=== PATIENT | female | born 1945 | race Caucasian/White ===

== ENCOUNTER → 2016-06-20 | Outpatient (CLI) | payer MEDICARE, BC ==
--- NOTE | 2016-06-20 16:05 | XR ---
Left wrist HISTORY: Pain 4 views of the left breast Exam correlated to prior exam second June 2016 left hand Bone mineralization is mildly reduced. Some joint space loss present at the carpometacarpal joint of the first digit. Possible geode formation within the scaphoid. Alignment is maintained. Lucency prese nt with overhanging edge at the level of the distal first metacarpal. Question erosion at the ulnar s tyloid. Joint space loss of the radiocarpal joint. IMPRESSION: Consider gout, osteoarthritis.
--- NOTE | 2016-06-20 16:18 | XR ---
Right hand HISTORY: Pain in left hand Correlation to left wrist same date 3 views of the left hand There is an overhanging edge, associated soft tissue swelling involving metacarpal. Bone mineralizati on appears decreased. Alignment is maintained. Some loss of joint space at the radiocarpal joint. Mansoor ency present at the ulnar styloid. There may be geode formation within the carpal bones. IMPRESSION: Consider gout, osteoarthritis.
== END | disposition home or self-care (01) ==
LOC: RADXRMAIN 15:22
PROVIDERS: ATTEND Family Medicine
DX: M79.642 Pain in left hand (principal)

== ENCOUNTER → 2018-04-07 | Outpatient (CLI) | payer MEDICARE, BC ==
--- NOTE | 2018-04-07 09:35 | US ---
EXAMINATION TYPE: US carotid duplex BILAT DATE OF EXAM: 04/07/2018 COMPARISON: NONE CLINICAL HISTORY: R42 dizziness/giddiness. x 10 days EXAM MEASUREMENTS: RIGHT: Peak Systolic Velocity (PSV) cm/sec ----- Right CCA: 111.9 ----- Right ICA: 139.2 ----- Right ECA: 172.0 ICA/CCA ratio: 1.2 RIGHT: End Diastole cm/sec ----- Right CCA: 21.0 ----- Right ICA: 22.9 ----- Right ECA: 0.0 LEFT: Peak Systolic Velocity (PSV) cm/sec ----- Left CCA: 87.6 ----- Left ICA: 308.4 ----- Left ECA: 112.5 ICA/CCA ratio: 3.5 LEFT: End Diastole cm/sec ----- Left CCA: 17.6 ----- Left ICA: 7.4 ----- Left ECA: 0.0 VERTEBRALS (direction of flow): Right Vertebral: Antegrade Left Vertebral: Antegrade Rhythm: Normal bilateral soft and calcified plaque. Increased flow velocities bilaterally. Left>Right. IMPRESSION: 1. Bilateral atherosclerotic plaque with findings suggestive of a 50-69% stenosis involving the proxi mal left ICA Criteria for Assigning % of Stenosis / Diameter reduction (Estimation based on the indirect measurements of the internal carotid artery velocities (ICA PSV). 1. Normal (no stenosis)=ICA PSV < 125 cm/s: ratio < 2.0: ICA EDV<40 cm/s. 2. Less than 50% stenosis=ICA PSV < 125 cm/s: ratio < 2.0: ICA EDV<40 cm/s. 3. 50 to 69% stenosis=ICA PSV of 125 to 230 cm/s: ration 2.0 ? 4.0: ICA EDV 40-100 cm/s. 4. Greater than 70% stenosis to near occlusion= ICA PSV > 230 cm/s: ratio > 4.0: ICA EDV > 100 cm/s. 5. Near occlusion= ICA PSV velocities may be low or undetectable: variable ratio and ICA EDV. 6. Total occlusion=unable to detect flow.
== END ==
LOC: RADUSMAIN 08:22
PROVIDERS: ATTEND Nurse Practitioner Family
DX: I65.23 Occlusion and stenosis of bilateral carotid arteries (principal); Z88.8 Allergy status to other drugs, medicaments and biological substances
CPT/HCPCS: 93880

== ENCOUNTER → 2018-11-20 | Outpatient (CLI) | payer MEDICARE, BC ==
[2018-11-20 12:15] LABS: African American GFR (CKD) >90 (>60 ml/min/1.73 sqM); Blood Urea Nitrogen 13 mg/dL (7-17)
--- NOTE | 2018-11-20 13:19 | CT ---
EXAMINATION TYPE: CT abdomen w con DATE OF EXAM: 11/20/2018 COMPARISON: HISTORY: LUQ pain x [address] DLP: 1180.7 mGycm Automated exposure control for dose reduction was used. TECHNIQUE: Helical acquisition of images was performed from the lung bases through the top of iliac crest to include entire abdomen. CONTRAST: Performed with Oral Contrast and with IV Contrast, patient injected with 100 mL of Isovue 300. FINDINGS: There are moderate coronary artery calcifications. LUNG BASES: No significant abnormality is appreciated. LIVER/GB: No significant abnormality is appreciated. PANCREAS: No significant abnormality is seen. SPLEEN: No significant abnormality is seen. ADRENALS: No significant abnormality is seen. KIDNEYS: No significant abnormality is seen. BOWEL: There is a duodenal diverticulum at the 3rd-4th portion of the duodenum.. LYMPH NODES: No significant abnormality is appreciated. OSSEOUS STRUCTURES: Degenerative disc changes are present within the visualized lumbar spine, there is a spinal curvature.. FREE AIR: No Free Air visible ASCITES: None visible. RETROPERITONEAL ADENOPATHY: No Retroperitoneal Adenopathy visible. OTHER: Dense atheromatous changes within the aorta. IMPRESSION: DUODENAL DIVERTICULUM. DEGENERATIVE DISC DISEASE AND SCOLIOSIS, FACET ARTHROPATHY. Coronary artery di laverne.
== END | disposition home or self-care (01) ==
LOC: RADCTMAIN 11:23
PROVIDERS: ATTEND Nurse Practitioner Women's Health
DX: K57.10 Diverticulosis of small intestine without perforation or abscess without bleeding (principal); Z88.8 Allergy status to other drugs, medicaments and biological substances
CPT/HCPCS: 82565; 84520; 74160; 36415; Q9967

== ENCOUNTER 2019-02-15 08:39 | Inpatient (IN) | payer MEDICARE, BC ==
[2019-02-15] MEDS ORDERED: IPRATROPIUM-ALBUTEROL 3 ML NEB INHALATION STA (09:13)
--- NOTE | 2019-02-15 09:29 | ED ---
General Adult HPI - General Chief complaint: Upper Respiratory Infection Stated complaint: NAVID, CONGESTION Time Seen by Provider: 02/15/19 08:45 Source: patient, RN notes reviewed, old records reviewed Mode of arrival: ambulatory Limitations: no limitations - History of Present Illness Initial comments: This is a 67-year-old male who presents emergency Department complaining of being short of breath for the last few days. Patient states she was started on amoxicillin by her primary medical care doctor but the difficulty breathing is gotten worse. Patient states she used to smoke some 30 years ago but does not smoke anymore. Patient denies a history of COPD. Patient states she had asthma as a child but hasn't had it since. Patient denies any history of congestive heart failure. Patient denies any chest pain or palpitations. Patient denies any fever chills. Patient states his been a nonproductive cough. Patient denies any swelling to the legs or calf tenderness. Patient denies any lightheadedness dizziness or near syncopal episode. Patient denies any abdominal pain patient denies any nausea vomiting. - Related Data Home Medications Medication Instructions Recorded Confirmed Amoxicillin 875 mg PO Q12HR 02/15/19 02/15/19 Gabapentin 600 mg PO BID 02/15/19 02/15/19 Ibuprofen [Advil] 400 mg PO Q8HR PRN 02/15/19 02/15/19 glipiZIDE [Glucotrol] 10 mg PO AC-BID 02/15/19 02/15/19 metFORMIN HCL [Glucophage] 500 mg PO TID 02/15/19 02/15/19 Allergies Allergy/AdvReac Type Severity Reaction Status Date / Time No Known Allergies Allergy Verified 02/15/19 09:13 Review of Systems ROS Statement: Those systems with pertinent positive or pertinent negative responses have been documented in the HPI. ROS Other: All systems not noted in ROS Statement are negative. Past Medical History Past Medical History: Diabetes Mellitus, Hypertension History of Any Multi-Drug Resistant Organisms: None Reported Past Surgical History: Breast Surgery Additional Past Surgical History / Comment(s): tumor removed, EGD Past Psychological History: No Psychological Hx Reported Smoking Status: Never smoker Past Alcohol Use History: None Reported Past Drug Use History: None Reported General Exam - General Exam Comments Initial Comments: GENERAL: Patient is well-developed and well-nourished. Patient is nontoxic and well- hydrated and is in mild distress. ENT: Neck is soft and supple. No significant lymphadenopathy is noted. Oropharynx is clear. Moist mucous membranes. Neck has full range of motion without elicit ing any pain. EYES: The sclera were anicteric and conjunctiva were pink and moist. Extraocular m ovements were intact and pupils were equal round and reactive to light. Eyelids were unremarkable. PULMONARY: Patient is crackles in the bases bilaterally CARDIOVASCULAR: There is a regular rate and rhythm without any murmurs gallops or rubs. ABDOMEN: Soft and nontender with normal bowel sounds. No palpable organomegaly was noted. There is no palpable pulsatile mass. SKIN: Skin is clear with no lesions or rashes and otherwise unremarkable. NEUROLOGIC: Patient is alert and oriented x3. Cranial nerves II through XII are grossly intact. Motor and sensory are also intact. Normal speech, volume and content. Symmetrical smile. MUSCULOSKELETAL: Normal extremities with adequate strength and full range of motion. LYMPHATICS: No significant lymphadenopathy is noted PSYCHIATRIC: Normal psychiatric evaluation. Limitations: no limitations Course Vital Signs 02/15/19 02/15/19 02/15/19 08:46 08:50 09:23 Temperature 97.5 F L Pulse Rate 105 H 100 Respiratory 18 20 Rate Blood Pressure 164/81 O2 Sat by Pulse 93 L Oximetry 02/15/19 02/15/19 09:35 11:44 Temperature 97.6 F Pulse Rate 104 H 98 Respiratory 20 Rate Blood Pressure 170/93 O2 Sat by Pulse 97 Oximetry Medical Decision Making - Medical Decision Making EKG shows normal sinus rhythm at 91 bpm FL interval is 156 dresses 90 QT interval 394 QTC is 484. Patient's EKG shows no ST segment elevation or depression or T wave abnormalities are noted Chest x-ray shows acute pulmonary edema Patient's troponin was also elevated so started the patient heparin. Give the patient Nitropaste and Lasix because of the congestive heart.. I spoke with Dr. Childress he agreed to admit the patient admitted the patient I consult cardiology continued Lasix Nitropaste and heparin on the floor. - Lab Data Result diagrams: 02/15/19 10:10 02/15/19 10:10 Lab Results 02/15/19 02/15/19 02/15/19 Range/Units 10:10 10:10 10:10 WBC 9.3 (3.8-10.6) k/uL RBC 4.08 (3.80-5.40) m/uL Hgb 11.7 (11.4-16.0) gm/dL Hct 36.2 (34.0-46.0) % MCV 88.7 (80.0-100.0) fL MCH 28.6 (25.0-35.0) pg MCHC 32.2 (31.0-37.0) g/dL RDW 15.4 (11.5-15.5) % Plt Count 419 (150-450) k/uL Neutrophils % 84 % Lymphocytes % 10 % Monocytes % 4 % Eosinophils % 1 % Basophils % 1 % Neutrophils # 7.8 H (1.3-7.7) k/uL Lymphocytes # 0.9 L (1.0-4.8) k/uL Monocytes # 0.3 (0-1.0) k/uL Eosinophils # 0.1 (0-0.7) k/uL Basophils # 0.1 (0-0.2) k/uL Hypochromasia Slight Poikilocytosis Slight PT (9.0-12.0) sec INR (<1.2) APTT (22.0-30.0) sec Sodium 139 (137-145) mmol/L Potassium 4.3 (3.5-5.1) mmol/L Chloride 99 (98-107) mmol/L Carbon Dioxide 28 (22-30) mmol/L Anion Gap 12 mmol/L BUN 11 (7-17) mg/dL Creatinine 0.43 L (0.52-1.04) mg/dL Est GFR (CKD-EPI)AfAm >90 (>60 ml/min/1.73 sqM) Est GFR (CKD-EPI)NonAf >90 (>60 ml/min/1.73 sqM) Glucose 437 H (74-99) mg/dL Calcium 9.4 (8.4-10.2) mg/dL Magnesium 1.7 (1.6-2.3) mg/dL Total Bilirubin 1.4 H (0.2-1.3) mg/dL AST 16 (14-36) U/L ALT 18 (9-52) U/L Alkaline Phosphatase 83 (38-126) U/L Troponin I (0.000-0.034) ng/mL NT-Pro-B Natriuret Pep 1500 pg/mL Total Protein 7.3 (6.3-8.2) g/dL Albumin 3.9 (3.5-5.0) g/dL 02/15/19 02/15/19 Range/Units 10:10 10:10 WBC (3.8-10.6) k/uL RBC (3.80-5.40) m/uL Hgb (11.4-16.0) gm/dL Hct (34.0-46.0) % MCV (80.0-100.0) fL MCH (25.0-35.0) pg MCHC (31.0-37.0) g/dL RDW (11.5-15.5) % Plt Count (150-450) k/uL Neutrophils % % Lymphocytes % % Monocytes % % Eosinophils % % Basophils % % Neutrophils # (1.3-7.7) k/uL Lymphocytes # (1.0-4.8) k/uL Monocytes # (0-1.0) k/uL Eosinophils # (0-0.7) k/uL Basophils # (0-0.2) k/uL Hypochromasia Poikilocytosis PT 10.6 (9.0-12.0) sec INR 1.0 (<1.2) APTT 22.5 (22.0-30.0) sec Sodium (137-145) mmol/L Potassium (3.5-5.1) mmol/L Chloride (98-107) mmol/L Carbon Dioxide (22-30) mmol/L Anion Gap mmol/L BUN (7-17) mg/dL Creatinine (0.52-1.04) mg/dL Est GFR (CKD-EPI)AfAm (>60 ml/min/1.73 sqM) Est GFR (CKD-EPI)NonAf (>60 ml/min/1.73 sqM) Glucose (74-99) mg/dL Calcium (8.4-10.2) mg/dL Magnesium (1.6-2.3) mg/dL Total Bilirubin (0.2-1.3) mg/dL AST (14-36) U/L ALT (9-52) U/L Alkaline Phosphatase (38-126) U/L Troponin I 0.131 H* (0.000-0.034) ng/mL NT-Pro-B Natriuret Pep pg/mL Total Protein (6.3-8.2) g/dL Albumin (3.5-5.0) g/dL Disposition Clinical Impression: Acute pulmonary edema Disposition: ADMITTED IP TO THIS HOSP Referrals: Wilfredo Boland MD [Primary Care Provider] - 1-2 days Time of Disposition: 11:56
--- NOTE | 2019-02-15 09:44 | XR ---
EXAMINATION TYPE: XR chest 2V DATE OF EXAM: 02/15/2019 COMPARISON: None HISTORY: Difficulty breathing, shortness of breath TECHNIQUE: Frontal and lateral views of the chest are obtained. FINDINGS: Interstitium is increased. The heart is enlarged. There is no pneumothorax. Blunting the c ostophrenic angles. Aorta is dense. Central vascularity is prominent, perihilar vascular indistinctne ss is noted. IMPRESSION: Correlate for congestive heart failure, possible small effusions
[2019-02-15 10:29] LABS: Basophils # (A) 0.1 k/uL (0-0.2); Basophils % (A) 1 %; Eosinophils # (A) 0.1 k/uL (0-0.7); Eosinophils % (A) 1 %; HCT 36.2 % (34.0-46.0); HGB 11.7 gm/dL (11.4-16.0); Hypochromasia Slight; Lymphocytes # (A) 0.9 k/uL (1.0-4.8); Lymphocytes % (A) 10 %; MCH 28.6 pg (25.0-35.0); MCHC 32.2 g/dL (31.0-37.0); MCV 88.7 fL (80.0-100.0); Mean Platelet Volume 5.9; Monocytes # (A) 0.3 k/uL (0-1.0); Monocytes % (A) 4 %; Neutrophils # (A) 7.8 k/uL (1.3-7.7); Neutrophils % (A) 84 %; Platelet Count 419 k/uL (150-450); Poikilocytosis Slight; RBC 4.08 m/uL (3.80-5.40); RDW 15.4 % (11.5-15.5); WBC 9.3 k/uL (3.8-10.6)
[2019-02-15 10:41] LABS: ALT 18 U/L (9-52); AST 16 U/L (14-36); African American GFR (CKD) >90 (>60 ml/min/1.73 sqM); Albumin 3.9 g/dL (3.5-5.0); Alkaline Phosphatase 83 U/L (38-126); Anion Gap 12 mmol/L; Blood Urea Nitrogen 11 mg/dL (7-17); Calcium 9.4 mg/dL (8.4-10.2); Carbon Dioxide 28 mmol/L (22-30); Chloride 99 mmol/L (98-107); Glucose 437 mg/dL (74-99); Magnesium 1.7 mg/dL (1.6-2.3); Non-African American GFR(CKD) >90 (>60 ml/min/1.73 sqM); Potassium 4.3 mmol/L (3.5-5.1); Sodium 139 mmol/L (137-145); Total Bilirubin 1.4 mg/dL (0.2-1.3); Total Protein 7.3 g/dL (6.3-8.2)
[2019-02-15 10:43] LABS: Partial Thromboplastin Time 22.5 sec (22.0-30.0); Prothrombin Time 10.6 sec (9.0-12.0)
[2019-02-15] MEDS ORDERED: HEPARIN SODIUM,PORCINE 5,000 UNIT/ML 1 ML VIAL IV ONE (11:47)
[2019-02-15] MEDS ORDERED: FUROSEMIDE 10 MG/ML 2 ML VIAL IV STA (11:57)
[2019-02-15] MEDS ORDERED: ASPIRIN 325 MG TAB PO STA (11:57)
[2019-02-15] MEDS ORDERED: NITROGLYCERIN OINT 1 INCH/GM PACKET TOPICAL STA (11:58)
[2019-02-15 12:38] LABS: Glucose,Whole Blood 362 mg/dL (75-99)
[2019-02-15] MEDS: INSULIN ASPART (NovoLOG) 100 UNIT/ML VIAL SQ SCH ×3 (12:40→20:45)
[2019-02-15] MEDS: HEPARIN SOD,PORK IN 0.45% NACL 25,000 UNIT in 0.45% NACL 1 250ML.BAG IV SCH (12:45)
[2019-02-15] MEDS ORDERED: IBUPROFEN 400 MG TAB PO PRN (15:42)
[2019-02-15] MEDS: glipiZIDE 10 MG TAB PO SCH (17:00)
[2019-02-15] MEDS: FUROSEMIDE 20 MG TAB PO SCH ×2 (17:00→22:43)
[2019-02-15] MEDS: NITROGLYCERIN OINT 1 INCH/GM PACKET TOPICAL SCH ×2 (17:04→20:45)
[2019-02-15 17:15] LABS: Glucose,Whole Blood 316 mg/dL (75-99)
[2019-02-15 20:25] LABS: Glucose,Whole Blood 224 mg/dL (75-99)
[2019-02-15] MEDS: GABAPENTIN 300 MG CAP PO SCH (20:45)
[2019-02-16 06:09] LABS: Glucose,Whole Blood 124 mg/dL (75-99)
[2019-02-16] MEDS: INSULIN ASPART (NovoLOG) 100 UNIT/ML VIAL SQ SCH ×4 (06:14→21:17)
[2019-02-16] MEDS: glipiZIDE 10 MG TAB PO SCH ×3 (06:18→17:51)
[2019-02-16] MEDS ORDERED: NITROGLYCERIN SL TABS 0.4 MG TAB SUBLINGUAL PRN (08:35)
[2019-02-16] MEDS ORDERED: ALPRAZolam 0.25 MG TAB PO PRN (08:35)
[2019-02-16] MEDS ORDERED: ASPIRIN 325 MG TAB PO STA (08:35)
[2019-02-16] MEDS ORDERED: ATORVASTATIN 80 MG TAB PO STA (08:35)
[2019-02-16] MEDS ORDERED: ALPRAZolam 0.5 MG TAB PO PRN (08:35)
[2019-02-16] MEDS ORDERED: SODIUM CHLORIDE 0.9% 1,000 ML in EMPTY BAG 1 BAG IV ONE (08:35)
[2019-02-16] MEDS: GABAPENTIN 300 MG CAP PO SCH ×2 (09:03→22:34)
[2019-02-16] MEDS: METOPROLOL SUCCINATE (ER) 25 MG TAB.ER.24H PO SCH (09:04)
[2019-02-16] MEDS: NITROGLYCERIN OINT 1 INCH/GM PACKET TOPICAL SCH ×4 (09:04→22:38)
--- NOTE | 2019-02-16 09:13 | CONS ---
CONSULTATION CHIEF COMPLAINT: Shortness of breath This is a 73-year-old lady with multiple coronary risk factors including hypertension, diabetes, strong family history of premature coronary artery disease, who presented to hospital complaining of shortness of breath. Her difficulty in breathing had been going on for the last one week. It initially started with cough and cold. Subsequently, she has had significant shortness of breath. It comes on with exertion and is relieved with rest. There is no history of leg edema, PND or orthopnea. She came to hospital with these symptoms and her troponin came back elevated. An EKG shows sinus rhythm with nonspecific ST-T wave changes. Given shortness of breath and elevated troponin, iron, and multiple coronary risk factors, I advised the patient to undergo cardiac catheterization to evaluate for coronary artery disease. She had been explained of risks, benefits and alternatives, understood and accepted. PAST MEDICAL HISTORY: Significant for hypertension, diabetes. MEDICATIONS: At home included Glucophage 500 t.i.d., amoxicillin, Glucotrol, Advil, and Neurontin. ALLERGIES: There are no known drug allergies. FAMILY HISTORY: Significant for premature coronary artery disease and there is also family history of diabetes. REVIEW OF SYSTEMS: HEENT: Unremarkable. CARDIAC: As described above. RESPIRATORY: As described above. GI: Negative. GENITOURINARY: Negative. ALLERGY/IMMUNOLOGIC: Negative. MUSCULOSKELETAL: Negative. ENDOCRINE: Negative. HEMATOLOGICAL: Negative. DERM: Negative. CONSTITUTIONAL: Negative. ONCOLOGICAL: Negative. Rest of the system review is not relevant. PHYSICAL EXAM: Patient is comfortable at rest. Vital signs are stable. There is no jugular venous distention. Carotid upstroke is normal. There is no bruit. Chest exam reveals good air entry bilaterally. There are no crackles or rhonchi. Heart exam reveals first and second heart sounds. No gallop. No murmur. No rub. Abdomen is soft, nontender. Exam of the extremities did not reveal any edema. Peripheral pulses are felt. LABS: Show potassium of 4.3, creatinine of 0.4, hemoglobin is 7.7, platelet count is 419. Troponin is 0.131. ASSESSMENT: 1. Shortness of breath secondary to acute non ST-segment elevation myocardial infarction. 2. Hypertension. 3. Diabetes. PLAN: I will perform cardiac catheterization on the patient and decide on further course of action. I will obtain a 2D echo to evaluate her LV function and wall motion. Will start the patient on a beta kan. Continue the aspirin. Check lipid profile and start her on statin. MMODL / IJN: [id number] /
[2019-02-16 09:41] LABS: Basophils % (A) 0 %; Eosinophils # (A) 0.3 k/uL (0-0.7); Eosinophils % (A) 3 %; HCT 34.7 % (34.0-46.0); Hypochromasia Moderate; Lymphocytes # (A) 1.6 k/uL (1.0-4.8); Lymphocytes % (A) 18 %; MCH 28.3 pg (25.0-35.0); MCHC 31.7 g/dL (31.0-37.0); MCV 89.1 fL (80.0-100.0); Mean Platelet Volume 5.9; Monocytes # (A) 0.4 k/uL (0-1.0); Monocytes % (A) 5 %; Neutrophils # (A) 6.3 k/uL (1.3-7.7); Neutrophils % (A) 72 %; Platelet Count 414 k/uL (150-450); Poikilocytosis Slight; RDW 15.5 % (11.5-15.5); WBC 8.7 k/uL (3.8-10.6)
[2019-02-16 09:57] LABS: African American GFR (CKD) >90 (>60 ml/min/1.73 sqM); Anion Gap 7 mmol/L; Blood Urea Nitrogen 14 mg/dL (7-17); Calcium 8.9 mg/dL (8.4-10.2); Carbon Dioxide 31 mmol/L (22-30); Chloride 103 mmol/L (98-107); Cholesterol 189 mg/dL (<200); Glucose 155 mg/dL (74-99); HDL Cholesterol 35 mg/dL (40-60); LDL Cholesterol,Calculated 133 mg/dL (0-99); Non-African American GFR(CKD) >90 (>60 ml/min/1.73 sqM); Potassium 4.1 mmol/L (3.5-5.1); Sodium 141 mmol/L (137-145); Triglycerides 107 mg/dL (<150)
[2019-02-16 11:07] VITALS: BMI 29.1
--- NOTE | 2019-02-16 11:36 | ECHOF ---
Referral Reason:nonstemi MEASUREMENTS -------- HEIGHT: 167.6 cm WEIGHT: 81.6 kg BP: 138/72 RVIDd: 1.9 cm (< 3.3) IVSd: 0.9 cm (0.6 - 1.1) LVIDd: 4.8 cm (3.9 - 5.3) LVPWd: 1.2 cm (0.6 - 1.1) IVSs: 1.3 cm LVIDs: 3.6 cm LVPWs: 1.3 cm Ao Diam: 2.5 cm (2.0 - 3.7) AV Cusp: 1.7 cm (1.5 - 2.6) LA Diam: 3.9 cm (2.7 - 3.8) MV EXCURSION: 13.536 mm (> 18.000) MV EF SLOPE: 78 mm/s (70 - 150) EPSS: 0.4 cm MV E Pavan: 1.27 m/s MV DecT: 169 ms MV A Pavan: 1.23 m/s MV E/A Ratio: 1.03 RAP: 5.00 mmHg RVSP: 8.33 mmHg FINDINGS -------- Sinus rhythm. This was a technically difficult study with suboptimal views. The left ventricular size is normal. Left ventricular wall thickness is normal. Overall left vent ricular systolic function is low-normal with, an EF between 50 - 55 %. The right ventricle is normal in size. The left atrial size is normal. The right atrial size is normal. Lumason used The aortic valve is trileaflet and appears structurally normal. The mitral valve is normal. The mitral valve leaflets are mildly thickened. Mild mitral regurgita tion is present. The tricuspid valve appears structurally normal. Trace tricuspid regurgitation present. Right kendal tricular systolic pressure is normal at < 35 mmHg. Pulmonic valve appears structurally normal. The aortic root size is normal. IVC Not well visulized. There is no pericardial effusion. CONCLUSIONS -------- 1. Sinus rhythm. 2. This was a technically difficult study with suboptimal views. 3. The left ventricular size is normal. 4. Left ventricular wall thickness is normal. 5. Overall left ventricular systolic function is low-normal with, an EF between 50 - 55 %. 6. The right ventricle is normal in size. 7. The left atrial size is normal. 8. The right atrial size is normal. 9. Lumason used 10. The aortic valve is trileaflet and appears structurally normal. 11. The mitral valve is normal. 12. The mitral valve leaflets are mildly thickened. 13. Mild mitral regurgitation is present. 14. The tricuspid valve appears structurally normal. 15. Trace tricuspid regurgitation present. 16. Right ventricular systolic pressure is normal at < 35 mmHg. 17. Pulmonic valve appears structurally normal. 18. The aortic root size is normal. 19. IVC Not well visulized. 20. There is no pericardial effusion. GEARCASE ASSEMBLER: Debbie Carver RDCS
[2019-02-16 11:46] LABS: Glucose,Whole Blood 157 mg/dL (75-99)
[2019-02-16] MEDS ORDERED: IV FLUID CONTINUATION 1,000 ML IV ONE (13:06)
[2019-02-16] MEDS ORDERED: MIDAZOLAM 2 MG/2 ML VIAL IV ONE (13:21)
[2019-02-16] MEDS ORDERED: LIDOCAINE 1% INJ 10MG/ML (20 ML MDV) SQ ONE (13:23)
[2019-02-16] MEDS ORDERED: fentaNYL (PF) 50 MCG/ML 2 ML AMP IV ONE (13:27)
[2019-02-16] MEDS ORDERED: IOPAMIDOL-370 125ML BTL INJ ONE (13:38)
[2019-02-16] MEDS ORDERED: RX INFO: IV CONTRAST WAS GIVEN 1 EACH MISC MISCELLANE PRN (13:55)
[2019-02-16 17:09] LABS: Glucose,Whole Blood 139 mg/dL (75-99)
[2019-02-16] MEDS: SODIUM CHLORIDE 0.9% 1,000 ML IV SCH (17:51)
[2019-02-16] MEDS: CLOPIDOGREL 75 MG TAB PO SCH (17:51)
[2019-02-16] MEDS: HEPARIN SOD,PORK IN 0.45% NACL 25,000 UNIT in 0.45% NACL 1 250ML.BAG IV SCH (19:05)
[2019-02-16] MEDS: FUROSEMIDE 20 MG TAB PO SCH (19:06)
--- NOTE | 2019-02-16 20:10 | CC ---
CARDIAC CATHETERIZATION REPORT INDICATION: Acute [id number]-tqeffhe-elevation IA. PROCEDURE NOTE: After obtaining informed consent, left heart catheterization and coronary angiogram were performed via the right femoral artery using standard Angel catheters. Patient tolerated the procedure well without any obvious immediate complications. A femoral angiogram was performed. Patient has extensive peripheral vascular disease and has a prior stent. She will have manual hemostasis. She received moderate conscious sedation. Total sedation time was 20 minutes. FINDINGS: HEMODYNAMICS: Left ventricular end-diastolic pressure is 18 to 20 mm. There is no significant gradient across the aortic valve. LEFT VENTRICULOGRAM: Left ventriculogram shows normal left ventricular size and systolic function with an ejection fraction of 55%. There is 2+ mitral regurgitation which seems to be catheter-induced. LEFT MAIN CORONARY ARTERY: Left main coronary artery appears calcified but is free of significant stenosis. It divides into left anterior descending coronary artery and circumflex coronary artery. LAD shows diffuse disease. Diagonal branch shows a 70% to 80% stenosis. Circumflex coronary artery also appears calcified and shows diffuse disease. OM branch shows a 95% stenosis. RIGHT CORONARY ARTERY: This is a large dominant vessel which shows extensive atherosclerotic plaque involving proximal mid and distal RCA, and in the distal part there is a focal 70% stenosis. CONCLUSIONS: Diffuse multivessel coronary artery disease with focal areas of stenosis involving distal right coronary artery, OM branch and the diagonal. PLAN: I will ask Dr. Garrick Bonilla, the on-call dat instructor, to evaluate the angiographic data and advise on angioplasty. MMODL / IJN: [id number] /
[2019-02-16 20:12] LABS: Glucose,Whole Blood 124 mg/dL (75-99)
[2019-02-16] MEDS: ATORVASTATIN 80 MG TAB PO SCH (22:34)
[2019-02-17] MEDS: SODIUM CHLORIDE 0.9% 1,000 ML IV SCH ×2 (05:38→18:30)
[2019-02-17 06:11] LABS: Glucose,Whole Blood 197 mg/dL (75-99)
[2019-02-17] MEDS: glipiZIDE 10 MG TAB PO SCH ×2 (06:18→17:55)
[2019-02-17] MEDS: INSULIN ASPART (NovoLOG) 100 UNIT/ML VIAL SQ SCH ×4 (06:19→20:57)
[2019-02-17 06:31] LABS: Basophils % (A) 1 %; Eosinophils # (A) 0.2 k/uL (0-0.7); Eosinophils % (A) 3 %; HCT 31.6 % (34.0-46.0); HGB 10.2 gm/dL (11.4-16.0); Hypochromasia Slight; Lymphocytes # (A) 1.2 k/uL (1.0-4.8); Lymphocytes % (A) 20 %; MCH 28.6 pg (25.0-35.0); MCHC 32.2 g/dL (31.0-37.0); MCV 88.9 fL (80.0-100.0); Mean Platelet Volume 6.6; Monocytes # (A) 0.4 k/uL (0-1.0); Monocytes % (A) 7 %; Neutrophils # (A) 4.2 k/uL (1.3-7.7); Neutrophils % (A) 68 %; Platelet Count 350 k/uL (150-450); Poikilocytosis Slight; RBC 3.56 m/uL (3.80-5.40); RDW 15.9 % (11.5-15.5); WBC 6.1 k/uL (3.8-10.6)
[2019-02-17 06:47] LABS: African American GFR (CKD) >90 (>60 ml/min/1.73 sqM); Anion Gap 7 mmol/L; Blood Urea Nitrogen 16 mg/dL (7-17); Calcium 8.7 mg/dL (8.4-10.2); Carbon Dioxide 28 mmol/L (22-30); Chloride 106 mmol/L (98-107); Glucose 188 mg/dL (74-99); Non-African American GFR(CKD) >90 (>60 ml/min/1.73 sqM); Potassium 3.7 mmol/L (3.5-5.1); Sodium 141 mmol/L (137-145)
[2019-02-17] MEDS: GABAPENTIN 300 MG CAP PO SCH ×2 (08:35→20:31)
[2019-02-17] MEDS: CLOPIDOGREL 75 MG TAB PO SCH (08:35)
[2019-02-17] MEDS: NITROGLYCERIN OINT 1 INCH/GM PACKET TOPICAL SCH ×4 (08:36→17:55)
[2019-02-17] MEDS: METOPROLOL SUCCINATE (ER) 25 MG TAB.ER.24H PO SCH (08:36)
[2019-02-17] MEDS ORDERED: FUROSEMIDE 10 MG/ML 4 ML VIAL IV STA (08:44)
[2019-02-17] MEDS ORDERED: IPRATROPIUM-ALBUTEROL 3 ML NEB INHALATION PRN (08:49)
--- NOTE | 2019-02-17 08:56 | P.HPIM ---
History of Present Illness H&P Date: 02/16/19 Chief Complaint: Dyspnea This is a 73-year-old female with history of diabetes mellitus, hypertension, family history of CAD, prior nicotine dependence, presented to the ER with significant difficulty breathing. Patient reports she had some congestion earlier in the week, attributed to sinusitis and by Friday developed worsening shortness of breath accompanied by productive cough, white sputum, worsened with exertion. Chest x-ray reported pulmonary edema/possible small effusions. Denies chest pain, palpitations. EKG reported sinus rhythm with nonspecific ST- T wave changes. Troponins 0.131, 0.205 with a troponin pending .BNP 1500. Triglycerides 107, cholesterol 189, LDL 133, HDL 35. Afebrile, normal WBC. Blood sugars elevated on admission at 224. Denies nausea vomiting or diarrhea. Denies abdominal pain. Heparin drip initiated along with Nitropaste and Lasix. Cardiology consulted. Review of Systems ROS Statement: Those systems with pertinent positive or pertinent negative responses have been documented in the HPI. ROS Other: All systems not noted in ROS Statement are negative. Past Medical History Past Medical History: Asthma, Diabetes Mellitus, Hypertension, Osteoarthritis (OA), Vascular Disorder Additional Past Medical History / Comment(s): Asthma years ago, NIDDM type II, neuropathy bilateral feet, pt states she has been having intermittent edema bilateral ankles and feet past 6 months, vertigo at times, arthritis bilateral hands, varicosity L leg, constipation. History of Any Multi-Drug Resistant Organisms: None Reported Past Surgical History: Breast Surgery Additional Past Surgical History / Comment(s): L breast biopsy x2 benign, EGD, colonoscopy. Past Anesthesia/Blood Transfusion Reactions: No Reported Reaction Smoking Status: Former smoker - Past Family History Father Family Medical History: Diabetes Mellitus, Myocardial Infarction (GA) Additional Family Medical History / Comment(s): Father was bipolar. He had his first GA at the age of 63 yrs and from his 2nd GA at the age of 66yrs. Mother Family Medical History: Diabetes Mellitus Additional Family Medical History / Comment(s): Mother was bipolar. She at the age of 81 yrs from MRSA infection. Medications and Allergies Home Medications Medication Instructions Recorded Confirmed Type Amoxicillin 875 mg PO Q12HR 02/15/19 02/15/19 History Gabapentin 600 mg PO BID 02/15/19 02/15/19 History Ibuprofen [Advil] 400 mg PO Q8HR PRN 02/15/19 02/15/19 History glipiZIDE [Glucotrol] 10 mg PO AC-BID 02/15/19 02/15/19 History metFORMIN HCL [Glucophage] 500 mg PO TID 02/15/19 02/15/19 History Allergies Allergy/AdvReac Type Severity Reaction Status Date / Time No Known Allergies Allergy Verified 02/15/19 09:13 Physical Exam Vitals: Vital Signs Temp Pulse Pulse Resp BP BP Pulse Ox 02/16/19 08:48 93 L 02/16/19 08:00 98.4 F 80 16 122/55 93 L 02/16/19 04:00 98 F 78 18 138/72 96 02/16/19 03:31 18 02/15/19 23:34 18 142/70 95 02/15/19 20:00 97.6 F 85 18 130/72 96 02/15/19 15:30 87 16 02/15/19 14:52 97.4 F L 87 16 139/74 92 L 02/15/19 14:50 98.1 F 80 18 140/86 98 Intake and Output 02/15/19 02/16/19 02/16/19 22:59 06:59 14:59 Intake Total 317.875 78.48 100 Balance 317.875 78.48 100 Intake: IV 100 Intake, IV Titration 77.875 78.48 Amount Heparin Sod,Pork in 0.45% 77.875 78.48 NaCl 25,000 unit In 0.45 % NaCl 1 250ml.bag @ 12 UNITS/KG/HR 9.634 mls/hr IV .Q24H [facility] Rx#: [id number] Oral 240 Other: # Voids 1 1 1 Weight 81.9 kg 81.9 kg PHYSICAL EXAM: VITAL SIGNS: As above GENERAL: Sitting up in bed, no acute distress HEENT: Conjunctivae normal. eyes normal. NECK: No JVD. No thyroid enlargement. No LNs CARDIOVASCULAR: S1, S2 regular.. No murmur, gallop or rub. RESPIRATION: Breath sounds diminished in the bases. No rhonchi or crackles. No expiratory wheezing ABDOMEN: Soft, nontender . No guarding. no masses palpable. No ascites, No hepatosplenomegaly.Bowel sounds heard. LEGS: No edema. no swelling PSYCHIATRY: Alert and oriented X3, mood and affect normal. NERVOUS SYSTEM: Cranial N 2-12 grossly normal. Moves all 4 limbs. Diffuse weakness No focal deficits. Strength and sensation grossly intact.. Skin: no lesions, no rash Lymphatic system. No LN neck axilla. Results CBC & Chem 7: 02/17/19 06:05 02/17/19 06:05 Labs: Abnormal Lab Results - Last 24 Hours (Table) 02/15/19 02/15/19 02/16/19 Range/Units 16:51 20:24 02:38 Hgb (11.4-16.0) gm/dL APTT 39.1 H (22.0-30.0) sec Carbon Dioxide (22-30) mmol/L Creatinine (0.52-1.04) mg/dL Glucose (74-99) mg/dL POC Glucose (mg/dL) 316 H 224 H (75-99) mg/dL Troponin I (0.000-0.034) ng/mL LDL Cholesterol, Calc (0-99) mg/dL HDL Cholesterol (40-60) mg/dL 02/16/19 02/16/19 02/16/19 Range/Units 06:08 09:04 09:04 Hgb (11.4-16.0) gm/dL APTT 38.8 H (22.0-30.0) sec Carbon Dioxide (22-30) mmol/L Creatinine (0.52-1.04) mg/dL Glucose (74-99) mg/dL POC Glucose (mg/dL) 124 H (75-99) mg/dL Troponin I 0.205 H* (0.000-0.034) ng/mL LDL Cholesterol, Calc (0-99) mg/dL HDL Cholesterol (40-60) mg/dL 02/16/19 02/16/19 02/16/19 Range/Units 09:04 09:04 11:45 Hgb 11.0 L (11.4-16.0) gm/dL APTT (22.0-30.0) sec Carbon Dioxide 31 H (22-30) mmol/L Creatinine 0.48 L (0.52-1.04) mg/dL Glucose 155 H (74-99) mg/dL POC Glucose (mg/dL) 157 H (75-99) mg/dL Troponin I (0.000-0.034) ng/mL LDL Cholesterol, Calc 133 H (0-99) mg/dL HDL Cholesterol 35 L (40-60) mg/dL Microbiology - Last 24 Hours (Table) 02/15/19 10:10 Blood Culture - Preliminary Blood No Growth after 24 hours Thrombosis Risk Factor Assmnt - Choose All That Apply Any of the Below Risk Factors Present?: Yes Each Factor Represents 1 point: Obesity (BMI >25), Swollen legs (current), Jimmie icose veins Other Risk Factors: Yes Each Risk Factor Represents 2 Points: Age 61-74 years Other congenital or acquired thrombophilia - If yes, enter type in comment: No Thrombosis Risk Factor Assessment Total Risk Factor Score: 5 Thrombosis Risk Factor Assessment Level: High Risk Assessment and Plan Assessment: -Shortness of breath with Acute pulmonary edema -Elevated troponins, nonspecific ST-T wave changes per EKG, possible acute non- STEMI -Diabetes mellitus -Hypertension -Chronic asthma -Osteoarthritis -Peripheral vascular disease -Vertigo -Former nicotine dependence Plan: Continue on current medication regime ,monitoring and symptomatic treatment. Maintained on acute coronary syndrome pathway/beta kan/aspirin/s tatin. Evaluated by cardiology, cardiac catheterization pending. Echo pending. Home meds have been reviewed and resumed accordingly. The impression and plan of care has been dictated as directed. : I performed a history and examination of this patient, discussed the same with the dictator. I agree with the dictator's note ,documented as a scribe. Any additional findings or plans will be noted.
[2019-02-17] MEDS ORDERED: FUROSEMIDE 20 MG TAB PO SCH (09:00)
--- NOTE | 2019-02-17 09:38 | XR ---
EXAMINATION TYPE: XR chest 1V portable DATE OF EXAM: 02/17/2019 COMPARISON: 02/15/2019 HISTORY: sob FINDINGS: There are bilateral pleural effusions with cardiomegaly and bibasilar infiltrate. There is a diffuse interstitial pattern. IMPRESSION: 1. Findings are most suggestive of CHF. Underlying chronic interstitial lung disease not excluded. In terstitial pneumonitis also in the differential diagnosis.
[2019-02-17] MEDS ORDERED: HEPARIN SODIUM,PORCINE 5,000 UNIT/ML 1 ML VIAL IV PRN (10:04)
[2019-02-17] MEDS ORDERED: RX INFO: IV CONTRAST WAS GIVEN 1 EACH MISC MISCELLANE PRN (10:04)
[2019-02-17] MEDS ORDERED: HEPARIN SODIUM,PORCINE 10,000 UNIT/ML 1 ML VIAL IV ONE (10:04)
[2019-02-17] MEDS ORDERED: HEPARIN SOD,PORK IN 0.45% NACL 25,000 UNIT in 0.45% NACL 1 250ML.BAG IV SCH (10:15)
[2019-02-17 10:52] LABS: Partial Thromboplastin Time 24.5 sec (22.0-30.0); Prothrombin Time 10.8 sec (9.0-12.0)
--- NOTE | 2019-02-17 11:09 | CT ---
CT CHEST FOR PULMONARY EMBOLISM. EXAMINATION TYPE: CT angio chest DATE OF EXAM: 02/17/2019 INDICATION: increased d-dimer post cardiac cath CT DLP: 473.5 mGycm, Automated exposure control for dose reduction was used. CONTRAST: Patient injected with 80 mL of Isovue 370. COMPARISON: None TECHNIQUE: CT of the chest is performed on a spiral scan at 2 mm thick sections. Study is performed with intravenous contrast timed for evaluation for pulmonary embolism. This will limit additional po rtions of the evaluation. 3-D MIP images reconstructed by the technologist are reviewed on the compu ter in the coronal and sagittal planes. FINDINGS: No persistent filling defects are evident to suggest an acute pulmonary embolism. No mediastinal or hilar adenopathy enlarged by CT criteria is evident. The ascending aorta diameter at the level of the main pulmonary artery is 2.8 cm. The main pulmonary artery diameter at the bifur cation is 2.6 cm. Small bilateral pleural effusions are present. Mild compressive atelectasis is likely adjacent. There is a 1.0 cm nodule in the posterior lateral left apex. There is a 0.8 cm area of pneumonitis al enedina the anterior right midlung periphery. Series 406 image 64. There is a 0.7 cm nodule within the pe riphery of the right middle lobe. Series 406 image 86. There is a large lung nodule with irregular margins measuring 3.5 x 2.7 cm in the posterior superior segment right lower lobe. Series 406 image 73. An additional area within the right mid lung measures 1.1 x 1.9 cm. Series 406 image 75. This area may have been within the field of view on 11/20/[address] abdomen and pelvis. Masses were not identified previously. Differential diagnosis should inc lude infectious etiologies such as pneumonia. There are scattered areas of pneumonitis within the periphery of the lungs. Limited CT section through the upper abdomen are unremarkable. Note is made of some mild reflux into the inferior vena cava. No additional right heart strain findings are evident. IMPRESSIONS: 1. No acute pulmonary embolism. 2. Pulmonary nodules right mid and lower lung field. Workup for neoplasm is recommended. This may be a recent development from November 2018 and other etiologies should be considered such as pneumonia. 3. There are additional smaller nodules and areas of pneumonitis within the bilateral lung raymundo dis cussed above.
--- NOTE | 2019-02-17 11:37 | P.PN ---
Subjective Progress Note Date: 02/17/19 This is a pleasant 73-year-old female with history of hypertension, diabetes, strong family history of premature coronary artery disease, presented to the hospital primarily with symptoms of progressively worsening shortness of breath. Her EKG on presentation here showed a normal sinus rhythm with nonspecific ST-T wave changes, she also was noted to have abnormality in troponin and for this reason patient was taken to the cardiac catheterization lab yesterday by Dr. Neil. Her cardiac catheterization revealed diffuse multivessel coronary artery disease with focal areas of stenosis involving the distal right coronary artery, OM branch and diagonal. The films were reviewed by Dr. Sue Bonilla and the recommendation was to continue current medical therapy. The patient was seen and examined this morning, she was quite short of breath, states that she started feeling short of breath through the night last night. Similar to how she felt on presentation here. Night having any chest disc omfort, no palpitations. Blood pressure 122/60 with a heart rate in the 70s, 90% on room air. White blood cell count 6.1, hemoglobin 10.2, platelet count 350. D-dimer was performed which came back at 1.5. Sodium 141, potassium 3.7, BUN 16, creatinine 0.4. BNP level 1300. Stat chest x-ray was ordered this morning which revealed congestive heart failure, underlying chronic interstitial lung disease not excluded. A CTA of the chest was also performed which did not reveal any acute pulmonary embolism. Pulmonary nodules in the right mid and lower lung field. Workup for neoplasm is recommended. This may be a recent development from November 2018. There are additional smaller nodules and areas of pneumonitis within the bilateral lung raymundo Objective - Vital Signs Vital signs: Vital Signs Temp 97.6 F 02/17/19 03:09 Pulse 80 02/17/19 03:09 Resp 18 02/17/19 03:11 BP 150/68 02/17/19 03:09 Pulse Ox 97 02/17/19 03:09 Intake & Output 02/16/19 02/17/19 02/17/19 18:59 06:59 18:59 Intake Total 100 250 Balance 100 250 Weight 81.9 kg 82.9 kg Intake: IV 100 Oral 250 Other: # Voids 0 1 - Exam PHYSICAL EXAMINATION: GENERAL: 73-year-old female, quite short of breath at the time of my examination HEENT: Head is atraumatic, normocephalic. Pupils equal, round. Sclera anicteric. Conjunctiva are clear. Mucous membranes of the mouth are moist. Neck is supple. There is elevated jugular venous pressure. No carotid bruit is heard. HEART EXAMINATION: Heart S1, S2 normal. No murmur or gallop heard. CHEST EXAMINATION: Lungs reveal rales to bilateral bases. ABDOMEN: Soft, nontender. Bowel sounds are heard. No organomegaly noted. EXTREMITIES: 2+ peripheral pulses with trace evidence of peripheral edema and no calf tenderness noted. Right groin is soft, no evidence of any hematoma. NEUROLOGIC patient is awake, alert and oriented 3 . . - Labs CBC & Chem 7: 02/17/19 06:05 02/17/19 06:05 Labs: Abnormal Lab Results - Last 24 Hours (Table) 02/16/19 02/16/19 02/16/19 Range/Units 11:45 15:01 16:49 RBC (3.80-5.40) m/uL Hgb (11.4-16.0) gm/dL Hct (34.0-46.0) % RDW (11.5-15.5) % D-Dimer (<0.60) mg/L FEU Creatinine (0.52-1.04) mg/dL Glucose (74-99) mg/dL POC Glucose (mg/dL) 157 H 139 H (75-99) mg/dL Troponin I 0.180 H* (0.000-0.034) ng/mL 02/16/19 02/17/19 02/17/19 Range/Units 20:11 06:05 06:05 RBC 3.56 L (3.80-5.40) m/uL Hgb 10.2 L (11.4-16.0) gm/dL Hct 31.6 L (34.0-46.0) % RDW 15.9 H (11.5-15.5) % D-Dimer (<0.60) mg/L FEU Creatinine 0.47 L (0.52-1.04) mg/dL Glucose 188 H (74-99) mg/dL POC Glucose (mg/dL) 124 H (75-99) mg/dL Troponin I (0.000-0.034) ng/mL 02/17/19 02/17/19 Range/Units 06:10 09:06 RBC (3.80-5.40) m/uL Hgb (11.4-16.0) gm/dL Hct (34.0-46.0) % RDW (11.5-15.5) % D-Dimer 1.58 H (<0.60) mg/L FEU Creatinine (0.52-1.04) mg/dL Glucose (74-99) mg/dL POC Glucose (mg/dL) 197 H (75-99) mg/dL Troponin I (0.000-0.034) ng/mL Microbiology - Last 24 Hours (Table) 02/15/19 10:10 Blood Culture - Preliminary Blood No Growth after 24 hours Assessment and Plan Plan: Assessment and plan #1 non-STEMI, status post cardiac catheterization which revealed multivessel coronary artery disease, medical therapy by #2 shortness of breath with evidence of congestive cardiac failure on chest x- ray. LV function was documented to be normal. CTA of the chest was also performed which did not reveal any pulmonary embolism, it did show pulmonary nodules which appear to be recent from prior studies performed in November. Workup for neoplasm is recommended #3 hypertension #4 diabetes #5 hyperlipidemia Plan Patient has been initiated on IV Lasix, we will also continue the Nitropaste. Observe for another 24 hours. DNP note has been reviewed, I agree with a documented findings and plan of care. Patient was seen and examined.
[2019-02-17 11:41] LABS: Glucose,Whole Blood 264 mg/dL (75-99)
--- NOTE | 2019-02-17 12:20 | CDI ---
Documentation Clarification Form Date: 02/17/2019 12:06:05 PM From: Lisset MancillaYANA grimaldo, CCDS Admit Date: 02/15/2019 11:58:00 AM Patient Name: Krissy Batres Visit Number: [id number] Discharge Date: ATTENTION: The Clinical Documentation Specialists (CDI) and [facility] Coding Staff appreciate your assistance in clarifying documentation. Please respond to the clarification below the line at the bottom and electronically sign. The CDI & [facility] Coding staff will review the response and follow-up if needed. Please note: Queries are made part of the Legal Health Record. If you have any questions, please contact the author of this message via ITS. Dr. Conner Neil: Per the 02/17 cardiology progress note: "Stat chest x-ray was ordered this morning which revealed congestive heart failure, underlying chronic interstitial lung disease not excluded." History/Risk Factors: Hypertension, DM II, Chronic asthma, Osteoarthritis, PVD, former smoker. Clinical Indicators: Presented with SOB, diagnosed acute pulmonary edema. Underwent a left heart catheterization with left ventriculogram: Diffuse multivessel coronary artery disease with focal areas of stenosis involving distal right coronary artery, OM branch and the diagonal. Left ventriculogram shows normal left ventricular size and systolic function with an ejection fraction of 55%. There is 2+ mitral regurgitation which seems to be catheter-induced. VS: T 97.5*, P 105^, R 18 - 20 (cough), BP 164/81^, PO 93 RA BNP: 1500 Echocardiogram Results: left ventricular systolic function is low normal w/EF 50-55%, Mild MR, Trace TR. CXR 02/15: correlate for congestive heart failure. CXR: 02/17: Findings are suggestive of CHF. Treatment: INH Albuterol, IV Lasix, po ASA, Nitropaste, IV Heparin drip, O2 2Lnc In your professional opinion, can you please clarify the acuity and type of CHF if known? Congestive Heart Failure ruled out Systolic Heart Failure: o Acute Diastolic Heart Failure: o Acute Systolic & Diastolic Heart Failure: o Acute Unable to Determine Other, please specify (Last Revision: July 2017) MTDD
--- NOTE | 2019-02-17 14:05 | P.PN ---
Subjective Progress Note Date: 02/17/19 This is a 73-year-old female with history of diabetes mellitus, hypertension, family history of CAD, prior nicotine dependence, presented to the ER with significant difficulty breathing. Patient reports she had some congestion earlier in the week, attributed to sinusitis and by Friday developed worsening shortness of breath accompanied by productive cough, white sputum, worsened with exertion. Chest x-ray reported pulmonary edema/possible small effusions. Denies chest pain, palpitations. EKG reported sinus rhythm with nonspecific ST- T wave changes. Troponins 0.131, 0.205 with a troponin pending .BNP 1500. Triglycerides 107, cholesterol 189, LDL 133, HDL 35. Afebrile, normal WBC. Blood sugars elevated on admission at 224. Denies nausea vomiting or diarrhea. Denies abdominal pain. Heparin drip initiated along with Nitropaste and Lasix. Cardiology consulted. 02/17/2019. Underwent cardiac cath yesterday, reporting diffuse multivessel CAD with focal areas of stenosis of distal RCA, OM and diagonal. Tolerated procedure well. Echo reporting EF 50-55%. Cardiology recommending medical management. Chest x-ray reporting possibly CHF with chronic underlying interstitial lung disease, possible interstitial pneumonitis. Scheduled Lasix IV push added to med regime.improving shortness of breath, maintaining O2 sats in the 90s on 2 L nasal cannula .CT negative for PE, reporting possibly recent development of pulmonary nodules of right posterior superior segment 3.5 x 2.7 cm and right middle lobe 1.1 x 1.9 cm , 1 cm nodule posterior lateral left apex, and scattered areas of pneumonitis within periphery of lungs as well as smaller nodules bilaterally, possibly neoplasm, possibly pneumonia, no mediastinal or hilar adenopathy. Mild compressive atelectasis . Objective - Vital Signs Vital signs: Vital Signs Temp 97.6 F 02/17/19 03:09 Pulse 82 02/17/19 12:01 Resp 18 02/17/19 03:11 BP 150/68 02/17/19 03:09 Pulse Ox 97 02/17/19 03:09 Intake & Output 02/16/19 02/17/19 02/17/19 18:59 06:59 18:59 Intake Total 100 250 Balance 100 250 Weight 81.9 kg 82.9 kg Intake: IV 100 Oral 250 Other: # Voids 0 1 1 - Exam VITAL SIGNS: As above GENERAL: Sitting up in bed, no acute distress HEENT: Conjunctivae normal. eyes normal. Oral mucosa moist NECK: No JVD. No thyroid enlargement. No LNs CARDIOVASCULAR: S1, S2 regular.. No murmur, gallop or rub. RESPIRATION: Breath sounds diminished in the bases. No rhonchi, fine bibasilar crackles. No expiratory wheezing ABDOMEN: Soft, nontender . No guarding. no masses palpable.Bowel sounds heard. LEGS: Trace edema. No clubbing, no cyanosis. PSYCHIATRY: Alert and oriented X3, mood and affect normal. NERVOUS SYSTEM: Cranial N 2-12 grossly normal. Moves all 4 limbs. No focal deficits. Strength and sensation grossly intact.. Skin: no lesions, no rash - Labs CBC & Chem 7: 02/17/19 06:05 02/17/19 06:05 Labs: Abnormal Lab Results - Last 24 Hours (Table) 02/16/19 02/16/19 02/16/19 Range/Units 15:01 16:49 20:11 RBC (3.80-5.40) m/uL Hgb (11.4-16.0) gm/dL Hct (34.0-46.0) % RDW (11.5-15.5) % D-Dimer (<0.60) mg/L FEU Creatinine (0.52-1.04) mg/dL Glucose (74-99) mg/dL POC Glucose (mg/dL) 139 H 124 H (75-99) mg/dL Troponin I 0.180 H* (0.000-0.034) ng/mL 02/17/19 02/17/19 02/17/19 Range/Units 06:05 06:05 06:10 RBC 3.56 L (3.80-5.40) m/uL Hgb 10.2 L (11.4-16.0) gm/dL Hct 31.6 L (34.0-46.0) % RDW 15.9 H (11.5-15.5) % D-Dimer (<0.60) mg/L FEU Creatinine 0.47 L (0.52-1.04) mg/dL Glucose 188 H (74-99) mg/dL POC Glucose (mg/dL) 197 H (75-99) mg/dL Troponin I (0.000-0.034) ng/mL 02/17/19 02/17/19 Range/Units 09:06 11:40 RBC (3.80-5.40) m/uL Hgb (11.4-16.0) gm/dL Hct (34.0-46.0) % RDW (11.5-15.5) % D-Dimer 1.58 H (<0.60) mg/L FEU Creatinine (0.52-1.04) mg/dL Glucose (74-99) mg/dL POC Glucose (mg/dL) 264 H (75-99) mg/dL Troponin I (0.000-0.034) ng/mL Microbiology - Last 24 Hours (Table) 02/15/19 10:10 Blood Culture - Preliminary Blood No Growth after 48 hours Assessment and Plan Assessment: -Shortness of breath with Acute diastolic CHF exacerbation, EF 50-55% -acute non-STEMI, status post cardiac catheterization reporting multivessel CAD, maximizing medical therapy as per cardiology. -Acute hypoxic respiratory failure and secondary to the above. CT reporting no PE, possible and recently developed pulmonary nodules, possible neoplasm, possible pneumonitis. -Diabetes mellitus -Hypertension -Chronic asthma -Osteoarthritis -Peripheral vascular disease -Vertigo -Former nicotine dependence Plan: Continue on current medication regime ,monitoring and symptomatic treatment. Pulmonary consulted regarding abnormal CTA. Maximizing medical therapy as per cardiology. Diuresing On Lasix IV push. An discharge planning in progress potentially for tomorrow pending cardiology clearance. The impression and plan of care has been dictated as directed. : I performed a history and examination of this patient, discussed the same with the dictator. I agree with the dictator's note ,documented as a scribe. Any additional findings or plans will be noted.
--- NOTE | 2019-02-17 14:24 | P.CNPUL ---
History of Present Illness Consult date: 02/17/19 Requesting physician: Gumaro Medina Jr Reason for consult: dyspnea, abnormal CXR/CT Chief complaint: Shortness of breath History of present illness: This is a 73-year-old white female patient with past medical history of diabetes mellitus type 2 with diabetic neuropathy, hypertension, family history of CAD, former smoker, quit smoking in 1998, prior to that smoked a pack a day for 30 years, questionable history of asthma, hypertension, osteoarthritis, prior history of left breast biopsy with benign results. Patient came into the emergency department on 02/07/2019 complaining of shortness of breath. Patient saw her primary care provider, and was prescribed antibiotics for possibility of bronchitis. Despite that her breathing continued to get worse and patient came into the ER for evaluation. She has been complaining of a nonproductive cough, she denied any swelling in her lower extremities, no fever or chills, no lightheadedness, dizziness, no syncopal episodes, no nausea or vomiting. Chest x-ray on admission showed increased interstitium, enlarged heart, blunting of the costophrenic angles, and prominent central vascularity, with findings consistent with congestive heart failure with small pleural effusions. EKG showed normal sinus rhythm with nonspecific ST changes, no acute ischemic changes. Labs without evidence of leukocytosis, hemoglobin is at 11.7, electrolytes were within normal limits, renal profile is unremarkable, blood sugars were significantly elevated on admission at 437. ProBNP was 1500, troponins were positive at 0.131, 0.205, and 0.180. Patient has been started on IV diuretics. She has been evaluated by cardiology, and yesterday she had a he art catheterization that showed diffuse multivessel coronary artery disease with focal areas of stenosis involving distal right coronary artery, OM branch and the diagonal branch. The recommendation from cardiology was to continue with current medical treatment. Patient still complains of shortness of breath, and apparently last night she was unable to lay down, and she had a severe respiratory distress. Follow-up chest x-ray this morning revealed bilateral pleural effusions and cardiomegaly and bibasilar infiltrates, diffuse interstitial pattern consistent with congestive heart failure or underlying chronic interstitial lung disease. D-dimer came back elevated at 1.58, and CTA chest showed no acute pulmonary embolism, but it did show 1.0 cm nodule in the posterior lateral left apex, there is a 0.8 cm area of pneumonitis along the anterior right midlung periphery, and a 0.7 cm nodule within the periphery of the right middle lobe. There was also large lung nodule with irregular margins measuring 3.5 cm x 2.5 cm in the posterior superior segment of the right lower lobe, and an additional area within the right mid lung measuring 1.1 cm x 1.9 cm. And there are scattered areas of pneumonitis within the periphery of the lungs. We're consulted in regards to abnormal findings with pulmonary nodules seen on the CTA chest Review of Systems All systems: negative Constitutional: Denies chills, Denies fever Eyes: denies blurred vision, denies pain Ears, nose, mouth and throat: Denies headache, Denies sore throat Cardiovascular: Reports orthopnea, Denies chest pain, Denies shortness of breath Respiratory: Reports dyspnea, Denies cough Gastrointestinal: Denies abdominal pain, Denies diarrhea, Denies nausea, Denies vomiting Genitourinary: Denies dysuria, Denies hematuria Musculoskeletal: Denies myalgias Integumentary: Denies pruritus, Denies rash Neurological: Denies numbness, Denies weakness Psychiatric: Denies anxiety, Denies depression Endocrine: Denies fatigue, Denies weight change Past Medical History Past Medical History: Asthma, Diabetes Mellitus, Hypertension, Osteoarthritis (OA), Vascular Disorder Additional Past Medical History / Comment(s): Asthma years ago, NIDDM type II, neuropathy bilateral feet, pt states she has been having intermittent edema bilateral ankles and feet past 6 months, vertigo at times, arthritis bilateral hands, varicosity L leg, constipation. History of Any Multi-Drug Resistant Organisms: None Reported Past Surgical History: Breast Surgery Additional Past Surgical History / Comment(s): L breast biopsy x2 benign, EGD, colonoscopy. Past Anesthesia/Blood Transfusion Reactions: No Reported Reaction Smoking Status: Former smoker - Past Family History Father Family Medical History: Diabetes Mellitus, Myocardial Infarction (NE) Additional Family Medical History / Comment(s): Father was bipolar. He had his first NE at the age of 63 yrs and from his 2nd NE at the age of 66yrs. Mother Family Medical History: Diabetes Mellitus Additional Family Medical History / Comment(s): Mother was bipolar. She at the age of 81 yrs from MRSA infection. Medications and Allergies Home Medications Medication Instructions Recorded Confirmed Type Amoxicillin 875 mg PO Q12HR 02/15/19 02/15/19 History Gabapentin 600 mg PO BID 02/15/19 02/15/19 History Ibuprofen [Advil] 400 mg PO Q8HR PRN 02/15/19 02/15/19 History glipiZIDE [Glucotrol] 10 mg PO AC-BID 02/15/19 02/15/19 History metFORMIN HCL [Glucophage] 500 mg PO TID 02/15/19 02/15/19 History Allergies Allergy/AdvReac Type Severity Reaction Status Date / Time No Known Allergies Allergy Verified 02/15/19 09:13 Physical Exam Vitals: Vital Signs Temp Pulse Pulse Resp BP Pulse Ox 02/17/19 12:01 82 02/17/19 11:48 80 02/17/19 03:11 18 02/17/19 03:09 97.6 F 80 18 150/68 97 02/16/19 23:08 78 18 123/57 90 L 02/16/19 20:00 97.5 F L 82 18 124/58 98 02/16/19 19:52 16 02/16/19 17:40 80 16 113/57 97 02/16/19 16:40 80 18 111/56 92 L 02/16/19 16:00 18 02/16/19 14:40 97.5 F L 78 18 137/60 93 L Intake and Output 02/16/19 02/17/19 02/17/19 22:59 06:59 14:59 Intake Total 250 Balance 250 Intake: Oral 250 Other: # Voids 1 1 1 Weight 82.9 kg GENERAL EXAM: Alert, pleasant, 73-year-old white female, on 2 L of oxygen with a pulse ox of 97%, comfortable in no apparent distress. HEAD: Normocephalic/atraumatic. EYES: Normal reaction of pupils, equal size. Conjunctiva pink, sclera white. NOSE: Clear with pink turbinates. THROAT: No erythema or exudates. NECK: No masses, no JVD, no thyroid enlargement, no adenopathy. CHEST: No chest wall deformity. Symmetrical expansion. LUNGS: Equal air entry with diffuse wheezes throughout, and crackles over anterior left upper chest CVS: Regular rate and rhythm, normal S1 and S2, no gallops, no murmurs, no rubs ABDOMEN: Soft, nontender. No hepatosplenomegaly, normal bowel sounds, no guarding or rigidity. EXTREMITIES: No clubbing, no edema, no cyanosis, 2+ pulses and upper and lower extremities. MUSCULOSKELETAL: Muscle strength and tone normal. SPINE: No scoliosis or deformity SKIN: No rashes CENTRAL NERVOUS SYSTEM: Alert and oriented -3. No focal deficits, tone is normal in all 4 extremities. PSYCHIATRIC: Alert and oriented -3. Appropriate affect. Intact judgment and insight. Results - Laboratory Findings CBC and BMP: 02/17/19 06:05 02/17/19 06:05 PT/INR, D-dimer PT 10.8 sec (9.0-12.0) 02/17/19 09:04 INR 1.0 (<1.2) 02/17/19 09:04 D-Dimer 1.58 mg/L FEU (<0.60) H 02/17/19 09:06 Abnormal lab findings: Abnormal Labs 02/15/19 02/15/19 02/15/19 10:10 10:10 10:10 RBC Hgb Hct RDW Neutrophils # 7.8 H Lymphocytes # 0.9 L APTT D-Dimer Carbon Dioxide Creatinine 0.43 L Glucose 437 H POC Glucose (mg/dL) Total Bilirubin 1.4 H Troponin I 0.131 H* LDL Cholesterol, Calc HDL Cholesterol 02/15/19 02/15/19 02/15/19 12:36 16:51 20:24 RBC Hgb Hct RDW Neutrophils # Lymphocytes # APTT D-Dimer Carbon Dioxide Creatinine Glucose POC Glucose (mg/dL) 362 H 316 H 224 H Total Bilirubin Troponin I LDL Cholesterol, Calc HDL Cholesterol 02/16/19 02/16/19 02/16/19 02:38 06:08 09:04 RBC Hgb Hct RDW Neutrophils # Lymphocytes # APTT 39.1 H 38.8 H D-Dimer Carbon Dioxide Creatinine Glucose POC Glucose (mg/dL) 124 H Total Bilirubin Troponin I LDL Cholesterol, Calc HDL Cholesterol 02/16/19 02/16/19 02/16/19 09:04 09:04 09:04 RBC Hgb 11.0 L Hct RDW Neutrophils # Lymphocytes # APTT D-Dimer Carbon Dioxide 31 H Creatinine 0.48 L Glucose 155 H POC Glucose (mg/dL) Total Bilirubin Troponin I 0.205 H* LDL Cholesterol, Calc 133 H HDL Cholesterol 35 L 1002/16/19 02/16/19 11:45 15:01 16:49 RBC Hgb Hct RDW Neutrophils # Lymphocytes # APTT D-Dimer Carbon Dioxide Creatinine Glucose POC Glucose (mg/dL) 157 H 139 H Total Bilirubin Troponin I 0.180 H* LDL Cholesterol, Calc HDL Cholesterol 02/16/19 02/17/19 02/17/19 20:11 06:05 06:05 RBC 3.56 L Hgb 10.2 L Hct 31.6 L RDW 15.9 H Neutrophils # Lymphocytes # APTT D-Dimer Carbon Dioxide Creatinine 0.47 L Glucose 188 H POC Glucose (mg/dL) 124 H Total Bilirubin Troponin I LDL Cholesterol, Calc HDL Cholesterol 02/17/19 02/17/19 02/17/19 06:10 09:06 11:40 RBC Hgb Hct RDW Neutrophils # Lymphocytes # APTT D-Dimer 1.58 H Carbon Dioxide Creatinine Glucose POC Glucose (mg/dL) 197 H 264 H Total Bilirubin Troponin I LDL Cholesterol, Calc HDL Cholesterol - Diagnostic Findings Chest x-ray: report reviewed, image reviewed CT scan - chest: report reviewed, image reviewed Assessment and Plan Plan: Assessment: #1. Irregular lung nodule measuring 3.5 x 2.7 cm in the posterior superior right lower lobe, and additional right midlung nodule measuring 1.1 cm x 1.9 cm, and additional smaller nodules and areas of pneumonitis, rule out malignancy, p atient will need outpatient PET scan or follow-up CT chest #2. Acute hypoxic respiratory failure related to acute exacerbation of congestive heart failure with diastolic dysfunction, and acute exacerbation of COPD #3. Elevated troponins, related to non-ST elevated myocardial infarction #4. Diffuse multivessel coronary artery disease, medical treatment was recommended #5. Elevated d-dimer CTA chest was negative for pulmonary embolism #6. Hypertension #7. Hyperlipidemia #8. Diabetes mellitus #9. Former smoker, carries [id number] smoking history, in remission since 1991 #10. Possible history of asthma, of undetermined type, will need outpatient PFT #11. Previous history of left breast biopsy with benign results Plan: Continue current medical treatment, continue with diuretics, will add some breathing treatments, vital signs are stable, patient is in no acute distress. She will need outpatient PET scan or follow-up CT chest with IV contrast for follow-up on pulmonary nodules seen on the CTA chest. She will also need outpatient PFT to evaluate her underlying pulmonary function. Will avoid the steroids, to avoid hypoglycemia, patient does have some scattered wheezing, could be related to COPD exacerbation or congestive heart failure. No acute distress. No hemoptysis, no recent weight loss. She will need an outpatient follow-up with Dr. Tellez in the office in one or 2 weeks I performed a history & physical examination of the patient and discussed their management with my nurse practitioner, Cristina Harley. I reviewed the nurse practitioner's note and agree with the documented findings and plan of care. Lung sounds are positive for diffuse wheezes throughout the lung raymundo. The findings and the impression was discussed with the patient. I attest to the documentation by the nurse practitioner. Time with Patient: Greater than 30
[2019-02-17 16:41] LABS: Glucose,Whole Blood 259 mg/dL (75-99)
[2019-02-17] MEDS: IPRATROPIUM-ALBUTEROL 3 ML NEB INHALATION SCH (20:23)
[2019-02-17] MEDS: ATORVASTATIN 80 MG TAB PO SCH (20:30)
[2019-02-17] MEDS: HEPARIN SODIUM,PORCINE 5,000 UNIT/ML 1 ML VIAL SQ SCH (20:31)
[2019-02-17 20:55] LABS: Glucose,Whole Blood 319 mg/dL (75-99)
[2019-02-17] MEDS: FUROSEMIDE 10 MG/ML 4 ML VIAL IV SCH (21:02)
[2019-02-18 05:57] LABS: Glucose,Whole Blood 213 mg/dL (75-99)
[2019-02-18] MEDS: INSULIN ASPART (NovoLOG) 100 UNIT/ML VIAL SQ SCH ×2 (06:36→12:48)
[2019-02-18] MEDS: glipiZIDE 10 MG TAB PO SCH (06:36)
[2019-02-18] MEDS: IPRATROPIUM-ALBUTEROL 3 ML NEB INHALATION SCH ×2 (07:51→12:54)
[2019-02-18 09:56] LABS: HGB 9.9 gm/dL (11.4-16.0); Hypochromasia Slight; MCH 28.9 pg (25.0-35.0); MCHC 32.9 g/dL (31.0-37.0); MCV 87.9 fL (80.0-100.0); Mean Platelet Volume 6.7; Platelet Count 323 k/uL (150-450); Poikilocytosis Slight; RBC 3.41 m/uL (3.80-5.40); RDW 15.9 % (11.5-15.5)
[2019-02-18 10:02] LABS: African American GFR (CKD) >90 (>60 ml/min/1.73 sqM); Anion Gap 8 mmol/L; Blood Urea Nitrogen 17 mg/dL (7-17); Calcium 8.8 mg/dL (8.4-10.2); Carbon Dioxide 32 mmol/L (22-30); Chloride 99 mmol/L (98-107); Glucose 250 mg/dL (74-99); Non-African American GFR(CKD) >90 (>60 ml/min/1.73 sqM); Potassium 3.1 mmol/L (3.5-5.1); Sodium 139 mmol/L (137-145)
[2019-02-18] MEDS: GABAPENTIN 300 MG CAP PO SCH (10:08)
[2019-02-18] MEDS: HEPARIN SODIUM,PORCINE 5,000 UNIT/ML 1 ML VIAL SQ SCH (10:09)
[2019-02-18] MEDS: METOPROLOL SUCCINATE (ER) 25 MG TAB.ER.24H PO SCH (10:09)
[2019-02-18] MEDS: CLOPIDOGREL 75 MG TAB PO SCH (10:09)
[2019-02-18] MEDS: NITROGLYCERIN OINT 1 INCH/GM PACKET TOPICAL SCH (10:11)
[2019-02-18] MEDS: FUROSEMIDE 10 MG/ML 4 ML VIAL IV SCH (10:28)
[2019-02-18 11:28] LABS: Glucose,Whole Blood 271 mg/dL (75-99)
[2019-02-18 12:08] VITALS: BP 124/64; PULSE 71; RESP 16; TEMP 98.3
--- NOTE | 2019-02-18 12:13 | P.DS ---
Providers Date of admission: 02/15/19 11:58 Expected date of discharge: 02/18/19 Attending physician: Wilfredo Boland Consults: 02/15/19 11:58 Consult Physician Routine Consulting Provider: [facility] Consult Reason/Comments: Acute pulmonary edema Do you want consulting provider notified?: Yes 02/17/19 11:28 Consult Physician Routine Consulting Provider: Zacarias Tellez Consult Reason/Comments: pulmonary nodules/pneumonia/ Do you want consulting provider notified?: Yes 02/17/19 13:47 Consult Physician Routine Consulting Provider: Zacarias Tellez Consult Reason/Comments: abnorm. CT Do you want consulting provider notified?: Yes Primary care physician: Wilfredo Boland Hospital Course: Final Diagnoses: -Shortness of breath with Acute diastolic CHF exacerbation, EF 50-55% -acute non-STEMI, status post cardiac catheterization reporting multivessel CAD, maximizing medical therapy as per cardiology. -Acute hypoxic respiratory failure and secondary to the above. CT reporting no PE, possible and recently developed pulmonary nodules, possible neoplasm, possible pneumonitis. Outpatient PET scan/PFTs as per pulmonary. -Diabetes mellitus -Hypertension -Chronic asthma -Osteoarthritis -Peripheral vascular disease -Vertigo -Former nicotine dependence Hospital course:This is a 73-year-old female with history of diabetes mellitus, hypertension, family history of CAD, prior nicotine dependence, presented to the ER with significant difficulty breathing. Patient reports she had some congestion earlier in the week, attributed to sinusitis and by Friday developed worsening shortness of breath accompanied by productive cough, white sputum, worsened with exertion. Chest x-ray reported pulmonary edema/possible small effusions. Denies chest pain, palpitations. EKG reported sinus rhythm with nonspecific ST-T wave changes. Troponins 0.131, 0.205 with a troponin pending .BNP 1500. Triglycerides 107, cholesterol 189, LDL 133, HDL 35. Afebrile, n ormal WBC. Blood sugars elevated on admission at 224. Denies nausea vomiting or diarrhea. Denies abdominal pain. Heparin drip initiated along with Nitropaste and Lasix. Cardiology consulted. 02/17/2019. Underwent cardiac cath yesterday, reporting diffuse multivessel CAD with focal areas of stenosis of distal RCA, OM and diagonal. Tolerated procedure well. Echo reporting EF 50-55%. Cardiology recommending medical management. Chest x-ray reporting possibly CHF with chronic underlying interstitial lung disease, possible interstitial pneumonitis. Scheduled Lasix IV push added to med regime.improving shortness of breath, maintaining O2 sats in the 90s on 2 L nasal cannula .CT negative for PE, reporting possibly recent development of pulmonary nodules of right posterior superior segment 3.5 x 2.7 cm and right middle lobe 1.1 x 1.9 cm , 1 cm nodule posterior lateral left apex, and scattered areas of pneumonitis within periphery of lungs as well as smaller nodules bilaterally, possibly neoplasm, possibly pneumonia, no mediastinal or hilar adenopathy. Mild compressive atelectasis . Diuresed well on Lasix IV push. Evaluated by pulmonary, recommending further outpatient follow-up along with PET scan or a follow-up CT and PFTs. PET scan /follow-up CT will be arranged as per pulmonary. Significant clinical improvement. Cleared by now consults for discharge. Patient is being discharged home in a stable condition with guarded prognosis. - Exam GENERAL: Alert and oriented 3, no acute distress CARDIOVASCULAR: S1, S2 regular.. No murmur, gallop or rub. RESPIRATION: Breath sounds diminished in the bases. No rhonchi, no crackles. No expiratory wheezing ABDOMEN: Soft, nontender . No guarding. no masses palpable.Bowel sounds heard. NERVOUS SYSTEM: No focal deficits. The impression and plan of care has been dictated as directed. : I performed a history and examination of this patient, discussed the same with the dictator. I agree with the dictator's note ,documented as a scribe. Any additional findings or plans will be noted. Patient Condition at Discharge: Stable Plan - Discharge Summary Discharge Rx Participant: No New Discharge Prescriptions: New Atorvastatin [Lipitor] 80 mg PO HS #30 tab Nitroglycerin Sl Tabs [Nitrostat] 0.4 mg SUBLINGUAL Q5M PRN #100 tab PRN Reason: Chest Pain Clopidogrel [Plavix] 75 mg PO DAILY #30 tab Metoprolol Succinate (ER) [Toprol XL] 25 mg PO DAILY #30 tab.er.24h Isosorbide Mononitrate ER [Imdur] 30 mg PO DAILY #30 tab Furosemide [Lasix] 40 mg PO BID #60 tablet Continue metFORMIN HCL [Glucophage] 500 mg PO TID glipiZIDE [Glucotrol] 10 mg PO AC-BID Ibuprofen [Advil] 400 mg PO Q8HR PRN PRN Reason: Pain Gabapentin 600 mg PO BID Discontinued Amoxicillin 875 mg PO Q12HR Discharge Medication List Gabapentin 600 mg PO BID 02/15/19 [History] Ibuprofen [Advil] 400 mg PO Q8HR PRN 02/15/19 [History] glipiZIDE [Glucotrol] 10 mg PO AC-BID 02/15/19 [History] metFORMIN HCL [Glucophage] 500 mg PO TID 02/15/19 [History] Atorvastatin [Lipitor] 80 mg PO HS #30 tab 02/18/19 [Rx] Clopidogrel [Plavix] 75 mg PO DAILY #30 tab 02/18/19 [Rx] Furosemide [Lasix] 40 mg PO BID #60 tablet 02/18/19 [Rx] Isosorbide Mononitrate ER [Imdur] 30 mg PO DAILY #30 tab 02/18/19 [Rx] Metoprolol Succinate (ER) [Toprol XL] 25 mg PO DAILY #30 tab.er.24h 02/18/19 [Rx] Nitroglycerin Sl Tabs [Nitrostat] 0.4 mg SUBLINGUAL Q5M PRN #100 tab 02/18/19 [Rx] Follow up Appointment(s)/Referral(s): Gumaro Medina Jr, DO [Doctor of Osteopathic Medicine] - 3 Days Zacarias Tellez DO [Doctor of Osteopathic Medicine] - 1 Week (Office closed for lunch, please call for a follow up appointment CATHERINE. Office booking one month out. Re: Pulmonary nodules follow-up/PFT ) Conner Neil MD [STAFF PHYSICIAN] - 02/23/19 4:00 pm (Friday) Ambulatory/Diagnostic Orders: Complete Blood Count w/diff [LAB.AMB] Time Frame: 3 Days, Location: None Selected Patient Instructions/Handouts: *Surgery [facility] - After Heart Catheterization - Casino Investigator Instructions, Heart Healthy Diet (DC) Activity/Diet/Wound Care/Special Instructions: Avoid steroids as per pulmonary. O2 sat on room air after ambulation pending. PET scan outpatient as per pulmonary.
--- NOTE | 2019-02-18 12:22 | P.PN ---
Subjective Progress Note Date: 02/18/19 Principal diagnosis: Shortness of breath This is a 73-year-old white female patient with past medical history of diabetes mellitus type 2 with diabetic neuropathy, hypertension, family history of CAD, former smoker, quit smoking in 1998, prior to that smoked a pack a day for 30 years, questionable history of asthma, hypertension, osteoarthritis, prior history of left breast biopsy with benign results. Patient came into the emergency department on 02/07/2019 complaining of shortness of breath. Patient saw her primary care provider, and was prescribed antibiotics for possibility of bronchitis. Despite that her breathing continued to get worse and patient came into the ER for evaluation. She has been complaining of a nonproductive cough, she denied any swelling in her lower extremities, no fever or chills, no lightheadedness, dizziness, no syncopal episodes, no nausea or vomiting. Chest x-ray on admission showed increased interstitium, enlarged heart, blunting of the costophrenic angles, and prominent central vascularity, with findings consistent with congestive heart failure with small pleural effusions. EKG showed normal sinus rhythm with nonspecific ST changes, no acute ischemic changes. Labs without evidence of leukocytosis, hemoglobin is at 11.7, yael ctrolytes were within normal limits, renal profile is unremarkable, blood sugars were significantly elevated on admission at 437. ProBNP was 1500, troponins were positive at 0.131, 0.205, and 0.180. Patient has been started on IV diuretics. She has been evaluated by cardiology, and yesterday she had a heart catheterization that showed diffuse multivessel coronary artery disease with focal areas of stenosis involving distal right coronary artery, OM branch and the diagonal branch. The recommendation from cardiology was to continue with current medical treatment. Patient still complains of shortness of breath, and apparently last night she was unable to lay down, and she had a severe resp iratory distress. Follow-up chest x-ray this morning revealed bilateral pleural effusions and cardiomegaly and bibasilar infiltrates, diffuse interstitial pattern consistent with congestive heart failure or underlying chronic interstitial lung disease. D-dimer came back elevated at 1.58, and CTA chest showed no acute pulmonary embolism, but it did show 1.0 cm nodule in the posterior lateral left apex, there is a 0.8 cm area of pneumonitis along the anterior right midlung periphery, and a 0.7 cm nodule within the periphery of the right middle lobe. There was also large lung nodule with irregular margins measuring 3.5 cm x 2.5 cm in the posterior superior segment of the right lower lobe, and an additional area within the right mid lung measuring 1.1 cm x 1.9 cm. And there are scattered areas of pneumonitis within the periphery of the lungs. We're consulted in regards to abnormal findings with pulmonary nodules seen on the CTA chest On 02/18/2019 patient is seen in follow-up on selective care unit. She is accompanied to the bed, in no acute distress, denies any shortness of breath, vital signs are stable, room air pulse ox is 96%. No complaints of chest pain, no fever or chills. Vital signs are stable. Today's labs have been reviewed, showing white blood cell count 7.0, hemoglobin of 9.9, sodium is 139, potassium is 3.1, chloride is 99, CO2 32, BUN of 17 and creatinine 0.50. No acute events overnight, no worsening dyspnea. IV Lasix has been transitioned to oral Lasix, patient has diuresed, she is in -2 kg in the last 24 hours. Blood culture showed no growth. Medical treatment is being optimized by cardiology for diffuse coronary artery disease and non-ST elevated myocardial infarction. Clinically stable, and patient is being discharged home today Objective - Vital Signs Vital signs: Vital Signs Temp 98.3 F 02/18/19 12:07 Pulse 71 02/18/19 12:07 Resp 16 02/18/19 12:07 BP 124/64 02/18/19 12:07 Pulse Ox 96 02/18/19 12:07 Intake & Output 02/17/19 02/18/19 02/18/19 18:59 06:59 18:59 Intake Total 486 236 Balance 486 236 Weight 80.9 kg Intake: Oral 486 236 Other: # Voids 1 1 3 - Exam GENERAL EXAM: Alert, pleasant, 73-year-old white female, on room air with a pulse ox of 96%, comfortable in no apparent distress. HEAD: Normocephalic/atraumatic. EYES: Normal reaction of pupils, equal size. Conjunctiva pink, sclera white. NOSE: Clear with pink turbinates. THROAT: No erythema or exudates. NECK: No masses, no JVD, no thyroid enlargement, no adenopathy. CHEST: No chest wall deformity. Symmetrical expansion. LUNGS: Equal air entry with a few scattered wheezes, but no rhonchi or crackles CVS: Regular rate and rhythm, normal S1 and S2, no gallops, no murmurs, no rubs ABDOMEN: Soft, nontender. No hepatosplenomegaly, normal bowel sounds, no guarding or rigidity. EXTREMITIES: No clubbing, no edema, no cyanosis, 2+ pulses and upper and lower extremities. MUSCULOSKELETAL: Muscle strength and tone normal. SPINE: No scoliosis or deformity SKIN: No rashes CENTRAL NERVOUS SYSTEM: Alert and oriented -3. No focal deficits, tone is normal in all 4 extremities. PSYCHIATRIC: Alert and oriented -3. Appropriate affect. Intact judgment and insight. - Labs CBC & Chem 7: 02/18/19 09:29 02/18/19 09:29 Labs: Abnormal Lab Results - Last 24 Hours (Table) 02/17/19 02/17/19 02/18/19 Range/Units 16:39 20:53 05:52 RBC (3.80-5.40) m/uL Hgb (11.4-16.0) gm/dL Hct (34.0-46.0) % RDW (11.5-15.5) % Potassium (3.5-5.1) mmol/L Carbon Dioxide (22-30) mmol/L Creatinine (0.52-1.04) mg/dL Glucose (74-99) mg/dL POC Glucose (mg/dL) 259 H 319 H 213 H (75-99) mg/dL 02/18/19 02/18/19 02/18/19 Range/Units 09:29 09:29 11:27 RBC 3.41 L (3.80-5.40) m/uL Hgb 9.9 L (11.4-16.0) gm/dL Hct 30.0 L (34.0-46.0) % RDW 15.9 H (11.5-15.5) % Potassium 3.1 L (3.5-5.1) mmol/L Carbon Dioxide 32 H (22-30) mmol/L Creatinine 0.50 L (0.52-1.04) mg/dL Glucose 250 H (74-99) mg/dL POC Glucose (mg/dL) 271 H (75-99) mg/dL Microbiology - Last 24 Hours (Table) 02/15/19 10:10 Blood Culture - Preliminary Blood No Growth after 48 hours Assessment and Plan Plan: Assessment: #1. Irregular lung nodule measuring 3.5 x 2.7 cm in the posterior superior right lower lobe, and additional right midlung nodule measuring 1.1 cm x 1.9 cm, and additional smaller nodules and areas of pneumonitis, rule out malignancy, patient will need outpatient PET scan or follow-up CT chest #2. Acute hypoxic respiratory failure related to acute exacerbation of congestive heart failure with diastolic dysfunction, and acute exacerbation of COPD #3. Elevated troponins, related to non-ST elevated myocardial infarction #4. Diffuse multivessel coronary artery disease, medical treatment was recommended #5. Elevated d-dimer CTA chest was negative for pulmonary embolism #6. Hypertension #7. Hyperlipidemia #8. Diabetes mellitus #9. Former smoker, carries [id number] smoking history, in remission since 1991 #10. Possible history of asthma, of undetermined type, will need outpatient PFT #11. Previous history of left breast biopsy with benign results Plan: Breathing is stable, improving, patient has diuresed, IV diuretics have been transitioned to oral, she is maintaining stable O2 saturations on room air, no complaints of chest pain, no palpitations, no significant cough or congestion, no hemoptysis. She is going home today, from pulmonary perspective she stable for discharge home, with outpatient follow-up in regards to the lung nodules noted on CTA chest. I performed a history & physical examination of the patient and discussed their management with my nurse practitioner, Cristina Harley. I reviewed the nurse practitioner's note and agree with the documented findings and plan of care. Lung sounds are positive for diffuse wheezes throughout the lung raymundo. The findings and the impression was discussed with the patient. I attest to the documentation by the nurse practitioner. Time with Patient: Less than 30
[2019-02-18] MEDS ORDERED: FUROSEMIDE 40 MG TAB PO SCH (16:00)
== END 2019-02-18 15:02 | disposition home or self-care (01) | DRG 280 ==
LOC: EC 08:39 → 3SCARD 11:58
PROVIDERS: ADMIT Family Medicine; ATTEND Family Medicine
PROC: B2111ZZ Fluoroscopy of Multiple Coronary Arteries using Low Osmolar Contrast (ICD-10-PCS; principal; 2019-02-16 13:40)
PROC: B2151ZZ Fluoroscopy of Left Heart using Low Osmolar Contrast (ICD-10-PCS; principal; 2019-02-16 13:40)
PROC: 4A023N7 Measurement of Cardiac Sampling and Pressure, Left Heart, Percutaneous Approach (ICD-10-PCS; principal; 2019-02-16 13:40)
DX: I21.4 Non-ST elevation (NSTEMI) myocardial infarction (principal); I50.33 Acute on chronic diastolic (congestive) heart failure; J96.01 Acute respiratory failure with hypoxia; J18.9 Pneumonia, unspecified organism; J44.1 Chronic obstructive pulmonary disease with (acute) exacerbation; J44.0 Chronic obstructive pulmonary disease with (acute) lower respiratory infection; C34.31 Malignant neoplasm of lower lobe, right bronchus or lung; E11.40 Type 2 diabetes mellitus with diabetic neuropathy, unspecified; E11.51 Type 2 diabetes mellitus with diabetic peripheral angiopathy without gangrene; E78.5 Hyperlipidemia, unspecified; I11.0 Hypertensive heart disease with heart failure; I25.10 Atherosclerotic heart disease of native coronary artery without angina pectoris; M19.041 Primary osteoarthritis, right hand; M19.042 Primary osteoarthritis, left hand; Z79.84 Long term (current) use of oral hypoglycemic drugs; Z79.899 Other long term (current) drug therapy; Z82.49 Family history of ischemic heart disease and other diseases of the circulatory system; Z83.3 Family history of diabetes mellitus; Z87.09 Personal history of other diseases of the respiratory system; Z87.891 Personal history of nicotine dependence; Z79.1 Long term (current) use of non-steroidal anti-inflammatories (NSAID); Z81.8 Family history of other mental and behavioral disorders
CPT/HCPCS: 36415; 71045; 71046; 71275; 80048; 80053; 80061; 83735; 83880; 84484; 85025; 85027; 85379; 85610; 85730; 87040; 93005; 93306; 93458; 94640; 94760; 96365; 96366; 96375; 96376; 99285

== ENCOUNTER 2019-03-17 10:04 | Observation (INO) | payer MEDICARE, BC ==
[2019-03-17] MEDS ORDERED: SODIUM CHLORIDE 0.9% 500 ML 500 ML IV STA (10:23)
[2019-03-17] MEDS ORDERED: MECLIZINE 12.5 MG TAB PO STA (10:23)
--- NOTE | 2019-03-17 10:26 | ED ---
Dizziness HPI - General Chief Complaint: Dizziness Stated Complaint: dizzy, weakness Time Seen by Provider: 03/17/19 10:18 Source: patient, RN notes reviewed Mode of arrival: wheelchair Limitations: no limitations - History of Present Illness Initial Comments: This a 73-year-old female presents emergency Department chief complaint of feeling dizzy. Patient states symptoms started over 24 hours ago. Patient states that symptoms are greatly improved she just sits cells. She states that quickly or moves quickly she states room spins she feels that she has to hold onto something. She did have an episode of this approximately one year ago and which she was diagnosed with vertigo. Patient states she had a heart cath in January for concerned that she is able to heart attack there was no stenting done. Patient was started on some medication therapy. Patient denies any current chest pain, shortness breath. She did have some slight nausea without any evidence of vomiting denies any focal weakness. - Related Data Home Medications Medication Instructions Recorded Confirmed Gabapentin 600 mg PO BID 02/15/19 03/17/19 Ibuprofen [Advil] 400 mg PO Q8HR PRN 02/15/19 03/17/19 glipiZIDE [Glucotrol] 10 mg PO AC-BID 02/15/19 03/17/19 metFORMIN HCL [Glucophage] 500 mg PO TID 02/15/19 03/17/19 Previous Rx's Medication Instructions Recorded Atorvastatin [Lipitor] 80 mg PO HS #30 tab 02/18/19 Clopidogrel [Plavix] 75 mg PO DAILY #30 tab 02/18/19 Furosemide [Lasix] 40 mg PO BID #60 tablet 02/18/19 Ipratropium-Albuterol Nebulize 3 ml INHALATION QID #120 ampul.neb 02/18/19 [Duoneb 0.5 mg-3 mg/3 ml Soln] Isosorbide Mononitrate ER [Imdur] 30 mg PO DAILY #30 tab 02/18/19 Metoprolol Succinate (ER) [Toprol 25 mg PO DAILY #30 tab.er.24h 02/18/19 XL] Nitroglycerin Sl Tabs [Nitrostat] 0.4 mg SUBLINGUAL Q5M PRN #100 tab 02/18/19 Allergies Allergy/AdvReac Type Severity Reaction Status Date / Time No Known Allergies Allergy Verified 02/15/19 09:13 Review of Systems ROS Statement: Those systems with pertinent positive or pertinent negative responses have been documented in the HPI. ROS Other: All systems not noted in ROS Statement are negative. Past Medical History Past Medical History: Asthma, Diabetes Mellitus, Hypertension, Myocardial Infarction (OR), Osteoarthritis (OA), Vascular Disorder Additional Past Medical History / Comment(s): Asthma years ago, NIDDM type II, neuropathy bilateral feet, pt states she has been having intermittent edema bilateral ankles and feet past 6 months, vertigo at times, arthritis bilateral hands, varicosity L leg, constipation. History of Any Multi-Drug Resistant Organisms: None Reported Past Surgical History: Breast Surgery, Heart Catheterization Additional Past Surgical History / Comment(s): L breast biopsy x2 benign, EGD, colonoscopy. Past Anesthesia/Blood Transfusion Reactions: No Reported Reaction Past Psychological History: No Psychological Hx Reported Smoking Status: Former smoker Past Alcohol Use History: None Reported Past Drug Use History: None Reported - Past Family History Father Family Medical History: Diabetes Mellitus, Myocardial Infarction (OR) Additional Family Medical History / Comment(s): Father was bipolar. He had his first OR at the age of 63 yrs and from his 2nd OR at the age of 66yrs. Mother Family Medical History: Diabetes Mellitus Additional Family Medical History / Comment(s): Mother was bipolar. She at the age of 81 yrs from MRSA infection. General Exam Limitations: no limitations General appearance: alert, in no apparent distress Head exam: Present: atraumatic, normocephalic, normal inspection Eye exam: Present: normal appearance, PERRL, EOMI. Absent: scleral icterus, conjunctival injection, periorbital swelling ENT exam: Present: normal exam, normal oropharynx, mucous membranes moist, TM's normal bilaterally Neck exam: Present: normal inspection, full ROM. Absent: tenderness, meningismus, lymphadenopathy Respiratory exam: Present: normal lung sounds bilaterally. Absent: respiratory distress, wheezes, rales, rhonchi, stridor Cardiovascular Exam: Present: regular rate, normal rhythm, normal heart sounds. Absent: systolic murmur, diastolic murmur, rubs, gallop, clicks Neurological exam: Present: alert, oriented X3, CN II-XII intact, reflexes normal, other (Finger to nose intact bilaterally). Absent: motor sensory deficit Skin exam: Present: warm, dry, intact, normal color. Absent: rash Course Vital Signs 03/17/19 03/17/19 10:06 12:28 Temperature 97.8 F Pulse Rate 85 76 Respiratory 18 16 Rate Blood Pressure 133/62 145/64 O2 Sat by Pulse 98 99 Oximetry EKG Findings - EKG Comments: EKG Findings:: EKG performed at 10:20 normal sinus rhythm rate of 77. AK 158 QRS 92 QT/QTC/461 Medical Decision Making - Medical Decision Making Patient said no relief with medications in emergency department. Patient will be admitted for persistence dizziness with unsteady gait. - Lab Data Result diagrams: 03/17/19 10:20 03/17/19 10:20 Lab Results 03/17/19 03/17/19 03/17/19 Range/Units 10:20 10:20 10:20 WBC 9.8 (3.8-10.6) k/uL RBC 4.13 (3.80-5.40) m/uL Hgb 11.7 (11.4-16.0) gm/dL Hct 35.1 (34.0-46.0) % MCV 85.0 (80.0-100.0) fL MCH 28.4 (25.0-35.0) pg MCHC 33.4 (31.0-37.0) g/dL RDW 15.0 (11.5-15.5) % Plt Count 340 (150-450) k/uL Neutrophils % 69 % Lymphocytes % 16 % Monocytes % 8 % Eosinophils % 4 % Basophils % 1 % Neutrophils # 6.8 (1.3-7.7) k/uL Lymphocytes # 1.6 (1.0-4.8) k/uL Monocytes # 0.8 (0-1.0) k/uL Eosinophils # 0.3 (0-0.7) k/uL Basophils # 0.1 (0-0.2) k/uL Poikilocytosis Slight Sodium 138 (137-145) mmol/L Potassium 2.8 L (3.5-5.1) mmol/L Chloride 89 L (98-107) mmol/L Carbon Dioxide 34 H (22-30) mmol/L Anion Gap 15 mmol/L BUN 14 (7-17) mg/dL Creatinine 0.70 (0.52-1.04) mg/dL Est GFR (CKD-EPI)AfAm >90 (>60 ml/min/1.73 sqM) Est GFR (CKD-EPI)NonAf 87 (>60 ml/min/1.73 sqM) Glucose 230 H (74-99) mg/dL Calcium 8.4 (8.4-10.2) mg/dL Total Bilirubin 2.5 H (0.2-1.3) mg/dL AST 18 (14-36) U/L ALT 18 (9-52) U/L Alkaline Phosphatase 88 (38-126) U/L Troponin I <0.012 (0.000-0.034) ng/mL Total Protein 7.2 (6.3-8.2) g/dL Albumin 4.0 (3.5-5.0) g/dL Urine Color Urine Appearance (Clear) Urine pH (5.0-8.0) Ur Specific Oblong (1.001-1.035) Urine Protein (Negative) Urine Glucose (UA) (Negative) Urine Ketones (Negative) Urine Blood (Negative) Urine Nitrite (Negative) Urine Bilirubin (Negative) Urine Urobilinogen (<2.0) mg/dL Ur Leukocyte Esterase (Negative) Urine RBC (0-5) /hpf Urine WBC (0-5) /hpf Ur Squamous Epith Cells (0-4) /hpf Urine Bacteria (None) /hpf Hyaline Casts (0-2) /lpf Urine Mucus (None) /hpf 03/17/19 Range/Units 11:36 WBC (3.8-10.6) k/uL RBC (3.80-5.40) m/uL Hgb (11.4-16.0) gm/dL Hct (34.0-46.0) % MCV (80.0-100.0) fL MCH (25.0-35.0) pg MCHC (31.0-37.0) g/dL RDW (11.5-15.5) % Plt Count (150-450) k/uL Neutrophils % % Lymphocytes % % Monocytes % % Eosinophils % % Basophils % % Neutrophils # (1.3-7.7) k/uL Lymphocytes # (1.0-4.8) k/uL Monocytes # (0-1.0) k/uL Eosinophils # (0-0.7) k/uL Basophils # (0-0.2) k/uL Poikilocytosis Sodium (137-145) mmol/L Potassium (3.5-5.1) mmol/L Chloride (98-107) mmol/L Carbon Dioxide (22-30) mmol/L Anion Gap mmol/L BUN (7-17) mg/dL Creatinine (0.52-1.04) mg/dL Est GFR (CKD-EPI)AfAm (>60 ml/min/1.73 sqM) Est GFR (CKD-EPI)NonAf (>60 ml/min/1.73 sqM) Glucose (74-99) mg/dL Calcium (8.4-10.2) mg/dL Total Bilirubin (0.2-1.3) mg/dL AST (14-36) U/L ALT (9-52) U/L Alkaline Phosphatase (38-126) U/L Troponin I (0.000-0.034) ng/mL Total Protein (6.3-8.2) g/dL Albumin (3.5-5.0) g/dL Urine Color Yellow Urine Appearance Cloudy H (Clear) Urine pH 5.5 (5.0-8.0) Ur Specific Oblong 1.012 (1.001-1.035) Urine Protein Trace H (Negative) Urine Glucose (UA) 1+ H (Negative) Urine Ketones Negative (Negative) Urine Blood Negative (Negative) Urine Nitrite Negative (Negative) Urine Bilirubin Negative (Negative) Urine Urobilinogen 3.0 (<2.0) mg/dL Ur Leukocyte Esterase Trace H (Negative) Urine RBC 1 (0-5) /hpf Urine WBC 4 (0-5) /hpf Ur Squamous Epith Cells 6 H (0-4) /hpf Urine Bacteria Occasional H (None) /hpf Hyaline Casts 10 H (0-2) /lpf Urine Mucus Rare H (None) /hpf Disposition Clinical Impression: Dizziness, Unsteady gait, Hypokalemia Disposition: ADMITTED IP TO THIS HOSP Condition: Fair Referrals: Wilfredo Boland MD [Primary Care Provider] - 1-2 days
[2019-03-17 10:35] LABS: Basophils # (A) 0.1 k/uL (0-0.2); Basophils % (A) 1 %; Eosinophils # (A) 0.3 k/uL (0-0.7); Eosinophils % (A) 4 %; HCT 35.1 % (34.0-46.0); HGB 11.7 gm/dL (11.4-16.0); Lymphocytes # (A) 1.6 k/uL (1.0-4.8); Lymphocytes % (A) 16 %; MCH 28.4 pg (25.0-35.0); MCHC 33.4 g/dL (31.0-37.0); Mean Platelet Volume 6.8; Monocytes # (A) 0.8 k/uL (0-1.0); Monocytes % (A) 8 %; Neutrophils # (A) 6.8 k/uL (1.3-7.7); Neutrophils % (A) 69 %; Platelet Count 340 k/uL (150-450); Poikilocytosis Slight; RBC 4.13 m/uL (3.80-5.40); WBC 9.8 k/uL (3.8-10.6)
--- NOTE | 2019-03-17 10:49 | XR ---
EXAMINATION TYPE: XR chest 2V DATE OF EXAM: 03/17/2019 COMPARISON: Chest x-ray February 17, 2019 HISTORY: Dizziness and weakness. TECHNIQUE: Frontal and lateral views of the chest are obtained. FINDINGS: Overlying EKG leads. There is chronic parenchymal change without suspicious focal air space opacity, pleural effusion, or pneumothorax seen. The cardiac silhouette size is stable and mildly e nlarged with atherosclerotic aorta. Underlying scoliotic curvature lumbar spine is present. IMPRESSION: Chronic changes and mild cardiomegaly without new acute pulmonary process.
[2019-03-17 10:51] LABS: ALT 18 U/L (9-52); AST 18 U/L (14-36); African American GFR (CKD) >90 (>60 ml/min/1.73 sqM); Alkaline Phosphatase 88 U/L (38-126); Anion Gap 15 mmol/L; Blood Urea Nitrogen 14 mg/dL (7-17); Calcium 8.4 mg/dL (8.4-10.2); Carbon Dioxide 34 mmol/L (22-30); Chloride 89 mmol/L (98-107); Glucose 230 mg/dL (74-99); Non-African American GFR(CKD) 87 (>60 ml/min/1.73 sqM); Potassium 2.8 mmol/L (3.5-5.1); Sodium 138 mmol/L (137-145); Total Bilirubin 2.5 mg/dL (0.2-1.3); Total Protein 7.2 g/dL (6.3-8.2)
--- NOTE | 2019-03-17 10:51 | CT ---
EXAMINATION TYPE: CT brain wo con DATE OF EXAM: 03/17/2019 COMPARISON: None INDICATION: dizzy DLP: 1098.4 mGycm, Automated exposure control for dose reduction was used. CONTRAST: None CT of the brain is performed utilizing 3 mm thick sections through the posterior fossa and 3 mm thick sections through the remaining calvarium. Study is performed within 24 hours of arrival to the hosp [facility]. No abnormal hyperdensity is present to suggest an acute intracranial hemorrhage. No mass lesion is evident. No acute infarcts are evident. Ventricles and sulci are appropriate for the patient age. Paranasal sinuses and mastoid air cells within the [id number] are clear. IMPRESSIONS: 1. Normal CT Brain
[2019-03-17] MEDS ORDERED: DIAZEPAM 5 MG/ML 2 ML INJ IVP STA (11:54)
[2019-03-17] MEDS ORDERED: ONDANSETRON 4 MG/2 ML VIAL IVP STA (11:54)
[2019-03-17] MEDS ORDERED: POTASSIUM CHLORIDE ER 20 MEQ TAB.ER PO STA (11:54)
[2019-03-17 12:15] LABS: Appearance,Urine Cloudy (Clear); Bacteria,Urine Occasional /hpf; Bilirubin,Urine Negative (Negative); Blood,Urine Negative (Negative); Color,Urine Yellow; Glucose,Urine (UA) 1+ (Negative); Hyaline Casts,Urine 10 /lpf (0-2); Ketones,Urine Negative (Negative); Leukocyte Esterase,Urine Trace (Negative); Mucus,Urine Rare /hpf; Nitrite,Urine Negative (Negative); PH, Urine 5.5 (5.0-8.0); Protein,Urine Trace (Negative); RBC,Urine 1 /hpf (0-5); Specific Gravity,Urine 1.012 (1.001-1.035); Squamous Epithelial Cell,Urine 6 /hpf (0-4); WBC,Urine 4 /hpf (0-5)
[2019-03-17] MEDS ORDERED: NALOXONE 0.4 MG/ML 1 ML VIAL IV PRN (12:44)
[2019-03-17 20:44] LABS: Glucose,Whole Blood 258 mg/dL (75-99)
--- NOTE | 2019-03-17 20:50 | P.CNNES ---
History of Present Illness Consult date: 03/17/19 Reason for Consult: Dizziness Chief complaint: Dizziness History of Present Illness: HISTORY OF PRESENT ILLNESS: Thank you for allowing me to evaluate Ms. Krissy Batres is a 73-year-old woman with past medical history of Asthma, diabetes, hypertension, ME, osteoarthritis, peripheral neuropathy, vertigo, arthritis, constipation, varicose vein who presented to [facility] for acute onset vertigo. Patient state that before she went to sleep last night, she wanted to kiss her good night, but she realized she couldn't due to dizziness and she went straight to bed. She needed to grab onto things to walk to her bed, She says that she had dizziness/room-spinning sensation only when she would stand up. She noticed that she could not greens picker her feet off the fllor to walk. Patient denies any urinary incontinence or any memory impairments. Patient reports that she's always had tingling in her b/l LE from peripheral neuropathy, but a couple of months ago, she started having numbness also running slightly above the ankle line. Patient denies any headache, nausea, vomiting, double/blurry vision, recent sickness, painful ear, tinnitus. Patient reports that she had been diagnosed with vertigo about a year ago, and she vivar tinnitus for about 1 month after and resolved. PAST MEDICAL HISTORY: Asthma, diabetes, hypertension, ME, osteoarthritis, peripheral neuropathy, vertigo, arthritis, constipation, varicose vein PAST SURGICAL HISTORY: Left breast biopsy (benign), heart catheterization HOME MEDICATIONS: Gabapentin, glipizide, metformin, atorvastatin, Plavix, furosemide, isosorbide, metoprolol ALLERGIES: NKDA SOCIAL HISTORY: Former smoker FAMILY HISTORY: Father had diabetes, ME. Mother had diabetes. Both parents were bipolar REVIEW OF SYSTEMS: The 14 systems are reviewed and no additional points are identified compared to the review of systems documented history and physical PHYSICAL EXAMINATION: VITAL SIGNS: T 97.8 HR 85 RR 18 BP 133/62 O2 sat 98% on RA GEN.: NAD, pleasant and cooperative HEENT: NCAT, sclera without icterus NECK: Supple SKIN AND EXTREMITIES: Warm to touch, no edema NEURO: MENTAL STATUS: Patient alert and oriented to self, place, time. Able to name the current president. Speech fluent, able to name and repeat, following all commands readily. No right and left disorientation, neglect. CRANIAL NERVES II THROUGH XII: II: Pupils are equal and reactive to light symmetrically. No afferent pupillary defect. Visual raymundo are intact. III, IV, : No ptosis. Extraocular movements full. No nystagmus. V: Facial sensation intact from V1-3. VII. No clear facial asymmetry. VIII: Hearing intact to finger rub bilaterally. IX, X: Symmetric palate elevation. XI: Shoulder shrug intact. XII: Tongue midline without fasciculation or atrophy. MOTOR: Normal bulk/tone. No pronator drift or tremor. Strength is 5/5 throughout all 4 extremities EXCEPT dorsiflexion in bilateral feet. SENSORY: Decreased to LT below the ankle in b/l feet. REFLEXES: 1+ throughout. Toes are downgoing. COORDINATION: Finger to nose intact. No dysmetria. GAIT: Magnetic gait, able to walk on her own but needs some assistance and reassurance of support nearby HIINTS: negative DIAGNOSTIC TESTING: LABORATORY: WBC 9.8 hemoglobin 11.7 platelets 340 sodium 138 potassium 2.8 chloride 89 bicarb 34 BUN 14 creatinine 0.70 glucose 230 AST 18 ALT 18 alkphos 88 troponin <0.012 urinalysis trace leukesterase, occasional bacteria IMAGING: CT head without contrast 03/17/2019: Generalized cerebral atrophy. No acute intracranial abnormality. ASSESSMENT: 73-year-old woman with past medical history of Asthma, diabetes, hypertension, ME, osteoarthritis, peripheral neuropathy, vertigo, arthritis, constipation, varicose vein who presented to [facility] for acute onset vertigo, resolved, but patient having magnetic gait with difficulty dorsiflexion, but her gait is not a typical gait with foot drop. Patient with known peripheral neuropathy that has been worsening. Patient also with risk factors for stroke, i.e. DM, HTN. Patient's last A1C obtained in 11/2018 per patient was ~8%. RECOMMENDATIONS: 1. MRI brain without contrast 2. Carotid Doppler bilateral 3. Transthoracic echocardiogram 4. Cardiac monitoring 5. Permissive HTN for 24-48 hours SBP >220. Give labetalol 10mg IV q1h PRN for SBP >220 DBP >110 6. ASA 81mg qday and Plavix 75mg qday (dual antiplatelet therapy for 3 weeks per POINT trial, then Aspirin 81mg qday only) 7. Atorvastatin 80mg qhs 8. Labs: A1C, TSH, FLP 9. PT/OT/ST per protocol 10. Discussed with patient about stroke prevention guidelines. Medication compliance, hypertension/diabetes control, lifestyle changes including no smoking, drinking in moderation, losing weight, exercising, eating healthier 11. Neurology will continue to follow 12. Patient needs to follow up with neurologist as outpatient with her 1-2 weeks of discharge. Patient should get EMG/NCS as outpatient for further workup of worsening peripheral neuropathy. Past Medical History Past Medical History: Asthma, Diabetes Mellitus, Hypertension, Myocardial Infarction (ME), Osteoarthritis (OA), Vascular Disorder Additional Past Medical History / Comment(s): Asthma years ago, NIDDM type II, neuropathy bilateral feet, pt states she has been having intermittent edema bilateral ankles and feet past 6 months, vertigo at times, arthritis bilateral hands, varicosity L leg, constipation. History of Any Multi-Drug Resistant Organisms: None Reported Past Surgical History: Breast Surgery, Heart Catheterization Additional Past Surgical History / Comment(s): L breast biopsy x2 benign, EGD, colonoscopy. Past Anesthesia/Blood Transfusion Reactions: No Reported Reaction Past Psychological History: No Psychological Hx Reported Smoking Status: Former smoker Past Alcohol Use History: None Reported Past Drug Use History: None Reported - Past Family History Father Family Medical History: Diabetes Mellitus, Myocardial Infarction (ME) Additional Family Medical History / Comment(s): Father was bipolar. He had his first ME at the age of 63 yrs and from his 2nd ME at the age of 66yrs. Mother Family Medical History: Diabetes Mellitus Additional Family Medical History / Comment(s): Mother was bipolar. She at the age of 81 yrs from MRSA infection. Medications and Allergies Home Medications Medication Instructions Recorded Confirmed Type Gabapentin 600 mg PO BID 02/15/19 03/17/19 History Ibuprofen [Advil] 400 mg PO Q8HR PRN 02/15/19 03/17/19 History glipiZIDE [Glucotrol] 10 mg PO AC-BID 02/15/19 03/17/19 History metFORMIN HCL [Glucophage] 500 mg PO TID 02/15/19 03/17/19 History Atorvastatin [Lipitor] 80 mg PO HS #30 tab 02/18/19 03/17/19 Rx Clopidogrel [Plavix] 75 mg PO DAILY #30 tab 02/18/19 03/17/19 Rx Furosemide [Lasix] 40 mg PO BID #60 tablet 02/18/19 03/17/19 Rx Ipratropium-Albuterol Nebulize 3 ml INHALATION QID #120 ampul.neb 02/18/19 Rx [Duoneb 0.5 mg-3 mg/3 ml Soln] Isosorbide Mononitrate ER [Imdur] 30 mg PO DAILY #30 tab 02/18/19 03/17/19 Rx Metoprolol Succinate (ER) [Toprol 25 mg PO DAILY #30 tab.er.24h 02/18/19 03/17/19 Rx XL] Nitroglycerin Sl Tabs [Nitrostat] 0.4 mg SUBLINGUAL Q5M PRN #100 tab 02/18/19 03/17/19 Rx Allergies Allergy/AdvReac Type Severity Reaction Status Date / Time No Known Allergies Allergy Verified 02/15/19 09:13 Physical Examination - Vital Signs Vital Signs: Vital Signs Temp Pulse Resp BP Pulse Ox 03/17/19 14:12 70 16 149/60 99 03/17/19 12:28 76 16 145/64 99 03/17/19 10:06 97.8 F 85 18 133/62 98 Intake and Output 03/17/19 03/17/19 03/17/19 06:59 14:59 22:59 Other: Weight 74.389 kg Results - Laboratory Findings CBC and BMP: 03/17/19 10:20 03/17/19 10:20 Abnormal Lab Findings: Abnormal Labs 03/17/19 03/17/19 10:20 11:36 Potassium 2.8 L Chloride 89 L Carbon Dioxide 34 H Glucose 230 H Total Bilirubin 2.5 H Urine Appearance Cloudy H Urine Protein Trace H Urine Glucose (UA) 1+ H Ur Leukocyte Esterase Trace H Ur Squamous Epith Cells 6 H Urine Bacteria Occasional H Hyaline Casts 10 H Urine Mucus Rare H
[2019-03-17] MEDS: GABAPENTIN 300 MG CAP PO SCH (23:01)
[2019-03-17] MEDS: CLOPIDOGREL 75 MG TAB PO SCH (23:02)
[2019-03-17] MEDS: metFORMIN 500 MG TAB PO SCH (23:02)
--- NOTE | 2019-03-18 02:03 | US ---
EXAMINATION TYPE: US carotid duplex BILAT DATE OF EXAM: 03/17/2019 COMPARISON: US CLINICAL HISTORY: concern for stroke. Concern for stroke. Previous smoker. EXAM MEASUREMENTS: RIGHT: Peak Systolic Velocity (PSV) cm/sec ----- Right CCA: 111.5 ----- Right ICA: 154.9 ----- Right ECA: 210.7 ICA/CCA ratio: 1.4 RIGHT: End Diastole cm/sec ----- Right CCA: 20.9 ----- Right ICA: 32.7 ----- Right ECA: 10.0 LEFT: Peak Systolic Velocity (PSV) cm/sec ----- Left CCA: 86.6 ----- Left ICA: 309.1 ----- Left ECA: 187.3 ICA/CCA ratio: 3.6 LEFT: End Diastole cm/sec ----- Left CCA: 13.9 ----- Left ICA: 83.9 ----- Left ECA: 6.0 VERTEBRALS (direction of flow): Right Vertebral: Antegrade Left Vertebral: Antegrade Rhythm: Arrhythmia Hyperechoic plaque seen bilaterally. Elevated velocities obtained right and left ICA and right and le ft ECA. Left ratio greater than right. Hypoechoic areas with hyperechoic centers seen: Right neck measurin.1 x 0.7 x 0.6 cm. Left neck measurin.3 x 0.8 x 0.5 cm. IMPRESSION: There is elevated velocity in both internal carotid arteries. On the right side the measurements sugg est 50-70% stenosis. On the left side the measurements suggest left internal carotid artery stenosis of more than 70%. There is bilateral external carotid artery velocities suggestive of more than 50% s tenosis. There is antegrade flow in the vertebral arteries. Criteria for Assigning % of Stenosis / Diameter reduction (Estimation based on the indirect measurements of the internal carotid artery velocities (ICA PSV). 1. Normal (no stenosis)=ICA PSV < 125 cm/s: ratio < 2.0: ICA EDV<40 cm/s. 2. Less than 50% stenosis=ICA PSV < 125 cm/s: ratio < 2.0: ICA EDV<40 cm/s. 3. 50 to 69% stenosis=ICA PSV of 125 to 230 cm/s: ration 2.0 ? 4.0: ICA EDV 40-100 cm/s. 4. Greater than 70% stenosis to near occlusion= ICA PSV > 230 cm/s: ratio > 4.0: ICA EDV > 100 cm/s. 5. Near occlusion= ICA PSV velocities may be low or undetectable: variable ratio and ICA EDV. 6. Total occlusion=unable to detect flow.
[2019-03-18 06:31] LABS: Glucose,Whole Blood 136 mg/dL (75-99)
[2019-03-18 07:29] LABS: Basophils # (A) 0.1 k/uL (0-0.2); Basophils % (A) 1 %; Eosinophils # (A) 0.3 k/uL (0-0.7); Eosinophils % (A) 4 %; HCT 31.8 % (34.0-46.0); HGB 10.8 gm/dL (11.4-16.0); Lymphocytes # (A) 1.4 k/uL (1.0-4.8); Lymphocytes % (A) 17 %; MCH 29.1 pg (25.0-35.0); MCHC 33.9 g/dL (31.0-37.0); MCV 85.9 fL (80.0-100.0); Mean Platelet Volume 6.5; Monocytes # (A) 0.7 k/uL (0-1.0); Monocytes % (A) 8 %; Neutrophils # (A) 5.5 k/uL (1.3-7.7); Neutrophils % (A) 68 %; Platelet Count 295 k/uL (150-450); Poikilocytosis Slight; RDW 15.1 % (11.5-15.5); WBC 8.1 k/uL (3.8-10.6)
[2019-03-18 08:02] LABS: African American GFR (CKD) >90 (>60 ml/min/1.73 sqM); Anion Gap 6 mmol/L; Blood Urea Nitrogen 12 mg/dL (7-17); Calcium 7.9 mg/dL (8.4-10.2); Carbon Dioxide 38 mmol/L (22-30); Chloride 95 mmol/L (98-107); Cholesterol 98 mg/dL (<200); Glucose 139 mg/dL (74-99); HDL Cholesterol 25 mg/dL (40-60); LDL Cholesterol,Calculated 52 mg/dL (0-99); Non-African American GFR(CKD) 83 (>60 ml/min/1.73 sqM); Potassium 3.3 mmol/L (3.5-5.1); Sodium 139 mmol/L (137-145); Triglycerides 107 mg/dL (<150)
[2019-03-18] MEDS: GABAPENTIN 300 MG CAP PO SCH ×2 (08:19→20:05)
[2019-03-18] MEDS: metFORMIN 500 MG TAB PO SCH ×3 (08:19→20:05)
[2019-03-18] MEDS: CLOPIDOGREL 75 MG TAB PO SCH (08:19)
[2019-03-18 11:55] VITALS: BMI 26.9
[2019-03-18 12:18] LABS: Glucose,Whole Blood 165 mg/dL (75-99)
--- NOTE | 2019-03-18 12:22 | P.HPIM ---
History of Present Illness H&P Date: 03/18/19 Chief Complaint: Vertigo and foot weakness This is a 73-year-old white female patient well-known to me. She is a type II diabetic and has not been very compliant with her diabetes care. He was most recently here February 15 through 02/18/2019 non-STEMI. He presented yesterday in the emergency room after waking up early in the a.m. of March 17 with vertigo with head motion. She indicated did not resolve continue to worsen. She also reports difficulty walking and movement of her feet. She indicates they feel like they're "lead-like". She denies any current chest pains, pressures, shortness breath, vomiting, double vision or blurry vision, or tinnitus. She does complain of some mild nausea and indicates she's had a weight loss since her recent hospitalization. Neurology had seen her last night after admission. The recommendations are reviewed. CT brain on admission was normal. A 2-D echo done February 16 shows overall EF of 50-55%. There was a difficult study. No other significant abnormalities were noted. Carotid Doppler done last night possible left internal carotid artery stenosis of greater than 70%. The right side was between 50-70% stenosis. She is feeling better resting comfortably in her bed with her and son at bedside. She continues to have the feelings of heavy feet. Review of Systems All systems: negative Past Medical History Past Medical History: Asthma, Diabetes Mellitus, Hypertension, Myocardial Infarction (LA), Neurologic Disorder (Diabetic neuropathy of the lower extremities, vertigo), Osteoarthritis (OA), Vascular Disorder Last Myocardial Infarction Date:: 01/2019 History of Any Multi-Drug Resistant Organisms: None Reported Past Surgical History: Breast Surgery, Heart Catheterization Additional Past Surgical History / Comment(s): L breast biopsy x2 benign, EGD, colonoscopy. Past Anesthesia/Blood Transfusion Reactions: No Reported Reaction Past Psychological History: No Psychological Hx Reported Smoking Status: Former smoker Past Alcohol Use History: None Reported Past Drug Use History: None Reported - Past Family History Father Family Medical History: Diabetes Mellitus, Myocardial Infarction (LA) Additional Family Medical History / Comment(s): Father was bipolar. He had his first LA at the age of 63 yrs and from his 2nd LA at the age of 66yrs. Mother Family Medical History: Diabetes Mellitus Additional Family Medical History / Comment(s): Mother was bipolar. She at the age of 81 yrs from MRSA infection. Medications and Allergies Home Medications Medication Instructions Recorded Confirmed Type Gabapentin 600 mg PO BID 02/15/19 03/17/19 History Ibuprofen [Advil] 400 mg PO Q8HR PRN 02/15/19 03/17/19 History glipiZIDE [Glucotrol] 10 mg PO AC-BID 02/15/19 03/17/19 History metFORMIN HCL [Glucophage] 500 mg PO TID 02/15/19 03/17/19 History Atorvastatin [Lipitor] 80 mg PO HS #30 tab 02/18/19 03/17/19 Rx Clopidogrel [Plavix] 75 mg PO DAILY #30 tab 02/18/19 03/17/19 Rx Furosemide [Lasix] 40 mg PO BID #60 tablet 02/18/19 03/17/19 Rx Ipratropium-Albuterol Nebulize 3 ml INHALATION QID #120 ampul.neb 02/18/19 03/17/19 Rx [Duoneb 0.5 mg-3 mg/3 ml Soln] Isosorbide Mononitrate ER [Imdur] 30 mg PO DAILY #30 tab 02/18/19 03/17/19 Rx Metoprolol Succinate (ER) [Toprol 25 mg PO DAILY #30 tab.er.24h 02/18/19 03/17/19 Rx XL] Nitroglycerin Sl Tabs [Nitrostat] 0.4 mg SUBLINGUAL Q5M PRN #100 tab 02/18/19 03/17/19 Rx Allergies Allergy/AdvReac Type Severity Reaction Status Date / Time No Known Allergies Allergy Verified 02/15/19 09:13 Physical Exam Vitals: Vital Signs Temp Pulse Pulse Resp BP BP Pulse Ox 03/18/19 11:34 96.4 F L 69 18 163/63 95 03/18/19 07:38 97.4 F L 93 18 102/50 93 L 03/18/19 04:00 98.7 F 80 16 108/62 94 L 03/18/19 00:00 98.2 F 90 16 112/64 94 L 03/17/19 20:00 93 16 03/17/19 18:15 98.2 F 93 141/64 90 L 03/17/19 14:12 70 16 149/60 99 03/17/19 12:28 76 16 145/64 99 Intake and Output 03/17/19 03/18/19 03/18/19 22:59 06:59 14:59 Intake Total 240 Balance 240 Intake: Oral 240 Other: Voiding Method Toilet Toilet # Voids 1 1 Weight 75.5 kg 75.5 kg GENERAL: Well-appearing, well-nourished and in no acute distress. HEAD: Atraumatic, normocephalic. EYES: Pupils equal round and reactive to light, extraocular movements intact, sclera anicteric, conjunctiva are normal. ENT:nares patent, oropharynx clear without exudates. Moist mucous membranes. NECK: Normal range of motion, supple without lymphadenopathy or JVD, no thyromegaly LUNGS: Breath sounds clear to auscultation bilaterally and equal. No wheezes rales or rhonchi. HEART: Regular rate and rhythm without murmurs, rubs or gallops.S1S2 Normal ABDOMEN: Soft, nontender, normoactive bowel sounds. No guarding, no rebound. No masses appreciated. EXTREMITIES: Normal range of motion, no pitting or edema. No clubbing or cyanosis. NEUROLOGICAL: Cranial nerves II through XII grossly intact. Normal speech, gait testing was deferred at this time. PSYCH: Normal mood, normal affect. SKIN: Warm, Dry, normal turgor, no rashes or lesions noted. Results CBC & Chem 7: 03/18/19 06:38 03/18/19 06:38 Labs: Abnormal Lab Results - Last 24 Hours (Table) 03/17/19 03/17/19 03/18/19 Range/Units 11:36 20:42 06:30 RBC (3.80-5.40) m/uL Hgb (11.4-16.0) gm/dL Hct (34.0-46.0) % Potassium (3.5-5.1) mmol/L Chloride (98-107) mmol/L Carbon Dioxide (22-30) mmol/L Glucose (74-99) mg/dL POC Glucose (mg/dL) 258 H 136 H (75-99) mg/dL Calcium (8.4-10.2) mg/dL HDL Cholesterol (40-60) mg/dL Urine Appearance Cloudy H (Clear) Urine Protein Trace H (Negative) Urine Glucose (UA) 1+ H (Negative) Ur Leukocyte Esterase Trace H (Negative) Ur Squamous Epith Cells 6 H (0-4) /hpf Urine Bacteria Occasional H (None) /hpf Hyaline Casts 10 H (0-2) /lpf Urine Mucus Rare H (None) /hpf 03/18/19 03/18/19 Range/Units 06:38 06:38 RBC 3.70 L (3.80-5.40) m/uL Hgb 10.8 L (11.4-16.0) gm/dL Hct 31.8 L (34.0-46.0) % Potassium 3.3 L (3.5-5.1) mmol/L Chloride 95 L (98-107) mmol/L Carbon Dioxide 38 H (22-30) mmol/L Glucose 139 H (74-99) mg/dL POC Glucose (mg/dL) (75-99) mg/dL Calcium 7.9 L (8.4-10.2) mg/dL HDL Cholesterol 25 L (40-60) mg/dL Urine Appearance (Clear) Urine Protein (Negative) Urine Glucose (UA) (Negative) Ur Leukocyte Esterase (Negative) Ur Squamous Epith Cells (0-4) /hpf Urine Bacteria (None) /hpf Hyaline Casts (0-2) /lpf Urine Mucus (None) /hpf Chest x-ray: report reviewed (Chronic changes) CT Scan - head: report reviewed (No acute findings) Thrombosis Risk Factor Assmnt - DVT/VTE Prophylaxis DVT/VTE Prophylaxis: Mechanical Prophylaxis ordered, Contraindicated - See note (Due to CVA and the possible conversion to hemorrhagic CVA, will hold off on anticoagulation, she remains on antiplatelet therapy.) - Choose All That Apply Any of the Below Risk Factors Present?: Yes Each Factor Represents 1 point: Abnormal pulmonary function (COPD), Obesity (BMI >25) Other Risk Factors: Yes Each Risk Factor Represents 2 Points: Age 61-74 years Other congenital or acquired thrombophilia - If yes, enter type in comment: No Thrombosis Risk Factor Assessment Total Risk Factor Score: 4 Thrombosis Risk Factor Assessment Level: Moderate Risk Assessment and Plan (1) CVA (cerebral vascular accident) Current Visit: Yes Status: Acute Code(s): I63.9 - CEREBRAL INFARCTION, UNSPECIFIED SNOMED Code(s): 220062050 (2) Type 2 diabetes mellitus with hyperglycemia Current Visit: Yes Status: Acute Code(s): E11.65 - TYPE 2 DIABETES MELLITUS WITH HYPERGLYCEMIA SNOMED Code(s): 475004718381387 (3) Recent myocardial infarction Current Visit: Yes Status: Acute Code(s): KAP5070 - SNOMED Code(s): 800142818 (4) Carotid artery stenosis Current Visit: Yes Status: Acute Code(s): I65.29 - OCCLUSION AND STENOSIS OF UNSPECIFIED CAROTID ARTERY SNOMED Code(s): 43613322 (5) Coronary artery disease Current Visit: Yes Status: Acute Code(s): I25.10 - ATHSCL HEART DISEASE OF [place] CORONARY ARTERY W/O ANG PCTRS SNOMED Code(s): 98347145 (6) Hyperlipidemia Current Visit: Yes Status: Acute Code(s): E78.5 - HYPERLIPIDEMIA, UN SPECIFIED SNOMED Code(s): 49138958 (7) Diabetic neuropathy Current Visit: Yes Status: Acute Code(s): E11.40 - TYPE 2 DIABETES MELLITUS WITH DIABETIC NEUROPATHY, UNSP SNOMED Code(s): 084684433 (8) Vertigo Current Visit: Yes Status: Acute Code(s): R42 - DIZZINESS AND GIDDINESS SNOMED Code(s): 817808484 (9) Asthma Current Visit: Yes Status: Acute Code(s): J45.909 - UNSPECIFIED ASTHMA, UNCOMPLICATED SNOMED Code(s): 744528862 (10) Gait abnormality Current Visit: Yes Status: Acute Code(s): R26.9 - UNSPECIFIED ABNORMALITIES OF GAIT AND MOBILITY SNOMED Code(s): 66793323 (11) Essential (primary) hypertension Current Visit: Yes Status: Acute Code(s): I10 - ESSENTIAL (PRIMARY) HYPER TENSION SNOMED Code(s): 26568838 Plan: I'll restart her home medications as needed. We'll monitor closely her sugar. We'll wait on her MRI. I'll consult plastic surgery regarding the left carotid stenosis. I will consult cardiology for possible CARLOS EDUARDO and cardiac monitoring for a suspected CVA. We have further recommendations from neurology. She'll remain on Plavix for antiplatelet therapy. ADA robles. Repeat labs in a.m. She'll be reevaluated next 24 hours.
[2019-03-18] MEDS ORDERED: IPRATROPIUM-ALBUTEROL 3 ML NEB INHALATION PRN (12:26)
[2019-03-18] MEDS: INSULIN ASPART (NovoLOG) 100 UNIT/ML VIAL SQ SCH ×3 (12:38→21:19)
[2019-03-18] MEDS: METOPROLOL SUCCINATE (ER) 25 MG TAB.ER.24H PO SCH (12:38)
[2019-03-18] MEDS: ISOSORBIDE MONONITRATE ER 30 MG TAB.ER.24H PO SCH (12:38)
--- NOTE | 2019-03-18 13:44 | CONS ---
CONSULTATION CHIEF COMPLAINT: Vertigo, rule out CVA. This is a 73-year-old lady with history of hypertension, diabetes, peripheral neuropathy, and osteoarthritis who is admitted to hospital with dizziness and vertigo. Cardiology has been consulted to rule out cardiac source of thromboembolic phenomenon. The patient was in the hospital on February [address]-segment elevation [place] and cardiac catheterization revealed moderate to diffuse multivessel coronary artery disease for which she was advised medical therapy. An echocardiogram at that time showed normal ejection fraction. At the time of my evaluation today, the patient appears comfortable at rest and the dizziness has improved somewhat. She had a carotid duplex study done that showed a 70% stenosis involving left internal carotid artery and a 50% to 70% stenosis involving right internal carotid artery. PAST MEDICAL HISTORY: Significant for coronary artery disease, hypertension, diabetes, dyslipidemia. MEDICATIONS: Include metformin 500 t.i.d., Glucotrol, Toprol-XL 25 daily, Imdur, DuoNeb, Advil, Lasix, Plavix and Lipitor. ALLERGIES: There are no known drug allergies. FAMILY HISTORY: Negative for premature coronary artery disease. SOCIAL HISTORY: Negative for current smoking history of drug abuse. REVIEW OF SYSTEMS: Significant for dizziness and vertigo, but is otherwise unremarkable. PHYSICAL EXAMINATION: Comfortable at rest. Vital signs are stable. Chest exam reveals good air entry bilaterally. Heart exam reveals first and second heart sounds. No gallop. Abdomen is soft. Exam of extremities did not reveal any edema. Peripheral pulses are felt. There is no carotid bruit. LAB: Showed that the hemoglobin is 10.8, potassium is 3.3, creatinine is 0.7. ASSESSMENT: 1. Dizziness, vertigo. 2. Coronary artery disease. 3. Hypertension. 4. Dyslipidemia. 5. Bilateral carotid stenosis. PLAN: Neurology has evaluated the patient and we have been consulted for a CARLOS EDUARDO to rule out cardiac source of thromboembolic phenomenon. I will do the CARLOS EDUARDO tomorrow that. MMODL / IJN: [id number] /
[2019-03-18] MEDS: IPRATROPIUM-ALBUTEROL 3 ML NEB INHALATION SCH ×2 (16:14→20:54)
[2019-03-18 17:06] LABS: Glucose,Whole Blood 262 mg/dL (75-99)
--- NOTE | 2019-03-18 19:31 | P.PN ---
Progress Note - Text Progress Note Date: 03/18/19 SUBJECTIVE/INTERVAL EVENTS: No acute overnight events. Denies headache, nausea, vomiting, any new/worsening weakness, numbness or tingling, double/blurry vision. Patient still having difficulty with her gait. Patient states that she was seen by a foot doctor about a week ago, and she was told that something felt off with her feet. PHYSICAL EXAMINATION: VITAL SIGNS: T 98.7 HR 80 RR 16 BP 108/62 O2 sat 94% on RA GEN.: NAD, pleasant and cooperative HEENT: NCAT, sclera without icterus NECK: Supple SKIN AND EXTREMITIES: Warm to touch, no edema NEURO: MENTAL STATUS: Patient alert and oriented to self, place, time. Able to name the current president. Speech fluent, able to name and repeat, following all commands readily. No right and left disorientation, neglect. CRANIAL NERVES II THROUGH XII: II: Pupils are equal and reactive to light symmet rically. No afferent pupillary defect. Visual raymundo are intact. III, IV, : No ptosis. Extraocular movements full. No nystagmus. V: Facial sensation intact from V1-3. VII. No clear facial asymmetry. VIII: Hearing intact to finger rub bilaterally. IX, X: Symmetric palate elevation. XI: Shoulder shrug intact. XII: Tongue midline without fasciculation or atrophy. MOTOR: Normal bulk/tone. No pronator drift or tremor. Strength is 5/5 throughout all 4 extremities EXCEPT dorsiflexion in bilateral feet. SENSORY: Decreased to LT below the ankle in b/l feet. REFLEXES: 1+ throughout. Toes are downgoing. COORDINATION: Finger to nose intact. No dysmetria. GAIT: Magnetic gait, able to walk on her own but needs some assistance and reassurance of support nearby. Patient with foot drops. HIINTS: negative DIAGNOSTIC TESTING: LABORATORY: WBC 9.8 hemoglobin 11.7 platelets 340 sodium 138 potassium 2.8 chloride 89 bicarb 34 BUN 14 creatinine 0.70 glucose 230 AST 18 ALT 18 alkphos 88 troponin <0.012 urinalysis trace leukesterase, occasional bacteria TSH 0.564 Total Cholesterol 98 LDL 52 HDL 25 TG 107 IMAGING: CT head without contrast 03/17/2019: Generalized cerebral atrophy. No acute intracranial abnormality. Carotid Doppler bilateral 03/17/2019: Elevated velocity in both internal carotid arteries. On the right side the measurements suggest 50-70% stenosis. On the left, left ICA stenosis of more than 70%. There is bilateral external carotid artery velocities suggestive of more than 50% stenosis Cardiac monitoring: no atrial arrhythmia since admission. occasional PVCs ASSESSMENT: 73-year-old woman with past medical history of Asthma, diabetes, hypertension, IA, osteoarthritis, peripheral neuropathy, vertigo, arthritis, constipation, varicose vein who presented to [facility] for acute onset vertigo, resolved, but patient having magnetic gait with difficulty dorsiflexion, but her gait is not a typical gait with foot drop. Patient with known peripheral neuropathy that has been worsening. Patient also with risk factors for stroke, i.e. DM, HTN. Patient's last A1C obtained in 11/2018 per patient was ~8%. Patient reports today that she was seen by a foot doctor who told patient that something seemed off with her feet but did not tell her specifically what seemed unusual. RECOMMENDATIONS: 1. MRI brain without contrast 2. Transthoracic echocardiogram 3. ASA 81mg qday and Plavix 75mg qday (dual antiplatelet therapy for 3 weeks per POINT trial, then Aspirin 81mg qday only) 4. Atorvastatin 80mg qhs 5. Labs: A1C 6. PT/OT/ST per protocol 7. Discussed with patient about stroke prevention guidelines. Medication compliance, hypertension/diabetes control, lifestyle changes including no smoking, drinking in moderation, losing weight, exercising, eating healthier. 8. Neurology will continue to follow 9. Patient needs to follow up with neurologist as outpatient with her 1-2 weeks of discharge. Patient should get EMG/NCS as outpatient for further workup of worsening peripheral neuropathy.
[2019-03-18 20:56] LABS: Glucose,Whole Blood 169 mg/dL (75-99)
[2019-03-18] MEDS ORDERED: ATORVASTATIN 80 MG TAB PO SCH (21:00)
[2019-03-19 06:12] LABS: Glucose,Whole Blood 122 mg/dL (75-99)
[2019-03-19] MEDS: INSULIN ASPART (NovoLOG) 100 UNIT/ML VIAL SQ SCH ×2 (06:33→13:36)
[2019-03-19 06:56] LABS: Basophils % (A) 1 %; Eosinophils # (A) 0.3 k/uL (0-0.7); Eosinophils % (A) 4 %; HCT 29.6 % (34.0-46.0); HGB 9.9 gm/dL (11.4-16.0); Lymphocytes # (A) 1.5 k/uL (1.0-4.8); Lymphocytes % (A) 21 %; MCH 28.6 pg (25.0-35.0); MCHC 33.4 g/dL (31.0-37.0); MCV 85.6 fL (80.0-100.0); Mean Platelet Volume 6.5; Monocytes # (A) 0.6 k/uL (0-1.0); Monocytes % (A) 8 %; Neutrophils # (A) 4.5 k/uL (1.3-7.7); Neutrophils % (A) 64 %; Platelet Count 275 k/uL (150-450); Poikilocytosis Slight; RBC 3.46 m/uL (3.80-5.40); RDW 15.3 % (11.5-15.5)
[2019-03-19 07:05] LABS: African American GFR (CKD) >90 (>60 ml/min/1.73 sqM); Anion Gap 7 mmol/L; Blood Urea Nitrogen 13 mg/dL (7-17); Carbon Dioxide 34 mmol/L (22-30); Chloride 96 mmol/L (98-107); Glucose 123 mg/dL (74-99); Magnesium 1.1 mg/dL (1.6-2.3); Non-African American GFR(CKD) 90 (>60 ml/min/1.73 sqM); Potassium 3.3 mmol/L (3.5-5.1); Sodium 137 mmol/L (137-145)
[2019-03-19] MEDS: IPRATROPIUM-ALBUTEROL 3 ML NEB INHALATION SCH ×2 (07:38→11:09)
--- NOTE | 2019-03-19 07:55 | ECHOF ---
Referral Reason:concern for stroke MEASUREMENTS -------- HEIGHT: 167.6 cm WEIGHT: 75.3 kg BP: 102/50 IVSd: 1.6 cm (0.6 - 1.1) LVIDd: 3.7 cm (3.9 - 5.3) LVPWd: 1.4 cm (0.6 - 1.1) IVSs: 1.6 cm LVIDs: 2.5 cm LVPWs: 2.1 cm FINDINGS -------- Sinus rhythm. This was a technically adequate study. Limited Study The left ventricular size is normal. There is moderate concentric left ventricular hypertrophy. O verall left ventricular systolic function is normal with, an EF between 55 - 60 %. There is no pericardial effusion. CONCLUSIONS -------- 1. Sinus rhythm. 2. This was a technically adequate study. 3. Limited Study 4. The left ventricular size is normal. 5. There is moderate concentric left ventricular hypertrophy. 6. Overall left ventricular systolic function is normal with, an EF between 55 - 60 %. 7. There is no pericardial effusion. VENDING ROUTE DRIVER: Kathleen Paul, [facility]
[2019-03-19] MEDS ORDERED: fentaNYL (PF) 50 MCG/ML 2 ML AMP ONE (08:24)
[2019-03-19] MEDS ORDERED: IV FLUID CONTINUATION 1,000 ML IV ONE (08:35)
[2019-03-19] MEDS ORDERED: BENZOCAINE SPRAY 1 CAN MUCOUS MEM ONE (08:40)
[2019-03-19] MEDS: BENZOCAINE SPRAY 1 CAN MUCOUS MEM ONE ×2 (08:45→08:46)
[2019-03-19] MEDS ORDERED: MIDAZOLAM 2 MG/2 ML VIAL IV ONE (08:58)
[2019-03-19] MEDS ORDERED: fentaNYL (PF) 50 MCG/ML 2 ML AMP IV ONE (08:58)
[2019-03-19] MEDS ORDERED: SODIUM CHLORIDE 0.9% 1,000 ML IV SCH (09:15)
--- NOTE | 2019-03-19 09:30 | ECHOT ---
TRANSESOPHAGEAL ECHOCARDIOGRAM INDICATION: TIA. PROCEDURE NOTE: After obtaining informed consent, left heart catheterization, transesophageal echocardiogram is performed in left lateral position using an Omni plane probe. Local and IV sedation were obtained using Xylocaine spray, 2 mg of Versed and 25 mcg of fentanyl. The patient tolerated the procedure well without any obvious immediate complications. The patient had saline contrast done first to test the septum, received moderate conscious sedation. Total sedation time was 10 minutes. FINDINGS: 1. Interatrial septum, there is no evidence of [id number] shunt by color-flow Doppler or uylwz-vr-[id number] shunt by agitated saline contrast study. 2. Left ventricle has normal size and systolic function. 3. There is no intracardiac thrombus within the left atrial appendage, left atrium, right atrium, right ventricle. 4. Mitral valve shows mild central mitral regurgitation, tricuspid valve shows mild tricuspid regurgitation, aortic valve is a 3-leaflet valve. There is no evidence of aortic stenosis or regurgitation. Aorta appears normal. CONCLUSION: 1. There is no evidence of intracardiac thrombus. 2. Normal left ventricular function. 3. No evidence of shunting across the interatrial septum. MMODL / IJN: [id number] /
--- NOTE | 2019-03-19 10:09 | P.GSCN ---
History of Present Illness Consult date: 03/19/19 History of present illness: Patient is a 73-year-old diabetic female who presented to the ER initially for changes in her gait with the feeling of heaviness in her lower extremities along with dizziness. She states it has been slightly worse on her right side for the past 4-5 days. At some point previously she did see a digital media specialist for this who said there was nothing to be done, but the patient seen unsure. She denies any weakness in her upper extremities. She denies any changes in speech or facial droop. She had bouts of dizziness approximately 1 year ago or more and at which time a carotid ultrasound was performed. The patient states she was told there was nothing to be done in this regard. She thinks that this is somewhat similar to the last episode of dizziness. She does have bilateral lower extremity peripheral neuropathy and also has been having changing in her distal legs as far as this is concerned. She denies any headaches, nausea, vo miting, blurry vision, earaches. Review of Systems 14 point review of systems performed. Pertinent positives and negatives per the HPI. Past Medical History Past Medical History: Asthma, Diabetes Mellitus, Hypertension, Myocardial Infarction (IA), Neurologic Disorder (Diabetic neuropathy of the lower extremities, vertigo), Osteoarthritis (OA), Vascular Disorder Additional Past Medical History / Comment(s): Asthma years ago, NIDDM type II, neuropathy bilateral feet, pt states she has been having intermittent edema bilateral ankles and feet past 6 months, vertigo at times, arthritis bilateral hands, varicosity L leg, constipation. Last Myocardial Infarction Date:: 01/2019 History of Any Multi-Drug Resistant Organisms: None Reported Past Surgical History: Breast Surgery, Heart Catheterization Additional Past Surgical History / Comment(s): L breast biopsy x2 benign, EGD, colonoscopy. Past Anesthesia/Blood Transfusion Reactions: No Reported Reaction Past Psychological History: No Psychological Hx Reported Smoking Status: Former smoker Past Alcohol Use History: None Reported Past Drug Use History: None Reported - Past Family History Father Family Medical History: Diabetes Mellitus, Myocardial Infarction (IA) Additional Family Medical History / Comment(s): Father was bipolar. He had his first IA at the age of 63 yrs and from his 2nd IA at the age of 66yrs. Mother Family Medical History: Diabetes Mellitus Additional Family Medical History / Comment(s): Mother was bipolar. She at the age of 81 yrs from MRSA infection. Medications and Allergies Home Medications Medication Instructions Recorded Confirmed Type Gabapentin 600 mg PO BID 02/15/19 03/17/19 History Ibuprofen [Advil] 400 mg PO Q8HR PRN 02/15/19 03/17/19 History glipiZIDE [Glucotrol] 10 mg PO AC-BID 02/15/19 03/17/19 History metFORMIN HCL [Glucophage] 500 mg PO TID 02/15/19 03/17/19 History Atorvastatin [Lipitor] 80 mg PO HS #30 tab 02/18/19 03/17/19 Rx Clopidogrel [Plavix] 75 mg PO DAILY #30 tab 02/18/19 03/17/19 Rx Furosemide [Lasix] 40 mg PO BID #60 tablet 02/18/19 03/17/19 Rx Ipratropium-Albuterol Nebulize 3 ml INHALATION QID #120 ampul.neb 02/18/19 03/17/19 Rx [Duoneb 0.5 mg-3 mg/3 ml Soln] Isosorbide Mononitrate ER [Imdur] 30 mg PO DAILY #30 tab 02/18/19 03/17/19 Rx Metoprolol Succinate (ER) [Toprol 25 mg PO DAILY #30 tab.er.24h 02/18/19 03/17/19 Rx XL] Nitroglycerin Sl Tabs [Nitrostat] 0.4 mg SUBLINGUAL Q5M PRN #100 tab 02/18/19 03/17/19 Rx Allergies Allergy/AdvReac Type Severity Reaction Status Date / Time No Known Allergies Allergy Verified 02/15/19 09:13 Surgical - Exam Vital Signs Temp Pulse Resp BP Pulse Ox 97.8 F 85 18 133/62 98 03/17/19 10:06 03/17/19 10:06 03/17/19 10:06 03/17/19 10:06 03/17/19 10:06 Gen. a pleasant cooperative female in no acute distress. HEENT is normocephalic, atraumatic, excellent motion intact. Wearing glasses. No facial droop. Neck is supple, trachea is midline. No carotid bruits heard at this time. Her is regular in rate and rhythm. Lungs are clear bilaterally. Abdomen is soft, nontender nondistended. Extremity are warm and dry. Normal mood and affect. No gross motor deficits Results Carotid Doppler reviewed. The right internal carotid artery peak systolic velocity of 154.9, end-diastolic velocity of 32.7. A ratio of 1.4, correlating with 50-70% likely closer to the 50-60% range. The left internal carotid artery peak systolic velocity of 309.1, the end-henriquez tolic velocity is 83.9 with a ratio of 3.6. This correlates with greater than but close to 70% stenosis - Labs 03/19/19 06:31 03/19/19 06:31 Abnormal Lab Results - Last 24 Hours (Table) 03/18/19 03/18/19 03/18/19 Range/Units 11:40 16:55 20:55 RBC (3.80-5.40) m/uL Hgb (11.4-16.0) gm/dL Hct (34.0-46.0) % Potassium (3.5-5.1) mmol/L Chloride (98-107) mmol/L Carbon Dioxide (22-30) mmol/L Glucose (74-99) mg/dL POC Glucose (mg/dL) 165 H 262 H 169 H (75-99) mg/dL Calcium (8.4-10.2) mg/dL Magnesium (1.6-2.3) mg/dL 03/19/19 03/19/19 03/19/19 Range/Units 06:10 06:31 06:31 RBC 3.46 L (3.80-5.40) m/uL Hgb 9.9 L (11.4-16.0) gm/dL Hct 29.6 L (34.0-46.0) % Potassium 3.3 L (3.5-5.1) mmol/L Chloride 96 L (98-107) mmol/L Carbon Dioxide 34 H (22-30) mmol/L Glucose 123 H (74-99) mg/dL POC Glucose (mg/dL) 122 H (75-99) mg/dL Calcium 8.0 L (8.4-10.2) mg/dL Magnesium 1.1 L (1.6-2.3) mg/dL Diabetes panel 03/19/19 Range/Units 06:31 Sodium 137 (137-145) mmol/L Potassium 3.3 L (3.5-5.1) mmol/L Chloride 96 L (98-107) mmol/L Carbon Dioxide 34 H (22-30) mmol/L BUN 13 (7-17) mg/dL Creatinine 0.64 (0.52-1.04) mg/dL Glucose 123 H (74-99) mg/dL Calcium 8.0 L (8.4-10.2) mg/dL Calcium panel 03/19/19 Range/Units 06:31 Calcium 8.0 L (8.4-10.2) mg/dL Pituitary panel 03/19/19 Range/Units 06:31 Sodium 137 (137-145) mmol/L Potassium 3.3 L (3.5-5.1) mmol/L Chloride 96 L (98-107) mmol/L Carbon Dioxide 34 H (22-30) mmol/L BUN 13 (7-17) mg/dL Creatinine 0.64 (0.52-1.04) mg/dL Glucose 123 H (74-99) mg/dL Calcium 8.0 L (8.4-10.2) mg/dL Adrenal panel 03/19/19 Range/Units 06:31 Sodium 137 (137-145) mmol/L Potassium 3.3 L (3.5-5.1) mmol/L Chloride 96 L (98-107) mmol/L Carbon Dioxide 34 H (22-30) mmol/L BUN 13 (7-17) mg/dL Creatinine 0.64 (0.52-1.04) mg/dL Glucose 123 H (74-99) mg/dL Calcium 8.0 L (8.4-10.2) mg/dL Assessment and Plan Assessment: #1 abnormal gait #2 vertigo #3 carotid artery stenosis, ? Symptomatic versus asymptomatic Plan: At this time, patient does have carotid stenosis on ultrasound. She does not have a typical clinical picture of a stroke. We will make further recommendations pending MRI. Patient underwent CARLOS EDUARDO today that was essentially normal. I do agree with aspirin and Plavix as well as a statin medication. If the patient was found to have ischemic areas on MRI, we would plan on a carotid endarterectomy versus trans-carotid artery stent in the next 2 weeks. If there is no evidence of ischemia, we will follow-up with surveillance. Patient will also need a CT angiogram of the neck to evaluate the carotid arteries. If it is asymptomatic, this can be done as an outpatient through the office.
--- NOTE | 2019-03-19 10:59 | MR ---
MR brain without contrast HISTORY: Concern for stroke, dizziness Multiplanar multisequence imaging through the brain and correlated to CT brain 03/17/2019 Cortical atrophy is present. There is no restricted diffusion to suggest subacute ischemia. There is no hemorrhage or hydrocephalus. There are normal vascular flow voids. Mucosal disease present within the maxillary sinuses and ethmoid air cells. Cerebellopontine angles, corpus callosum, pituitary, cer vical medullary junction are within normal limits. Periventricular confluent and scattered hyperinten sities are present on inversion recovery T2-weighted sequences. Orbits show symmetric appearance. IMPRESSION: No acute abnormality. Age-related changes of atrophy and probable chronic small vessel is chemia. Mild sinus disease.
[2019-03-19] MEDS: METOPROLOL SUCCINATE (ER) 25 MG TAB.ER.24H PO SCH (11:00)
[2019-03-19] MEDS: CLOPIDOGREL 75 MG TAB PO SCH (11:00)
[2019-03-19] MEDS: ISOSORBIDE MONONITRATE ER 30 MG TAB.ER.24H PO SCH (11:00)
[2019-03-19] MEDS: metFORMIN 500 MG TAB PO SCH (11:00)
[2019-03-19] MEDS: GABAPENTIN 300 MG CAP PO SCH (11:00)
[2019-03-19 11:21] LABS: Hemoglobin A1C 9.6 % (4.0-6.0)
[2019-03-19 11:24] VITALS: PULSE 74; RESP 14
[2019-03-19 11:37] VITALS: TEMP 98.6
[2019-03-19] MEDS ORDERED: Potassium Replacement Protocol 1 EACH MISC MISCELLANE PRN (11:40)
[2019-03-19] MEDS ORDERED: Magnesium Replacement Protocol 1 EACH MISC MISCELLANE PRN (11:40)
[2019-03-19 12:04] LABS: Glucose,Whole Blood 172 mg/dL (75-99)
[2019-03-19] MEDS: POTASSIUM CHLORIDE ER 20 MEQ TAB.ER PO SCH ×2 (12:26→13:31)
[2019-03-19] MEDS: MAGNESIUM SULFATE-D5W PMX 1 GM in DEXTROSE/WATER 1 100ML.BAG IVPB SCH ×2 (12:26→13:30)
--- NOTE | 2019-03-19 12:31 | P.DS ---
Providers Date of admission: 03/17/19 12:43 Expected date of discharge: 03/19/19 Attending physician: Wilfredo Boland Consults: 03/17/19 12:44 Consult Physician Stat Consulting Provider: Alina Busby Consult Reason/Comments: Unsteady gait, dizziness Do you want consulting provider notified?: Yes 03/18/19 12:07 Consult Physician Routine Consulting Provider: Conner Neil Consult Reason/Comments: possible CARLOS EDUARDO, recent [place], new CVA/TIA Do you want consulting provider notified?: Yes 03/18/19 12:24 Consult Physician Routine Consulting Provider: Johnathon Landers Consult Reason/Comments: left carotid artery stenosis and possible CVA Do you want consulting provider notified?: Yes Primary care physician: Wilfredo Boland - Discharge Diagnosis(es) (1) TIA (transient ischemic attack) Current Visit: Yes Status: Acute (2) Type 2 diabetes mellitus with hyperglycemia Current Visit: Yes Status: Acute (3) Recent myocardial infarction Current Visit: Yes Status: Acute (4) Carotid artery stenosis Current Visit: Yes Status: Acute (5) Coronary artery disease Current Visit: Yes Status: Acute (6) Hyperlipidemia Current Visit: Yes Status: Acute (7) Diabetic neuropathy Current Visit: Yes Status: Acute (8) Vertigo Current Visit: Yes Status: Acute (9) Asthma Current Visit: Yes Status: Acute (10) Gait abnormality Current Visit: Yes Status: Acute (11) Essential (primary) hypertension Current Visit: Yes Status: Acute Hospital Course: This is a 73-year-old white female patient well-known to me. She is a type II diabetic and has not been very compliant with her diabetes care. He was most recently here February 15 through 02/18/2019 non-STEMI. He presented yesterday in the emergency room after waking up early in the a.m. of March 17 with vertigo with head motion. She indicated did not resolve continue to worsen. She also reports difficulty walking and movement of her feet. She indicates they feel like they're "lead-like". She denies any current chest pains, pressures, shortness breath, vomiting, double vision or blurry vision, or tinnitus. She does complain of some mild nausea and indicates she's had a weight loss since her recent hospitalization. Neurology had seen her last night after admission. The recommendations are reviewed. CT brain on admission was normal. A 2-D echo done February 16 shows overall EF of 50-55%. There was a difficult study. No other significant abnormalities were noted. Carotid Doppler done last night possible left internal carotid artery stenosis of greater than 70%. The right side was between 50-70% stenosis. She is feeling better resting comfortably in her bed with her and son at bedside. She continues to have the feelings of heavy feet. 03/19/2019: Patient had her CARLOS EDUARDO which essentially normal. MRI was also normal. She feels better but continues to have some trouble with her right foot. She is found to be low and magnesium and calcium. Currently being replaced. Neurology cleared her for discharge. She does have carotid artery stenosis will follow up outpatient with the vascular surgery. Patient Condition at Discharge: Fair Plan - Discharge Summary Discharge Rx Participant: No New Discharge Prescriptions: New Potassium Chloride ER [K-Dur 20] 20 meq PO DAILY #30 tab Continue metFORMIN HCL [Glucophage] 500 mg PO TID glipiZIDE [Glucotrol] 10 mg PO AC-BID Ibuprofen [Advil] 400 mg PO Q8HR PRN PRN Reason: Pain Gabapentin 600 mg PO BID Atorvastatin [Lipitor] 80 mg PO HS #30 tab Nitroglycerin Sl Tabs [Nitrostat] 0.4 mg SUBLINGUAL Q5M PRN #100 tab PRN Reason: Chest Pain Clopidogrel [Plavix] 75 mg PO DAILY #30 tab Metoprolol Succinate (ER) [Toprol XL] 25 mg PO DAILY #30 tab.er.24h Isosorbide Mononitrate ER [Imdur] 30 mg PO DAILY #30 tab Furosemide [Lasix] 40 mg PO BID #60 tablet Ipratropium-Albuterol Nebulize [Duoneb 0.5 mg-3 mg/3 ml Soln] 3 ml INHALATION QID #120 ampul.neb Discharge Medication List Gabapentin 600 mg PO BID 02/15/19 [History] Ibuprofen [Advil] 400 mg PO Q8HR PRN 02/15/19 [History] glipiZIDE [Glucotrol] 10 mg PO AC-BID 02/15/19 [History] metFORMIN HCL [Glucophage] 500 mg PO TID 02/15/19 [History] Atorvastatin [Lipitor] 80 mg PO HS #30 tab 02/18/19 [Rx] Clopidogrel [Plavix] 75 mg PO DAILY #30 tab 02/18/19 [Rx] Furosemide [Lasix] 40 mg PO BID #60 tablet 02/18/19 [Rx] Ipratropium-Albuterol Nebulize [Duoneb 0.5 mg-3 mg/3 ml Soln] 3 ml INHALATION QID #120 ampul.neb 02/18/19 [Rx] Isosorbide Mononitrate ER [Imdur] 30 mg PO DAILY #30 tab 02/18/19 [Rx] Metoprolol Succinate (ER) [Toprol XL] 25 mg PO DAILY #30 tab.er.24h 02/18/19 [Rx] Nitroglycerin Sl Tabs [Nitrostat] 0.4 mg SUBLINGUAL Q5M PRN #100 tab 02/18/19 [Rx] Potassium Chloride ER [K-Dur 20] 20 meq PO DAILY #30 tab 03/19/19 [Rx] Follow up Appointment(s)/Referral(s): Wilfredo Boland MD [Primary Care Provider] - 1-2 days Bailey Irvin DO [STAFF PHYSICIAN] - 2 Weeks Maurice Ayoub DO [STAFF PHYSICIAN] - 1 Week Discharge Disposition: HOME SELF-CARE
[2019-03-19 13:55] VITALS: BP 132/76
--- NOTE | 2019-03-19 14:42 | P.PN ---
Progress Note - Text Progress Note Date: 03/19/19 SUBJECTIVE/INTERVAL EVENTS: No acute overnight events. Denies headache, nausea, vomiting, any new/worsening weakness, numbness or tingling, double/blurry vision. Patient still having difficulty with her gait but appears to have gotten more used to her gait and the walker. PHYSICAL EXAMINATION: VITAL SIGNS: T98.6 HR 72 RR 14 BP 132/76 O2 sat 100% on 2L O2 via NC GEN.: NAD, pleasant and cooperative HEENT: NCAT, sclera without icterus NECK: Supple SKIN AND EXTREMITIES: Warm to touch, no edema NEURO: MENTAL STATUS: Patient alert and oriented to self, place, time. Able to name the current president. Speech fluent, able to name and repeat, following all commands readily. No right and left disorientation, neglect. CRANIAL NERVES II THROUGH XII: II: Pupils are equal and reactive to light symmetrically. No afferent pupillary defect. Visual raymundo are intact. III, IV, : No ptosis. Extraocular movements full. No nystagmus. V: Facial sensation intact from V1-3. VII. No clear facial asymmetry. VIII: Hearing intact to finger rub bilaterally. IX, X: Symmetric palate elevation. XI: Shoulder shrug intact. XII: Tongue midline without fasciculation or atrophy. MOTOR: Normal bulk/tone. No pronator drift or tremor. Strength is 5/5 throu ghout all 4 extremities EXCEPT dorsiflexion in bilateral feet. SENSORY: Decreased to LT below the ankle in b/l feet. REFLEXES: 1+ throughout. Toes are downgoing. COORDINATION: Finger to nose intact. No dysmetria. GAIT: Magnetic gait, able to walk on her own but needs some assistance and reassurance of support nearby. Patient with foot drops. HIINTS: negative DIAGNOSTIC TESTING: LABORATORY: WBC 9.8 hemoglobin 11.7 platelets 340 sodium 138 potassium 2.8 chloride 89 bicarb 34 BUN 14 creatinine 0.70 glucose 230 AST 18 ALT 18 alkphos 88 troponin <0.012 urinalysis trace leukesterase, occasional bacteria TSH 0.564 Total Cholesterol 98 LDL 52 HDL 25 TG 107 A1C 9.6% IMAGING: CT head without contrast 03/17/2019: Generalized cerebral atrophy. No acute intracranial abnormality. Carotid Doppler bilateral 03/17/2019: Elevated velocity in both internal carotid arteries. On the right side the measurements suggest 50-70% stenosis. On the left, left ICA stenosis of more than 70%. There is bilateral external carotid artery velocities suggestive of more than 50% stenosis MRI brain w/o contrast 03/19/19: No acute abnormality. Age-related changes and probable chronic small vessel ischemia. Mild tenderness Cardiac monitoring: no atrial arrhythmia since admission. occasional PVCs Transesophageal echocardiogram 03/19/2019: There is no evidence of intracardiac thrombus. Normal left ventricular function. No evidence of shunting across the interatrial septum. ASSESSMENT: 73-year-old woman with past medical history of Asthma, diabetes, hypertension, ID, osteoarthritis, peripheral neuropathy, vertigo, arthritis, constipation, va ricose vein who presented to [facility] for acute onset vertigo, resolved, but patient having magnetic gait with difficulty dorsiflexion, but her gait is not a typical gait with foot drop. Patient with known peripheral neuropathy that has been worsening. Patient also with risk factors for stroke, i.e. DM, HTN. Patient's last A1C obtained in 11/2018 per patient was ~8%. Patient reports today that she was seen by a foot doctor who told patient that something seemed off with her feet but did not tell her specifically what seemed unusual. MRI brain without contrast negative for stroke. 1 RECOMMENDATIONS: 1. c/w Plavix 75mg qday 2. Atorvastatin 40mg qhs 3. Discussed with patient about stroke prevention guidelines. Medication compliance, hypertension/diabetes control, lifestyle changes including no smoking, drinking in moderation, losing weight, exercising, eating healthier. 4. Patient needs to follow up with neurologist as outpatient with her 1-2 weeks of discharge. Patient should get EMG/NCS as outpatient for further workup of worsening peripheral neuropathy. 5. Neurology will sign off at this time. Please feel free to contact Neurology again if with additional questions or concerns.
[2019-03-19] MEDS ORDERED: ATORVASTATIN 40 MG TAB PO SCH (21:00)
--- NOTE | 2019-05-05 06:58 | CDI ---
Date: 05.05.2019 CDS/Electrical Control Assembler Name: Breanna Joya Phone: If any questions, call Tammy Honeycutt Block Making Machine Operator at [phone] Patient Name: Krissy Batres Admit Date: 03.17.19 Discharge Date: 03.19.19 ATTENTION: The [facility] Coding Staff appreciate your assistance in clarifying documentation. Please respond to the clarification below the line at the bottom and electronically sign. The [facility] Coding staff will review the response and follow-up if needed. Please note: Queries are made part of the Legal Health Record. If you have any questions, please contact the Block Making Machine Operator. Dear Dr. Boland, The TIA was confirmed. Confirmed B/L carotid artery stenosis symptomatic vs asymptomatic plan for MRI, if MRI show ischemic areas would plan for carotid endarterectomy vs carotid stent in the next 2 weeks. Discharge summary - MRI normal findings, follow up as OP w/ vascular surgery for carotid artery stenosis Please clarify the following: Was the TIA : due to carotid stenosis ? Yes or No due to another condition -please specify or ---> Unable to determine. Thank you for your kind consideration. MTDD
== END 2019-03-19 15:06 | disposition home or self-care (01) ==
LOC: EC 10:04 → 1SOBS 12:43 → 3SCARD 18:37
PROVIDERS: ADMIT Family Medicine; ATTEND Family Medicine
DX: G45.9 Transient cerebral ischemic attack, unspecified (principal); I65.23 Occlusion and stenosis of bilateral carotid arteries; I25.10 Atherosclerotic heart disease of native coronary artery without angina pectoris; E11.65 Type 2 diabetes mellitus with hyperglycemia; I25.2 Old myocardial infarction; E78.5 Hyperlipidemia, unspecified; E11.42 Type 2 diabetes mellitus with diabetic polyneuropathy; J45.909 Unspecified asthma, uncomplicated; I10 Essential (primary) hypertension; E87.6 Hypokalemia; M19.90 Unspecified osteoarthritis, unspecified site; M19.042 Primary osteoarthritis, left hand; M19.041 Primary osteoarthritis, right hand; I83.92 Asymptomatic varicose veins of left lower extremity; M21.379 Foot drop, unspecified foot; E66.9 Obesity, unspecified; Z68.27 Body mass index [BMI] 27.0-27.9, adult; Z91.19 Patient's noncompliance with other medical treatment and regimen; Z79.899 Other long term (current) drug therapy; Z79.1 Long term (current) use of non-steroidal anti-inflammatories (NSAID); Z79.84 Long term (current) use of oral hypoglycemic drugs; Z79.02 Long term (current) use of antithrombotics/antiplatelets; Z87.19 Personal history of other diseases of the digestive system; Z98.890 Other specified postprocedural states; Z87.891 Personal history of nicotine dependence; Z83.3 Family history of diabetes mellitus; Z82.49 Family history of ischemic heart disease and other diseases of the circulatory system; Z81.8 Family history of other mental and behavioral disorders
CPT/HCPCS: 96374; 96375; 99285; 36415; 93005; 93308; 93312; 93320; 93325; 97162; 97166; 80061; 80053; 80048 ×2; 84443; 83735; 84484; 85025 ×3; 81001; 83036; 71046; 93880; 70450; 70551; G0378 ×4; J2250; J3360; J2405; J3010; J3475

== ENCOUNTER → 2019-06-30 | Outpatient (CLI) | payer MEDICARE, BC ==
--- NOTE | 2019-06-30 15:35 | US ---
EXAMINATION TYPE: US venous doppler duplex LE DATE OF EXAM: 06/30/2019 3:09 PM COMPARISON: LOWER EXTREMITY VENOUS INSUFFICIENCY CLINICAL HISTORY: E11.621 TYPE 2 DIABETES WITH FOOT ULCER. Wound care center. SIDE PERFORMED: Bilateral 1) Color flow is present and patency is documented in the following vessels. No DVT or SVT is noted . EIV Common Femoral Vein Deep Femoral Vein Femoral Vein Popliteal Vein Proximal Calf Veins Greater Saph Vein Upper Small Saph Vein 2) There is venous reflux noted at the following venous levels: None 3) Incompetent perforators are noted at these levels: None IMPRESSION: No sonographic evidence of deep venous thrombosis nor superficial venous thrombosis in th e visualized bilateral lower extremities. No venous reflux nor incompetent perforators seen.
== END | disposition home or self-care (01) ==
LOC: RADUSWWP 13:46
PROVIDERS: ATTEND Family Medicine
DX: E11.621 Type 2 diabetes mellitus with foot ulcer (principal); E11.622 Type 2 diabetes mellitus with other skin ulcer; E11.65 Type 2 diabetes mellitus with hyperglycemia; E11.41 Type 2 diabetes mellitus with diabetic mononeuropathy; L97.509 Non-pressure chronic ulcer of other part of unspecified foot with unspecified severity
CPT/HCPCS: 93923; 93970

== ENCOUNTER → 2019-08-06 | Outpatient (CLI) | payer MEDICARE, BC ==
[2019-08-06 11:57] LABS: African American GFR (CKD) >90 (>60 ml/min/1.73 sqM); Anion Gap 15 mmol/L; Blood Urea Nitrogen 19 mg/dL (7-17); Carbon Dioxide 28 mmol/L (22-30); Chloride 97 mmol/L (98-107); Non-African American GFR(CKD) 86 (>60 ml/min/1.73 sqM); Potassium 3.6 mmol/L (3.5-5.1); Sodium 140 mmol/L (137-145)
[2019-08-06 12:18] LABS: Basophils # (A) 0.1 k/uL (0-0.2); Basophils % (A) 1 %; Eosinophils # (A) 0.3 k/uL (0-0.7); Eosinophils % (A) 3 %; HCT 36.6 % (34.0-46.0); HGB 11.7 gm/dL (11.4-16.0); Lymphocytes # (A) 1.7 k/uL (1.0-4.8); Lymphocytes % (A) 17 %; MCH 28.5 pg (25.0-35.0); MCV 89.2 fL (80.0-100.0); Mean Platelet Volume 7.2; Monocytes # (A) 0.6 k/uL (0-1.0); Monocytes % (A) 6 %; Neutrophils % (A) 71 %; Platelet Count 362 k/uL (150-450); RDW 14.7 % (11.5-15.5); WBC 9.9 k/uL (3.8-10.6)
== END | disposition home or self-care (01) ==
LOC: LABPAT 10:23
PROVIDERS: ATTEND Surgery
DX: Z01.818 Encounter for other preprocedural examination (principal); E11.621 Type 2 diabetes mellitus with foot ulcer; L97.512 Non-pressure chronic ulcer of other part of right foot with fat layer exposed; L97.522 Non-pressure chronic ulcer of other part of left foot with fat layer exposed
CPT/HCPCS: 36415; 80051; 82565; 84520; 85025

== ENCOUNTER 2019-10-20 12:39 | Day surgery (SDC) | payer MEDICARE, BC ==
[~2019-10-20 12:39] MED LIST: ALPRAZolam 0.25 MG TAB PO PRN; ASPIRIN 325 MG TAB PO STA; SODIUM CHLORIDE 0.9% 1,000 ML in EMPTY BAG 1 BAG IV ONE; ZOLPIDEM 5 MG TAB PO PRN
[2019-10-20] MEDS ORDERED: INSULIN ASPART (NovoLOG) 100 UNIT/ML VIAL SQ ONE (13:29)
[2019-10-20 13:33] LABS: Glucose,Whole Blood 228 mg/dL (75-99)
[2019-10-20] MEDS ORDERED: SODIUM CHLORIDE 0.9% 1,000 ML IV ONE (13:50)
[2019-10-20 13:59] LABS: Basophils # (A) 0.1 k/uL (0-0.2); Basophils % (A) 0 %; Eosinophils # (A) 0.2 k/uL (0-0.7); Eosinophils % (A) 1 %; HCT 35.8 % (34.0-46.0); Hypochromasia Slight; Lymphocytes # (A) 0.9 k/uL (1.0-4.8); Lymphocytes % (A) 7 %; MCH 26.8 pg (25.0-35.0); MCHC 30.6 g/dL (31.0-37.0); MCV 87.4 fL (80.0-100.0); Mean Platelet Volume 7.2; Monocytes # (A) 0.6 k/uL (0-1.0); Monocytes % (A) 5 %; Neutrophils # (A) 10.9 k/uL (1.3-7.7); Neutrophils % (A) 85 %; Platelet Count 373 k/uL (150-450); Poikilocytosis Slight; RDW 15.5 % (11.5-15.5); WBC 12.8 k/uL (3.8-10.6)
[2019-10-20 14:14] LABS: African American GFR (CKD) >90 (>60 ml/min/1.73 sqM); Anion Gap 13 mmol/L; Blood Urea Nitrogen 17 mg/dL (7-17); Calcium 9.8 mg/dL (8.4-10.2); Carbon Dioxide 27 mmol/L (22-30); Chloride 99 mmol/L (98-107); Glucose 209 mg/dL (74-99); Non-African American GFR(CKD) >90 (>60 ml/min/1.73 sqM); Potassium 3.6 mmol/L (3.5-5.1); Sodium 139 mmol/L (137-145)
[2019-10-20] MEDS ORDERED: MIDAZOLAM 2 MG/2 ML VIAL IV ONE (14:37)
[2019-10-20] MEDS ORDERED: fentaNYL (PF) 50 MCG/ML 2 ML AMP IV ONE (14:37)
[2019-10-20] MEDS ORDERED: LIDOCAINE 1% INJ 10MG/ML (20 ML MDV) SQ ONE (14:40)
[2019-10-20] MEDS ORDERED: IOPAMIDOL-250 100ML BTL INTRAARTER ONE (14:51)
--- NOTE | 2019-10-20 15:35 | IR ---
EXAMINATION TYPE: IR angio abdominal w runoff DATE OF EXAM: 10/20/2019 COMPARISON: NONE HISTORY: Fluoroscopy time. Fluoroscopy was provided to the referring clinician.
--- NOTE | 2019-10-20 15:51 | P.OP ---
Date of Procedure: 10/20/19 Description of Procedure: Preoperative diagnosis: Neeru 5 peripheral arterial disease, bilateral foot wounds, abnormal ABIs Postoperative diagnosis: Same Procedure: [#1 ultrasound guided left common femoral artery access #2 aortogram with runoffs #3 selective second order right lower extremity angiogram #4 left iliofemoral angiogram #4 moderate conscious sedation 32 minutes] Surgeon: Bailey Irvin D.O. Anesthesia: Moderate conscious sedation with Versed and fentanyl EBL: [Less than 5 mL] IV fluids: [See records] Urine output: [None measured] Drains: [None] Complications: [None immediately apparent] Condition: [Stable to recovery] Operative indication and findings: [Patient is a 74 of female bilateral lower extremity wounds who presented to the office for outpatient workup and evaluation. She was found to have abnormal ABIs and was referred for a aortogram with runoffs and benefits were discussed patient seemingly understood and was willing to proceed.] Procedure in detail: [The patient was taken to the special suite and placed in supine position. Bilateral groins are prepped and draped in usual sterile fashion. A preprocedure timeout was performed, all parties were in agreement. The ultrasound utilized and the left common femoral artery was identified. The skin overlying was anesthetized with 1% lidocaine plain. The artery was cannulated on first attempt with return of pulsatile flow. Seldinger technique used and a 5-Welsh sheath was placed a pigtail catheter was placed and an aortogram was performed. The catheters and brought down to the level of the bifurcation and bilateral lower extremity runoff was performed. Noted to obtain better images of the right lower extremity a selective performed. RBI was used and a guidewire was placed over the bifurcation. Bifurcation was acute. The catheter tip was then placed into the common femoral artery and selective right lower extremity angiogram was performed. Catheters and wires were removed. A left iliofemoral angiogram was performed. The sheath was removed and pressure was held until hemostasis adequate. A dressing was placed. The patient was allowed to transferred back to recovery in stable condition having tolerated the procedure well. Angiographic findings: The aorta was normal course and caliber. Bilateral renal arteries are patent. No significant disease. She has petite vessels. Bilateral common internal and external iliac arteries are patent without significant disease. On the right the common femoral artery and profunda are patent without evidence of significant disease. Shortly after the takeoff, there are areas of focal stenosis of the superficial femoral artery. there is moderate level of calcification with a more significant area of stenosis at the adductor canal. below the knee the anterior tibial artery is patent with high-grade stenosis to shortly beyond its takeoff. It does run continuously down to the level of the ankle and into the foot. The tibial peroneal trunk is patent for a short course, the peroneal vessel is diminutive with areas of chronic total occlusion. There is no evidence of posterior tibial artery there is no evidence of reconstitution. On the left common, internal and external Iliac arteries are patent without significant disease. The common femoral, profunda and superficial femoral artery patent without evidence of disease. There is diffuse mild calcific disease throughout superficial femoral artery. Motion artifact is very significant beyond this was unable to visualize further on the left lower extremity Plan - Discharge Summary New Discharge Prescriptions: No Action Ibuprofen [Advil] 400 mg PO Q8HR PRN PRN Reason: Pain Gabapentin 600 mg PO BID Atorvastatin [Lipitor] 80 mg PO HS #30 tab Nitroglycerin Sl Tabs [Nitrostat] 0.4 mg SUBLINGUAL Q5M PRN #100 tab PRN Reason: Chest Pain Clopidogrel [Plavix] 75 mg PO DAILY #30 tab Metoprolol Succinate (ER) [Toprol XL] 25 mg PO DAILY #30 tab.er.24h Isosorbide Mononitrate ER [Imdur] 30 mg PO DAILY #30 tab Furosemide [Lasix] 40 mg PO BID #60 tablet Potassium Chloride ER [K-Dur 20] 20 meq PO DAILY #30 tab Linagliptin/Metformin HCl [Jentadueto Xr 5 mg-1,000 mg Tb] 1 each PO DAILY Empagliflozin/Metformin HCl [Synjardy Xr 5-1,000 mg Tablet] 1 each PO DAILY Discharge Medication List Gabapentin 600 mg PO BID 02/15/19 [History] Ibuprofen [Advil] 400 mg PO Q8HR PRN 02/15/19 [History] Atorvastatin [Lipitor] 80 mg PO HS #30 tab 02/18/19 [Rx] Clopidogrel [Plavix] 75 mg PO DAILY #30 tab 02/18/19 [Rx] Furosemide [Lasix] 40 mg PO BID #60 tablet 02/18/19 [Rx] Isosorbide Mononitrate ER [Imdur] 30 mg PO DAILY #30 tab 02/18/19 [Rx] Metoprolol Succinate (ER) [Toprol XL] 25 mg PO DAILY #30 tab.er.24h 02/18/19 [Rx] Nitroglycerin Sl Tabs [Nitrostat] 0.4 mg SUBLINGUAL Q5M PRN #100 tab 02/18/19 [Rx] Potassium Chloride ER [K-Dur 20] 20 meq PO DAILY #30 tab 03/19/19 [Rx] Empagliflozin/Metformin HCl [Synjardy Xr 5-1,000 mg Tablet] 1 each PO DAILY 08/10/19 [History] Linagliptin/Metformin HCl [Jentadueto Xr 5 mg-1,000 mg Tb] 1 each PO DAILY 08/10/19 [History]
[2019-10-20 20:00] VITALS: BP 167/52; PULSE 97; RESP 17; TEMP 98.8
[2019-10-20 20:25] LABS: Glucose,Whole Blood 205 mg/dL (75-99)
== END 2019-10-20 21:40 | disposition home or self-care (01) ==
LOC: CATHCVL 12:39 → 1SOBS 15:05 → CATHCVL 21:40
PROVIDERS: ATTEND Surgery
DX: E11.51 Type 2 diabetes mellitus with diabetic peripheral angiopathy without gangrene (principal); I70.201 Unspecified atherosclerosis of native arteries of extremities, right leg; E11.621 Type 2 diabetes mellitus with foot ulcer; L97.529 Non-pressure chronic ulcer of other part of left foot with unspecified severity; L97.519 Non-pressure chronic ulcer of other part of right foot with unspecified severity; E11.40 Type 2 diabetes mellitus with diabetic neuropathy, unspecified; I99.8 Other disorder of circulatory system; I25.10 Atherosclerotic heart disease of native coronary artery without angina pectoris; E66.9 Obesity, unspecified; Z68.25 Body mass index [BMI] 25.0-25.9, adult; Z79.899 Other long term (current) drug therapy; Z79.02 Long term (current) use of antithrombotics/antiplatelets; Z98.890 Other specified postprocedural states; Z87.891 Personal history of nicotine dependence; Z81.8 Family history of other mental and behavioral disorders
CPT/HCPCS: 36246; 75625; 75716; 80048; 85025; C1769 ×4; C1894; J2250; J2001; J3010; Q9966

== ENCOUNTER 2019-10-29 10:02 | Day surgery (SDC) | payer MEDICARE, BC ==
[~2019-10-29 10:02] MED LIST changes: +ASPIRIN 325 MG TAB PO ONE; -ASPIRIN 325 MG TAB PO STA
[2019-10-29 14:06] LABS: Glucose,Whole Blood 251 mg/dL (75-99)
[2019-10-29] MEDS: fentaNYL (PF) 50 MCG/ML 2 ML AMP IVP ONE ×2 (14:54→16:00)
[2019-10-29] MEDS: MIDAZOLAM 2 MG/2 ML VIAL IVP ONE ×2 (14:54→15:47)
[2019-10-29] MEDS ORDERED: LIDOCAINE 1% INJ 10MG/ML (20 ML MDV) SQ ONE (14:57)
[2019-10-29] MEDS ORDERED: HEPARIN SODIUM 1,000 UN/ML (10ML VL) IV ONE (15:05)
[2019-10-29] MEDS: HYDROmorphone 1 MG/ML 1 ML SYRINGE IVP ONE ×2 (16:15→16:39)
[2019-10-29] MEDS ORDERED: IOPAMIDOL-250 100ML BTL INTRAARTER ONE (16:37)
[2019-10-29] MEDS ORDERED: NITROGLYCERIN SL TABS 0.4 MG TAB SUBLINGUAL PRN (16:49)
[2019-10-29] MEDS ORDERED: CLOPIDOGREL 75 MG TAB PO ONE (16:57)
[2019-10-29] MEDS ORDERED: SODIUM CHLORIDE 0.9% 1,000 ML in EMPTY BAG 1 BAG IV SCH (17:00)
--- NOTE | 2019-10-29 17:07 | P.OP ---
Date of Procedure: 10/29/19 Description of Procedure: Preoperative diagnosis: Right lower extremity chronic foot wound with critical limb ischemia [place] classification 5, right superficial femoral artery stenosis approximately 80% at the proximal lesion and 90% at the distal lesion at the adductor canal, right anterior tibial artery MOLDING SUPERVISOR, peroneal and posterior tibial artery occlusion Postop diagnosis: Same Procedure: #1 ultrasound-guided left common femoral artery access, #2 selective right lower extremity third order angiogram, #3 percutaneous transluminal balloon angioplasty of the right anterior tibial artery, #4 percutaneous transluminal atherectomy with CSI device of the superficial femoral artery, #5 percutaneous transluminal balloon angioplasty of the right SFA with a 5 mm x 200 mm impact balloon, #6 percutaneous transluminal stenting of the superficial femoral artery with EV3 6 x 40 mm stent. Surgeon: Johnathon Landers DO special events assistant: Bailey Irvin DO Anesthesia: Moderate sedation times 103 minutes Estimated blood loss: Minimal Complications: None Condition: Stable Operative narrative: After written informed consent was obtained the patient all risks benefits competitions were described the patient is brought to the Night Guard and laid in a supine position. The area of the left groin was prepped and draped in the usual sterile fashion. Local anesthesia with moderate sedation was performed with continuous pulse ox monitoring and EKG monitoring. Utilizing ultrasound the left common femoral artery was visualized and shown to be patent without any significant plaque. Utilizing a multipurpose needle under ultrasound guidance the artery was accessed. Guidewire was placed followed by a 5-Nigerien sheath. 035 Glidewire was then placed into the aorta followed by an RBI catheter and the right common iliac and femoral artery was accessed with an 035 Glidewire advantage. A 6-Nigerien destination sheath was then guided over the guidewire into the common femoral artery just above the takeoff of the superficial femoral artery. Patient was administered heparin and followed with ACTs. Selective right lower extremity angiogram was then obtained. Utilizing an 035 Glidewire and quick cross catheter the lesions in the superficial femoral artery were crossed and the catheter was placed at the distal popliteal artery. Selective angiogram of the tibial vessels was then obtained demonstrating occlusion of the anterior tibial artery just after takeoff as well as the peroneal artery at the mid calf and posterior tibial artery at the takeoff. 014 commands wire was then utilized along with an 014 quick cross catheter and the anterior tibial artery was accessed and the lesion was crossed. A 2 x 120 mm balloon was then placed and balloon angioplasty was performed of the anterior tibial artery. Angiogram was then obtained demonstrating resolution of the stenosis with good brisk flow to the ankle. Attention was then placed to the superficial femoral artery lesions. Predilation with a 3 mm balloon was then performed followed by a CSI 2.5 mm emily. Atherectomy was then performed at the 2 lesions followed by a 5 x 200 mm impact balloon. Final angiogram was obtained demonstrating brisk flow through the lesions except for the distal lesion at the adductor canal which appeared to have concentric calcification with decreased flow. A 6 x 40 mm stent was chosen to be deployed and deployed at this area. Post-stent dilatation with a 5 x 40 mm balloon was performed and final angiogram demonstrated brisk flow through the lesion to the foot. Once completed all guidewires, catheters and sheaths were removed and pressure was placed for hemostasis. Patient tolerated procedure well was sent to PACU for recovery
[2019-10-29 17:10] LABS: Glucose,Whole Blood 113 mg/dL (75-99)
--- NOTE | 2019-10-29 17:28 | IR ---
Fluoroscopy HISTORY: Peripheral vascular occlusive disease 28.3 minutes fluoroscopy time supplied to the referring clinician. 1511 intraoperative C-arm images document the procedure. See dictated report from vascular surgery.
[2019-10-29] MEDS: INSULIN ASPART (NovoLOG) 100 UNIT/ML VIAL SQ SCH ×3 (18:20→20:44)
[2019-10-29 20:36] LABS: Glucose,Whole Blood 201 mg/dL (75-99)
[2019-10-29] MEDS: GABAPENTIN 300 MG CAP PO SCH (20:41)
[2019-10-29] MEDS ORDERED: ATORVASTATIN 80 MG TAB PO SCH (21:00)
[2019-10-29] MEDS ORDERED: AMOXICILLIN PO SCH (21:00)
[2019-10-30 06:17] LABS: Glucose,Whole Blood 129 mg/dL (75-99)
[2019-10-30] MEDS: INSULIN ASPART (NovoLOG) 100 UNIT/ML VIAL SQ SCH (06:23)
[2019-10-30 07:00] LABS: African American GFR (CKD) >90 (>60 ml/min/1.73 sqM); Non-African American GFR(CKD) >90 (>60 ml/min/1.73 sqM)
[2019-10-30 08:34] VITALS: BP 111/53; PULSE 96; RESP 16; TEMP 97.2
[2019-10-30] MEDS ORDERED: METOPROLOL SUCCINATE (ER) 25 MG TAB.ER.24H PO SCH (09:00)
[2019-10-30] MEDS ORDERED: ISOSORBIDE MONONITRATE ER 30 MG TAB.ER.24H PO SCH (09:00)
[2019-10-30] MEDS ORDERED: CLOPIDOGREL 75 MG TAB PO SCH (09:00)
[2019-10-30] MEDS: GABAPENTIN 300 MG CAP PO SCH (09:09)
[2019-10-30 11:13] VITALS: BMI 25.2
--- NOTE | 2019-10-30 11:49 | P.PN ---
Subjective Progress Note Date: 10/30/19 Patient is evaluated today postop day #1 status post atherectomy/stenting of the right lower extremity. The patient voices no complaints. She was seen by dietary today and it was recommended she utilize Glucerna Juanita is clean, dry without evidence of pseudoaneurysm or other pathology. Legs are free of edema. Impression: #1 status post percutaneous revascularization the right lower extremitycurre ntly surgically stable Plan: 1: Discharge home 2: Continue all current medications. 3: Office follow-up with Dr. Landers as previously scheduled. Objective - Vital Signs Vital signs: Vital Signs Temp 97.2 F L 10/30/19 08:00 Pulse 96 10/30/19 08:00 Resp 16 10/30/19 08:00 BP 111/53 10/30/19 08:00 Pulse Ox 97 10/30/19 08:00 Intake & Output 10/29/19 10/30/19 10/30/19 18:59 06:59 18:59 Intake Total 810 Balance 810 Weight 70.307 kg 70.8 kg 70.8 kg Intake: IV 600 Intake, IV Titration 150 Amount Sodium Chloride 0.9% 1, 150 000 ml In Empty Bag 1 bag @ 1 ML/KG/HR 70.3 mls/hr IV .[id number] ONE Rx#: [id number] Oral 60 Other: # Voids 2 - Labs CBC & Chem 7: 10/30/19 06:25 Labs: Abnormal Lab Results - Last 24 Hours (Table) 10/29/19 10/29/19 10/29/19 Range/Units 10:25 17:08 20:35 Creatinine (0.52-1.04) mg/dL POC Glucose (mg/dL) 251 H 113 H 201 H (75-99) mg/dL 10/30/19 10/30/19 Range/Units 06:15 06:25 Creatinine 0.48 L (0.52-1.04) mg/dL POC Glucose (mg/dL) 129 H (75-99) mg/dL
[2019-10-30] MEDS ORDERED: ACETAMINOPHEN TAB 500 MG TAB PO PRN (11:50)
[2019-10-30] MEDS ORDERED: IBUPROFEN 200 MG TAB PO PRN (11:50)
[2019-10-30] MEDS ORDERED: FUROSEMIDE 40 MG TAB PO SCH (18:00)
[2019-10-31] MEDS ORDERED: POTASSIUM CHLORIDE ER 20 MEQ TAB.ER PO SCH (09:00)
[2019-10-31] MEDS ORDERED: LINAGLIPTIN 5 MG TABLET PO SCH (09:00)
[2019-10-31] MEDS ORDERED: metFORMIN 500 MG TAB PO SCH (09:00)
[2019-11-01] MEDS ORDERED: EMPAGLIFLOZIN PO SCH (09:00)
[2019-11-01] MEDS ORDERED: METFORMIN HCL PO SCH (09:00)
== END 2019-10-30 13:10 | disposition home or self-care (01) ==
LOC: OR 10:02 → 3SCARD 16:44 → OR 10-30 13:10
PROVIDERS: ATTEND Surgery
DX: E11.51 Type 2 diabetes mellitus with diabetic peripheral angiopathy without gangrene (principal); I70.211 Atherosclerosis of native arteries of extremities with intermittent claudication, right leg; I99.8 Other disorder of circulatory system; E11.621 Type 2 diabetes mellitus with foot ulcer; L97.512 Non-pressure chronic ulcer of other part of right foot with fat layer exposed; L97.529 Non-pressure chronic ulcer of other part of left foot with unspecified severity; E11.40 Type 2 diabetes mellitus with diabetic neuropathy, unspecified; Z79.02 Long term (current) use of antithrombotics/antiplatelets; Z79.899 Other long term (current) drug therapy; Z98.890 Other specified postprocedural states
CPT/HCPCS: 37227; 37228; 82565; C1894 ×2; C1714 ×2; C1769 ×5; C1725 ×3; C1887; C1876; C1884; C2623; J2250; J2001; J3010; J1644; J1170; Q9966

== ENCOUNTER 2019-11-11 16:24 | Inpatient (IN) | payer MEDICARE, BC ==
[2019-11-11] MEDS ORDERED: IBUPROFEN 600 MG TAB PO STA (16:59)
[2019-11-11] MEDS ORDERED: ACETAMINOPHEN TAB 325 MG TAB PO STA (16:59)
[2019-11-11] MEDS ORDERED: cefTRIAXone IN SWFI 1,000 MG/10 ML SYRINGE IVP STA (17:00)
--- NOTE | 2019-11-11 17:06 | ED ---
General Adult HPI - General Chief complaint: Shortness of Breath Stated complaint: Runny Nose, SOB Time Seen by Provider: 11/11/19 16:35 Source: patient, RN notes reviewed, old records reviewed Mode of arrival: ambulatory Limitations: no limitations - History of Present Illness Initial comments: This is a 74-year-old female who presents emergency Department stating she was sent down from the wound care clinic because she has a wound on the lateral asp ect of her foot and she was told it was infected and she needed to be admitted. Patient states she also has a low-grade fever and since coming down and she become a little more anxious and feels a little short of breath. Patient denies any cough per patient denies chest pain or palpitations. Patient denies abdominal pain patient denies nausea vomiting diarrhea. Patient denies any other lesions. Patient denies any lightheadedness or dizziness. Patient denies headache. - Related Data Home Medications Medication Instructions Recorded Confirmed Gabapentin 600 mg PO BID 02/15/19 10/29/19 Ibuprofen [Advil] 200 mg PO Q6HR PRN 02/15/19 10/29/19 Empagliflozin/Metformin HCl 1 each PO DAILY 08/10/19 10/29/19 [Synjardy Xr 5-1,000 mg Tablet] Linagliptin/Metformin HCl 1 each PO DAILY 08/10/19 10/29/19 [Jentadueto Xr 5 mg-1,000 mg Tb] Acetaminophen [Tylenol Extra 500 mg PO DIRECTED PRN 10/27/19 10/29/19 Strength] Amoxicillin(Dose Unknown) 1 tab PO BID 10/27/19 10/29/19 Previous Rx's Medication Instructions Recorded Atorvastatin [Lipitor] 80 mg PO HS #30 tab 02/18/19 Clopidogrel [Plavix] 75 mg PO DAILY #30 tab 02/18/19 Furosemide [Lasix] 40 mg PO BID #60 tablet 02/18/19 Isosorbide Mononitrate ER [Imdur] 30 mg PO DAILY #30 tab 02/18/19 Metoprolol Succinate (ER) [Toprol 25 mg PO DAILY #30 tab.er.24h 02/18/19 XL] Nitroglycerin Sl Tabs [Nitrostat] 0.4 mg SUBLINGUAL Q5M PRN #100 tab 02/18/19 Potassium Chloride ER [K-Dur 20] 20 meq PO DAILY #30 tab 03/19/19 Allergies Allergy/AdvReac Type Severity Reaction Status Date / Time No Known Allergies Allergy Verified 11/11/19 16:38 Review of Systems ROS Statement: Those systems with pertinent positive or pertinent negative responses have been documented in the HPI. ROS Other: All systems not noted in ROS Statement are negative. Past Medical History Past Medical History: Asthma, Diabetes Mellitus, Hypertension, Myocardial Infarction ([place]), Osteoarthritis (OA), Vascular Disorder Additional Past Medical History / Comment(s): Asthma years ago, neuropathy bilateral feet, pt states she has been having intermittent edema bilateral ankles and feet past 6 months, hx vertigo at times-none currently, constipation. varicose veins left leg, ulcer rt foot-on antibiotics currently Last Myocardial Infarction Date:: 01/2019 History of Any Multi-Drug Resistant Organisms: None Reported Past Surgical History: Breast Surgery, Heart Catheterization Additional Past Surgical History / Comment(s): L breast biopsy x2, EGD, colonoscopy, angiogram. stent to right leg Past Anesthesia/Blood Transfusion Reactions: No Reported Reaction Past Psychological History: No Psychological Hx Reported Past Alcohol Use History: None Reported Past Drug Use History: None Reported - Past Family History Mother Additional Family Medical History / Comment(s): from MRSA infection Sister(s) Family Medical History: Cancer General Exam - General Exam Comments Initial Comments: GENERAL: Patient is well-developed and well-nourished. Patient is nontoxic and well- hydrated and is in mild distress. ENT: Neck is soft and supple. No significant lymphadenopathy is noted. Oropharynx is clear. Moist mucous membranes. Neck has full range of motion without eliciting any pain. EYES: The sclera were anicteric and conjunctiva were pink and moist. Extraocular movements were intact and pupils were equal round and reactive to light. Eyelids were unremarkable. PULMONARY: Unlabored respirations. Good breath sounds bilaterally. No audible rales rhonchi or wheezing was noted. CARDIOVASCULAR: There is a regular rate and rhythm without any murmurs gallops or rubs. ABDOMEN: Soft and nontender with normal bowel sounds. No palpable organomegaly was noted. There is no palpable pulsatile mass. SKIN: Open lesion on the lateral aspect of her left foot measuring about 2.5 cm in diameter. Area is very malodorous appears to be infected NEUROLOGIC: Patient is alert and oriented x3. Cranial nerves II through XII are grossly intact. Motor and sensory are also intact. Normal speech, volume and content. Symmetrical smile. Cerebellar exam grossly intact. MUSCULOSKELETAL: Normal extremities with adequate strength and full range of motion. Patient has an open wound on the lateral aspect of her left foot that is very malodorous and appears infected. LYMPHATICS: No significant lymphadenopathy is noted PSYCHIATRIC: Normal psychiatric evaluation. Limitations: no limitations Course Vital Signs 11/11/19 11/11/19 16:36 18:38 Temperature 100 F H 98.3 F Pulse Rate 101 H 102 H Respiratory 22 18 Rate Blood Pressure 128/74 129/44 O2 Sat by Pulse 94 L 98 Oximetry Medical Decision Making - Medical Decision Making KG shows sinus tachycardia at 106 bpm IA interval is on a 52 QRS is 98 QT interval 360 QTC is 470 per patient's EKG shows some ST segment depression in inferior leads as well as precordial leads V5 and V6. Patient was declared septic at 7:30. P.m. Patient had elevated troponin and congestive heart failure on the chest x-ray so patient was given 130 mL an hour to begin her bolus Patient is ideal body weight 59 kg. Patient will not receive heparin for the elevated troponin because patient's hemoglobin was 9.4 which is dropped since being in a month. I spoke with Dr. trey ramirez agreed to admit the patient admitted the patient I consult to cardiology and continued antibiotics on the floor. At no time did the patient any chest pain in the emergency department - Lab Data Result diagrams: 11/11/19 16:15 11/11/19 16:15 Lab Results 11/11/19 11/11/19 11/11/19 Range/Units 16:15 16:15 16:15 WBC 19.5 H (3.8-10.6) k/uL RBC 3.53 L (3.80-5.40) m/uL Hgb 9.5 L D (11.4-16.0) gm/dL Hct 30.7 L (34.0-46.0) % MCV 86.8 (80.0-100.0) fL MCH 26.8 (25.0-35.0) pg MCHC 30.9 L (31.0-37.0) g/dL RDW 16.3 H (11.5-15.5) % Plt Count 432 (150-450) k/uL Neutrophils % 85 % Lymphocytes % 8 % Monocytes % 5 % Eosinophils % 1 % Basophils % 0 % Neutrophils # 16.6 H (1.3-7.7) k/uL Lymphocytes # 1.6 (1.0-4.8) k/uL Monocytes # 0.9 (0-1.0) k/uL Eosinophils # 0.2 (0-0.7) k/uL Basophils # 0.1 (0-0.2) k/uL Hypochromasia Moderate Poikilocytosis Slight Anisocytosis Slight PT 10.7 (9.0-12.0) sec INR 1.0 (<1.2) APTT 23.4 (22.0-30.0) sec Sodium 138 (137-145) mmol/L Potassium 3.6 (3.5-5.1) mmol/L Chloride 98 (98-107) mmol/L Carbon Dioxide 25 (22-30) mmol/L Anion Gap 15 mmol/L BUN 15 (7-17) mg/dL Creatinine 0.64 (0.52-1.04) mg/dL Est GFR (CKD-EPI)AfAm >90 (>60 ml/min/1.73 sqM) Est GFR (CKD-EPI)NonAf 89 (>60 ml/min/1.73 sqM) Glucose 256 H (74-99) mg/dL Lactic Ac Sepsis Rflx Plasma Lactic Acid Tres (0.7-2.0) mmol/L Calcium 9.3 (8.4-10.2) mg/dL Total Bilirubin 1.6 H (0.2-1.3) mg/dL AST 22 (14-36) U/L ALT 16 (4-34) U/L Alkaline Phosphatase 110 (38-126) U/L Troponin I (0.000-0.034) ng/mL NT-Pro-B Natriuret Pep pg/mL Total Protein 7.4 (6.3-8.2) g/dL Albumin 4.1 (3.5-5.0) g/dL Urine Color Urine Appearance (Clear) Urine pH (5.0-8.0) Ur Specific Simpson (1.001-1.035) Urine Protein (Negative) Urine Glucose (UA) (Negative) Urine Ketones (Negative) Urine Blood (Negative) Urine Nitrite (Negative) Urine Bilirubin (Negative) Urine Urobilinogen (<2.0) mg/dL Ur Leukocyte Esterase (Negative) 11/11/19 11/11/19 11/11/19 Range/Units 16:15 16:15 16:59 WBC (3.8-10.6) k/uL RBC (3.80-5.40) m/uL Hgb (11.4-16.0) gm/dL Hct (34.0-46.0) % MCV (80.0-100.0) fL MCH (25.0-35.0) pg MCHC (31.0-37.0) g/dL RDW (11.5-15.5) % Plt Count (150-450) k/uL Neutrophils % % Lymphocytes % % Monocytes % % Eosinophils % % Basophils % % Neutrophils # (1.3-7.7) k/uL Lymphocytes # (1.0-4.8) k/uL Monocytes # (0-1.0) k/uL Eosinophils # (0-0.7) k/uL Basophils # (0-0.2) k/uL Hypochromasia Poikilocytosis Anisocytosis PT (9.0-12.0) sec INR (<1.2) APTT (22.0-30.0) sec Sodium (137-145) mmol/L Potassium (3.5-5.1) mmol/L Chloride (98-107) mmol/L Carbon Dioxide (22-30) mmol/L Anion Gap mmol/L BUN (7-17) mg/dL Creatinine (0.52-1.04) mg/dL Est GFR (CKD-EPI)AfAm (>60 ml/min/1.73 sqM) Est GFR (CKD-EPI)NonAf (>60 ml/min/1.73 sqM) Glucose (74-99) mg/dL Lactic Ac Sepsis Rflx Plasma Lactic Acid Tres 2.5 H* (0.7-2.0) mmol/L Calcium (8.4-10.2) mg/dL Total Bilirubin (0.2-1.3) mg/dL AST (14-36) U/L ALT (4-34) U/L Alkaline Phosphatase (38-126) U/L Troponin I (0.000-0.034) ng/mL NT-Pro-B Natriuret Pep 2840 pg/mL Total Protein (6.3-8.2) g/dL Albumin (3.5-5.0) g/dL Urine Color Yellow Urine Appearance Clear (Clear) Urine pH 5.0 (5.0-8.0) Ur Specific Simpson 1.027 (1.001-1.035) Urine Protein Negative (Negative) Urine Glucose (UA) 4+ H (Negative) Urine Ketones Trace H (Negative) Urine Blood Negative (Negative) Urine Nitrite Negative (Negative) Urine Bilirubin Negative (Negative) Urine Urobilinogen <2.0 (<2.0) mg/dL Ur Leukocyte Esterase Negative (Negative) 11/11/19 11/11/19 Range/Units 17:32 18:06 WBC (3.8-10.6) k/uL RBC (3.80-5.40) m/uL Hgb (11.4-16.0) gm/dL Hct (34.0-46.0) % MCV (80.0-100.0) fL MCH (25.0-35.0) pg MCHC (31.0-37.0) g/dL RDW (11.5-15.5) % Plt Count (150-450) k/uL Neutrophils % % Lymphocytes % % Monocytes % % Eosinophils % % Basophils % % Neutrophils # (1.3-7.7) k/uL Lymphocytes # (1.0-4.8) k/uL Monocytes # (0-1.0) k/uL Eosinophils # (0-0.7) k/uL Basophils # (0-0.2) k/uL Hypochromasia Poikilocytosis Anisocytosis PT (9.0-12.0) sec INR (<1.2) APTT (22.0-30.0) sec Sodium (137-145) mmol/L Potassium (3.5-5.1) mmol/L Chloride (98-107) mmol/L Carbon Dioxide (22-30) mmol/L Anion Gap mmol/L BUN (7-17) mg/dL Creatinine (0.52-1.04) mg/dL Est GFR (CKD-EPI)AfAm (>60 ml/min/1.73 sqM) Est GFR (CKD-EPI)NonAf (>60 ml/min/1.73 sqM) Glucose (74-99) mg/dL Lactic Ac Sepsis Rflx Y Plasma Lactic Acid Tres (0.7-2.0) mmol/L Calcium (8.4-10.2) mg/dL Total Bilirubin (0.2-1.3) mg/dL AST (14-36) U/L ALT (4-34) U/L Alkaline Phosphatase (38-126) U/L Troponin I 0.065 H* (0.000-0.034) ng/mL NT-Pro-B Natriuret Pep pg/mL Total Protein (6.3-8.2) g/dL Albumin (3.5-5.0) g/dL Urine Color Urine Appearance (Clear) Urine pH (5.0-8.0) Ur Specific Simpson (1.001-1.035) Urine Protein (Negative) Urine Glucose (UA) (Negative) Urine Ketones (Negative) Urine Blood (Negative) Urine Nitrite (Negative) Urine Bilirubin (Negative) Urine Urobilinogen (<2.0) mg/dL Ur Leukocyte Esterase (Negative) Critical Care Time Critical Care Time: Yes Total Critical Care Time: 35 Disposition Clinical Impression: Acute pulmonary edema, Elevated troponin, Infected decubitus ulcer, Sepsis Disposition: ADMITTED IP TO THIS HOSP Referrals: Wilfredo Boland MD [Primary Care Provider] - 1-2 days Time of Disposition: 20:41
[2019-11-11 17:34] LABS: Anisocytosis Slight; Basophils # (A) 0.1 k/uL (0-0.2); Basophils % (A) 0 %; Eosinophils # (A) 0.2 k/uL (0-0.7); Eosinophils % (A) 1 %; HCT 30.7 % (34.0-46.0); Hypochromasia Moderate; Lymphocytes # (A) 1.6 k/uL (1.0-4.8); Lymphocytes % (A) 8 %; MCH 26.8 pg (25.0-35.0); MCHC 30.9 g/dL (31.0-37.0); MCV 86.8 fL (80.0-100.0); Mean Platelet Volume 7.2; Monocytes # (A) 0.9 k/uL (0-1.0); Monocytes % (A) 5 %; Neutrophils # (A) 16.6 k/uL (1.3-7.7); Neutrophils % (A) 85 %; Platelet Count 432 k/uL (150-450); Poikilocytosis Slight; RBC 3.53 m/uL (3.80-5.40); RDW 16.3 % (11.5-15.5); WBC 19.5 k/uL (3.8-10.6)
[2019-11-11] MEDS: SODIUM CHLORIDE 0.9% 500 ML 500 ML IV SCH ×2 (17:35→18:42)
[2019-11-11 17:52] LABS: ALT 16 U/L (4-34); AST 22 U/L (14-36); African American GFR (CKD) >90 (>60 ml/min/1.73 sqM); Albumin 4.1 g/dL (3.5-5.0); Alkaline Phosphatase 110 U/L (38-126); Anion Gap 15 mmol/L; Blood Urea Nitrogen 15 mg/dL (7-17); Calcium 9.3 mg/dL (8.4-10.2); Carbon Dioxide 25 mmol/L (22-30); Chloride 98 mmol/L (98-107); Glucose 256 mg/dL (74-99); Non-African American GFR(CKD) 89 (>60 ml/min/1.73 sqM); Potassium 3.6 mmol/L (3.5-5.1); Sodium 138 mmol/L (137-145); Total Bilirubin 1.6 mg/dL (0.2-1.3); Total Protein 7.4 g/dL (6.3-8.2)
[2019-11-11 17:53] LABS: HGB 9.5 gm/dL (11.4-16.0)
[2019-11-11 18:23] LABS: Partial Thromboplastin Time 23.4 sec (22.0-30.0); Prothrombin Time 10.7 sec (9.0-12.0)
--- NOTE | 2019-11-11 18:33 | XR ---
EXAMINATION: XR chest 2V DATE AND TIME: 11/11/2019 6:04 PM CLINICAL INDICATION: PHH; Fever TECHNIQUE: Departmental protocol COMPARISON: 03/17/2019 FINDINGS: The lungs show a bilateral widespread fine reticular pattern of ill-defined added opacity r eaching the periphery as septal lines and silhouetting the pulmonary vasculature to a moderate degree . These findings are most consistent with acute marked interstitial phase pulmonary edema. The pleural spaces are negative. The cardiac silhouette is mild-moderately enlarged, perhaps increased since the prior study. Remainder of the mediastinal silhouette is unremarkable. The skeletal structures and soft tissues are negative for acute findings. IMPRESSION: Radiographic findings consistent with advanced interstitial phase pulmonary edema, presumably cardiog enic etiology.
[2019-11-11 19:55] LABS: Appearance,Urine Clear (Clear); Bilirubin,Urine Negative (Negative); Blood,Urine Negative (Negative); Color,Urine Yellow; Glucose,Urine (UA) 4+ (Negative); Ketones,Urine Trace (Negative); Leukocyte Esterase,Urine Negative (Negative); Nitrite,Urine Negative (Negative); Protein,Urine Negative (Negative); Specific Gravity,Urine 1.027 (1.001-1.035); Urobilinogen,Urine <2.0 mg/dL (<2.0)
[2019-11-11] MEDS ORDERED: ASPIRIN 325 MG TAB PO STA (20:41)
[2019-11-11] MEDS ORDERED: FUROSEMIDE 10 MG/ML 10 ML VIAL IV STA (20:41)
[2019-11-11 21:15] LABS: Basophils # (A) 0.1 k/uL (0-0.2); Basophils % (A) 0 %; Eosinophils # (A) 0.1 k/uL (0-0.7); Eosinophils % (A) 1 %; HCT 28.9 % (34.0-46.0); Hypochromasia Marked; Lymphocytes # (A) 0.8 k/uL (1.0-4.8); Lymphocytes % (A) 4 %; MCH 27.7 pg (25.0-35.0); MCHC 31.2 g/dL (31.0-37.0); MCV 88.7 fL (80.0-100.0); Mean Platelet Volume 7.1; Monocytes # (A) 0.8 k/uL (0-1.0); Monocytes % (A) 5 %; Neutrophils # (A) 15.8 k/uL (1.3-7.7); Neutrophils % (A) 89 %; Platelet Count 383 k/uL (150-450); Poikilocytosis Slight; RBC 3.26 m/uL (3.80-5.40); RDW 15.9 % (11.5-15.5); WBC 17.7 k/uL (3.8-10.6)
[2019-11-11] MEDS: NITROGLYCERIN OINT 1 INCH/GM PACKET TOPICAL SCH (22:11)
[2019-11-11] MEDS: SODIUM CHLORIDE 0.9% 1,000 ML IV SCH (22:12)
[2019-11-12] MEDS: PIPERACILLIN-TAZOBACTAM 3.375 GM in SODIUM CHLORIDE 0.9% 100 ML IVPB SCH ×4 (00:28→23:50)
[2019-11-12 03:42] LABS: Glucose,Whole Blood 344 mg/dL (75-99)
[2019-11-12] MEDS ORDERED: ONDANSETRON 4 MG TAB PO PRN (03:55)
[2019-11-12] MEDS ORDERED: INSULIN ASPART (NovoLOG) 100 UNIT/ML VIAL SQ ONE (03:56)
[2019-11-12] MEDS: SODIUM CHLORIDE 0.9% 1,000 ML IV SCH ×2 (05:30→15:54)
[2019-11-12 05:56] LABS: Glucose,Whole Blood 244 mg/dL (75-99)
[2019-11-12 07:15] LABS: Basophils % (A) 0 %; Eosinophils % (A) 0 %; HCT 29.4 % (34.0-46.0); HGB 8.9 gm/dL (11.4-16.0); Hypochromasia Marked; Lymphocytes # (A) 0.9 k/uL (1.0-4.8); Lymphocytes % (A) 6 %; MCHC 30.4 g/dL (31.0-37.0); MCV 88.7 fL (80.0-100.0); Mean Platelet Volume 7.1; Monocytes # (A) 0.8 k/uL (0-1.0); Monocytes % (A) 5 %; Neutrophils # (A) 13.9 k/uL (1.3-7.7); Neutrophils % (A) 88 %; Platelet Count 402 k/uL (150-450); Poikilocytosis Slight; RBC 3.31 m/uL (3.80-5.40); RDW 15.8 % (11.5-15.5); WBC 15.8 k/uL (3.8-10.6)
--- OUTSIDE RECORDS SUMMARY | 2019-11-12 07:20 | XMS REPORT | Referral Summary ---
:1945 Author Name Carltontanya Address [address] [place] [address] Care Team Providers Name Role Phone Tiffanie Unavailable Unavailable Mckinnon Unavailable Unavailable Kya Unavailable Unavailable Erb Unavailable Unavailable Allergies, Adverse Reactions and Alerts Substance Reaction Reaction Severity Status No Known Allergies Unspecified Active Medications Medication Directions Start Date Status gabapentin 600 mg tablet tablet oral 1 tablet by mouth Unspecifi ed active twice daily gabapentin 600 mg tablet tablet oral 1 tablet by mouth Unspecifi ed active twice daily Janumet XR 100 mg-1,000 mg tablet, ER multiphase 24 hr Unspecifi ed active tablet,extended release oral 1 tablet by mouth daily Lipitor 40 mg tablet tablet oral 1 tablet by mouth Unspecified active at bedtime metoprolol succinate ER 25 mg tablet extended release 24 hr Unsp ecified active tablet,extended release 24 hr oral 1 tablet by mouth daily Lasix 40 mg tablet tablet oral 1 tablet by mouth Unspecified active twice daily Plavix 75 mg tablet tablet oral 1 tablet by mouth Unspecified active daily Plavix 75 mg tablet tablet oral 1 tablet by mouth Unspecified active daily potassium chloride ER 20 mEq tablet extended release oral 1 Unsp ecified active tablet,extended release tablet by mouth daily Saline Wound Wash 0.9 % topical aerosol,spray topical Unspecifie d active spray isosorbide mononitrate ER 30 mg tablet extended release 24 hr Un specified active tablet,extended release 24 hr 1 tablet by mouth daily nitroglycerin 0.4 mg sublingual tablet, sublingual sublingual Un specified active tablet every 5 minutes sublingual cefdinir 300 mg capsule 1 capsule oral bid 06/17/2019 activ e Santyl 250 unit/gram topical ointment topical apply to ulcer 07/28 active ointment daily, apply edge to edge a nickel in depth and saline moist gaze over. Augmentin 875 mg-125 mg tablet 1 tablet oral every 12 hours 10/13 active for 10 days Problems Problem Onset Date Status E11.621 - Type 2 diabetes mellitus with foot ulcer 06/10/2019 active E11.622 - Type 2 diabetes mellitus with other skin ulcer 2/2 active E11.65 - Type 2 diabetes mellitus with hyperglycemia 06/10/19 active E11.41 - Type 2 diabetes mellitus with diabetic mononeuropat hy 06/10/2019 active Encounters Date Location 06/10/2019 12:00:00 AM [facility] Encounter Diagnosis: E11.621 - Type 2 diabetes mellitus with foot ulcer Encounter Diagnosis: E11.622 - Type 2 diabetes mellitus with other skin ulcer Encounter Diagnosis: E11.65 - Type 2 diabetes mellitus with hyperglycemia Encounter Diagnosis: E11.41 - Type 2 diabetes mellitus with diabetic mononeuropathy Vital signs Vital Value Unit Height 66 [in_i] Weight Measured 168 [lb_av] BP Systolic 146 mm[Hg] BP Diastolic 57 mm[Hg] BMI (Body Mass Index) 27.1 Unspecified Weight Measured 76.36 kg Body Temperature 98.8 [degF] Body Temperature 37.11 Altagracia O2 % BldC Oximetry Unspecified Unspecified Heart Rate 58 /min Respiratory Rate 18 /min Inhaled O2 concentration Unspecified Unspecified Immunizations Name Date Status Immunization information has not been included or does not e xist. Procedures Procedure Date Status Debridement (eg. high pressure waterjet w/wo suction, sharp 11/11/2019 Completed selective debridement with scissors, scalpel, & forceps)incl uding topical application(s), total wound surface area; 1st 20 sqc m or less Social History Smoking Status: Former smoker Started: 04/21/1961 Stopped: 04/21/1991 Goals Description Goal: Patient will not experience any in jury related to falls Goal: Patient/caregiver will demonstrate safe use of adaptive devices to increase mobility Goal: Patient/caregiver verbalizes under standing of need to maintain therapeutic glucose control per primary care physici an Goal: Patient/caregiver will maintain th erapeutic glucose control Goal: Patient will verbalize adequate pa in control and receive pain control interventions during procedures as neede d Goal: Patient/caregiver will verbalize a dequate pain control between visits Goal: Patient/caregiver will verbalize c omfort level met Goal: Patient/caregiver will verbalize u nderstanding of skin care regimen Goal: Ulcer/skin breakdown will have a v olume reduction of 30% by week 4 Goal: Ulcer/skin breakdown will have a v olume reduction of 50% by week 8 Goal: Ulcer/skin breakdown will have a v olume reduction of 80% by week 12 Goal: Ulcer/skin breakdown will heal wit hin 14 weeks Health Concerns Description Problem: Abuse / Safety / Falls / Self C are Management Problem: Nutrition Problem: Pain, Acute or Chronic Problem: Wound/Skin Impairment Functional Status Description Date Cognitive Status: Alert and Oriented x 3 (Active) 06/10 Ambulatory Status - Wheel Chair (Active) 11/11/2019 Assessment and Plan Description Services and Therapies: Admission- Emerg ency Department. Laboratory: Wound culture routine. Services and Therapies: Ankle Brachial I ndex (JOSE). Services and Therapies: Segmental Pressu res with Toe. Services and Therapies: Venous Duplex Do ppler. Microbiology: Gram Stain, Tissue. 2019. Microbiology: Tissue Culture. 06/10/2019 . Plan of Treatment: Administer pain contr ol measures as ordered Assessment: Swetha is a pleasant 73 y/o wf . She is an uncontrolled type II Diabetic. Her last A1C WA 9.6 WITH IN THE HOSPITAL 03/17/2019. She is a patient in my practice. She has been seeing DPM for a right grea t toe issued other wounds have been addressed as well. At the bring of the DPM, she vivar d seen me in the office. Labs were done and she was started on Santyl. She was refer red here for further management .06/17/2019: patient is here for recheck. She is usin g Santyl to her wounds. reports her sugars are better with FBS ~170s.Cultures Show Mod MRSA and RARE Pseudomonas06/24/2019: she is using Santyl to her wound. She has regul ar shoes. JOSE soon07/01/2019:she is using Santyl to her wound. She has regular mirtha es. JOSE shows monophasic waves and decresed JOSE and TBI. Venous Doppler shows venous reflux.07/08/2019: Arterial Consult schedule for 08/04. :she is using Santyl to her wo unds. she is not offloading.07/29/2019: Patient is scheduled for a vascular cons ult on 08/04. Patient is reluctant to come to the hospital due to the pandemia. Helder nue to move ahead with HBO at this time. Patient is utilizing Santyl however she is applying incorrectly.08/19/2019: Patient is tolerating procedure without any diff iculties. no complaint or concerns at this time.09/02/2019: Patient is tolerating d ressings. Patient has been applying Santyl and/or back situation to the sc[facility] erations to the right dorsal foot.09/09/2019: Patient is solid and dressings without a ny difficulties. Patient is utilizing [id number]/08/2019: Patient is no ulcerati on to the left lateral foot that started as rubbing from her shoe. Patient then pic k at it creating a larger ulceration.09/23/2019:she continues with Santyl. Patient had a JOSE of the right and 0.54 she did have a aortogram ordered wi th possible stenting that she canceled 3 weeks ago. We will recall Dr. Brennan of [facility] to reschedule.10/07/2019: Patient states that after the debridement she has signi ficant amount of pain. She is scheduled to see Dr. Brennan next week. she was blu rned regarding one of the ulceration to the right dorsal foot it has gotten larger. She was given antibiotics however she did not finish taking them because they upse t her stomach.10/14/2019: Patient continues to have significant amount of pain espec ially after debridement. Culture shows Staphylococcus to the right dorsal foot. 72,020: Patient was seen by . She had a runoff completed. They will decid e what type of procedure she will follow-up with. Patient cannot receive her Augmen tin until today.10/28/2019: she does complain of increased pain to her left foot. She is not following her dressings as prescribed. She is scheduled for interv ention to the right lower extremity tomorrow.11/11/2019: Patient recently we nt intervention with stenting to the right lower extremity. Patient has a palpable pulse. Patient is feeling poorly today complaining of shortness of breath incre ased pain to the left foot. Patient is in the ulceration to the left. Results Name Specimen Value Unit Ref. Range Date Result information has not been included or does not exist. Medical Equipment Implanted Area PRISCILA Assigning Author lucas Medical Equipment information has not been included or does not exist. Reason for Referral transition of care
[2019-11-12] MEDS ORDERED: FUROSEMIDE 10 MG/ML 4 ML VIAL IV SCH (08:00)
[2019-11-12] MEDS: NITROGLYCERIN OINT 1 INCH/GM PACKET TOPICAL SCH (08:41)
[2019-11-12] MEDS: ASPIRIN 325 MG TAB PO SCH (08:41)
[2019-11-12 11:49] LABS: Glucose,Whole Blood 204 mg/dL (75-99)
[2019-11-12] MEDS ORDERED: IBUPROFEN 200 MG TAB PO PRN (12:09)
[2019-11-12] MEDS ORDERED: NITROGLYCERIN SL TABS 0.4 MG TAB SUBLINGUAL PRN (12:09)
[2019-11-12] MEDS ORDERED: METFORMIN HCL PO SCH (12:15)
[2019-11-12] MEDS ORDERED: [UNRECOGNIZED DRUG - OTHER] PO SCH (12:15)
[2019-11-12] MEDS ORDERED: LINAGLIPTIN PO SCH (12:15)
[2019-11-12] MEDS ORDERED: EMPAGLIFLOZIN PO SCH (12:15)
[2019-11-12 12:23] VITALS: BMI 25.0
[2019-11-12] MEDS: FUROSEMIDE 40 MG TAB PO SCH ×2 (13:01→21:15)
[2019-11-12] MEDS: GABAPENTIN 300 MG CAP PO SCH ×2 (13:01→21:16)
[2019-11-12] MEDS: INSULIN ASPART (NovoLOG) 100 UNIT/ML VIAL SQ SCH ×3 (13:02→21:15)
--- NOTE | 2019-11-12 15:02 | P.CRDCN ---
History of Present Illness History of present illness: This is Denice Calderon PA-C dictating a consult on this patient The patient was interviewed and examined by me as well as by Dr. Kwan Case discussed with Dr. Kwan and he agrees with the plan of care HPI Patient is a 74-year-old female with a history significant for hypertension, CAD, diabetes, peripheral vascular disease status post recent stenting of the right SFA who presented with shortness of breath. Patient follows with Dr. Neil. She had a cardiac catheterization in January 2019 showing moderate diffuse multivessel coronary artery disease and at that time medical therapy was advised. Patient states that for the last few days she has been more short of breath. She admits she hasn't been taking her full dose of Lasix as prescribed due to problems with urinary frequency. She denied any chest pain or chest pressure. She has also had increased pain and swelling in her lower extremities. She has bilateral foot wounds and follows with Dr. Brennan. When she went to the wound clinic she was noted to be more short of breath and was recommended to come for evaluation at the emergency department. Upon arrival to the emergency department temperature was 100F, pulse was 101, respirations 22, blood pressure 128/74, oxygen saturation 94% on room air. Chest x-ray showed interstitial pulmonary edema. EKG showed sinus tachycardia, ST depressions in the lateral precordial leads and inferior leads. Labs are significant for white count of 17.7, abnormal troponins. Patient has been started on Lasix along with antibiotics. Patient seen and examined sitting up in the bed. Asking for water. Denies any chest pain. States her breathing has improved. Denies palpitations, dizziness or syncope. ROS: Positive for fever no cough, phlegm or expectoration, no nausea, vomiting or diarrhea, no hematuria, dysuria, no musculoskeletal complaints, no strokes or seizures, Positive for foot wounds EXAMINATION: Patient is afebrile, pulse in the low 100s, respirations 16, blood pressure 111/54, oxygen saturation 95% on room air Patient seen and examined sitting up at the side of the bed, in no acute distress Lungs are clear to auscultation bilaterally Heart is tachycardic but regular Patient has wounds on both feet with purulent drainage Mild lower extremity edema bilaterally REVIEW OF LABS, ECG & MEDICAL DATA WBC 15.8, hemoglobin 8.9, platelets 402, BUN 15, creatinine 0.64 Troponin 0.253, 0.130, 0.065 Most recent echocardiogram in February 2019 shows EF 55-60%, moderate concentric LVH IMPRESSION / ASSESSMENT: #1 shortness of breath, increased lower extremity edema, interstitial pulmonary edema on chest x-ray, likely congestive heart failure, acute on chronic, diastolic, previous echocardiogram showed preserved ejection fraction, moderate LVH #2 bilateral foot infections, on antibiotics #3 known history of multivessel CAD #4 abnormal troponins in the setting of febrile illness and tachycardia, possible sepsis, blood cultures pending #5 hypertension #6 Diabetes #7 PAD status post recent stenting to the right SFA PLAN: Continue diuresis Optimize medical management for CAD Increase metoprolol to 25 mg twice a day Continue statins and dual antiplatelet therapy Continue antibiotics Past Medical History Past Medical History: Asthma, Diabetes Mellitus, Hypertension, Myocardial Infarction ([place]), Osteoarthritis (OA), Vascular Disorder Additional Past Medical History / Comment(s): Asthma years ago, neuropathy bilateral feet, pt states she has been having intermittent edema bilateral ankles and feet past 6 months, hx vertigo at times-none currently, constipation. varicose veins left leg, ulcer rt foot-on antibiotics currently Last Myocardial Infarction Date:: 01/2019 History of Any Multi-Drug Resistant Organisms: None Reported Past Surgical History: Breast Surgery, Heart Catheterization Additional Past Surgical History / Comment(s): L breast biopsy x2, EGD, colonoscopy, angiogram. stent to right leg Past Anesthesia/Blood Transfusion Reactions: No Reported Reaction Past Psychological History: No Psychological Hx Reported Additional Psychological History / Comment(s): . Smoking Status: Former smoker Past Alcohol Use History: None Reported Additional Past Alcohol Use History / Comment(s): Pt started smokin in 3 and quit in 1991. 1 PPD Past Drug Use History: None Reported - Past Family History Mother Additional Family Medical History / Comment(s): from MRSA infection Sister(s) Family Medical History: Cancer Medications and Allergies Home Medications Medication Instructions Recorded Confirmed Type Gabapentin 600 mg PO BID 02/15/19 11/11/19 History Ibuprofen [Advil] 200 mg PO Q6HR PRN 02/15/19 11/11/19 History Atorvastatin [Lipitor] 80 mg PO HS #30 tab 02/18/19 11/11/19 Rx Furosemide [Lasix] 40 mg PO BID #60 tablet 02/18/19 11/11/19 Rx Nitroglycerin Sl Tabs [Nitrostat] 0.4 mg SUBLINGUAL Q5M PRN #100 tab 02/18/19 11/11/19 Rx Empagliflozin/Metformin HCl 1 tab PO DAILY 08/10/19 11/11/19 History [Synjardy Xr 5-1,000 mg Tablet] Linagliptin/Metformin HCl 1 tab PO DAILY 08/10/19 11/11/19 History [Jentadueto Xr 5 mg-1,000 mg Tb] Acetaminophen [Tylenol Extra 500 mg PO Q4H PRN 10/27/19 11/11/19 History Strength] Clopidogrel [Plavix] 75 mg PO HS 11/11/19 11/11/19 History Isosorbide Mononitrate ER [Imdur] 30 mg PO HS 11/11/19 11/11/19 History Metoprolol Succinate (ER) [Toprol 25 mg PO HS 11/11/19 11/11/19 History XL] Potassium Chloride ER [K-Dur 20] 20 meq PO HS 11/11/19 11/11/19 History Allergies Allergy/AdvReac Type Severity Reaction Status Date / Time No Known Allergies Allergy Verified 11/11/19 21:25 Physical Exam Vitals: Vital Signs Temp Pulse Pulse Resp BP BP Pulse Ox 11/12/19 12:00 103 H 16 139/71 97 11/12/19 11:33 16 11/12/19 08:00 98 F 104 H 16 111/58 95 11/12/19 04:00 98.1 F 92 18 118/70 96 11/12/19 00:00 97.6 F 84 20 140/64 97 11/11/19 23:00 97.6 F 84 20 140/64 97 11/11/19 22:18 98.9 F 86 17 140/70 98 11/11/19 18:38 98.3 F 102 H 18 129/44 98 11/11/19 16:36 100 F H 101 H 22 128/74 94 L Intake and Output 11/12/19 11/12/19 11/12/19 06:59 14:59 22:59 Other: Voiding Method Toilet Toilet # Voids 3 1 Weight 70.3 kg 70.3 kg Results 11/12/19 06:27 11/11/19 16:15 Cardiac Enzymes 11/11/19 11/11/19 11/11/19 Range/Units 16:15 17:32 20:59 AST 22 (14-36) U/L Troponin I 0.065 H* 0.130 H* (0.000-0.034) ng/mL 11/11/19 Range/Units 23:02 AST (14-36) U/L Troponin I 0.253 H* (0.000-0.034) ng/mL Coagulation 11/11/19 Range/Units 16:15 PT 10.7 (9.0-12.0) sec APTT 23.4 (22.0-30.0) sec CBC 11/11/19 11/11/19 11/12/19 Range/Units 16:15 20:45 06:27 WBC 19.5 H 17.7 H 15.8 H (3.8-10.6) k/uL RBC 3.53 L 3.26 L 3.31 L (3.80-5.40) m/uL Hgb 9.5 L D 9.0 L 8.9 L (11.4-16.0) gm/dL Hct 30.7 L 28.9 L 29.4 L (34.0-46.0) % Plt Count 432 383 402 (150-450) k/uL Comprehensive Metabolic Panel 11/11/19 Range/Units 16:15 Sodium 138 (137-145) mmol/L Potassium 3.6 (3.5-5.1) mmol/L Chloride 98 (98-107) mmol/L Carbon Dioxide 25 (22-30) mmol/L BUN 15 (7-17) mg/dL Creatinine 0.64 (0.52-1.04) mg/dL Glucose 256 H (74-99) mg/dL Calcium 9.3 (8.4-10.2) mg/dL AST 22 (14-36) U/L ALT 16 (4-34) U/L Alkaline Phosphatase 110 (38-126) U/L Total Protein 7.4 (6.3-8.2) g/dL Albumin 4.1 (3.5-5.0) g/dL Current Medications Generic Name Dose Route Start Last Admin Trade Name Freq PRN Reason Stop Dose Admin Acetaminophen 500 mg 11/12/19 12:09 Tylenol Tab PO Q4H PRN Pain Aspirin 325 mg 11/12/19 09:00 11/12/19 08:41 Aspirin PO 325 mg DAILY CARMEN Administration Atorvastatin Calcium 80 mg 11/12/19 21:00 Lipitor PO HS CARMEN Clopidogrel Bisulfate 75 mg 11/12/19 21:00 Plavix PO HS CARMEN Furosemide 40 mg 11/12/19 12:15 11/12/19 13:01 Lasix PO 40 mg BID CARMEN Administration Gabapentin 600 mg 11/12/19 12:15 11/12/19 13:01 Neurontin PO 600 mg BID CARMEN Administration Piperacillin Sod/Tazobactam 100 mls @ 25 mls/hr 11/12/19 00:00 11/12/19 08:41 Sod 3.375 gm/ Sodium Chloride IVPB 25 mls/hr Q8HR CARMEN Administration Ibuprofen 200 mg 11/12/19 12:09 Advil PO Q6HR PRN Pain Insulin Aspart 0 unit 11/12/19 12:30 11/12/19 13:02 Novolog SQ 3 unit ACHS CARMEN Administration Protocol Isosorbide Mononitrate 30 mg 11/12/19 21:00 Imdur PO HS CARMEN Metoprolol Succinate 25 mg 11/12/19 15:00 Toprol Xl PO BID CARMEN Nitroglycerin 0.4 mg 11/12/19 12:09 Nitrostat SUBLINGUAL Q5M PRN Chest Pain Empagliflozin/ 1 tab 11/12/19 12:15 Metformin Hcl1,000 PO Mg Tablet] 1 Tab( DAILY CARMEN Synjardy Xr) Patient's Own Med ( 1 tab 11/12/19 12:15 Linagliptin/ PO Metformin Hcl [ DAILY [facility] Jentadueto Xr 5 Mg-1 ,000 Mg Tb] 1 Tab) Ondansetron HCl 4 mg 11/12/19 03:55 11/12/19 04:21 Zofran PO 4 mg Q6HR PRN Administration Nausea And Vomiting Potassium Chloride 20 meq 11/12/19 21:00 K-Dur 20 PO HS CARMEN Sodium Hypochlorite 120 ml 11/13/19 09:00 Dakin's 0.5% (Full Strength) MISCELLANE DAILY CARMEN Intake and Output 11/12/19 11/12/19 11/12/19 06:59 14:59 22:59 Other: Voiding Method Toilet Toilet # Voids 3 1 Weight 70.3 kg 70.3 kg Patient Weight 07/25/20 06:59 Weight 70.3 kg 11/12/19 06:27 11/11/19 16:15
--- NOTE | 2019-11-12 16:13 | XR ---
EXAMINATION TYPE: XR foot complete bilateral DATE OF EXAM: 11/12/2019 COMPARISON: NONE HISTORY: 74-year-old female, assess for ostium myelitis TECHNIQUE: 3 views each side FINDINGS: Left: There is a lateral forefoot wound/ulcer at the level of the MTP joint. There is periarticular osteope abdullahi at the fifth MTP joint with bony demineralization of the lateral metatarsal head. Diffuse osteope abdullahi. Vascular calcifications. Generalized soft tissue swelling. Tiny plantar calcaneal spur. Right: Moderate to severe degenerative change first MTP joint. Osteopenia. Vascular calcifications. Some chr onic-appearing bony irregularity fifth metatarsal head/neck. IMPRESSION: 1. Left: Lateral forefoot wound. Findings are suspicious for underlying early osteomyelitis of the la teral fifth metatarsal head. Generalized soft tissue swelling. 2. 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 Chronic-appearing bony irregularity fifth metatarsal head/neck could represent a site of old infection/injury.
[2019-11-12 16:36] LABS: Glucose,Whole Blood 251 mg/dL (75-99)
[2019-11-12] MEDS: METOPROLOL SUCCINATE (ER) 25 MG TAB.ER.24H PO SCH ×2 (16:41→21:17)
--- NOTE | 2019-11-12 17:28 | P.HPIM ---
History of Present Illness H&P Date: 11/12/19 Chief Complaint: Worsening dyspnea, worsening wounds This is a 74-year-old female with history of diabetes mellitus, hypertension, CAD with multivessel disease, prior nicotine dependence, PAD with recent stenting of the right SFA, presented to the ER with significant difficulty breathing since Friday. Reported she decreased her Lasix dose related to bothersome urinary frequency. Developed increased edema of bilateral lower extremities. Reports worsening of bilateral feet wounds, recently debrided in the wound care center. Upon her visit to wound care center, referred to the ER related to increased shortness of breath. On admission, T-max 100, WBC 17.7, tachycardic, tachypneic with O2 sat of 94% on room air. Blood pressure stable. Chest x-ray reported interstitial pulmonary edema, probably CHF related. EKG reported sinus tachycardia with nonspecific ST abnormalities, elevated troponins; 0.065, 0.130, 0.253.Denies chest pain, palpitations. Denies fever or chills. Denies cough. Denies hemoptysis, hematemesis. Denies syncope. Hemoglobin 8.9, platelets 402, INR 1, chemistry unremarkable. Elevated blood sugars ranging from 120s to mid 250s. Lactic acid on admission 2.5, down to 1.1. UA reported trace ketones, 4+ glucose. Received diuretics, IV antibiotics of zosyn initiated. Review of Systems ROS Statement: Those systems with pertinent positive or pertinent negative responses have been documented in the HPI. ROS Other: All systems not noted in ROS Statement are negative. Past Medical History Past Medical History: Asthma, Diabetes Mellitus, Hypertension, Myocardial Infarction (UT), Osteoarthritis (OA), Vascular Disorder Additional Past Medical History / Comment(s): Asthma years ago, neuropathy bilateral feet, pt states she has been having intermittent edema bilateral ankles and feet past 6 months, hx vertigo at times-none currently, constipation. varicose veins left leg, ulcer rt foot-on antibiotics currently Last Myocardial Infarction Date:: 01/2019 History of Any Multi-Drug Resistant Organisms: None Reported Past Surgical History: Breast Surgery, Heart Catheterization Additional Past Surgical History / Comment(s): L breast biopsy x2, EGD, colonoscopy, angiogram. stent to right leg Past Anesthesia/Blood Transfusion Reactions: No Reported Reaction Past Psychological History: No Psychological Hx Reported Additional Psychological History / Comment(s): . Smoking Status: Former smoker Past Alcohol Use History: None Reported Additional Past Alcohol Use History / Comment(s): Pt started smokin in 2 and quit in 1991. 1 PPD Past Drug Use History: None Reported - Past Family History Mother Additional Family Medical History / Comment(s): from MRSA infection Sister(s) Family Medical History: Cancer Medications and Allergies Home Medications Medication Instructions Recorded Confirmed Type Gabapentin 600 mg PO BID 02/15/19 11/11/19 History Ibuprofen [Advil] 200 mg PO Q6HR PRN 02/15/19 11/11/19 History Atorvastatin [Lipitor] 80 mg PO HS #30 tab 02/18/19 11/11/19 Rx Furosemide [Lasix] 40 mg PO BID #60 tablet 02/18/19 11/11/19 Rx Nitroglycerin Sl Tabs [Nitrostat] 0.4 mg SUBLINGUAL Q5M PRN #100 tab 02/18/19 11/11/19 Rx Empagliflozin/Metformin HCl 1 tab PO DAILY 08/10/19 11/11/19 History [Synjardy Xr 5-1,000 mg Tablet] Linagliptin/Metformin HCl 1 tab PO DAILY 08/10/19 11/11/19 History [Jentadueto Xr 5 mg-1,000 mg Tb] Acetaminophen [Tylenol Extra 500 mg PO Q4H PRN 10/27/19 11/11/19 History Strength] Clopidogrel [Plavix] 75 mg PO HS 11/11/19 11/11/19 History Isosorbide Mononitrate ER [Imdur] 30 mg PO HS 11/11/19 11/11/19 History Metoprolol Succinate (ER) [Toprol 25 mg PO HS 11/11/19 11/11/19 History XL] Potassium Chloride ER [K-Dur 20] 20 meq PO HS 11/11/19 11/11/19 History Allergies Allergy/AdvReac Type Severity Reaction Status Date / Time No Known Allergies Allergy Verified 11/11/19 21:25 Physical Exam Vitals: Vital Signs Temp Pulse Pulse Resp BP BP Pulse Ox 11/12/19 12:00 103 H 16 139/71 97 11/12/19 11:33 16 11/12/19 08:00 98 F 104 H 16 111/58 95 11/12/19 04:00 98.1 F 92 18 118/70 96 07/24/20 00:00 97.6 F 84 20 140/64 97 11/11/19 23:00 97.6 F 84 20 140/64 97 11/11/19 22:18 98.9 F 86 17 140/70 98 11/11/19 18:38 98.3 F 102 H 18 129/44 98 11/11/19 16:36 100 F H 101 H 22 128/74 94 L Intake and Output 11/12/19 11/12/19 11/12/19 06:59 14:59 22:59 Other: Voiding Method Toilet Toilet # Voids 3 1 Weight 70.3 kg 70.3 kg VITAL SIGNS: As above GENERAL: Sitting up in bed, no acute distress HEENT: Conjunctivae normal. eyes normal. NECK: No JVD. No thyroid enlargement. No LNs CARDIOVASCULAR: S1, S2 regular. No murmur, gallop or rub. RESPIRATION: Breath sounds diminished in the bases. No rhonchi. Fine bibasilar crackles. No expiratory wheezing ABDOMEN: Soft, nontender . No guarding. no masses palpable. No ascites, No hepatosplenomegaly.Bowel sounds heard. LEGS: No edema. no swelling PSYCHIATRY: Alert and oriented X3, mood and affect normal. NERVOUS SYSTEM: Cranial N 2-12 grossly normal. Moves all 4 limbs. Diffuse weakness No focal deficits. Skin: Right dorsal foot with diabetic wound/ulcer, recently debrided, 2.2 cm length x 1.8 cm width x 0.3 cm depth with purulent drainage, exposed tendon. Left lateral foot, status post recent debridement, 2.4 cm length X 2.2 cm width X 1.6 cm depth with fat layer exposure, crusty. Bilateral extremities cold, difficult to obtain pulse, RN obtaining Doppler. Lymphatic system. No LN neck axilla. Results CBC & Chem 7: 11/12/19 06:27 11/11/19 16:15 Labs: Abnormal Lab Results - Last 24 Hours (Table) 11/11/19 11/11/19 11/11/19 Range/Units 16:15 16:15 16:15 WBC 19.5 H (3.8-10.6) k/uL RBC 3.53 L (3.80-5.40) m/uL Hgb 9.5 L D (11.4-16.0) gm/dL Hct 30.7 L (34.0-46.0) % MCHC 30.9 L (31.0-37.0) g/dL RDW 16.3 H (11.5-15.5) % Neutrophils # 16.6 H (1.3-7.7) k/uL Lymphocytes # (1.0-4.8) k/uL Glucose 256 H (74-99) mg/dL POC Glucose (mg/dL) (75-99) mg/dL Plasma Lactic Acid Tres 2.5 H* (0.7-2.0) mmol/L Total Bilirubin 1.6 H (0.2-1.3) mg/dL Troponin I (0.000-0.034) ng/mL Urine Glucose (UA) (Negative) Urine Ketones (Negative) 11/11/19 11/11/19 11/11/19 Range/Units 16:59 17:32 20:45 WBC 17.7 H (3.8-10.6) k/uL RBC 3.26 L (3.80-5.40) m/uL Hgb 9.0 L (11.4-16.0) gm/dL Hct 28.9 L (34.0-46.0) % MCHC (31.0-37.0) g/dL RDW 15.9 H (11.5-15.5) % Neutrophils # 15.8 H (1.3-7.7) k/uL Lymphocytes # 0.8 L (1.0-4.8) k/uL Glucose (74-99) mg/dL POC Glucose (mg/dL) (75-99) mg/dL Plasma Lactic Acid Tres (0.7-2.0) mmol/L Total Bilirubin (0.2-1.3) mg/dL Troponin I 0.065 H* (0.000-0.034) ng/mL Urine Glucose (UA) 4+ H (Negative) Urine Ketones Trace H (Negative) 11/11/19 11/11/19 11/12/19 Range/Units 20:59 23:02 03:30 WBC (3.8-10.6) k/uL RBC (3.80-5.40) m/uL Hgb (11.4-16.0) gm/dL Hct (34.0-46.0) % MCHC (31.0-37.0) g/dL RDW (11.5-15.5) % Neutrophils # (1.3-7.7) k/uL Lymphocytes # (1.0-4.8) k/uL Glucose (74-99) mg/dL POC Glucose (mg/dL) 344 H (75-99) mg/dL Plasma Lactic Acid Tres (0.7-2.0) mmol/L Total Bilirubin (0.2-1.3) mg/dL Troponin I 0.130 H* 0.253 H* (0.000-0.034) ng/mL Urine Glucose (UA) (Negative) Urine Ketones (Negative) 11/12/19 11/12/19 11/12/19 Range/Units 05:54 06:27 11:36 WBC 15.8 H (3.8-10.6) k/uL RBC 3.31 L (3.80-5.40) m/uL Hgb 8.9 L (11.4-16.0) gm/dL Hct 29.4 L (34.0-46.0) % MCHC 30.4 L (31.0-37.0) g/dL RDW 15.8 H (11.5-15.5) % Neutrophils # 13.9 H (1.3-7.7) k/uL Lymphocytes # 0.9 L (1.0-4.8) k/uL Glucose (74-99) mg/dL POC Glucose (mg/dL) 244 H 204 H (75-99) mg/dL Plasma Lactic Acid Tres (0.7-2.0) mmol/L Total Bilirubin (0.2-1.3) mg/dL Troponin I (0.000-0.034) ng/mL Urine Glucose (UA) (Negative) Urine Ketones (Negative) Thrombosis Risk Factor Assmnt - Choose All That Apply Each Factor Represents 1 point: Sepsis (< 1month) Other Risk Factors: Yes Each Risk Factor Represents 2 Points: Age 61-74 years Other congenital or acquired thrombophilia - If yes, enter type in comment: No Thrombosis Risk Factor Assessment Total Risk Factor Score: 3 Thrombosis Risk Factor Assessment Level: Moderate Risk Assessment and Plan Assessment: -Acute hypoxic respiratory failure secondary to pulmonary edema, acute diastolic CHF exacerbation, prior EF 50-55% -Worsening bilateral wounds ;Left lateral foot Young III diabetic ulcer, right dorsal foot Young IV diabetic ulcer, suspect osteomyelitis -Sepsis related to bilateral foot infection and CHF -Multivessel CAD history of UT, cardiac cath -Elevated troponins, most likely related to sepsis, cardiology following -Diabetes mellitus, uncontrolled hyperglycemia ,prior hemoglobin A1c 9.6 , hemoglobin A1c ordered -Hypertension -Hyperlipidemia -Chronic asthma -Osteoarthritis -Peripheral arterial disease, status post recent stenting of the right SFA -Vertigo -Former nicotine dependence -Gait dysfunction secondary to bilateral feet wounds -Diabetic neuropathy Plan: Continue on current medication regime ,monitoring and symptomatic treatment. Continue on IV Zosyn until culture resulted. Echo, hemoglobin A1c ordered. X-ray of bilateral feet/wounds ordered regarding osteomyelitis. Wound care ordered with Aquacell Silver, dakins solution. Doppler pulses ordered of bilateral feet now. Vascular surgery and Infectious disease consulted. Tight blood sugar control with close monitoring of Accu-Cheks. Maintain Dual antiplatelet therapy, beta kan, diuretics. Prognosis guarded given multiple complex medical issues. The impression and plan of care has been dictated as directed. : I performed a history and examination of this patient, discussed the same with the dictator. I agree with the dictator's note ,documented as a scribe. Any additional findings or plans will be noted.
[2019-11-12 20:11] LABS: Glucose,Whole Blood 311 mg/dL (75-99)
[2019-11-12] MEDS ORDERED: ATORVASTATIN 80 MG TAB PO SCH (21:00)
[2019-11-12] MEDS ORDERED: METOPROLOL SUCCINATE (ER) 25 MG TAB.ER.24H PO SCH (21:00)
[2019-11-12] MEDS: ISOSORBIDE MONONITRATE ER 30 MG TAB.ER.24H PO SCH (21:15)
[2019-11-12] MEDS: INSULIN DETEMIR (LEVEMIR) 100 UNIT/ML SYR SQ SCH (21:15)
[2019-11-12] MEDS: ATORVASTATIN 80 MG TAB PO SCH (21:15)
[2019-11-12] MEDS: POTASSIUM CHLORIDE ER 20 MEQ TAB.ER PO SCH (21:15)
[2019-11-12] MEDS: CLOPIDOGREL 75 MG TAB PO SCH (21:16)
--- NOTE | 2019-11-12 22:55 | P.CONS ---
History of Present Illness - Reason for Consult Consult date: 11/12/19 Osteomyelitis Requesting physician: Yenny Taylor - Chief Complaint Chronic nonhealing wound to bilateral foot x months and shortness of breath - History of Present Illness Patient is 74 year female with a past medical history significant for diabetes mellitus in this patient who did have a history of peripheral arterial disease with recent intervention to the right. Femoral artery, patient did have a chronic nonhealing wound on the right foot dorsum and at the left foot lateral border at the base of the fifth toe that is currently being taken care of at [facility] wound center, patient did have a regular follow-up visit at the wound care center yesterday patient was noticed to have increasing short of breath and concern for worsening of her wound she has been advised to go to the ER on arrival to the ER the patient did have a fever of 100F she did have elevated white count 19,000, patient did have a wound cultures obtained was empirically started on Zosyn x-rays of the foot taken today did shows evidence of osteomyelitis at the left fifth metatarsal head, diffuse disease was consulted for further management of Osteomyelitis Patient with a chronic wound on the right foot dorsum as well as left foot at the base of the feet with the patient has for couple of months now patient is not sure how this started patient be complaining of pain mostly at the left foot lateral border at the base of fifth toe which is throbbing in nature with intensity of almost 10 out of 10 with severe with associated swelling redness and minimal drainage no foul-smelling the denies having any chest pain shortness of breath on exertion but no cough or sputum production no abdominal pain no diarrhea Review of Systems Positive point has been mentioned in the HPI rest of the systems are negative Past Medical History Past Medical History: Asthma, Diabetes Mellitus, Hypertension, Myocardial Infarction ([place]), Osteoarthritis (OA), Vascular Disorder Additional Past Medical History / Comment(s): Asthma years ago, neuropathy bilateral feet, pt states she has been having intermittent edema bilateral ankles and feet past 6 months, hx vertigo at times-none currently, constipation. varicose veins left leg, ulcer rt foot-on antibiotics currently Last Myocardial Infarction Date:: 01/2019 History of Any Multi-Drug Resistant Organisms: None Reported Past Surgical History: Breast Surgery, Heart Catheterization Additional Past Surgical History / Comment(s): L breast biopsy x2, EGD, colonoscopy, angiogram. stent to right leg Past Anesthesia/Blood Transfusion Reactions: No Reported Reaction Past Psychological History: No Psychological Hx Reported Additional Psychological History / Comment(s): . Smoking Status: Former smoker Past Alcohol Use History: None Reported Additional Past Alcohol Use History / Comment(s): Pt started smokin in 1961 and quit in 1991. 1 PPD Past Drug Use History: None Reported - Past Family History Mother Additional Family Medical History / Comment(s): from MRSA infection Sister(s) Family Medical History: Cancer Medications and Allergies Home Medications Medication Instructions Recorded Confirmed Type Gabapentin 600 mg PO BID 02/15/19 11/11/19 History Ibuprofen [Advil] 200 mg PO Q6HR PRN 02/15/19 11/11/19 History Atorvastatin [Lipitor] 80 mg PO HS #30 tab 02/18/19 11/11/19 Rx Furosemide [Lasix] 40 mg PO BID #60 tablet 02/18/19 11/11/19 Rx Nitroglycerin Sl Tabs [Nitrostat] 0.4 mg SUBLINGUAL Q5M PRN #100 tab 02/18/19 11/11/19 Rx Empagliflozin/Metformin HCl 1 tab PO DAILY 08/10/19 11/11/19 History [Synjardy Xr 5-1,000 mg Tablet] Linagliptin/Metformin HCl 1 tab PO DAILY 08/10/19 11/11/19 History [Jentadueto Xr 5 mg-1,000 mg Tb] Acetaminophen [Tylenol Extra 500 mg PO Q4H PRN 10/27/19 11/11/19 History Strength] Clopidogrel [Plavix] 75 mg PO HS 11/11/19 11/11/19 History Isosorbide Mononitrate ER [Imdur] 30 mg PO HS 11/11/19 11/11/19 History Metoprolol Succinate (ER) [Toprol 25 mg PO HS 11/11/19 11/11/19 History XL] Potassium Chloride ER [K-Dur 20] 20 meq PO HS 11/11/19 11/11/19 History Allergies Allergy/AdvReac Type Severity Reaction Status Date / Time No Known Allergies Allergy Verified 11/11/19 21:25 Physical Exam Vitals: Vital Signs Temp Pulse Pulse Resp BP BP Pulse Ox 11/12/19 15:34 16 11/12/19 12:00 103 H 16 139/71 97 07/24/20 11:33 16 11/12/19 08:00 98 F 104 H 16 111/58 95 11/12/19 04:00 98.1 F 92 18 118/70 96 11/12/19 00:00 97.6 F 84 20 140/64 97 11/11/19 23:00 97.6 F 84 20 140/64 97 11/11/19 22:18 98.9 F 86 17 140/70 98 11/11/19 18:38 98.3 F 102 H 18 129/44 98 11/11/19 16:36 100 F H 101 H 22 128/74 94 L Intake and Output 11/12/19 11/12/19 11/12/19 06:59 14:59 22:59 Other: Voiding Method Toilet Toilet Toilet # Voids 3 1 Weight 70.3 kg 70.3 kg GENERAL DESCRIPTION: An elderly female lying in bed, no distress. No tachypnea or accessory muscle of respiration use. HEENT: Shows Pallor , no scleral icterus. Oral mucous membrane is dry. No pharyngeal erythema or thrush NECK: Trachea central, no thyromegaly. LUNGS: Unlabored breathing. Decreased breath sound at bases HEART: S1, S2, regular rate and rhythm. No loud murmur ABDOMEN: Soft, no tenderness , guarding or rigidity, no organomegaly EXTREMITIES: Right foot dorsum wound with slough tissue no surrounding redness or drainage, left foot lateral border wound with minimal slough tissue some surrounding swelling and redness SKIN: No rash, no masses palpable. NEUROLOGICAL: The patient is awake, alert, oriented x3, mood and affect normal. Results CBC & Chem 7: 11/12/19 06:27 11/11/19 16:15 Labs: Abnormal Lab Results - Last 24 Hours (Table) 11/11/19 11/11/19 11/11/19 Range/Units 16:15 16:15 16:15 WBC 19.5 H (3.8-10.6) k/uL RBC 3.53 L (3.80-5.40) m/uL Hgb 9.5 L D (11.4-16.0) gm/dL Hct 30.7 L (34.0-46.0) % MCHC 30.9 L (31.0-37.0) g/dL RDW 16.3 H (11.5-15.5) % Neutrophils # 16.6 H (1.3-7.7) k/uL Lymphocytes # (1.0-4.8) k/uL Glucose 256 H (74-99) mg/dL POC Glucose (mg/dL) (75-99) mg/dL Plasma Lactic Acid Tres 2.5 H* (0.7-2.0) mmol/L Total Bilirubin 1.6 H (0.2-1.3) mg/dL Troponin I (0.000-0.034) ng/mL Urine Glucose (UA) (Negative) Urine Ketones (Negative) 11/11/19 11/11/19 11/11/19 Range/Units 16:59 17:32 20:45 WBC 17.7 H (3.8-10.6) k/uL RBC 3.26 L (3.80-5.40) m/uL Hgb 9.0 L (11.4-16.0) gm/dL Hct 28.9 L (34.0-46.0) % MCHC (31.0-37.0) g/dL RDW 15.9 H (11.5-15.5) % Neutrophils # 15.8 H (1.3-7.7) k/uL Lymphocytes # 0.8 L (1.0-4.8) k/uL Glucose (74-99) mg/dL POC Glucose (mg/dL) (75-99) mg/dL Plasma Lactic Acid Tres (0.7-2.0) mmol/L Total Bilirubin (0.2-1.3) mg/dL Troponin I 0.065 H* (0.000-0.034) ng/mL Urine Glucose (UA) 4+ H (Negative) Urine Ketones Trace H (Negative) 11/11/19 11/11/19 11/12/19 Range/Units 20:59 23:02 03:30 WBC (3.8-10.6) k/uL RBC (3.80-5.40) m/uL Hgb (11.4-16.0) gm/dL Hct (34.0-46.0) % MCHC (31.0-37.0) g/dL RDW (11.5-15.5) % Neutrophils # (1.3-7.7) k/uL Lymphocytes # (1.0-4.8) k/uL Glucose (74-99) mg/dL POC Glucose (mg/dL) 344 H (75-99) mg/dL Plasma Lactic Acid Tres (0.7-2.0) mmol/L Total Bilirubin (0.2-1.3) mg/dL Troponin I 0.130 H* 0.253 H* (0.000-0.034) ng/mL Urine Glucose (UA) (Negative) Urine Ketones (Negative) 11/12/19 11/12/19 11/12/19 Range/Units 05:54 06:27 11:36 WBC 15.8 H (3.8-10.6) k/uL RBC 3.31 L (3.80-5.40) m/uL Hgb 8.9 L (11.4-16.0) gm/dL Hct 29.4 L (34.0-46.0) % MCHC 30.4 L (31.0-37.0) g/dL RDW 15.8 H (11.5-15.5) % Neutrophils # 13.9 H (1.3-7.7) k/uL Lymphocytes # 0.9 L (1.0-4.8) k/uL Glucose (74-99) mg/dL POC Glucose (mg/dL) 244 H 204 H (75-99) mg/dL Plasma Lactic Acid Tres (0.7-2.0) mmol/L Total Bilirubin (0.2-1.3) mg/dL Troponin I (0.000-0.034) ng/mL Urine Glucose (UA) (Negative) Urine Ketones (Negative) Assessment and Plan Assessment: 1- patient with a chronic non-healing wound on the dorsum aspect of the right foot possible ischemic and this patient who did have a history of peripheral artery disease status post recent intervention the wound has not problem to the bone and didn't have significant limited changes 2-patient with a chronic nonhealing wound on the lateral border of the left foot at the base of the fifth toe with evidence of inflammation changes and the x-ray has been suspicious for left fifth toe metatarsal head Osteomyelitis (1) Foot osteomyelitis, left Current Visit: Yes Status: Acute Code(s): M86.9 - OSTEOMYELITIS, UNSPECIFIED SNOMED Code(s): 0905688850032380 (2) Wound of right foot Current Visit: Yes Status: Acute Code(s): S91.301A - UNSPECIFIED OPEN WOUND, RIGHT FOOT, INITIAL ENCOUNTER SNOMED Code(s): 903605730 Plan: 1- Zosyn 3.275 g every 8 hours to continue 2- we will obtain a baseline CRP and a sed rate 3- we will wait for the cultures to finalize to Just antibiotic further 4- local wound care with [facility] followed by moist dressing We will follow on clinical condition and cultures to further adjust medication if needed Thank you for this consultation will follow this patient with you
[2019-11-13 04:07] LABS: Hemoglobin A1C 7.9 % (4.0-6.0)
[2019-11-13 06:21] LABS: Glucose,Whole Blood 198 mg/dL (75-99)
[2019-11-13] MEDS: INSULIN ASPART (NovoLOG) 100 UNIT/ML VIAL SQ SCH ×4 (06:27→20:51)
[2019-11-13 08:02] LABS: African American GFR (CKD) >90 (>60 ml/min/1.73 sqM); Anion Gap 9 mmol/L; Blood Urea Nitrogen 19 mg/dL (7-17); Calcium 8.5 mg/dL (8.4-10.2); Carbon Dioxide 29 mmol/L (22-30); Chloride 98 mmol/L (98-107); Glucose 167 mg/dL (74-99); Non-African American GFR(CKD) 87 (>60 ml/min/1.73 sqM); Potassium 3.1 mmol/L (3.5-5.1); Sodium 136 mmol/L (137-145)
[2019-11-13] MEDS ORDERED: Potassium Replacement Protocol 1 EACH MISC MISCELLANE PRN (08:17)
[2019-11-13 08:35] LABS: Anisocytosis Slight; Basophils # (A) 0.1 k/uL (0-0.2); Basophils % (A) 0 %; Eosinophils # (A) 0.1 k/uL (0-0.7); Eosinophils % (A) 1 %; HCT 26.1 % (34.0-46.0); Hypochromasia Moderate; Lymphocytes % (A) 8 %; MCH 26.6 pg (25.0-35.0); MCHC 30.7 g/dL (31.0-37.0); MCV 86.8 fL (80.0-100.0); Mean Platelet Volume 7.2; Monocytes # (A) 0.7 k/uL (0-1.0); Monocytes % (A) 6 %; Neutrophils # (A) 11.1 k/uL (1.3-7.7); Neutrophils % (A) 85 %; Platelet Count 384 k/uL (150-450); RDW 16.2 % (11.5-15.5); WBC 13.1 k/uL (3.8-10.6)
[2019-11-13] MEDS ORDERED: SODIUM HYPOCHLORITE 0.5% 480 ML BOT MISCELLANE SCH (09:00)
[2019-11-13] MEDS: ASPIRIN 325 MG TAB PO SCH (09:01)
[2019-11-13] MEDS: GABAPENTIN 300 MG CAP PO SCH ×2 (09:01→20:17)
[2019-11-13] MEDS: POTASSIUM CHLORIDE ER 20 MEQ TAB.ER PO SCH ×2 (09:02→20:17)
[2019-11-13] MEDS: FUROSEMIDE 40 MG TAB PO SCH ×2 (09:02→20:17)
[2019-11-13] MEDS: METOPROLOL SUCCINATE (ER) 25 MG TAB.ER.24H PO SCH ×2 (09:02→20:17)
[2019-11-13] MEDS: PIPERACILLIN-TAZOBACTAM 3.375 GM in SODIUM CHLORIDE 0.9% 100 ML IVPB SCH ×3 (09:03→23:58)
--- NOTE | 2019-11-13 10:52 | P.PN ---
Subjective Progress Note Date: 11/13/19 Principal diagnosis: Worsening dyspnea and worsening wounds on bilateral feet. 74 over female patient with history of diabetes hypertension, coronary artery disease with multivessel disease, prior nicotine dependence, PAD with recent stenting of the right SFA, presented to the emergency room from the wound center on on . She had had increased difficulty breathing since Friday and reports that she had decreased her Lasix on her own due to bothersome frequency of urination. Subsequently she developed increased bilateral lower extremity edema. Her initial temperature on admission was 100F temperature taken over the shake, she had a white blood cell count 17.7, troponin of 0.253, BNP of 2840, she was tachycardic and respiratory rate is 16, blood pressure 115/66, and she is satting 92% on room air. Most recent labs were collected this morning around 7 AM white blood cell count of 13.1 hemoglobin of 8.0, hematocrit of 26.1, platelet count of 16.2. Chemistry reveals a sodium 136, potassium of 3.1, albumin of 19, creatinine 0.68. She is on the potassium supplement replacement protocol for electric imbalance. Currently she is sitting up in bed with no complaints of difficulty breathing. Nasal cannula was laying on the floor and was set for 2 L discussed with patient the importance of wearing the oxygen. She does complain of pain to bilateral feet particularly the left if she tries to stand up. Currently patient is alert and oriented 3 following commands, and she denies chest pain, shortness of breath, nausea vomiting, visual changes, Objective - Vital Signs Vital signs: Vital Signs Temp 97.5 F L 11/13/19 08:00 Pulse 92 11/13/19 08:00 Resp 16 11/13/19 08:00 BP 115/66 11/13/19 08:00 Pulse Ox 92 L 11/13/19 08:00 Intake & Output 11/12/19 11/13/19 11/13/19 18:59 06:59 18:59 Intake Total 240 Balance 240 Weight 70.3 kg 69.9 kg Intake: Oral 240 Other: Voiding Method Toilet Toilet # Voids 1 1 - Exam GENERAL: Well-appearing, well-nourished and in no acute distress. HEAD: Atraumatic, normocephalic. EYES: Pupils equal round and reactive to light, extraocular movements intact, sclera anicteric, conjunctiva are normal. ENT:nares patent, oropharynx clear without exudates. Moist mucous membranes. NECK: Normal range of motion, supple without lymphadenopathy or JVD, no thyrom egaly LUNGS: Breath sounds clear to auscultation bilaterally and equal in the upper three-quarter lung raymundo. Fine basilar crackles noted bilaterally. HEART: Regular rate and rhythm without murmurs, rubs or gallops.S1S2 Normal ABDOMEN: Soft, nontender, normoactive bowel sounds. No guarding, no rebound. No masses appreciated. EXTREMITIES: Normal range of motion, no pitting or edema. No clubbing or cyanosis. NEUROLOGICAL: Cranial nerves II through XII grossly intact. Normal speech, normal gait. PSYCH: Normal mood, normal affect. SKIN: Warm, Dry, normal turgor. Right dorsal foot with diabetic wound\ulcer with exposed tendon was recently and recently debrided. Left lateral foot along the medial lateral side of the fifth toe also post- debridement, fat layer is exposed. Both was Aquasol silver dressing in place. Bilateral feet cool to touch. - Labs CBC & Chem 7: 11/13/19 07:09 11/13/19 07:09 Labs: Abnormal Lab Results - Last 24 Hours (Table) 11/11/19 11/12/19 11/12/19 Range/Units 20:45 11:36 16:35 WBC (3.8-10.6) k/uL RBC (3.80-5.40) m/uL Hgb (11.4-16.0) gm/dL Hct (34.0-46.0) % MCHC (31.0-37.0) g/dL RDW (11.5-15.5) % Neutrophils # (1.3-7.7) k/uL Sodium (137-145) mmol/L Potassium (3.5-5.1) mmol/L BUN (7-17) mg/dL Glucose (74-99) mg/dL POC Glucose (mg/dL) 204 H 251 H (75-99) mg/dL Hemoglobin A1c 7.9 H (4.0-6.0) % 11/12/19 11/13/19 11/13/19 Range/Units 20:10 06:20 07:09 WBC (3.8-10.6) k/uL RBC (3.80-5.40) m/uL Hgb (11.4-16.0) gm/dL Hct (34.0-46.0) % MCHC (31.0-37.0) g/dL RDW (11.5-15.5) % Neutrophils # (1.3-7.7) k/uL Sodium 136 L (137-145) mmol/L Potassium 3.1 L (3.5-5.1) mmol/L BUN 19 H (7-17) mg/dL Glucose 167 H (74-99) mg/dL POC Glucose (mg/dL) 311 H 198 H (75-99) mg/dL Hemoglobin A1c (4.0-6.0) % 11/13/19 Range/Units 07:09 WBC 13.1 H (3.8-10.6) k/uL RBC 3.00 L (3.80-5.40) m/uL Hgb 8.0 L (11.4-16.0) gm/dL Hct 26.1 L (34.0-46.0) % MCHC 30.7 L (31.0-37.0) g/dL RDW 16.2 H (11.5-15.5) % Neutrophils # 11.1 H (1.3-7.7) k/uL Sodium (137-145) mmol/L Potassium (3.5-5.1) mmol/L BUN (7-17) mg/dL Glucose (74-99) mg/dL POC Glucose (mg/dL) (75-99) mg/dL Hemoglobin A1c (4.0-6.0) % Microbiology - Last 24 Hours (Table) 11/12/19 15:03 Gram Stain - Preliminary Foot - Right Wound Culture - Preliminary 11/12/19 15:04 Gram Stain - Preliminary Foot - Left Wound Culture - Preliminary 11/11/19 22:17 Blood Culture - Preliminary Blood No Growth after 24 hours 11/11/19 17:36 Blood Culture - Preliminary Blood No Growth after 24 hours Assessment and Plan (1) Acute pulmonary edema Current Visit: Yes Status: Acute Code(s): J81.0 - ACUTE PULMONARY EDEMA SNOMED Code(s): 43953812 (2) Elevated troponin Current Visit: Yes Status: Acute Code(s): R79.89 - OTHER SPECIFIED ABNORMAL FINDINGS OF BLOOD CHEMISTRY SNOMED Code(s): 280152504 (3) Foot osteomyelitis, left Current Visit: Yes Status: Acute Code(s): M86.9 - OSTEOMYELITIS, UNSPECIFIED SNOMED Code(s): 0107694456898897 (4) Infected decubitus ulcer Current Visit: Yes Status: Acute Code(s): L89.90 - PRESSURE ULCER OF UNSPECIFIED SITE, UNSPECIFIED STAGE; L08.9 - LOCAL INFECTION OF THE SKIN AND SUBCUTANEOUS TISSUE, UNSP SNOMED Code(s): 911407884 (5) Sepsis Current Visit: Yes Status: Acute Code(s): A41.9 - SEPSIS, UNSPECIFIED O RGANISM SNOMED Code(s): 37705158 (6) Wound of right foot Current Visit: Yes Status: Acute Code(s): S91.301A - UNSPECIFIED OPEN WOUND, RIGHT FOOT, INITIAL ENCOUNTER SNOMED Code(s): 260665246 (7) COPD (chronic obstructive pulmonary disease) Current Visit: No Status: Acute Code(s): J44.9 - CHRONIC OBSTRUCTIVE PULMONARY DISEASE, UNSPECIFIED SNOMED Code(s): 56747446 (8) Diabetic neuropathy Current Visit: No Status: Acute Code(s): E11.40 - TYPE 2 DIABETES MELLITUS WITH DIABETIC NEUROPATHY, UNSP SNOMED Code(s): 316541797 (9) Essential (primary) hypertension Current Visit: No Status: Acute Code(s): I10 - ESSENTIAL (PRIMARY) HYPERTENSION SNOMED Code(s): 05142381 (10) Gait abnormality Current Visit: No Status: Acute Code(s): R26.9 - UNSPECIFIED ABNORMALITIES OF GAIT AND MOBILITY SNOMED Code(s): 62973937 (11) Hypokalemia Current Visit: No Status: Acute Code(s): E87.6 - HYPOKALEMIA SNOMED Code(s): 84670477 (12) Type 2 diabetes mellitus with hyperglycemia Current Visit: No Status: Acute Code(s): E11.65 - TYPE 2 DIABETES MELLITUS WITH HYPERGLYCEMIA SNOMED Code(s): 262765104004740 (13) Unsteady gait Current Visit: No Status: Acute Code(s): R26.81 - UNSTEADINESS ON FEET SNOMED Code(s): 69986744 Plan: 1. Continue current dictation regimen. 2. Continue with dosing of Lasix and broad spectrum antibiotics. 3. Await vascular recommendations after their assessment. 4. Order and monitor daily lab work. 5. Continue to follow ID recommendations for antibiotics. 6. Await for wound cultures. 7. Casting of left foot to offload pressure on the wound on that affected side. 8. Electrolyte replacement per protocol. 9. We'll continue to follow closely and reassess tomorrow. Time with Patient: Greater than 30
--- NOTE | 2019-11-13 11:27 | P.GSCN ---
History of Present Illness Consult date: 11/13/19 Reason for Consult: Lower extremity wounds History of present illness: 74-year-old female with history of bilateral lower extremity wounds with critical limb ischemia on the right lower extremity with history of right SFA anterior tibial artery revascularization and stenting within the SFA presented to the emergency department secondary to shortness of breath and was admitted for pulmonary edema. She states her right leg has improved since her revascularization and she is not complaining of significant pain. She is complaining of more pain in her left leg and foot at this time. She also states her wound on her left lateral aspect of her foot has worsened and now has a tendon showing. When she first arrived to the hospital she did have fevers at 100.3. Currently she denies any fevers, chills, or chest pain. Review of Systems All systems: negative (What is mentioned in HPI past medical history) Past Medical History Past Medical History: Asthma, Diabetes Mellitus, Hypertension, Myocardial Infarction ([place]), Osteoarthritis (OA), Vascular Disorder Additional Past Medical History / Comment(s): Asthma years ago, neuropathy bilateral feet, pt states she has been having intermittent edema bilateral ankles and feet past 6 months, hx vertigo at times-none currently, constipation. varicose veins left leg, ulcer rt foot-on antibiotics currently Last Myocardial Infarction Date:: 01/2019 History of Any Multi-Drug Resistant Organisms: None Reported Past Surgical History: Breast Surgery, Heart Catheterization Additional Past Surgical History / Comment(s): L breast biopsy x2, EGD, colonoscopy, angiogram. stent to right leg Past Anesthesia/Blood Transfusion Reactions: No Reported Reaction Past Psychological History: No Psychological Hx Reported Additional Psychological History / Comment(s): . Smoking Status: Former smoker Past Alcohol Use History: None Reported Additional Past Alcohol Use History / Comment(s): Pt started smokin in 1961 and quit in 1991. 1 PPD Past Drug Use History: None Reported - Past Family History Mother Additional Family Medical History / Comment(s): from MRSA infection Sister(s) Family Medical History: Cancer Medications and Allergies Home Medications Medication Instructions Recorded Confirmed Type Gabapentin 600 mg PO BID 02/15/19 11/11/19 History Ibuprofen [Advil] 200 mg PO Q6HR PRN 02/15/19 11/11/19 History Atorvastatin [Lipitor] 80 mg PO HS #30 tab 02/18/19 11/11/19 Rx Furosemide [Lasix] 40 mg PO BID #60 tablet 02/18/19 11/11/19 Rx Nitroglycerin Sl Tabs [Nitrostat] 0.4 mg SUBLINGUAL Q5M PRN #100 tab 02/18/19 11/11/19 Rx Empagliflozin/Metformin HCl 1 tab PO DAILY 08/10/19 11/11/19 History [Synjardy Xr 5-1,000 mg Tablet] Linagliptin/Metformin HCl 1 tab PO DAILY 08/10/19 11/11/19 History [Jentadueto Xr 5 mg-1,000 mg Tb] Acetaminophen [Tylenol Extra 500 mg PO Q4H PRN 10/27/19 11/11/19 History Strength] Clopidogrel [Plavix] 75 mg PO HS 11/11/19 11/11/19 History Isosorbide Mononitrate ER [Imdur] 30 mg PO HS 11/11/19 11/11/19 History Metoprolol Succinate (ER) [Toprol 25 mg PO HS 11/11/19 11/11/19 History XL] Potassium Chloride ER [K-Dur 20] 20 meq PO HS 11/11/19 11/11/19 History Allergies Allergy/AdvReac Type Severity Reaction Status Date / Time No Known Allergies Allergy Verified 11/11/19 21:25 Surgical - Exam Vital Signs Temp Pulse Resp BP Pulse Ox 100 F H 101 H 22 128/74 94 L 11/11/19 16:36 11/11/19 16:36 11/11/19 16:36 11/11/19 16:36 11/11/19 16:36 Multiphasic DP and PT signal on the right. Palpable femoral pulse bilaterally. Monophasic DP and PT signal on the left. Right foot is cool to touch. There is a wound measuring 4 x 3 cm on the dorsal aspect. Good granulation tissue is noted with some fibrinous tissue. No purulent drainage Left foot is cool to the touch. Lateral wound noted with the fat layer exposed. Aquasol dressing in place. Slowed capillary refill - General well developed, well nourished, no distress - Eyes PERRL, normal ocular movement - ENT normal pinna - Neck no masses, no bruits - Respiratory normal respiratory effort - Cardiovascular Rhythm: regular - Abdomen Abdomen: soft, non tender - Integumentary no rash, no growths - Neurologic no normal sensation - Psychiatric oriented to time, oriented to person, oriented to place, speech is normal Results - Labs 11/13/19 07:09 11/13/19 07:09 Abnormal Lab Results - Last 24 Hours (Table) 11/11/19 11/12/19 11/12/19 Range/Units 20:45 11:36 16:35 WBC (3.8-10.6) k/uL RBC (3.80-5.40) m/uL Hgb (11.4-16.0) gm/dL Hct (34.0-46.0) % MCHC (31.0-37.0) g/dL RDW (11.5-15.5) % Neutrophils # (1.3-7.7) k/uL Sodium (137-145) mmol/L Potassium (3.5-5.1) mmol/L BUN (7-17) mg/dL Glucose (74-99) mg/dL POC Glucose (mg/dL) 204 H 251 H (75-99) mg/dL Hemoglobin A1c 7.9 H (4.0-6.0) % 11/12/19 11/13/19 11/13/19 Range/Units 20:10 06:20 07:09 WBC (3.8-10.6) k/uL RBC (3.80-5.40) m/uL Hgb (11.4-16.0) gm/dL Hct (34.0-46.0) % MCHC (31.0-37.0) g/dL RDW (11.5-15.5) % Neutrophils # (1.3-7.7) k/uL Sodium 136 L (137-145) mmol/L Potassium 3.1 L (3.5-5.1) mmol/L BUN 19 H (7-17) mg/dL Glucose 167 H (74-99) mg/dL POC Glucose (mg/dL) 311 H 198 H (75-99) mg/dL Hemoglobin A1c (4.0-6.0) % 11/13/19 Range/Units 07:09 WBC 13.1 H (3.8-10.6) k/uL RBC 3.00 L (3.80-5.40) m/uL Hgb 8.0 L (11.4-16.0) gm/dL Hct 26.1 L (34.0-46.0) % MCHC 30.7 L (31.0-37.0) g/dL RDW 16.2 H (11.5-15.5) % Neutrophils # 11.1 H (1.3-7.7) k/uL Sodium (137-145) mmol/L Potassium (3.5-5.1) mmol/L BUN (7-17) mg/dL Glucose (74-99) mg/dL POC Glucose (mg/dL) (75-99) mg/dL Hemoglobin A1c (4.0-6.0) % Microbiology - Last 24 Hours (Table) 11/12/19 15:03 Gram Stain - Preliminary Foot - Right Wound Culture - Preliminary 11/12/19 15:04 Gram Stain - Preliminary Foot - Left Wound Culture - Preliminary 11/11/19 22:17 Blood Culture - Preliminary Blood No Growth after 24 hours 11/11/19 17:36 Blood Culture - Preliminary Blood No Growth after 24 hours Diabetes panel 11/11/19 11/13/19 Range/Units 20:45 07:09 Sodium 136 L (137-145) mmol/L Potassium 3.1 L (3.5-5.1) mmol/L Chloride 98 (98-107) mmol/L Carbon Dioxide 29 (22-30) mmol/L BUN 19 H (7-17) mg/dL Creatinine 0.68 (0.52-1.04) mg/dL Glucose 167 H (74-99) mg/dL Hemoglobin A1c 7.9 H (4.0-6.0) % Calcium 8.5 (8.4-10.2) mg/dL Calcium panel 11/13/19 Range/Units 07:09 Calcium 8.5 (8.4-10.2) mg/dL Pituitary panel 11/13/19 Range/Units 07:09 Sodium 136 L (137-145) mmol/L Potassium 3.1 L (3.5-5.1) mmol/L Chloride 98 (98-107) mmol/L Carbon Dioxide 29 (22-30) mmol/L BUN 19 H (7-17) mg/dL Creatinine 0.68 (0.52-1.04) mg/dL Glucose 167 H (74-99) mg/dL Calcium 8.5 (8.4-10.2) mg/dL Adrenal panel 11/13/19 Range/Units 07:09 Sodium 136 L (137-145) mmol/L Potassium 3.1 L (3.5-5.1) mmol/L Chloride 98 (98-107) mmol/L Carbon Dioxide 29 (22-30) mmol/L BUN 19 H (7-17) mg/dL Creatinine 0.68 (0.52-1.04) mg/dL Glucose 167 H (74-99) mg/dL Calcium 8.5 (8.4-10.2) mg/dL Assessment and Plan Assessment: 1. Bilateral diabetic foot ulcers 2. Peripheral arterial disease, [place] 6 bilateral lower extremity, status post recent stenting of the right SFA 3. Acute hypoxic respiratory failure secondary to pulmonary edema, acute diastolic CHF exacerbation, prior EF 50-55% 4. Sepsis related to bilateral foot infection and CHF 5. Multivessel CAD history of [place], cardiac cath 6. Diabetes mellitus with diabetic neuropathy 7. Hypertension, Hyperlipidemia, Chronic asthma, Osteoarthritis Plan: Continue local wound care to bilateral total wounds per the wound care center. Patient will need left lower extremity revascularization and angiogram to further delineate blood flow to the left foot once patient is stable from her pulmonary status. Continue aspirin, Plavix and statin. Thank you for allowing me to participate in your patient's care.
[2019-11-13 12:14] LABS: Glucose,Whole Blood 279 mg/dL (75-99)
[2019-11-13 12:21] LABS: Magnesium 1.6 mg/dL (1.6-2.3); Potassium 3.7 mmol/L (3.5-5.1)
--- NOTE | 2019-11-13 16:41 | PN ---
PROGRESS NOTE DATE OF SERVICE: 11/13/2019 REASON FOR FOLLOWUP: Bilateral diabetic foot wound with concern for osteomyelitis. INTERVAL HISTORY: Patient is currently afebrile. Patient is breathing comfortably. The patient denies having any chest pain. No shortness of breath or cough. No abdominal pain. Complaining of pain to the left foot wound area. PHYSICAL EXAMINATION: Blood pressure 122/68 with a pulse of 87, temperature 97.5. She is 93% on 2 L nasal cannula. General description is an elderly female lying in bed in no distress. Respiratory system: Unlabored breathing, clear to auscultation anteriorly. Heart S1, S2. Regular rate and rhythm. Abdomen soft, no tenderness. Bilateral foot wounds are currently dressed. No obvious drainage on the dressing. LABS: BUN of 19, creatinine 0.6, hemoglobin 8, white count 13.1. Wound cultures currently pending. DIAGNOSTIC IMPRESSION AND PLAN: Patient bilateral diabetic foot wound with evidence of osteomyelitis on the left foot, lateral border wound. Cultures are currently pending. Patient is covered with Zosyn, adjusting antibiotic further based on culture. She will need a PICC for outpatient IV antibiotics. Continue supportive care. MMODL / IJN: [id number] /
--- NOTE | 2019-11-13 17:04 | P.PN ---
Subjective This is Denice Calderon PA-C dictating a progress note on this patient The patient was interviewed and examined by me as well as by Dr. Kwan Case discussed with Dr. Kwan and he agrees with the plan of care HPI/interval history Patient is a 74-year-old female with a history significant for hypertension, CAD, diabetes, peripheral vascular disease status post recent stenting of the right SFA who presented with shortness of breath. She was found to have pulmonary edema on chest x-ray and is being treated for congestive heart failure. She was also found to be febrile and has bilateral lower extremity wounds which are being treated with antibiotics. Today we increased her metoprolol and her heart rates have improved. Patient seen and examined resting in bed. States her breathing has improved but she still does have some short ness of breath when she gets up and walks to the bathroom. Denies any dizziness or chest pain. No palpitations. EXAMINATION She is afebrile, pulse in the 80s, respirations 16, blood pressure 122/68, oxygen saturation 93% on 2 L nasal cannula Patient seen and examined resting comfortably in bed, in no acute distress Lungs are clear to auscultation bilaterally Heart is regular, no audible murmurs Bilateral lower extremity wounds wrapped in gauze, edema improving REVIEW OF LABS, ECG WBC 13.1, hemoglobin 8, platelets 384, potassium 3.7, BUN 18, creatinine 0.68 IMPRESSION / ASSESSMENT: #1 shortness of breath, increased lower extremity edema, interstitial pulmonary edema on chest x-ray, likely congestive heart failure, acute on chronic, diastolic, previous echocardiogram showed preserved ejection fraction, moderate LVH , symptoms improving, awaiting repeat echo #2 bilateral foot infections, on antibiotics #3 known history of multivessel CAD #4 abnormal troponins in the setting of febrile illness and tachycardia, possible sepsis, blood cultures pending #5 hypertension #6 Diabetes #7 PAD status post recent stenting to the right SFA, awaiting left lower extremity revascularization and angiogram PLAN: Echocardiogram has been ordered awaiting results Continue diuresis with oral lasix Continue Antibiotics and wound care for lower extremity wounds Monitor BMP, daily weight I & O Objective - Vital Signs Vital signs: Vital Signs Temp 97.5 F L 11/13/19 08:00 Pulse 87 11/13/19 12:00 Resp 16 11/13/19 14:39 BP 122/68 11/13/19 12:00 Pulse Ox 93 L 11/13/19 12:00 Intake & Output 11/12/19 11/13/19 11/13/19 18:59 06:59 18:59 Intake Total 240 Balance 240 Weight 70.3 kg 69.9 kg Intake: Oral 240 Other: Voiding Method Toilet Toilet Toilet # Voids 1 1 - Labs CBC & Chem 7: 11/13/19 07:09 11/13/19 11:55 Labs: Abnormal Lab Results - Last 24 Hours (Table) 11/11/19 11/12/19 11/13/19 Range/Units 20:45 20:10 06:20 WBC (3.8-10.6) k/uL RBC (3.80-5.40) m/uL Hgb (11.4-16.0) gm/dL Hct (34.0-46.0) % MCHC (31.0-37.0) g/dL RDW (11.5-15.5) % Neutrophils # (1.3-7.7) k/uL Sodium (137-145) mmol/L Potassium (3.5-5.1) mmol/L Chloride (98-107) mmol/L BUN (7-17) mg/dL Glucose (74-99) mg/dL POC Glucose (mg/dL) 311 H 198 H (75-99) mg/dL Hemoglobin A1c 7.9 H (4.0-6.0) % 11/13/19 11/13/19 11/13/19 Range/Units 07:09 07:09 11:55 WBC 13.1 H (3.8-10.6) k/uL RBC 3.00 L (3.80-5.40) m/uL Hgb 8.0 L (11.4-16.0) gm/dL Hct 26.1 L (34.0-46.0) % MCHC 30.7 L (31.0-37.0) g/dL RDW 16.2 H (11.5-15.5) % Neutrophils # 11.1 H (1.3-7.7) k/uL Sodium 136 L 134 L (137-145) mmol/L Potassium 3.1 L (3.5-5.1) mmol/L Chloride 95 L (98-107) mmol/L BUN 19 H (7-17) mg/dL Glucose 167 H (74-99) mg/dL POC Glucose (mg/dL) (75-99) mg/dL Hemoglobin A1c (4.0-6.0) % 11/13/19 Range/Units 12:13 WBC (3.8-10.6) k/uL RBC (3.80-5.40) m/uL Hgb (11.4-16.0) gm/dL Hct (34.0-46.0) % MCHC (31.0-37.0) g/dL RDW (11.5-15.5) % Neutrophils # (1.3-7.7) k/uL Sodium (137-145) mmol/L Potassium (3.5-5.1) mmol/L Chloride (98-107) mmol/L BUN (7-17) mg/dL Glucose (74-99) mg/dL POC Glucose (mg/dL) 279 H (75-99) mg/dL Hemoglobin A1c (4.0-6.0) % Microbiology - Last 24 Hours (Table) 11/12/19 15:03 Gram Stain - Preliminary Foot - Right Wound Culture - Preliminary 11/12/19 15:04 Gram Stain - Preliminary Foot - Left Wound Culture - Preliminary 11/11/19 22:17 Blood Culture - Preliminary Blood No Growth after 24 hours 11/11/19 17:36 Blood Culture - Preliminary Blood No Growth after 24 hours
[2019-11-13 17:35] LABS: Glucose,Whole Blood 222 mg/dL (75-99)
[2019-11-13] MEDS: CLOPIDOGREL 75 MG TAB PO SCH (20:16)
[2019-11-13] MEDS: SODIUM HYPOCHLORITE 0.5% 480 ML BOT MISCELLANE SCH (20:17)
[2019-11-13] MEDS: ISOSORBIDE MONONITRATE ER 30 MG TAB.ER.24H PO SCH (20:17)
[2019-11-13] MEDS: ATORVASTATIN 80 MG TAB PO SCH (20:17)
[2019-11-13] MEDS: ACETAMINOPHEN TAB 500 MG TAB PO PRN (20:22)
[2019-11-13 20:30] LABS: Glucose,Whole Blood 274 mg/dL (75-99)
[2019-11-13] MEDS: INSULIN DETEMIR (LEVEMIR) 100 UNIT/ML SYR SQ SCH (20:51)
[2019-11-14] MEDS: ACETAMINOPHEN TAB 500 MG TAB PO PRN (05:31)
[2019-11-14 06:00] LABS: Glucose,Whole Blood 86 mg/dL (75-99)
[2019-11-14] MEDS: INSULIN ASPART (NovoLOG) 100 UNIT/ML VIAL SQ SCH ×4 (06:11→21:49)
[2019-11-14 07:04] LABS: Anisocytosis Slight; Basophils % (A) 0 %; Eosinophils # (A) 0.2 k/uL (0-0.7); Eosinophils % (A) 2 %; HCT 25.6 % (34.0-46.0); HGB 8.1 gm/dL (11.4-16.0); Hypochromasia Marked; Lymphocytes # (A) 1.2 k/uL (1.0-4.8); Lymphocytes % (A) 10 %; MCH 27.9 pg (25.0-35.0); MCHC 31.7 g/dL (31.0-37.0); Mean Platelet Volume 7.1; Monocytes # (A) 0.5 k/uL (0-1.0); Monocytes % (A) 4 %; Neutrophils # (A) 10.1 k/uL (1.3-7.7); Neutrophils % (A) 83 %; Platelet Count 402 k/uL (150-450); Poikilocytosis Slight; RBC 2.91 m/uL (3.80-5.40); RDW 16.2 % (11.5-15.5); WBC 12.2 k/uL (3.8-10.6)
[2019-11-14 07:16] LABS: African American GFR (CKD) >90 (>60 ml/min/1.73 sqM); Anion Gap 9 mmol/L; Blood Urea Nitrogen 20 mg/dL (7-17); Calcium 8.5 mg/dL (8.4-10.2); Carbon Dioxide 29 mmol/L (22-30); Chloride 98 mmol/L (98-107); Glucose 83 mg/dL (74-99); Non-African American GFR(CKD) 88 (>60 ml/min/1.73 sqM); Potassium 3.3 mmol/L (3.5-5.1); Sodium 136 mmol/L (137-145)
[2019-11-14] MEDS ORDERED: Potassium Replacement Protocol 1 EACH MISC MISCELLANE PRN (07:54)
[2019-11-14] MEDS: POTASSIUM CHLORIDE ER 20 MEQ TAB.ER PO SCH ×3 (08:28→21:48)
[2019-11-14] MEDS: GABAPENTIN 300 MG CAP PO SCH ×2 (08:28→21:47)
[2019-11-14] MEDS: ASPIRIN 325 MG TAB PO SCH (08:29)
[2019-11-14] MEDS: FUROSEMIDE 40 MG TAB PO SCH ×2 (08:29→21:48)
[2019-11-14] MEDS: METOPROLOL SUCCINATE (ER) 25 MG TAB.ER.24H PO SCH ×2 (08:29→21:48)
[2019-11-14] MEDS: PIPERACILLIN-TAZOBACTAM 3.375 GM in SODIUM CHLORIDE 0.9% 100 ML IVPB SCH (08:35)
[2019-11-14 11:38] LABS: Glucose,Whole Blood 265 mg/dL (75-99)
--- NOTE | 2019-11-14 11:47 | P.PN ---
Subjective Progress Note Date: 11/14/19 Principal diagnosis: Worsening dyspnea and worsening wounds on bilateral feet. 74 over female patient with history of diabetes hypertension, coronary artery disease with multivessel disease, prior nicotine dependence, PAD with recent stenting of the right SFA, presented to the emergency room from the wound center on on . She had had increased difficulty breathing since Friday and reports that she had decreased her Lasix on her own due to bothersome frequency of urination. Subsequently she developed increased bilateral lower extremity edema. Her initial temperature on admission was 100F temperature taken over the shake, she had a white blood cell count 17.7, troponin of 0.253, BNP of 2840, she was tachycardic and respiratory rate is 16, blood 115/66, and she is satting 92% on room air. Most recent labs were collected this morning around 7 AM white blood cell count of 13.1 hemoglobin of 8.0, hematocrit of 26.1, platelet count of 16.2. Chemistry reveals a sodium 136, potassium of 3.1, albumin of 19, creatinine 0.68. She is on the potassium supplement replacement protocol for electric imbalance. Currently she is sitting up in bed with no complaints of difficulty breathing. Nasal cannula was laying on the floor and was set for 2 L discussed with patient the importance of wearing the oxygen. She does complain of pain to bilateral feet particularly the left if she tries to stand up. Currently patient is alert and oriented 3 following commands, and she denies chest pain, shortness of breath, nausea vomiting, visual changes, 11/14/2019 currently patient sitting up in bed with complaints of of left foot throbbing which is somewhat relieved from earlier this morning. She denies nausea, vomiting, diarrhea, shortness of breath or difficulty breathing at this time. She has bilateral wounds to both feet which are currently bandaged with the Aquacel silver in the wound beds. Most recent set of labs for this morning WBC of 12.2 hemoglobin 8.1, hematocrit 25.6, platelet count 402. Chemistry reveals sodium 136, potassium 3.3, in which she is on replacement protocol, chloride of 98, carbon dioxide is 29, P1 of 20, creatinine of 0.66. Glucose on the lab work at this time was 83. Stress with patient possible casting options for her left foot when walking she was quite reluctant in wanting that done. Most recent set of vital signs are afebrile 98.1, pulse rate of 98, respiratory rate 20, blood pressure 96/53, oxygen saturation 98% on 2 L nasal cannula. Presumptive staph aureus in both the left and right foot wounds. Also discussed with patient about long-term antibiotics and the need for a PICC line. Objective - Vital Signs Vital signs: Vital Signs Temp 98.1 F 11/14/19 04:00 Pulse 98 11/14/19 04:00 Resp 20 11/14/19 04:00 BP 96/53 11/14/19 04:00 Pulse Ox 98 11/14/19 04:00 Intake & Output 11/13/19 11/14/19 11/14/19 18:59 06:59 18:59 Intake Total 716 240 Balance 716 240 Weight 70.8 kg Intake: Oral 716 240 Other: Voiding Method Toilet Toilet Toilet # Voids 4 1 - Exam GENERAL: Well-appearing, well-nourished and in no acute distress. HEAD: Atraumatic, normocephalic. EYES: Pupils equal round and reactive to light, extraocular movements intact, sclera anicteric, conjunctiva are normal. ENT:nares patent, oropharynx clear without exudates. Moist mucous membranes. NECK: Normal range of motion, supple without lymphadenopathy or JVD, no thyromegaly LUNGS: Breath sounds clear to auscultation bilaterally and equal. Fine basilar crackles noted bilaterally. HEART: Regular rate and rhythm without murmurs, rubs or gallops.S1S2 Normal ABDOMEN: Soft, nontender, normoactive bowel sounds. No guarding, no rebound. No masses appreciated. EXTREMITIES: Normal range of motion, no pitting or edema. No clubbing or cyanosis. NEUROLOGICAL: Cranial nerves II through XII grossly intact. Normal speech, normal gait. PSYCH: Normal mood, normal affect. SKIN: Warm, Dry, normal turgor. Right dorsal foot with diabetic wound\ulcer with exposed tendon was recently and recently debrided. Left lateral foot along the medial lateral side of the fifth toe also post-yas ridement, fat layer is exposed. Both was Aquasol silver dressing in place. Bilateral feet cool to touch. - Labs CBC & Chem 7: 11/14/19 06:12 11/14/19 06:12 Labs: Abnormal Lab Results - Last 24 Hours (Table) 11/13/19 11/13/19 11/13/19 Range/Units 11:55 12:13 17:33 WBC (3.8-10.6) k/uL RBC (3.80-5.40) m/uL Hgb (11.4-16.0) gm/dL Hct (34.0-46.0) % RDW (11.5-15.5) % Neutrophils # (1.3-7.7) k/uL Sodium 134 L (137-145) mmol/L Potassium (3.5-5.1) mmol/L Chloride 95 L (98-107) mmol/L BUN (7-17) mg/dL POC Glucose (mg/dL) 279 H 222 H (75-99) mg/dL 11/13/19 11/14/19 11/14/19 Range/Units 20:29 06:12 06:12 WBC 12.2 H (3.8-10.6) k/uL RBC 2.91 L (3.80-5.40) m/uL Hgb 8.1 L (11.4-16.0) gm/dL Hct 25.6 L (34.0-46.0) % RDW 16.2 H (11.5-15.5) % Neutrophils # 10.1 H (1.3-7.7) k/uL Sodium 136 L (137-145) mmol/L Potassium 3.3 L (3.5-5.1) mmol/L Chloride (98-107) mmol/L BUN 20 H (7-17) mg/dL POC Glucose (mg/dL) 274 H (75-99) mg/dL Microbiology - Last 24 Hours (Table) 11/11/19 22:17 Blood Culture - Preliminary Blood No Growth after 48 hours 11/11/19 17:36 Blood Culture - Preliminary Blood No Growth after 48 hours 11/12/19 15:03 Gram Stain - Preliminary Foot - Right Wound Culture - Preliminary Presumptive Staph aureus 11/12/19 15:04 Gram Stain - Preliminary Foot - Left Wound Culture - Preliminary Presumptive Staph aureus Gram Neg Bacilli Assessment and Plan (1) Acute pulmonary edema Current Visit: Yes Status: Acute Code(s): J81.0 - ACUTE PULMONARY EDEMA SNOMED Code(s): 39129831 (2) Elevated troponin Current Visit: Yes Status: Acute Code(s): R79.89 - OTHER SPECIFIED ABNORMAL FINDINGS OF BLOOD CHEMISTRY SNOMED Code(s): 039881559 (3) Foot osteomyelitis, left Current Visit: Yes Status: Acute Code(s): M86.9 - OSTEOMYELITIS, UNSPECIFIED SNOMED Code(s): 8493753778425748 (4) Infected decubitus ulcer Current Visit: Yes Status: Acute Code(s): L89.90 - PRESSURE ULCER OF UNSPECIFIED SITE, UNSPECIFIED STAGE; L08.9 - LOCAL INFECTION OF THE SKIN AND SUBCUTANEOUS TISSUE, UNSP SNOMED Code(s): 264791899 (5) Sepsis Current Visit: Yes Status: Acute Code(s): A41.9 - SEPSIS, UNSPECIFIED ORGANI SM SNOMED Code(s): 95112624 (6) Wound of right foot Current Visit: Yes Status: Acute Code(s): S91.301A - UNSPECIFIED OPEN WOUND, RIGHT FOOT, INITIAL ENCOUNTER SNOMED Code(s): 945609495 (7) COPD (chronic obstructive pulmonary disease) Current Visit: No Status: Acute Code(s): J44.9 - CHRONIC OBSTRUCTIVE PULMONARY DISEASE, UNSPECIFIED SNOMED Code(s): 96360232 (8) Diabetic neuropathy Current Visit: No Status: Acute Code(s): E11.40 - TYPE 2 DIABETES MELLITUS WITH DIABETIC NEUROPATHY, UNSP SNOMED Code(s): 838385138 (9) Essential (primary) hypertension Current Visit: No Status: Acute Code(s): I10 - ESSENTIAL (PRIMARY) HYPERTENSION SNOMED Code(s): 60376239 (10) Gait abnormality Current Visit: No Status: Acute Code(s): R26.9 - UNSPECIFIED ABNORMALITIES OF GAIT AND MOBILITY SNOMED Code(s): 70252396 (11) Hypokalemia Current Visit: No Status: Acute Code(s): E87.6 - HYPOKALEMIA SNOMED Code(s): 36502029 (12) Type 2 diabetes mellitus with hyperglycemia Current Visit: No Status: Acute Code(s): E11.65 - TYPE 2 DIABETES MELLITUS WITH HYPERGLYCEMIA SNOMED Code(s): 682141970175047 (13) Unsteady gait Current Visit: No Status: Acute Code(s): R26.81 - UNSTEADINESS ON FEET SNOMED Code(s): 72651225 Plan: 1. Continue wound care to bilateral foot wounds. 2. We'll follow vascular recommendations for left foot. 3. We'll continue the aspirin, Plavix and statin at this time. 4. We'll continue with the oral Lasix as prescribed. 5. We will order a PICC line placement for long-term antibiotic treatment. 6. We'll wait for IDs recommendations for antibiotic therapy for at home. 7. Continue to monitor lab and vitals and treat accordingly. 8. We'll order Hazel for better pain control. 9. Consult social work to assist in best option of outpatient treatment for antibiotics regarding insurance concerns. 10. We'll continue to follow closely and reassess again tomorrow. Time with Patient: Greater than 30
[2019-11-14] MEDS ORDERED: HYDROcodone/APAP 5-325MG 1 EACH TAB PO PRN (11:50)
--- NOTE | 2019-11-14 14:07 | P.PN ---
Subjective Progress Note Date: 11/14/19 The patient is a 74-year-old female with a history significant for hypertension, CAD, diabetes, peripheral vascular disease status post recent stenting of the right SFA who presented with shortness of breath. She was found to have pulmonary edema on chest x-ray and is being treated for congestive heart fa ilure. She was also found to be febrile and has bilateral lower extremity wounds which are being treated with antibiotics. This morning she is resting comfortably sitting on the side of the bed. She denies any shortness of breath. She states she slept well. She also denies any chest discomfort, palpitations, dizziness, or lightheadedness. She does have some discomfort in her left lower extremity, where her wound is located. Echocardiogram reveals decreased LV function at 30-35% with apical hypokinesis indicating Takotsubo cardiomyopathy GENERAL: This is a 74-year-old female in no apparent distress at the time of my examination. HEENT: Head is atraumatic, normocephalic. Pupils are equal, round. Sclerae anicteric. Conjunctivae are clear. Mucous membranes of the mouth are moist. Neck is supple. There is no jugular venous distention. No carotid bruit is heard. LUNGS: Diminished auscultation. no wheezes, rales or rhonchi. No chest wall tenderness is noted on palpation or with deep breathing. HEART: Regular rate and rhythm without murmurs, rubs or gallops. S1 and S2 heard. ABDOMEN: Soft, nontender. Bowel sounds are heard. No organomegaly noted. EXTREMITIES: Mild peripheral edema and no calf tenderness noted. VASCULAR: Radial and dorsalis pedis pulses palpated, no evidence of clubbing. NEUROLOGIC: Patient is awake, alert and oriented x3. VITALS: Blood pressure 96/53, SpO2 98% on 2 L nasal cannula, respiratory rate 20, pulse rate 98, afebrile TELEMETRY: Sinus rhythm to sinus tachycardia in the one-teens LABS: WBC 12.2, hemoglobin 8.1, hematocrit 25.6, platelet 42, sodium 136, potassium 3.3, BUN 20, creatinine 0.66 IMPRESSION: #1 shortness of breath, improving #2 congestive heart failure, systolic #3 Takotsubo cardiomyopathy, EF 30-35% #4 peripheral artery disease, status post stenting of right SFA #5 bilateral lower extremity wounds, on antibiotics #6 diabetes mellitus type 2 #7 hypertension #8 history of coronary artery disease PLAN: Start low-dose NYLA inhibitor. Continue beta kan and furosemide for cardiomyopathy management. Once the blood pressure improves, we will consider adding spironolactone. Objective - Vital Signs Vital signs: Vital Signs Temp 98.1 F 11/14/19 04:00 Pulse 84 11/14/19 12:00 Resp 16 11/14/19 12:00 BP 151/58 11/14/19 12:00 Pulse Ox 100 11/14/19 12:00 Intake & Output 11/13/19 11/14/19 11/14/19 18:59 06:59 18:59 Intake Total 716 240 Balance 716 240 Weight 70.8 kg Intake: Oral 716 240 Other: Voiding Method Toilet Toilet Toilet # Voids 4 1 - Labs CBC & Chem 7: 11/14/19 06:12 11/14/19 06:12 Labs: Abnormal Lab Results - Last 24 Hours (Table) 11/13/19 11/13/19 11/14/19 Range/Units 17:33 20:29 06:12 WBC (3.8-10.6) k/uL RBC (3.80-5.40) m/uL Hgb (11.4-16.0) gm/dL Hct (34.0-46.0) % RDW (11.5-15.5) % Neutrophils # (1.3-7.7) k/uL Sodium 136 L (137-145) mmol/L Potassium 3.3 L (3.5-5.1) mmol/L BUN 20 H (7-17) mg/dL POC Glucose (mg/dL) 222 H 274 H (75-99) mg/dL 11/14/19 11/14/19 Range/Units 06:12 11:37 WBC 12.2 H (3.8-10.6) k/uL RBC 2.91 L (3.80-5.40) m/uL Hgb 8.1 L (11.4-16.0) gm/dL Hct 25.6 L (34.0-46.0) % RDW 16.2 H (11.5-15.5) % Neutrophils # 10.1 H (1.3-7.7) k/uL Sodium (137-145) mmol/L Potassium (3.5-5.1) mmol/L BUN (7-17) mg/dL POC Glucose (mg/dL) 265 H (75-99) mg/dL Microbiology - Last 24 Hours (Table) 11/11/19 22:17 Blood Culture - Preliminary Blood No Growth after 48 hours 11/11/19 17:36 Blood Culture - Preliminary Blood No Growth after 48 hours 11/12/19 15:03 Gram Stain - Preliminary Foot - Right Wound Culture - Preliminary Presumptive Staph aureus 11/12/19 15:04 Gram Stain - Preliminary Foot - Left Wound Culture - Preliminary Presumptive Staph aureus Gram Neg Bacilli
[2019-11-14] MEDS ORDERED: VANCOMYCIN IV PER PHARMACY 1 EACH MISC MISCELLANE PRN (16:55)
[2019-11-14] MEDS ORDERED: VANCOMYCIN 1,500 MG in SODIUM CHLORIDE 0.9% 250 ML IVPB SCH (17:00)
[2019-11-14 17:27] LABS: Glucose,Whole Blood 213 mg/dL (75-99)
[2019-11-14 20:15] LABS: Glucose,Whole Blood 262 mg/dL (75-99)
[2019-11-14] MEDS: ISOSORBIDE MONONITRATE ER 30 MG TAB.ER.24H PO SCH (21:48)
[2019-11-14] MEDS: ATORVASTATIN 80 MG TAB PO SCH (21:48)
[2019-11-14] MEDS: CLOPIDOGREL 75 MG TAB PO SCH (21:48)
[2019-11-14] MEDS: CEFEPIME 2 GM in SODIUM CHLORIDE 0.9% 100 ML IVPB SCH (21:48)
[2019-11-14] MEDS: INSULIN DETEMIR (LEVEMIR) 100 UNIT/ML SYR SQ SCH (21:49)
--- NOTE | 2019-11-14 22:15 | PN ---
PROGRESS NOTE DATE OF SERVICE: 11/14/2019 REASON FOR FOLLOWUP: Left 5th metatarsal head osteomyelitis. INTERVAL HISTORY: Patient is currently afebrile. Patient is breathing comfortably. The patient denies having any chest pain, shortness of breath or cough. No abdominal pain. Still complaining of pain to the left foot area but no worsening. PHYSICAL EXAMINATION: Blood pressure is 96/53 with a pulse of 90, temperature 98.1. She is 98% on 2 L nasal cannula. General description is an elderly female up in the bed in no distress. Respiratory system: Unlabored breathing. Clear to auscultation anteriorly. Heart S1, S2. Regular rate and rhythm. Abdomen soft, no tenderness. Left foot lateral border wound at the base of the 5th toe have dried out and no drainage. Minimal drainage on the dressing. LABS: Hemoglobin 8.8, white count 20.2, BUN of 20, creatinine 0.66. Wound culture now showing an MSSA and Pseudomonas aeruginosa. DIAGNOSTIC IMPRESSION AND PLAN: Patient with left foot lateral border chronic wound with underlying osteomyelitis. Culture finalized with MSSA and Pseudomonas aeruginosa. Antibiotic will be switched to cefepime 2 grams q.12 hours. Discontinue Zosyn. She will need a PICC line and outpatient IV antibiotics for at least 6 weeks and close outpatient followup. MMODL / IJN: [id number] /
[2019-11-14] MEDS: SODIUM HYPOCHLORITE 0.5% 480 ML BOT MISCELLANE SCH (22:25)
[2019-11-15 06:05] LABS: Glucose,Whole Blood 144 mg/dL (75-99)
[2019-11-15] MEDS: ACETAMINOPHEN TAB 500 MG TAB PO PRN ×2 (06:12→14:21)
[2019-11-15 07:28] LABS: Anisocytosis Slight; Basophils # (A) 0.1 k/uL (0-0.2); Basophils % (A) 0 %; Eosinophils # (A) 0.2 k/uL (0-0.7); Eosinophils % (A) 1 %; HCT 25.3 % (34.0-46.0); HGB 7.8 gm/dL (11.4-16.0); Hypochromasia Moderate; Lymphocytes # (A) 1.2 k/uL (1.0-4.8); Lymphocytes % (A) 8 %; MCH 26.5 pg (25.0-35.0); MCHC 30.7 g/dL (31.0-37.0); MCV 86.1 fL (80.0-100.0); Monocytes # (A) 0.9 k/uL (0-1.0); Monocytes % (A) 6 %; Neutrophils # (A) 12.5 k/uL (1.3-7.7); Neutrophils % (A) 83 %; Platelet Count 427 k/uL (150-450); Poikilocytosis Slight; RBC 2.94 m/uL (3.80-5.40); RDW 16.3 % (11.5-15.5); WBC 15.1 k/uL (3.8-10.6)
[2019-11-15 07:35] LABS: INR 1.3 (<1.2); Prothrombin Time 12.8 sec (9.0-12.0)
[2019-11-15 07:46] LABS: African American GFR (CKD) >90 (>60 ml/min/1.73 sqM); Anion Gap 7 mmol/L; Blood Urea Nitrogen 14 mg/dL (7-17); Calcium 8.2 mg/dL (8.4-10.2); Carbon Dioxide 28 mmol/L (22-30); Chloride 100 mmol/L (98-107); Glucose 118 mg/dL (74-99); Non-African American GFR(CKD) >90 (>60 ml/min/1.73 sqM); Potassium 3.6 mmol/L (3.5-5.1); Sodium 135 mmol/L (137-145)
[2019-11-15] MEDS: INSULIN ASPART (NovoLOG) 100 UNIT/ML VIAL SQ SCH ×3 (08:38→17:23)
[2019-11-15] MEDS: CEFEPIME 2 GM in SODIUM CHLORIDE 0.9% 100 ML IVPB SCH (08:45)
[2019-11-15] MEDS: FUROSEMIDE 40 MG TAB PO SCH (08:46)
[2019-11-15] MEDS: METOPROLOL SUCCINATE (ER) 25 MG TAB.ER.24H PO SCH (08:46)
[2019-11-15] MEDS: ASPIRIN 325 MG TAB PO SCH (08:46)
[2019-11-15] MEDS: GABAPENTIN 300 MG CAP PO SCH (08:46)
[2019-11-15 08:52] VITALS: BP 118/57; PULSE 76; RESP 16; TEMP 96.2
[2019-11-15 11:37] LABS: Glucose,Whole Blood 135 mg/dL (75-99)
--- NOTE | 2019-11-15 12:44 | CDI ---
Documentation Clarification Form Date: 11/15/2019 12:09:17 PM From: Kortney Gutierrez RN, CCDS Admit Date: 11/11/2019 08:42:00 PM Patient Name: Krissy Batres Visit Number: [id number] Discharge Date: ATTENTION: The Clinical Documentation Specialists (CDI) and [facility] Coding Staff appreciate your assistance in clarifying documentation. Please respond to the clarification below the line at the bottom and electronically sign. The CDI & [facility] Coding staff will review the response and follow-up if needed. Please note: Queries are made part of the Legal Health Record. If you have any questions, please contact the author of this message via ITS. Dr. Antoinette Fan Osteomyelitis has been documented in the H/P, Consult and your ongoing progress notes. To accurately reflect the severity of the condition the acuity of the osteomyelitis is requested History/Risk Factors: bilateral diabetic foot ulcers, Diabetes Mellitus type II, Hypertension Clinical Indicators: 74-year-old female with history if bilateral diabetic foot ulcer with evidence of osteomyelitis on the left foot lateral border per progress note on 11/12. 11/11 Vital signs on admission: 128/74 101 22 100.0 94 % RA 11/11Labs: WBC19.5 HGB 9.5, HCT 30.7 Neutrophils 16.6, Lactic acid 2.5, Coronavirus (PCR) Not Detected 11/11 Culture: Wound culture showing MSSA and Pseudomonas aeruginosa 11/11 foot X-Ray Results: Left lateral forefoot wound. Findings are suspicious for underlying early osteomyelitis of the later fifth metatarsal head. Generalized soft tissue swelling. Right: Moderate to severe first MTP joint Osteopenia. Chronic-appearing bony irregularity fifth metatarsal head/neck could represent a site of old infection/injury. Treatment Zosyn 3.375 mg IV 11/11-11/13 (dc) Cefepine 2 gm iv q 12 Pending: PICC Line In your professional opinion, please specify the following: Acuity of osteomyelitis: Acute Left foot osteomyelitis, metatarsal head Chronic Left foot osteomyelitis, metatarsal head Subacute Left foot osteomyelitis, metatarsal head Other, specify Unable to Determine Cause: Viral (specify organism if know): Bacterial (specify organism if know): Other (please specify): Unable to Determine Associated condition (if applicable): Diabetic Major osseous defect (specify site) Other (please specify): (Last Revision: January 2017) Acute Osteomyelitis left fifth metatarsal head secondary to pseudomonas and MSSA with associated diabetes mellitus MTDD
[2019-11-15] MEDS ORDERED: LIDOCAINE 1% INJ 10MG/ML (20 ML MDV) SQ ONE (13:01)
--- NOTE | 2019-11-15 15:57 | IR ---
PICC LINE PLACEMENT: HISTORY: Infection requiring long-term antibiotic therapy PROCEDURE: Ultrasound and fluoroscopic guidance of PICC line placement. COMPLICATIONS: None ANESTHESIA: 1. 1% Lidocaine locally. FINDINGS/TECHNIQUE: The procedure was explained to the patient. The risks, complications, benefits and alternatives were discussed and any questions were answered. Informed consent was obtained. The patient was placed supine on the fluoroscopic table and prepped and draped in the usual sterile fash ion. Utilizing a 21 gauge needle and sonographic and fluoroscopic guidance, access in the left ceph alic vein was achieved and there is placement of a 0.018 guidewire. The vein is patent. A 4-F sheat h was placed over the guidewire. The guidewire and dilator were removed and a 4-F. PICC line was aron madelyn through the sheath with the tip at the level of the SVC. The sheath was removed, the catheter wa s flushed and sutured into position. The patient was stable throughout the procedure and remained st able upon discharge from the Department of Radiology. The vein puncture was patent under ultrasound. A mckeon scale image was obtained to document patency of the vein punctured. All elements of the maximal barrier technique were utilized. FLUOROSCOPY TIME: 0.3 minutes of fluoroscopy and one image submitted. IMPRESSION: Successful PICC line placement under ultrasound and fluoroscopic guidance.
--- NOTE | 2019-11-15 16:16 | P.PN ---
Subjective Progress Note Date: 11/15/19 She was seen and examined at the bedside. She denies any acute changes through the night. She denies any fever or chills. Patient is to have a PICC line placed for outpatient antibiotics. Objective - Vital Signs Vital signs: Vital Signs Temp 96.2 F L 11/15/19 08:00 Pulse 76 11/15/19 08:00 Resp 16 11/15/19 08:00 BP 118/57 11/15/19 08:00 Pulse Ox 100 11/15/19 08:00 Intake & Output 11/14/19 11/15/19 11/15/19 18:59 06:59 18:59 Intake Total 480 240 Balance 480 240 Weight 72 kg Intake: Oral 480 240 Other: Voiding Method Toilet # Voids 2 1 - Exam General appearance: The patient is alert, oriented, in no acute distress. HET: Head is normocephalic and atraumatic. Neck: Supple without lymphadenopathy. Heart: S1 S2. Regular rate and rhythm. Lungs: No crackles or wheezes are heard. Neurological: No focal deficits. Strength and sensation are grossly intact. Multiphasic DP and PT signal on the right. Palpable femoral pulse bilaterally. Monophasic DP and PT signal on the left. Right foot is cool to touch. There is a wound measuring 4 x 3 cm on the dorsal aspect. Good granulation tissue is noted with some fibrinous tissue. No purulent drainage Left foot is cool to the touch. Lateral wound noted with the fat layer exposed. Aquasol dressing in place. Slowed capillary refill - Labs CBC & Chem 7: 11/15/19 06:55 11/15/19 06:55 Labs: Abnormal Lab Results - Last 24 Hours (Table) 11/14/19 11/14/19 11/14/19 Range/Units 11:37 17:25 20:14 WBC (3.8-10.6) k/uL RBC (3.80-5.40) m/uL Hgb (11.4-16.0) gm/dL Hct (34.0-46.0) % MCHC (31.0-37.0) g/dL RDW (11.5-15.5) % Neutrophils # (1.3-7.7) k/uL PT (9.0-12.0) sec INR (<1.2) Sodium (137-145) mmol/L Glucose (74-99) mg/dL POC Glucose (mg/dL) 265 H 213 H 262 H (75-99) mg/dL Calcium (8.4-10.2) mg/dL 11/15/19 11/15/19 11/15/19 Range/Units 06:00 06:55 06:55 WBC 15.1 H (3.8-10.6) k/uL RBC 2.94 L (3.80-5.40) m/uL Hgb 7.8 L (11.4-16.0) gm/dL Hct 25.3 L (34.0-46.0) % MCHC 30.7 L (31.0-37.0) g/dL RDW 16.3 H (11.5-15.5) % Neutrophils # 12.5 H (1.3-7.7) k/uL PT (9.0-12.0) sec INR (<1.2) Sodium 135 L (137-145) mmol/L Glucose 118 H (74-99) mg/dL POC Glucose (mg/dL) 144 H (75-99) mg/dL Calcium 8.2 L (8.4-10.2) mg/dL 11/15/19 Range/Units 06:55 WBC (3.8-10.6) k/uL RBC (3.80-5.40) m/uL Hgb (11.4-16.0) gm/dL Hct (34.0-46.0) % MCHC (31.0-37.0) g/dL RDW (11.5-15.5) % Neutrophils # (1.3-7.7) k/uL PT 12.8 H (9.0-12.0) sec INR 1.3 H (<1.2) Sodium (137-145) mmol/L Glucose (74-99) mg/dL POC Glucose (mg/dL) (75-99) mg/dL Calcium (8.4-10.2) mg/dL Microbiology - Last 24 Hours (Table) 11/11/19 22:17 Blood Culture - Preliminary Blood No Growth after 72 hours 11/11/19 17:36 Blood Culture - Preliminary Blood No Growth after 72 hours 11/12/19 15:04 Gram Stain - Final Foot - Left Wound Culture - Final Staphylococcus aureus Pseudomonas aeruginosa 11/12/19 15:03 Gram Stain - Final Foot - Right Wound Culture - Final Staphylococcus aureus Assessment and Plan Assessment: 1. Bilateral diabetic foot ulcers 2. Peripheral arterial disease, Neeru 6 bilateral lower extremity, status post recent stenting of the right SFA 3. Acute hypoxic respiratory failure secondary to pulmonary edema, acute diastolic CHF exacerbation, prior EF 50-55% 4. Sepsis related to bilateral foot infection and CHF 5. Multivessel CAD history of LA, cardiac cath 6. Diabetes mellitus with diabetic neuropathy 7. Hypertension, Hyperlipidemia, Chronic asthma, Osteoarthritis Plan: Continue local wound care to bilateral total wounds per the wound care center. Patient will need left lower extremity revascularization and angiogram to further delineate blood flow to the left foot once patient is stable from her pulmonary status. Patient to follow up as outpatient, further recommendations to follow. Continue aspirin, Plavix and statin.
--- NOTE | 2019-11-15 16:34 | PN ---
PROGRESS NOTE FOLLOW-UP NOTE: Krissy is a 74-year-old lady with a history of hypertension, CAD, diabetes and peripheral vascular disease who came in with congestive heart failure, and Cardiology has been following the patient for the same. The patient's shortness of breath has been improving. She did not have any episodes of chest pain. We are still awaiting echocardiogram on her. On exam, heart rate is 76 beats per minute. Blood pressure is 118/57, respiratory rate is 16. Oxygen saturation is 100. There is no jugular venous distention. Chest exam reveals good air entry bilaterally. Heart exam reveals first and second heart sounds. No gallop. She has a systolic murmur at the apex. Abdomen is soft. Examination of extremities reveals trace edema. Peripheral pulses are diminished. The patient is currently on aspirin, Lipitor, Plavix, Lasix, Neurontin, Imdur, Zestril, Toprol-XL and K-Dur. ASSESSMENT: 1. Acute exacerbation of chronic systolic heart failure. 2. Takotsubo syndrome. 3. Cellulitis. 4. Peripheral vascular disease, status post surgery. 5. Left fifth metatarsal osteomyelitis. PLAN: Patient will continue aspirin, Lipitor, Plavix, Lasix, insulin, Imdur, Zestril and Toprol. MMODL / IJN: [id number] /
[2019-11-15 17:03] LABS: Glucose,Whole Blood 186 mg/dL (75-99)
--- NOTE | 2019-11-15 17:22 | PN ---
PROGRESS NOTE DATE OF SERVICE: 11/14/2009. REASON FOR FOLLOWUP: Left diabetic foot wound with underlying osteomyelitis. INTERVAL HISTORY: Patient is currently afebrile. Patient is breathing comfortably. The patient denies having any chest pain, no shortness of breath or cough. PHYSICAL EXAMINATION: Blood pressure is 119/57, pulse of 73, temperature is 99% on 2 L nasal cannula. General description is an elderly female, up in the chair in no distress. RESPIRATORY SYSTEM: Unlabored breathing, clear to auscultation anteriorly. HEART: S1, S2. Regular rate and rhythm. Left foot is currently dressed up. No obvious drainage on the dressing. LABS: Hemoglobin is 7, white count 15.1, BUN of 14, creatinine 0.54. DIAGNOSTIC IMPRESSION AND PLAN: Patient with left diabetic foot infection with underlying osteomyelitis, acute culture, positive for MSSA and Pseudomonas aeruginosa. Plan is for cefepime 2 g q.12 for 6 weeks along with oral Flagyl and close outpatient followup. Prescription provided for the patient. MMODL / IJN: [id number] /
--- NOTE | 2019-11-15 17:41 | P.DS ---
Providers Date of admission: 11/11/19 20:42 Expected date of discharge: 11/15/19 Attending physician: Wilfredo Boland Consults: 11/11/19 20:41 Consult Physician Routine Consulting Provider: [facility] Consult Reason/Comments: Acute pulmonary edema, elevated troponin Do you want consulting provider notified?: Yes 11/12/19 15:01 Consult Physician Routine Consulting Provider: Bailey Irvin Consult Reason/Comments: chronic wounds, limb ischemia Do you want consulting provider notified?: Yes 11/12/19 15:02 Consult Physician Routine Consulting Provider: Antoinette Fan Consult Reason/Comments: Osteomyelitis Do you want consulting provider notified?: Yes Primary care physician: Wilfredo Boland - Discharge Diagnosis(es) (1) Acute pulmonary edema Current Visit: Yes Status: Acute (2) Elevated troponin Current Visit: Yes Status: Acute (3) Foot osteomyelitis, left Current Visit: Yes Status: Acute (4) Infected decubitus ulcer Current Visit: Yes Status: Acute (5) Sepsis Current Visit: Yes Status: Acute (6) Wound of right foot Current Visit: Yes Status: Acute (7) COPD (chronic obstructive pulmonary disease) Current Visit: No Status: Acute (8) Diabetic neuropathy Current Visit: No Status: Acute (9) Essential (primary) hypertension Current Visit: No Status: Acute (10) Gait abnormality Current Visit: No Status: Acute (11) Hypokalemia Current Visit: No Status: Acute (12) Type 2 diabetes mellitus with hyperglycemia Current Visit: No Status: Acute (13) Unsteady gait Current Visit: No Status: Acute Patient Condition at Discharge: Stable Plan - Discharge Summary Discharge Rx Participant: No New Discharge Prescriptions: New metroNIDAZOLE [Flagyl] 500 mg PO TID #90 tab Aspirin 325 mg PO DAILY #0 tab lisinopriL [Zestril] 2.5 mg PO HS #0 tab Continue Ibuprofen [Advil] 200 mg PO Q6HR PRN PRN Reason: Pain Gabapentin 600 mg PO BID Atorvastatin [Lipitor] 80 mg PO HS #30 tab Nitroglycerin Sl Tabs [Nitrostat] 0.4 mg SUBLINGUAL Q5M PRN #100 tab PRN Reason: Chest Pain Furosemide [Lasix] 40 mg PO BID #60 tablet Linagliptin/Metformin HCl [Jentadueto Xr 5 mg-1,000 mg Tb] 1 tab PO DAILY Empagliflozin/Metformin HCl [Synjardy Xr 5-1,000 mg Tablet] 1 tab PO DAILY Acetaminophen [Tylenol Extra Strength] 500 mg PO Q4H PRN PRN Reason: Pain Clopidogrel [Plavix] 75 mg PO HS Isosorbide Mononitrate ER [Imdur] 30 mg PO HS Metoprolol Succinate (ER) [Toprol XL] 25 mg PO HS Potassium Chloride ER [K-Dur 20] 20 meq PO HS Discharge Medication List Gabapentin 600 mg PO BID 02/15/19 [History] Ibuprofen [Advil] 200 mg PO Q6HR PRN 02/15/19 [History] Atorvastatin [Lipitor] 80 mg PO HS #30 tab 02/18/19 [Rx] Furosemide [Lasix] 40 mg PO BID #60 tablet 02/18/19 [Rx] Nitroglycerin Sl Tabs [Nitrostat] 0.4 mg SUBLINGUAL Q5M PRN #100 tab 02/18/19 [Rx] Empagliflozin/Metformin HCl [Synjardy Xr 5-1,000 mg Tablet] 1 tab PO DAILY 08/10/19 [History] Linagliptin/Metformin HCl [Jentadueto Xr 5 mg-1,000 mg Tb] 1 tab PO DAILY 08/10/19 [History] Acetaminophen [Tylenol Extra Strength] 500 mg PO Q4H PRN 10/27/19 [History] Clopidogrel [Plavix] 75 mg PO HS 11/11/19 [History] Isosorbide Mononitrate ER [Imdur] 30 mg PO HS 11/11/19 [History] Metoprolol Succinate (ER) [Toprol XL] 25 mg PO HS 11/11/19 [History] Potassium Chloride ER [K-Dur 20] 20 meq PO HS 11/11/19 [History] Aspirin 325 mg PO DAILY #0 tab 11/15/19 [Rx] lisinopriL [Zestril] 2.5 mg PO HS #0 tab 11/15/19 [Rx] metroNIDAZOLE [Flagyl] 500 mg PO TID #90 tab 11/15/19 [Rx] Follow up Appointment(s)/Referral(s): [facility], [NON-STAFF] - 11/16/19 (Will assist with infusion on 11/15 in the AM.) [facility], [REFERRING] - (Will deliver Meds tonight between 6-8PM.) Wilfredo Boland MD [Primary Care Provider] - 1-2 days Antoinette Fan MD [STAFF PHYSICIAN] - 2 Weeks Discharge Disposition: HOME WITH HOME HEALTH SERVICES Plan of Treatment: 1. Home IV antibiotics as per ID. 2. Home health care to set up an educate for infusion in left upper arm PICC. 3. His standing order with [facility] for at 1500 for wound care to bilateral feet. 4. We will need left lower extremity revascularization and angiogram per vascular once stable from a pulmonary standpoint. Patient will follow-up as an outpatient. 5. As per cardiology continue low-dose NYLA inhibitor and will assess for spironolactone at a later date. 6. Will follow up with Dr. Boland in 1-3 days.
--- NOTE | 2019-11-16 08:04 | CDI ---
Documentation Clarification Form Date: 11/16/19 From: Bridgett Mann Phone: If you have a question about this query, please contact Tammy Honeycutt, Travel Ticketing Reviewer at [phone] between 8am and 5pm. Admit Date: 11/11/19 Discharge Date: 11/15/19 Patient Name: ROXI PARKS Visit Number: [id number] ATTENTION: The Clinical Documentation Specialists (CDI) and [facility] Coding Staff appreciate your assistance in clarifying documentation. Please respond to the clarification below the line at the bottom and electronically sign. The CDI & [facility] Coding staff will review the response and follow-up if needed. Please note: Queries are made part of the Legal Health Record. If you have any questions, please contact the author of this message via ITS. Dear Dr. Evin Kwan, Conflicting documentation has been found in the medical record: Per H&P: Acute diastolic CHF exacerbation, prior EF% 50-55%. Per your consult on 11/11: Likely congestive heart failure, acute on chronic, diastolic, previous echocardiogram showed preserved ejection fraction, moderate LVH. Per 11/[address] Neil: acute exacerbation of chronic systolic heart failure. History/Risk Factors: DM, sepsis, Takotsubo, HTN, COPD Clinical Indicators: BNP-2480, CXR- Radiographic findings consistent with advanced interstitial phase pulmonary edema, presumably cardiogenic etiology. Treatment: IV Lasix 80 mg once, then IV Lasix 40 mg Q8HR In your opinion, what is the most clinically appropriate diagnosis for this patient? Acute on chronic diastolic CHF Acute on chronic systolic CHF Acute on chronic diastolic & systolic CHF Other explanation of clinical findings Unable to determine (no explanation for clinical findings) Unable to determine. Please confirm with Dr. Curry REEVES
--- NOTE | 2019-11-16 08:13 | CDI ---
Documentation Clarification Form Date: 11/16/19 From: Bridgett Mann Phone: If you have a question about this query, please contact Tammy Honeycutt, Steel Molder at [phone] between 8am and 5pm. Admit Date: 11/11/19 Discharge Date: 11/15/19 Patient Name: ROXI PARKS Visit Number: [id number] ATTENTION: The Clinical Documentation Specialists (CDI) and [facility] Coding Staff appreciate your assistance in clarifying documentation. Please respond to the clarification below the line at the bottom and electronically sign. The CDI & [facility] Coding staff will review the response and follow-up if needed. Please note: Queries are made part of the Legal Health Record. If you have any questions, please contact the author of this message via ITS. Dear Dr. Evin Kwan, Patient presented with Troponin of: 0.065, 0.130, 0.253 Patient history/risk factors: hx old [place], CAD, hyperlipidemia, COPD, HTN, CHF, DM Clinical indicators: acute pulmonary edema, elevated Troponin, infected decubitus ulcer, sepsis Treatment:monitor Troponins, cardiology following patient In your professional opinion, can you please specify the diagnosis, if any, indicated by the above clinical indicators and treatment? Type II FL Non Q Wave FL Abnormal Troponins Other, please specify Unable to determine Abnormal troponins MTDD
--- NOTE | 2019-11-18 16:13 | ECHOF ---
Referral Reason:sob MEASUREMENTS -------- HEIGHT: 165.1 cm WEIGHT: 99.8 kg BP: IVSd: 0.9 cm (0.6 - 1.1) LVIDd: 4.5 cm (3.9 - 5.3) LVPWd: 1.3 cm (0.6 - 1.1) IVSs: 1.1 cm LVIDs: 4.0 cm LVPWs: 1.2 cm LA Diam: 4.7 cm (2.7 - 3.8) RVIDd: 3.4 cm (< 3.3) Ao Diam: 2.4 cm (2.0 - 3.7) LA Diam: 4.4 cm (2.7 - 3.8) AV Cusp: 0.9 cm (1.5 - 2.6) EPSS: 1.1 cm MV E Pavan: 1.26 m/s MV DecT: 149 ms MV A Pavan: 0.74 m/s MV E/A Ratio: 1.70 RAP: 15.00 mmHg RVSP: 69.20 mmHg MV EF SLOPE: 68.48 mm/s (70 - 150) MV EXCURSION: 17.70 mm (> 18.000) FINDINGS -------- Sinus rhythm. This was a techncally difficult study with suboptimal views, , Definity utilized for enhancement of i mages. The left ventricular size is normal. Left ventricular wall thickness is normal. Overall left vent ricular systolic function is moderate-severely impaired with, an EF between 30 - 35 %. Anterseptal Hypokinesis Inferior Hypokinesis Hamer Hypokinesis. The right ventricle is normal in size. The left atrium is markedly dilated. The right atrial size is normal. Lumason used There is mild aortic valve sclerosis. There is no evidence of aortic regurgitation. Mild mitral annular calcification present. Rgnrjdiq-mn-wetbyn mitral regurgitation is present. Mild tricuspid regurgitation present. There is moderate to severe pulmonary hypertension. There is no pulmonic regurgitation present. Echo free space indicative of a pericardial fat pad. CONCLUSIONS -------- 1. Sinus rhythm. 2. This was a techncally difficult study with suboptimal views, , Definity utilized for enhancement o f images. 3. The left ventricular size is normal. 4. Left ventricular wall thickness is normal. 5. Overall left ventricular systolic function is moderate-severely impaired with, an EF between 30 - 35 %. 6. Anterseptal Hypokinesis 7. Inferior Hypokinesis 8. Hamer Hypokinesis. 9. The right ventricle is normal in size. 10. The left atrium is markedly dilated. 11. The right atrial size is normal. 12. Lumason used 13. There is mild aortic valve sclerosis. 14. Mild mitral annular calcification present. 15. Slzqzwrg-ac-albwrr mitral regurgitation is present. 16. Mild tricuspid regurgitation present. 17. There is moderate to severe pulmonary hypertension. 18. There is no pulmonic regurgitation present. 19. Echo free space indicative of a pericardial fat pad. SIGNAL OPERATOR: Melissa Coe RDCS
--- NOTE | 2019-11-27 06:58 | CDI ---
Documentation Clarification Form Date: 11/16/19 From: Bridgett Mann Phone: If you have a question about this query, please contact Tammy Honeycutt, [employer] at [phone] between 8am and 5pm. Admit Date: 11/11/19 Discharge Date: 11/15/19 Patient Name: ROXI PARKS Visit Number: [id number] ATTENTION: The Clinical Documentation Specialists (CDI) and [facility] Coding Staff appreciate your assistance in clarifying documentation. Please respond to the clarification below the line at the bottom and electronically sign. The CDI & [facility] Coding staff will review the response and follow-up if needed. Please note: Queries are made part of the Legal Health Record. If you have any questions, please contact the author of this message via ITS. Dear Dr. Conner Neil, Dr Kwan referred to you. Conflicting documentation has been found in the medical record: Per H&P: Acute diastolic CHF exacerbation, prior EF% 50-55%. Per your consult on 11/11: Likely congestive heart failure, acute on chronic, diastolic, previous echocardiogram showed preserved ejection fraction, moderate LVH. Per 11/[address] Neil: acute exacerbation of chronic systolic heart failure. History/Risk Factors: DM, sepsis, Takotsubo, HTN, COPD Clinical Indicators: BNP-2480, CXR- Radiographic findings consistent with advanced interstitial phase pulmonary edema, presumably cardiogenic etiology. Treatment: IV Lasix 80 mg once, then IV Lasix 40 mg Q8HR In your opinion, what is the most clinically appropriate diagnosis for this patient? Acute on chronic diastolic CHF Acute on chronic systolic CHF Acute on chronic diastolic & systolic CHF Other explanation of clinical findings Unable to determine (no explanation for clinical findings) acute diastolic failure MTDD
== END 2019-11-15 17:53 | disposition home health service (06) | DRG 871 ==
LOC: EC 16:24 → 3SCARD 20:42
PROVIDERS: ADMIT Family Medicine; ATTEND Family Medicine
PROC: 02HV33Z Insertion of Infusion Device into Superior Vena Cava, Percutaneous Approach (ICD-10-PCS; principal; 2019-11-15 10:00)
DX: A41.9 Sepsis, unspecified organism (principal); J96.01 Acute respiratory failure with hypoxia; I50.31 Acute diastolic (congestive) heart failure; M86.172 Other acute osteomyelitis, left ankle and foot; I51.81 Takotsubo syndrome; L97.526 Non-pressure chronic ulcer of other part of left foot with bone involvement without evidence of necrosis; L97.516 Non-pressure chronic ulcer of other part of right foot with bone involvement without evidence of necrosis; L03.90 Cellulitis, unspecified; E11.69 Type 2 diabetes mellitus with other specified complication; E11.40 Type 2 diabetes mellitus with diabetic neuropathy, unspecified; E11.51 Type 2 diabetes mellitus with diabetic peripheral angiopathy without gangrene; E11.621 Type 2 diabetes mellitus with foot ulcer; I11.0 Hypertensive heart disease with heart failure; E11.65 Type 2 diabetes mellitus with hyperglycemia; J44.9 Chronic obstructive pulmonary disease, unspecified; Z20.828 Contact with and (suspected) exposure to other viral communicable diseases; I99.8 Other disorder of circulatory system; E87.6 Hypokalemia; E78.5 Hyperlipidemia, unspecified; I25.10 Atherosclerotic heart disease of native coronary artery without angina pectoris; I83.90 Asymptomatic varicose veins of unspecified lower extremity; R26.9 Unspecified abnormalities of gait and mobility; K59.00 Constipation, unspecified; I25.2 Old myocardial infarction; M19.90 Unspecified osteoarthritis, unspecified site; R79.89 Other specified abnormal findings of blood chemistry; Z79.02 Long term (current) use of antithrombotics/antiplatelets; Z79.84 Long term (current) use of oral hypoglycemic drugs; Z79.899 Other long term (current) drug therapy; Z98.890 Other specified postprocedural states; Z95.828 Presence of other vascular implants and grafts; Z87.891 Personal history of nicotine dependence; Z83.1 Family history of other infectious and parasitic diseases; Z80.9 Family history of malignant neoplasm, unspecified
CPT/HCPCS: 36415; 36573; 71046; 80048; 80051; 80053; 81003; 83036; 83605; 83735; 83880; 84484; 85025; 85610; 85730; 87040; 87070; 87075; 87077; 87186; 87205; 93005; 93306; 96374; 96375; 99291

== ENCOUNTER 2019-11-16 06:53 | Inpatient (IN) | payer MEDICARE, BC ==
--- NOTE | 2019-11-16 07:26 | ED ---
SOB HPI <Zacarias Salazar - Last Filed: 11/16/19 09:32> - General Source: patient, RN notes reviewed Mode of arrival: ambulatory Limitations: no limitations <Guilherme Lange - Last Filed: 11/16/19 09:35> - General Chief Complaint: Shortness of Breath Stated Complaint: SOB,vomiting Time Seen by Provider: 11/16/19 07:02 - History of Present Illness Initial Comments: This a 74-year-old female presents emergency Department chief complaint of shortness of breath, and nausea. Patient states that she was discharged yesterday after multiple day stay in the hospital for acute pulmonary edema and bilateral foot infections. Patient states that she felt okay yesterday and was discharged but approximately 2 hours after being home she started having increasing shortness of breath, leg swelling and states that she was coughing up white phlegm which was causing her to feel nauseated. Patient admits to chills denies any known fever. Patient does have a PICC line in her left arm and which she is scheduled to start IV antibiotics at home for her osteomyelitis. Patient states she called her primary care physician's office yesterday for follow-up. Patient does have a history of CHF in which she had a severe exacerbation a few months ago. Patient states that she feels worse than when she was admitted a few days ago. (Guilherme Lange) - Related Data Home Medications Medication Instructions Recorded Confirmed Gabapentin 600 mg PO BID 02/15/19 11/16/19 Ibuprofen [Advil] 200 mg PO Q6HR PRN 02/15/19 11/16/19 Empagliflozin/Metformin HCl 1 tab PO DAILY 08/10/19 11/16/19 [Synjardy Xr 5-1,000 mg Tablet] Linagliptin/Metformin HCl 1 tab PO DAILY 08/10/19 11/16/19 [Jentadueto Xr 5 mg-1,000 mg Tb] Acetaminophen [Tylenol Extra 500 mg PO Q4H PRN 10/27/19 11/16/19 Strength] Clopidogrel [Plavix] 75 mg PO HS 11/11/19 11/16/19 Isosorbide Mononitrate ER [Imdur] 30 mg PO HS 11/11/19 11/16/19 Metoprolol Succinate (ER) [Toprol 25 mg PO HS 11/11/19 11/16/19 XL] Potassium Chloride ER [K-Dur 20] 20 meq PO HS 11/11/19 11/16/19 Previous Rx's Medication Instructions Recorded Atorvastatin [Lipitor] 80 mg PO HS #30 tab 02/18/19 Furosemide [Lasix] 40 mg PO BID #60 tablet 02/18/19 Nitroglycerin Sl Tabs [Nitrostat] 0.4 mg SUBLINGUAL Q5M PRN #100 tab 02/18/19 metroNIDAZOLE [Flagyl] 500 mg PO TID #90 tab 11/15/19 Allergies Allergy/AdvReac Type Severity Reaction Status Date / Time No Known Allergies Allergy Verified 11/16/19 09:08 Review of Systems ROS Other: All systems not noted in ROS Statement are negative. <Zacarias Salazar - Last Filed: 11/16/19 09:32> ROS Other: All systems not noted in ROS Statement are negative. <Guilherme Lange - Last Filed: 11/16/19 09:35> ROS Statement: Those systems with pertinent positive or pertinent negative responses have been documented in the HPI. Past Medical History Past Medical History: Asthma, Diabetes Mellitus, Hypertension, Myocardial Infar ction (TN), Osteoarthritis (OA), Vascular Disorder Additional Past Medical History / Comment(s): Asthma years ago, neuropathy bilateral feet, pt states she has been having intermittent edema bilateral ankles and feet past 6 months, hx vertigo at times-none currently, constipation. varicose veins left leg, ulcer rt foot-on antibiotics currently Last Myocardial Infarction Date:: 01/2019 History of Any Multi-Drug Resistant Organisms: None Reported Past Surgical History: Breast Surgery, Heart Catheterization Additional Past Surgical History / Comment(s): L breast biopsy x2, EGD, colonoscopy, angiogram. stent to right leg Past Anesthesia/Blood Transfusion Reactions: No Reported Reaction Past Psychological History: No Psychological Hx Reported Smoking Status: Former smoker Past Alcohol Use History: None Reported Past Drug Use History: None Reported - Past Family History Father Additional Family Medical History / Comment(s): Father was bipolar. He had his first TN at the age of 63 yrs and from his 2nd TN at the age of 66yrs. Mother Additional Family Medical History / Comment(s): from MRSA infection Sister(s) Family Medical History: Cancer <Guilherme Lange - Last Filed: 11/16/19 09:35> General Exam Limitations: no limitations General appearance: alert, in no apparent distress Head exam: Present: atraumatic, normocephalic, normal inspection Eye exam: Present: normal appearance, PERRL, EOMI. Absent: scleral icterus, conjunctival injection, periorbital swelling ENT exam: Present: normal exam, normal oropharynx, mucous membranes moist Neck exam: Present: normal inspection, full ROM. Absent: tenderness, meningismus, lymphadenopathy Respiratory exam: Present: decreased breath sounds. Absent: normal lung sounds bilaterally, respiratory distress, wheezes, rales, rhonchi, stridor Cardiovascular Exam: Present: regular rate, normal rhythm, normal heart sounds. Absent: systolic murmur, diastolic murmur, rubs, gallop, clicks GI/Abdominal exam: Present: soft, normal bowel sounds. Absent: distended, tenderness, guarding, rebound, rigid Neurological exam: Present: alert, oriented X3 Skin exam: Present: warm, dry, intact, normal color. Absent: rash <Guilherme Lange - Last Filed: 11/16/19 09:35> Course <Zacarias Salazar - Last Filed: 11/16/19 09:32> Vital Signs 11/16/19 11/16/19 11/16/19 06:57 07:41 08:01 Temperature 97.8 F Pulse Rate 95 Respiratory 18 18 18 Rate Blood Pressure 116/56 O2 Sat by Pulse 97 Oximetry 11/16/19 09:00 Temperature Pulse Rate 95 Respiratory 18 Rate Blood Pressure 130/69 O2 Sat by Pulse 100 Oximetry - Reevaluation(s) Reevaluation #1: 11/16/19 09:32 PA supervision: I personally do a [id number] evaluation the patient. She did go home yesterday after being inpatient in this facility though her physician did not want her to. She states about 2 hours after arriving home she started developing shortness of breath. She has exertional dyspnea. She appears to have some orthopnea. Diminished breath sounds bilaterally. X-ray shows evidence of an effusion on the left BNP is markedly elevated compared to yesterday lactic acid is within normal limits. EKG was compared with a previous one showing no definite acute findings. I did discuss the case with Dr. Medina. The patient will be admitted for inpatient treatment. (Zacarias Salazar) Medical Decision Making - Lab Data Result diagrams: 11/16/19 07:34 11/16/19 07:34 <Zacarias Salazar - Last Filed: 11/16/19 09:32> - Lab Data Result diagrams: 11/16/19 07:34 11/16/19 07:34 - EKG Data -: EKG Interpreted by Me <Guilherme Lange - Last Filed: 11/16/19 09:35> - Medical Decision Making 34-year-old presented for dyspnea. Patient's found to have pleural effusion on x-ray, elevated BMP from her baseline. Patient does have acute dyspnea related to CHF. Patient's case discussed with Dr. Jin patient will be admitted for diuresis, further medical management. (Guilherme Lange) - Lab Data Lab Results 11/16/19 11/16/19 11/16/19 Range/Units 07:34 07:34 07:34 WBC 19.5 H (3.8-10.6) k/uL RBC 3.21 L (3.80-5.40) m/uL Hgb 8.8 L (11.4-16.0) gm/dL Hct 28.4 L (34.0-46.0) % MCV 88.6 (80.0-100.0) fL MCH 27.4 (25.0-35.0) pg MCHC 31.0 (31.0-37.0) g/dL RDW 16.3 H (11.5-15.5) % Plt Count 473 H (150-450) k/uL Neutrophils % 91 % Lymphocytes % 4 % Monocytes % 4 % Eosinophils % 0 % Basophils % 0 % Neutrophils # 17.8 H (1.3-7.7) k/uL Lymphocytes # 0.8 L (1.0-4.8) k/uL Monocytes # 0.7 (0-1.0) k/uL Eosinophils # 0.0 (0-0.7) k/uL Basophils # 0.0 (0-0.2) k/uL Hypochromasia Marked Poikilocytosis Slight Anisocytosis Slight PT 12.0 (9.0-12.0) sec INR 1.2 H (<1.2) APTT 21.6 L (22.0-30.0) sec Sodium 136 L (137-145) mmol/L Potassium 4.2 (3.5-5.1) mmol/L Chloride 97 L (98-107) mmol/L Carbon Dioxide 19 L (22-30) mmol/L Anion Gap 20 mmol/L BUN 20 H (7-17) mg/dL Creatinine 0.63 (0.52-1.04) mg/dL Est GFR (CKD-EPI)AfAm >90 (>60 ml/min/1.73 sqM) Est GFR (CKD-EPI)NonAf 89 (>60 ml/min/1.73 sqM) Glucose 238 H (74-99) mg/dL Plasma Lactic Acid Tres (0.7-2.0) mmol/L Calcium 8.9 (8.4-10.2) mg/dL Magnesium 1.8 (1.6-2.3) mg/dL Total Bilirubin 2.1 H (0.2-1.3) mg/dL AST 214 H (14-36) U/L ALT 254 H (4-34) U/L Alkaline Phosphatase 210 H (38-126) U/L Troponin I (0.000-0.034) ng/mL NT-Pro-B Natriuret Pep pg/mL Total Protein 6.7 (6.3-8.2) g/dL Albumin 3.4 L (3.5-5.0) g/dL 11/16/19 11/16/19 11/16/19 Range/Units 07:34 07:34 07:34 WBC (3.8-10.6) k/uL RBC (3.80-5.40) m/uL Hgb (11.4-16.0) gm/dL Hct (34.0-46.0) % MCV (80.0-100.0) fL MCH (25.0-35.0) pg MCHC (31.0-37.0) g/dL RDW (11.5-15.5) % Plt Count (150-450) k/uL Neutrophils % % Lymphocytes % % Monocytes % % Eosinophils % % Basophils % % Neutrophils # (1.3-7.7) k/uL Lymphocytes # (1.0-4.8) k/uL Monocytes # (0-1.0) k/uL Eosinophils # (0-0.7) k/uL Basophils # (0-0.2) k/uL Hypochromasia Poikilocytosis Anisocytosis PT (9.0-12.0) sec INR (<1.2) APTT (22.0-30.0) sec Sodium (137-145) mmol/L Potassium (3.5-5.1) mmol/L Chloride (98-107) mmol/L Carbon Dioxide (22-30) mmol/L Anion Gap mmol/L BUN (7-17) mg/dL Creatinine (0.52-1.04) mg/dL Est GFR (CKD-EPI)AfAm (>60 ml/min/1.73 sqM) Est GFR (CKD-EPI)NonAf (>60 ml/min/1.73 sqM) Glucose (74-99) mg/dL Plasma Lactic Acid Tres 1.2 (0.7-2.0) mmol/L Calcium (8.4-10.2) mg/dL Magnesium (1.6-2.3) mg/dL Total Bilirubin (0.2-1.3) mg/dL AST (14-36) U/L ALT (4-34) U/L Alkaline Phosphatase (38-126) U/L Troponin I 0.199 H* (0.000-0.034) ng/mL NT-Pro-B Natriuret Pep 6720 pg/mL Total Protein (6.3-8.2) g/dL Albumin (3.5-5.0) g/dL - EKG Data EKG Comments: EKG performed at 17:54 normal sinus rhythm rate of 92 AK 150 QRS 96 QT/QTC 384/474 extremity depression in V5 V6 other ST elevation in V1 and V2 which was compared to prior EKG on 11/11/2019 with no acute changes. EKG reviewed with Dr. Salazar (Guilherme Lange) Disposition <Zacarias Salazar - Last Filed: 11/16/19 09:32> <Guilherme Lange - Last Filed: 11/16/19 09:35> Clinical Impression: Acute exacerbation of CHF (congestive heart failure), Type 2 diabetes mellitus with hyperglycemia, Foot osteomyelitis, left, Transaminitis Disposition: ADMITTED IP TO THIS [facility] Condition: Fair Referrals: Wilfredo Boland MD [Primary Care Provider] - 1-2 days
[2019-11-16 07:54] LABS: Anisocytosis Slight; Basophils % (A) 0 %; Eosinophils % (A) 0 %; HCT 28.4 % (34.0-46.0); HGB 8.8 gm/dL (11.4-16.0); Hypochromasia Marked; Lymphocytes # (A) 0.8 k/uL (1.0-4.8); Lymphocytes % (A) 4 %; MCH 27.4 pg (25.0-35.0); MCV 88.6 fL (80.0-100.0); Mean Platelet Volume 7.3; Monocytes # (A) 0.7 k/uL (0-1.0); Monocytes % (A) 4 %; Neutrophils # (A) 17.8 k/uL (1.3-7.7); Neutrophils % (A) 91 %; Platelet Count 473 k/uL (150-450); Poikilocytosis Slight; RBC 3.21 m/uL (3.80-5.40); RDW 16.3 % (11.5-15.5); WBC 19.5 k/uL (3.8-10.6)
[2019-11-16 08:05] LABS: ALT 254 U/L (4-34); AST 214 U/L (14-36); African American GFR (CKD) >90 (>60 ml/min/1.73 sqM); Albumin 3.4 g/dL (3.5-5.0); Alkaline Phosphatase 210 U/L (38-126); Anion Gap 20 mmol/L; Blood Urea Nitrogen 20 mg/dL (7-17); Calcium 8.9 mg/dL (8.4-10.2); Carbon Dioxide 19 mmol/L (22-30); Chloride 97 mmol/L (98-107); Glucose 238 mg/dL (74-99); Magnesium 1.8 mg/dL (1.6-2.3); Non-African American GFR(CKD) 89 (>60 ml/min/1.73 sqM); Potassium 4.2 mmol/L (3.5-5.1); Sodium 136 mmol/L (137-145); Total Bilirubin 2.1 mg/dL (0.2-1.3); Total Protein 6.7 g/dL (6.3-8.2)
[2019-11-16 08:12] LABS: INR 1.2 (<1.2)
[2019-11-16 08:15] LABS: Partial Thromboplastin Time 21.6 sec (22.0-30.0)
--- NOTE | 2019-11-16 08:28 | XR ---
EXAMINATION TYPE: XR chest 2V DATE OF EXAM: 11/16/2019 CLINICAL HISTORY: Difficulty breathing TECHNIQUE: Frontal and lateral views of the chest are obtained. COMPARISON: Chest radiograph 11/11/2019 FINDINGS: Left-sided PICC with distal tip over the cavoatrial junction. Redemonstrated cardiomegaly, pulmonary vascular congestion, and pulmonary edema. There is new small volume right pleural effusion seen on lateral view. No pneumothorax. IMPRESSION: Redemonstrated findings most likely CHF, with new small right pleural effusion.
[2019-11-16] MEDS ORDERED: FUROSEMIDE 10 MG/ML 4 ML VIAL IV STA (08:56)
[2019-11-16] MEDS ORDERED: ASPIRIN 325 MG TAB PO STA (09:20)
[2019-11-16] MEDS ORDERED: CEFEPIME 2 GM in SODIUM CHLORIDE 0.9% 100 ML IVPB STA (09:22)
[2019-11-16] MEDS ORDERED: ONDANSETRON 4 MG/2 ML VIAL IVP STA (09:40)
[2019-11-16 12:46] LABS: Glucose,Whole Blood 281 mg/dL (75-99)
[2019-11-16] MEDS: INSULIN ASPART (NovoLOG) 100 UNIT/ML VIAL SQ SCH ×3 (13:40→21:41)
[2019-11-16] MEDS ORDERED: ACETAMINOPHEN TAB 500 MG TAB PO PRN (14:41)
[2019-11-16] MEDS ORDERED: NITROGLYCERIN SL TABS 0.4 MG TAB SUBLINGUAL PRN (14:41)
[2019-11-16] MEDS ORDERED: IPRATROPIUM-ALBUTEROL 3 ML NEB INHALATION PRN (14:57)
[2019-11-16] MEDS ORDERED: methylPREDNISolone SOD SUCCI 125 MG/2 ML VIAL IV STA (14:59)
--- NOTE | 2019-11-16 15:06 | P.HPIM ---
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 Patient states within 2 hours of returning home began having worsening shortness of breath and eventually returned to the ER. Afebrile, WBC up to 19.5. Hemoglobin 8.8, INR 1.2. Sodium 136, BUN 20, creatinine 0.63. Blood sugars ranging from 130s to 200s. T bili 2.1, AST 214, ALT 254, alk phos 210. Troponin elevated 0.199, decreased from prior. Albumin 3.4. BNP 6720 significantly increased from prior admission of 2840. Received Lasix IV push in the ER as well as antibiotics of cefepime. Review of Systems ROS Statement: Those systems with pertinent positive or pertinent negative responses have been documented in the HPI. ROS Other: All systems not noted in ROS Statement are negative. Past Medical History Past Medical History: Asthma, Diabetes Mellitus, Hypertension, Myocardial Infarction (IL), Osteoarthritis (OA), Vascular Disorder Additional Past Medical History / Comment(s): Asthma years ago, neuropathy bilateral feet, pt states she has been having intermittent edema bilateral ankles and feet past 6 months, hx vertigo at times-none currently, constipation. varicose veins left leg, ulcer rt foot-on antibiotics currently Last Myocardial Infarction Date:: 01/2019 History of Any Multi-Drug Resistant Organisms: None Reported Past Surgical History: Breast Surgery, Heart Catheterization Additional Past Surgical History / Comment(s): L breast biopsy x2, EGD, colonoscopy, angiogram. stent to right leg Past Anesthesia/Blood Transfusion Reactions: No Reported Reaction Past Psychological History: No Psychological Hx Reported Smoking Status: Former smoker Past Alcohol Use History: None Reported Past Drug Use History: None Reported - Past Family History Father Additional Family Medical History / Comment(s): Father was bipolar. He had his first IL at the age of 63 yrs and from his 2nd IL at the age of 66yrs. Mother Additional Family Medical History / Comment(s): from MRSA infection Sister(s) Family Medical History: Cancer Medications and Allergies Home Medications Medication Instructions Recorded Confirmed Type Gabapentin 600 mg PO BID 02/15/19 11/16/19 History Ibuprofen [Advil] 200 mg PO Q6HR PRN 02/15/19 11/16/19 History Atorvastatin [Lipitor] 80 mg PO HS #30 tab 02/18/19 11/16/19 Rx Furosemide [Lasix] 40 mg PO BID #60 tablet 02/18/19 11/16/19 Rx Nitroglycerin Sl Tabs [Nitrostat] 0.4 mg SUBLINGUAL Q5M PRN #100 tab 02/18/19 11/16/19 Rx Empagliflozin/Metformin HCl 1 tab PO DAILY 08/10/19 11/16/19 History [Synjardy Xr 5-1,000 mg Tablet] Linagliptin/Metformin HCl 1 tab PO DAILY 08/10/19 11/16/19 History [Jentadueto Xr 5 mg-1,000 mg Tb] Acetaminophen [Tylenol Extra 500 mg PO Q4H PRN 10/27/19 11/16/19 History Strength] Clopidogrel [Plavix] 75 mg PO HS 11/11/19 11/16/19 History Isosorbide Mononitrate ER [Imdur] 30 mg PO HS 11/11/19 11/16/19 History Metoprolol Succinate (ER) [Toprol 25 mg PO HS 11/11/19 11/16/19 History XL] Potassium Chloride ER [K-Dur 20] 20 meq PO HS 11/11/19 11/16/19 History metroNIDAZOLE [Flagyl] 500 mg PO TID #90 tab 11/15/19 11/16/19 Rx Allergies Allergy/AdvReac Type Severity Reaction Status Date / Time No Known Allergies Allergy Verified 11/16/19 09:08 Physical Exam Vitals: Vital Signs Temp Pulse Resp BP Pulse Ox 11/16/19 13:15 97.2 F L 96 20 122/84 98 11/16/19 13:00 18 100 11/16/19 12:00 95 18 135/85 100 11/16/19 11:00 18 100 11/16/19 10:00 18 100 11/16/19 09:00 95 18 130/69 100 11/16/19 08:01 18 11/16/19 07:41 18 11/16/19 06:57 97.8 F 95 18 116/56 97 Intake and Output 11/15/19 11/16/19 11/16/19 22:59 06:59 14:59 Other: Weight 71.668 kg VITAL SIGNS: As above GENERAL: Sitting up in bed, respiratory effort increased HEENT: Conjunctivae normal. eyes normal. NECK: No JVD. No thyroid enlargement. No LNs CARDIOVASCULAR: S1, S2 regular. No murmur, gallop or rub. RESPIRATION: Breath sounds diminished in the bases. Positive rhonchi. No crackles, expiratory wheezing ABDOMEN: Soft, nontender . No guarding. no masses palpable. No ascites, No hepatosplenomegaly.Bowel sounds heard. LEGS: No edema. no swelling PSYCHIATRY: Alert and oriented X3, mood and affect normal. NERVOUS SYSTEM: Cranial N 2-12 grossly normal. Moves all 4 limbs. Diffuse weakness No focal deficits. Skin:Dressings clean dry and intact (Right dorsal foot with diabetic wound/ulcer, recently debrided, 2.2 cm length x 1.8 cm width x 0.3 cm depth with purulent drainage, exposed tendon. Left lateral foot, status post recent debridement, 2.4 cm length X 2.2 cm width X 1.6 cm depth) Lymphatic system. No LN neck axilla. Results CBC & Chem 7: 11/16/19 07:34 11/16/19 07:34 Labs: Abnormal Lab Results - Last 24 Hours (Table) 11/16/19 11/16/19 11/16/19 Range/Units 07:34 07:34 07:34 WBC 19.5 H (3.8-10.6) k/uL RBC 3.21 L (3.80-5.40) m/uL Hgb 8.8 L (11.4-16.0) gm/dL Hct 28.4 L (34.0-46.0) % RDW 16.3 H (11.5-15.5) % Plt Count 473 H (150-450) k/uL Neutrophils # 17.8 H (1.3-7.7) k/uL Lymphocytes # 0.8 L (1.0-4.8) k/uL INR 1.2 H (<1.2) APTT 21.6 L (22.0-30.0) sec Sodium 136 L (137-145) mmol/L Chloride 97 L (98-107) mmol/L Carbon Dioxide 19 L (22-30) mmol/L BUN 20 H (7-17) mg/dL Glucose 238 H (74-99) mg/dL POC Glucose (mg/dL) (75-99) mg/dL Total Bilirubin 2.1 H (0.2-1.3) mg/dL AST 214 H (14-36) U/L ALT 254 H (4-34) U/L Alkaline Phosphatase 210 H (38-126) U/L Troponin I (0.000-0.034) ng/mL Albumin 3.4 L (3.5-5.0) g/dL 11/16/19 11/16/19 Range/Units 07:34 12:41 WBC (3.8-10.6) k/uL RBC (3.80-5.40) m/uL Hgb (11.4-16.0) gm/dL Hct (34.0-46.0) % RDW (11.5-15.5) % Plt Count (150-450) k/uL Neutrophils # (1.3-7.7) k/uL Lymphocytes # (1.0-4.8) k/uL INR (<1.2) APTT (22.0-30.0) sec Sodium (137-145) mmol/L Chloride (98-107) mmol/L Carbon Dioxide (22-30) mmol/L BUN (7-17) mg/dL Glucose (74-99) mg/dL POC Glucose (mg/dL) 281 H (75-99) mg/dL Total Bilirubin (0.2-1.3) mg/dL AST (14-36) U/L ALT (4-34) U/L Alkaline Phosphatase (38-126) U/L Troponin I 0.199 H* (0.000-0.034) ng/mL Albumin (3.5-5.0) g/dL Assessment and Plan Assessment: -Acute hypoxic respiratory failure secondary to acute COPD exacerbation with acute diastolic CHF exacerbation, EF 50-55%, recently discharged -yesterday -bilateral wounds ;Left lateral foot Young III diabetic ulcer, right dorsal foot Young IV diabetic ulcer, 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 -Recently treated for sepsis secondary to the above. -Elevated T bili and LFTs -Multivessel CAD history of [place], cardiac cath -Elevated troponin -Diabetes mellitus, uncontrolled hyperglycemia -Hypertension -Hyperlipidemia -Chronic asthma -Osteoarthritis -Peripheral arterial disease, status post recent stenting of the right SFA -Vertigo -Former nicotine dependence -Gait dysfunction secondary to bilateral feet wounds -Diabetic neuropathy Plan: Continue on current medication regime ,monitoring and symptomatic treatment. Continue diuresing, steroids, nebulized bronchodilators. Patient was just discharged yesterday, has PICC line, we'll continue with antibiotics as previously prescribed as per ID. Cardiology/ID consulted. GI and DVT prophylaxis in place. Home meds have been reviewed and resumed accordingly. Prognosis guarded given multiple complex medical issues. The impression and plan of care has been dictated as directed. : I performed a history and examination of this patient, discussed the same with the dictator. I agree with the dictator's note ,documented as a scribe. Any additional findings or plans will be noted.
[2019-11-16] MEDS: methylPREDNISolone SOD SUCCI 40 MG/ML 1 ML VIAL IV SCH (15:19)
[2019-11-16] MEDS: PANTOPRAZOLE 40 MG/10 ML VIAL IVP SCH (15:43)
[2019-11-16] MEDS: metroNIDAZOLE 500 MG TAB PO SCH ×2 (15:44→21:40)
[2019-11-16] MEDS: FUROSEMIDE 10 MG/ML 4 ML VIAL IV SCH (15:44)
[2019-11-16] MEDS: INSULIN DETEMIR (LEVEMIR) 100 UNIT/ML SYR SQ SCH (15:49)
[2019-11-16] MEDS: IPRATROPIUM-ALBUTEROL 3 ML NEB INHALATION SCH ×2 (16:00→21:28)
[2019-11-16 17:12] LABS: Glucose,Whole Blood 269 mg/dL (75-99)
[2019-11-16 21:16] LABS: Glucose,Whole Blood 283 mg/dL (75-99)
[2019-11-16] MEDS: ISOSORBIDE MONONITRATE ER 30 MG TAB.ER.24H PO SCH (21:40)
[2019-11-16] MEDS: ATORVASTATIN 80 MG TAB PO SCH (21:40)
[2019-11-16] MEDS: CEFEPIME 2 GM in SODIUM CHLORIDE 0.9% 100 ML IVPB SCH (21:40)
[2019-11-16] MEDS: POTASSIUM CHLORIDE ER 20 MEQ TAB.ER PO SCH (21:40)
[2019-11-16] MEDS: CLOPIDOGREL 75 MG TAB PO SCH (21:40)
[2019-11-16] MEDS: METOPROLOL SUCCINATE (ER) 25 MG TAB.ER.24H PO SCH (21:40)
[2019-11-16] MEDS: GABAPENTIN 300 MG CAP PO SCH (21:40)
[2019-11-17] MEDS: methylPREDNISolone SOD SUCCI 40 MG/ML 1 ML VIAL IV SCH ×5 (00:07→22:49)
[2019-11-17] MEDS: FUROSEMIDE 10 MG/ML 4 ML VIAL IV SCH ×4 (00:07→22:49)
[2019-11-17 06:09] LABS: Glucose,Whole Blood 295 mg/dL (75-99)
[2019-11-17 06:15] LABS: Anisocytosis Slight; Basophils % (A) 0 %; Eosinophils % (A) 0 %; HCT 27.9 % (34.0-46.0); HGB 8.3 gm/dL (11.4-16.0); Hypochromasia Marked; Lymphocytes # (A) 0.5 k/uL (1.0-4.8); Lymphocytes % (A) 3 %; MCH 26.3 pg (25.0-35.0); MCHC 29.7 g/dL (31.0-37.0); MCV 88.7 fL (80.0-100.0); Mean Platelet Volume 7.1; Monocytes # (A) 0.4 k/uL (0-1.0); Monocytes % (A) 2 %; Neutrophils # (A) 16.8 k/uL (1.3-7.7); Neutrophils % (A) 94 %; Platelet Count 489 k/uL (150-450); Poikilocytosis Slight; RBC 3.14 m/uL (3.80-5.40); WBC 17.8 k/uL (3.8-10.6)
[2019-11-17 06:32] LABS: Albumin 3.4 g/dL (3.5-5.0); Calcium 9.2 mg/dL (8.4-10.2); Potassium 4.3 mmol/L (3.5-5.1); Total Bilirubin 1.8 mg/dL (0.2-1.3); Total Protein 6.7 g/dL (6.3-8.2)
[2019-11-17] MEDS: metFORMIN 500 MG TAB PO SCH ×2 (06:53→17:58)
[2019-11-17] MEDS: IPRATROPIUM-ALBUTEROL 3 ML NEB INHALATION SCH ×4 (07:07→19:51)
[2019-11-17] MEDS: INSULIN ASPART (NovoLOG) 100 UNIT/ML VIAL SQ SCH ×4 (07:13→21:01)
[2019-11-17] MEDS: CEFEPIME 2 GM in SODIUM CHLORIDE 0.9% 100 ML IVPB SCH ×2 (09:20→20:55)
[2019-11-17] MEDS: GABAPENTIN 300 MG CAP PO SCH ×2 (09:21→20:55)
[2019-11-17] MEDS: PANTOPRAZOLE 40 MG/10 ML VIAL IVP SCH (09:21)
[2019-11-17] MEDS: metroNIDAZOLE 500 MG TAB PO SCH ×3 (09:21→20:55)
[2019-11-17] MEDS: ASPIRIN 325 MG TAB PO SCH (09:22)
[2019-11-17] MEDS: LINAGLIPTIN 5 MG TABLET PO SCH (09:22)
[2019-11-17] MEDS: INSULIN DETEMIR (LEVEMIR) 100 UNIT/ML SYR SQ SCH (09:22)
[2019-11-17] MEDS: METFORMIN HCL PO SCH (09:23)
[2019-11-17] MEDS: EMPAGLIFLOZIN PO SCH (09:23)
[2019-11-17 11:05] VITALS: BMI 25.2
[2019-11-17 12:07] LABS: Glucose,Whole Blood 321 mg/dL (75-99)
--- NOTE | 2019-11-17 12:15 | P.PN ---
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 Patient states within 2 hours of returning home began having worsening shortness of breath and eventually returned to the ER. Afebrile, WBC up to 19.5. Hemoglobin 8.8, INR 1.2. Sodium 136, BUN 20, creatinine 0.63. Blood sugars ranging from 130s to 200s. T bili 2.1, AST 214, ALT 254, alk phos 210. Troponin elevated 0.199, decreased from prior. Albumin 3.4. BNP 6720 significantly increased from prior admission of 2840. Received Lasix IV push in the ER as well as antibiotics of cefepime. 11/17/2019 diuresing well on Lasix IV push with 24-hour I&O reflecting a negative fluid balance. BUN 29, creatinine 0.79. Significant improvement and breathing, able to lie flat while sleeping. Maintaining O2 sats in the high 90s on 2 L nasal cannula, in a patient who does not wear O2 at home. T bili and LFTs improving. Cardiology consult in place, recommendations pending. Maintained on IV antibiotics with WBC trending down to 17.8, afebrile Objective - Vital Signs Vital signs: Vital Signs Temp 97.5 F L 11/16/19 20:00 Pulse 92 11/17/19 07:20 Resp 18 11/17/19 04:00 BP 110/56 11/17/19 04:00 Pulse Ox 98 11/17/19 04:00 Intake & Output 11/16/19 11/17/19 11/17/19 18:59 06:59 18:59 Intake Total 100 480 Output Total 300 500 Balance - -20 Weight 71.668 kg 71 kg Intake: Oral 100 480 Output: Urine 300 500 Other: Voiding Method Toilet Toilet # Voids 1 - Exam VITAL SIGNS: As above GENERAL: Lying flat in bed, in no acute distress HEENT: Conjunctivae normal. eyes normal. Oral mucosa moist NECK: No JVD. No thyroid enlargement. No LNs CARDIOVASCULAR: S1, S2 regular. No murmur, gallop or rub. RESPIRATION: Breath sounds diminished in the bases. No rhonchi. No crackles, fine expiratory wheezing. ABDOMEN: Soft, nontender . No guarding. no masses palpable. No ascites, No hepatosplenomegaly.Bowel sounds heard. LEGS: No edema. no swelling PSYCHIATRY: Alert and oriented X3, mood and affect normal. NERVOUS SYSTEM: Cranial N 2-12 grossly normal. Moves all 4 limbs. Diffuse weakness No focal deficits. Skin:Dressings clean dry and intact (Right dorsal foot with diabetic wound/ulcer, recently debrided, 2.2 cm length x 1.8 cm width x 0.3 cm depth with purulent drainage, exposed tendon. Left lateral foot, status post recent debridement, 2.4 cm length X 2.2 cm width X 1.6 cm depth) - Labs CBC & Chem 7: 11/17/19 05:48 11/17/19 05:48 Labs: Abnormal Lab Results - Last 24 Hours (Table) 11/16/19 11/16/19 11/16/19 Range/Units 12:41 17:08 21:14 WBC (3.8-10.6) k/uL RBC (3.80-5.40) m/uL Hgb (11.4-16.0) gm/dL Hct (34.0-46.0) % MCHC (31.0-37.0) g/dL RDW (11.5-15.5) % Plt Count (150-450) k/uL Neutrophils # (1.3-7.7) k/uL Lymphocytes # (1.0-4.8) k/uL Chloride (98-107) mmol/L BUN (7-17) mg/dL Glucose (74-99) mg/dL POC Glucose (mg/dL) 281 H 269 H 283 H (75-99) mg/dL Total Bilirubin (0.2-1.3) mg/dL AST (14-36) U/L ALT (4-34) U/L Alkaline Phosphatase (38-126) U/L Albumin (3.5-5.0) g/dL 11/17/19 11/17/19 11/17/19 Range/Units 05:48 05:48 06:07 WBC 17.8 H (3.8-10.6) k/uL RBC 3.14 L (3.80-5.40) m/uL Hgb 8.3 L (11.4-16.0) gm/dL Hct 27.9 L (34.0-46.0) % MCHC 29.7 L (31.0-37.0) g/dL RDW 17.0 H (11.5-15.5) % Plt Count 489 H (150-450) k/uL Neutrophils # 16.8 H (1.3-7.7) k/uL Lymphocytes # 0.5 L (1.0-4.8) k/uL Chloride 97 L (98-107) mmol/L BUN 29 H (7-17) mg/dL Glucose 265 H (74-99) mg/dL POC Glucose (mg/dL) 295 H (75-99) mg/dL Total Bilirubin 1.8 H (0.2-1.3) mg/dL AST 189 H (14-36) U/L ALT 274 H (4-34) U/L Alkaline Phosphatase 173 H (38-126) U/L Albumin 3.4 L (3.5-5.0) g/dL Assessment and Plan Assessment: -Acute hypoxic respiratory failure secondary to acute COPD exacerbation with acute diastolic CHF exacerbation, EF 50-55%, recently discharged less than 24 hours ago -bilateral wounds ;Left lateral foot Young III diabetic ulcer, right dorsal foot Young IV diabetic ulcer, 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 -Recently treated for sepsis secondary to the above. -Elevated T bili and LFTs, improving -Multivessel CAD history of [place], cardiac cath -Elevated troponin -Diabetes mellitus, uncontrolled hyperglycemia -Hypertension -Hyperlipidemia -Chronic asthma -Osteoarthritis -Peripheral arterial disease, status post recent stenting of the right SFA -Vertigo -Former nicotine dependence -Gait dysfunction secondary to bilateral feet wounds -Diabetic neuropathy Plan: Continue on current medication regime ,monitoring and symptomatic treatment. Maintain diuresing, steroids, nebulized bronchodilators. Repeat c hest x-ray in a.m. cardiology consult in place, recommendations pending. IV antibiotics/Wound Care as per ID. Close monitoring of renal function, LFTs, hematology with labs ordered for a.m. The impression and plan of care has been dictated as directed. : I performed a history and examination of this patient, discussed the same with the dictator. I agree with the dictator's note ,documented as a scribe. Any additional findings or plans will be noted.
--- NOTE | 2019-11-17 15:42 | P.CONS ---
History of Present Illness - Reason for Consult Consult date: 11/16/19 Left diabetic foot infection and osteomyelitis Requesting physician: Gumaro Medina Jr - Chief Complaint Shortness of breath x one day - History of Present Illness Patient is a 74-year-old female who was recently admitted to this facility with bilateral diabetic foot infection with evidence of ostial myelitis at the left foot lateral border/fifth metatarsal head culture were positive for MSSA and pseudomonas aeruginosa patient did get a PICC line and was discharged home yesterday on cefepime 2 g every 12 hours for total of 6 weeks, patient mentioned after she got home she was having problem with increasing shortness of breath that progressed to get worse over the night she would breathe case of breath patient did have some chest discomfort more of a aching pain no significant radiation, no cough or sputum production, on arrival to the ER the patient was afebrile she did have elevated white count of 19,000 patient did have a chest x-ray which was finding most likely CHF with new small right pleural effusion, patient did have elevated liver enzymes and did have elevated anti-proBNP of 6720 and elevated troponin patient has been admitted hospital for acute congestive heart failure, patient has been continued on cefepime 2 g every 12 hours infectious disease was consulted for further management of antibiotic therapy. Patient currently denies having any pain to the right or the left foot wound area wounds are currently drying out and no foul-smelling drainage Review of Systems Positive point has been mentioned in the HPI rest of the systems are negative Past Medical History Past Medical History: Asthma, Diabetes Mellitus, Hypertension, Myocardial Infarction ([place]), Osteoarthritis (OA), Vascular Disorder Additional Past Medical History / Comment(s): Asthma years ago, neuropathy bilateral feet, pt states she has been having intermittent edema bilateral ankles and feet past 6 months, hx vertigo at times-none currently, constipation. varicose veins left leg, ulcer rt foot-on antibiotics currently Last Myocardial Infarction Date:: 01/2019 History of Any Multi-Drug Resistant Organisms: None Reported Past Surgical History: Breast Surgery, Heart Catheterization Additional Past Surgical History / Comment(s): L breast biopsy x2, EGD, colonoscopy, angiogram. stent to right leg Past Anesthesia/Blood Transfusion Reactions: No Reported Reaction Past Psychological History: No Psychological Hx Reported Smoking Status: Former smoker Past Alcohol Use History: None Reported Past Drug Use History: None Reported - Past Family History Father Additional Family Medical History / Comment(s): Father was bipolar. He had his first ME at the age of 63 yrs and from his 2nd ME at the age of 66yrs. Mother Additional Family Medical History / Comment(s): from MRSA infection Sister(s) Family Medical History: Cancer Medications and Allergies Home Medications Medication Instructions Recorded Confirmed Type Gabapentin 600 mg PO BID 02/15/19 11/16/19 History Ibuprofen [Advil] 200 mg PO Q6HR PRN 02/15/19 11/16/19 History Atorvastatin [Lipitor] 80 mg PO HS #30 tab 02/18/19 11/16/19 Rx Furosemide [Lasix] 40 mg PO BID #60 tablet 02/18/19 11/16/19 Rx Nitroglycerin Sl Tabs [Nitrostat] 0.4 mg SUBLINGUAL Q5M PRN #100 tab 02/18/19 11/16/19 Rx Empagliflozin/Metformin HCl 1 tab PO DAILY 08/10/19 11/16/19 History [Synjardy Xr 5-1,000 mg Tablet] Linagliptin/Metformin HCl 1 tab PO DAILY 08/10/19 11/16/19 History [Jentadueto Xr 5 mg-1,000 mg Tb] Acetaminophen [Tylenol Extra 500 mg PO Q4H PRN 10/27/19 11/16/19 History Strength] Clopidogrel [Plavix] 75 mg PO HS 11/11/19 11/16/19 History Isosorbide Mononitrate ER [Imdur] 30 mg PO HS 11/11/19 11/16/19 History Metoprolol Succinate (ER) [Toprol 25 mg PO HS 11/11/19 11/16/19 History XL] Potassium Chloride ER [K-Dur 20] 20 meq PO HS 11/11/19 11/16/19 History metroNIDAZOLE [Flagyl] 500 mg PO TID #90 tab 11/15/19 11/16/19 Rx Allergies Allergy/AdvReac Type Severity Reaction Status Date / Time No Known Allergies Allergy Verified 11/16/19 09:08 Physical Exam Vitals: Vital Signs Temp Pulse Pulse Resp BP Pulse Ox 11/17/19 12:15 98.4 F 90 18 110/60 100 11/17/19 11:00 88 11/17/19 10:49 84 11/17/19 09:15 97.5 F L 82 18 119/70 98 11/17/19 07:20 92 11/17/19 07:07 88 11/17/19 04:00 84 18 110/56 98 11/17/19 00:00 96 20 121/67 100 11/16/19 21:37 96 11/16/19 21:29 94 11/16/19 20:00 97.5 F L 88 20 93/50 97 11/16/19 16:07 97 11/16/19 16:02 97 Intake and Output 11/17/19 11/17/19 11/17/19 06:59 14:59 22:59 Intake Total 120 Output Total 500 Balance -500 120 Intake: Oral 120 Output: Urine 500 Other: Voiding Method Toilet # Voids 0 # Bowel Movements 0 Weight 71 kg 71 kg GENERAL DESCRIPTION: An elderly female lying in bed, no distress. No tachypnea or accessory muscle of respiration use. HEENT: Shows Pallor , no scleral icterus. Oral mucous membrane is dry. No pharyngeal erythema or thrush NECK: Trachea central, no thyromegaly. LUNGS: Unlabored breathing. Decreased breath sound the bases. No wheeze or crackle. HEART: S1, S2, regular rate and rhythm. No loud murmur ABDOMEN: Soft, no tenderness , guarding or rigidity, no organomegaly EXTREMITIES: 3+ edema of feet. Bilateral foot and currently dressed no obvious drainage of the dressing SKIN: No rash, no masses palpable. NEUROLOGICAL: The patient is awake, alert, oriented x3, mood and affect normal. Results CBC & Chem 7: 11/17/19 05:48 11/17/19 05:48 Labs: Abnormal Lab Results - Last 24 Hours (Table) 11/16/19 11/16/19 11/17/19 Range/Units 17:08 21:14 05:48 WBC 17.8 H (3.8-10.6) k/uL RBC 3.14 L (3.80-5.40) m/uL Hgb 8.3 L (11.4-16.0) gm/dL Hct 27.9 L (34.0-46.0) % MCHC 29.7 L (31.0-37.0) g/dL RDW 17.0 H (11.5-15.5) % Plt Count 489 H (150-450) k/uL Neutrophils # 16.8 H (1.3-7.7) k/uL Lymphocytes # 0.5 L (1.0-4.8) k/uL Chloride (98-107) mmol/L BUN (7-17) mg/dL Glucose (74-99) mg/dL POC Glucose (mg/dL) 269 H 283 H (75-99) mg/dL Total Bilirubin (0.2-1.3) mg/dL AST (14-36) U/L ALT (4-34) U/L Alkaline Phosphatase (38-126) U/L Albumin (3.5-5.0) g/dL 11/17/19 11/17/19 11/17/19 Range/Units 05:48 06:07 12:05 WBC (3.8-10.6) k/uL RBC (3.80-5.40) m/uL Hgb (11.4-16.0) gm/dL Hct (34.0-46.0) % MCHC (31.0-37.0) g/dL RDW (11.5-15.5) % Plt Count (150-450) k/uL Neutrophils # (1.3-7.7) k/uL Lymphocytes # (1.0-4.8) k/uL Chloride 97 L (98-107) mmol/L BUN 29 H (7-17) mg/dL Glucose 265 H (74-99) mg/dL POC Glucose (mg/dL) 295 H 321 H (75-99) mg/dL Total Bilirubin 1.8 H (0.2-1.3) mg/dL AST 189 H (14-36) U/L ALT 274 H (4-34) U/L Alkaline Phosphatase 173 H (38-126) U/L Albumin 3.4 L (3.5-5.0) g/dL Assessment and Plan Assessment: 1- patient with recent diagnosis of left diabetic foot infection with acute osteo-myelitis culture positive for MSSA and pseudomonas aeruginosa for the patient was receiving cefepime 2 g every 12 hours, now admitted to the hospital with increasing shortness of breath more likely CHF exacerbation clinically doubt pneumonia (1) Foot osteomyelitis, left Current Visit: Yes Status: Acute Code(s): M86.9 - OSTEOMYELITIS, UNSPECIFIED SNOMED Code(s): 4720081905608914 Plan: 1- cefepime 2 g every 12 hours to continue 2- local wound care to the left foot lateral border wound with dry Aquacel silver dressing to change every 48 hour We will follow on clinical condition and cultures to further adjust medication if needed Thank you for this consultation will follow this patient with you
[2019-11-17 15:43] LABS: Hemoglobin A1C 8.3 % (4.0-6.0)
--- NOTE | 2019-11-17 15:58 | CONS ---
FRANCISCO Rey is a 74-year-old lady with history of foot ulcer, COPD, congestive heart failure, who was discharged home yesterday and came right back into hospital with symptoms of shortness of breath. She went home yesterday and then felt short of breath and brought back in. She was afebrile. White cell count was fine. Creatinine was normal and her BNP was elevated. She was given IV Lasix and also started on antibiotics with some improvement in her symptoms. PAST MEDICAL HISTORY: Significant for peripheral vascular disease, coronary artery disease for which she is on medical therapy, diabetes, hypertension, and congestive heart failure. MEDICATIONS: At home included Flagyl, K-Dur, Toprol, Imdur, Advil, Lasix, Plavix, Lipitor. ALLERGIES: No known drug allergies. FAMILY HISTORY: Negative for premature coronary artery disease. SOCIAL HISTORY: Negative for current smoking, EtOH abuse, or drug abuse. REVIEW OF SYSTEMS: HEENT: Unremarkable. CARDIAC: As described above. RESPIRATORY: As described above. GI: Negative. GENITOURINARY: Negative. ALLERGY/IMMUNOLOGY: Negative. SKIN: Negative. MUSCULOSKELETAL: Significant for arthritis. PSYCHOSOCIAL: Negative. ENDOCRINE: Negative. DERM: Negative. CONSTITUTIONAL: Negative. ONCOLOGICAL: Negative. PHYSICAL EXAM: Heart rate is 88 beats per minute. Blood pressure is 120/70, respiratory rate 18. There is no jugular venous distention. Chest exam reveals diffuse rhonchi bilaterally. Heart exam reveals first and second heart sounds. No gallop. No murmur. Abdomen is soft. Exam of the extremities did not reveal any edema. Peripheral pulses are felt. LABS: Show a hemoglobin of 8.3, platelet count is 489, potassium is 4.3, creatinine is 0.7. AST, ALT are elevated. ASSESSMENT: 1. Acute exacerbation of chronic diastolic heart failure. 2. COPD exacerbation. 3. Peripheral vascular disease. PLAN: Will treat the patient with IV Lasix and nebulizers. MMODL / IJN: [id number] /
[2019-11-17 16:55] LABS: Glucose,Whole Blood 367 mg/dL (75-99)
[2019-11-17 20:52] LABS: Glucose,Whole Blood 355 mg/dL (75-99)
[2019-11-17] MEDS: POTASSIUM CHLORIDE ER 20 MEQ TAB.ER PO SCH (20:55)
[2019-11-17] MEDS: CLOPIDOGREL 75 MG TAB PO SCH (20:55)
[2019-11-17] MEDS: ATORVASTATIN 80 MG TAB PO SCH (20:55)
[2019-11-17] MEDS: METOPROLOL SUCCINATE (ER) 25 MG TAB.ER.24H PO SCH (20:55)
[2019-11-17] MEDS: ISOSORBIDE MONONITRATE ER 30 MG TAB.ER.24H PO SCH (20:55)
--- NOTE | 2019-11-17 22:38 | PN ---
PROGRESS NOTE DATE OF SERVICE: 11/17/2019 REASON FOR FOLLOWUP: Left diabetic foot infection with acute osteomyelitis, MSSA and pseudomonas. INTERVAL HISTORY: The patient is currently afebrile. She was noted to be slightly sleepy and lethargic today, though breathing more comfortably. No vomiting or any diarrhea has been reported. at the bedside. PHYSICAL EXAMINATION: Blood pressure 120/60 with a pulse of 69, temperature 98.1. She is 100% on 2 L nasal cannula. General description is an elderly female lying in bed in no distress. RESPIRATORY SYSTEM: Unlabored breathing with decreased breath sounds at the base. No wheeze. HEART: S1, S2. Regular rate and rhythm. ABDOMEN: Soft. No tenderness. EXTREMITIES: Some trace edema of the feet. LABS: Hemoglobin 8.3, white count 17.9. BUN of 29, creatinine 0.79. DIAGNOSTIC IMPRESSION AND PLAN: Patient with diabetic foot wound with left foot osteomyelitis, acute, with underlying diabetes mellitus. Culture positive for pseudomonas and MSSA. Patient is covered cefepime 2 grams q.12; to continue. Local wound care as ordered and monitor clinical course closely. was at the bedside. His questions were answered. MMODL / IJN: [id number] / MTDD
[2019-11-18 06:15] LABS: Glucose,Whole Blood 372 mg/dL (75-99)
[2019-11-18] MEDS: methylPREDNISolone SOD SUCCI 40 MG/ML 1 ML VIAL IV SCH ×2 (06:31→12:15)
[2019-11-18] MEDS ORDERED: INSULIN DETEMIR (LEVEMIR) 100 UNIT/ML SYR SQ SCH (07:00)
--- NOTE | 2019-11-18 07:28 | XR ---
EXAMINATION TYPE: XR chest 2V DATE OF EXAM: 11/18/2019 COMPARISON: Right chest x-ray 11/16/2019 HISTORY: Difficulty breathing TECHNIQUE: Frontal and lateral views of the chest are obtained. FINDINGS: Left-sided PICC line is present with the tip coursing into the right atrium. Basilar incre ased density obscures the right hemidiaphragm and heart border as on prior. No evident pneumothorax. Interstitium is mildly increased. Heart size is likely stable. IMPRESSION: Right lower lobe atelectasis versus pneumonia and associated effusion. Suspect improveme nt in the interstitium as compared to prior exam.
[2019-11-18] MEDS: INSULIN ASPART (NovoLOG) 100 UNIT/ML VIAL SQ SCH ×5 (07:46→20:18)
[2019-11-18] MEDS: CEFEPIME 2 GM in SODIUM CHLORIDE 0.9% 100 ML IVPB SCH ×2 (07:59→20:18)
[2019-11-18] MEDS: metroNIDAZOLE 500 MG TAB PO SCH ×3 (08:00→20:18)
[2019-11-18] MEDS: LINAGLIPTIN 5 MG TABLET PO SCH (08:00)
[2019-11-18] MEDS: ASPIRIN 325 MG TAB PO SCH (08:00)
[2019-11-18] MEDS: PANTOPRAZOLE 40 MG TABLET PO SCH (08:00)
[2019-11-18] MEDS: GABAPENTIN 300 MG CAP PO SCH ×2 (08:00→20:18)
[2019-11-18] MEDS: metFORMIN 500 MG TAB PO SCH ×2 (08:00→17:53)
[2019-11-18] MEDS: FUROSEMIDE 10 MG/ML 4 ML VIAL IV SCH (08:01)
[2019-11-18] MEDS: IPRATROPIUM-ALBUTEROL 3 ML NEB INHALATION SCH ×4 (09:00→20:30)
[2019-11-18 12:09] LABS: Glucose,Whole Blood 366 mg/dL (75-99)
[2019-11-18] MEDS: METFORMIN HCL PO SCH (12:13)
[2019-11-18] MEDS: EMPAGLIFLOZIN PO SCH (12:13)
[2019-11-18] MEDS ORDERED: INSULIN DETEMIR (LEVEMIR) 100 UNIT/ML SYR SQ ONE (14:45)
[2019-11-18 15:24] LABS: Glucose,Whole Blood 331 mg/dL (75-99)
[2019-11-18] MEDS: FUROSEMIDE 40 MG TAB PO SCH (15:27)
--- NOTE | 2019-11-18 15:47 | PN ---
PROGRESS NOTE FOLLOW-UP NOTE: Krissy is a 74-year-old lady who is admitted to hospital with acute exacerbation of chronic congestive heart failure. She also has COPD. She is feeling better today. On exam, heart rate is 66 beats per minute. Blood pressure is 98/55, respiratory rate is 18. Chest exam reveals good air entry bilaterally. Heart exam reveals first and second heart sounds. No gallop. Examination of extremities did not reveal any edema. Peripheral pulses are felt. Patient is currently on DuoNeb, aspirin, Lipitor, Plavix, Lasix, insulin, Imdur, Toprol, Protonix and K-Dur. ASSESSMENT: 1. Acute exacerbation of chronic diastolic heart failure. 2. Peripheral vascular disease. 3. Chronic obstructive pulmonary disease exacerbation. PLAN: I will switch the Lasix to p.o. Check her pulse ox in room air. If she is able to tolerate it, stop the nasal O2. MMODL / IJN: [id number] /
[2019-11-18 16:52] LABS: Glucose,Whole Blood 345 mg/dL (75-99)
--- NOTE | 2019-11-18 17:18 | PN ---
PROGRESS NOTE DATE OF SERVICE: 11/18/2019 REASON FOR FOLLOWUP: Right diabetic foot wound with underlying osteomyelitis, MSSA and pseudomonas. INTERVAL HISTORY: The patient is currently afebrile. The patient is breathing comfortably. The patient is currently off oxygen. Denies having any chest pain. Occasional cough. No nausea, vomiting, abdominal pain or any worsening pain in the right foot. PHYSICAL EXAMINATION: Blood pressure 98/54 with a pulse of 64, temperature 97.7. She is 94% on room air. General description is an elderly female lying in bed in no distress. RESPIRATORY SYSTEM: Unlabored breathing with decreased breath sounds at the base. No wheeze. HEART: S1, S2. Regular rate and rhythm. ABDOMEN: Soft. No tenderness. LABS: No new labs have been obtained today. Chest x-ray with right lower lobe atelectasis versus effusion. DIAGNOSTIC IMPRESSION AND PLAN: Patient admitted to hospital with difficulty breathing. Source is likely acute CHF exacerbation, and this patient clinically responded to diuretic therapy. The patient does have a right diabetic foot wound with underlying osteomyelitis, which will be covered with cefepime. Continue with supportive care. MMODL / IJN: [id number] /
[2019-11-18 20:16] LABS: Glucose,Whole Blood 350 mg/dL (75-99)
[2019-11-18] MEDS: METOPROLOL SUCCINATE (ER) 25 MG TAB.ER.24H PO SCH (20:17)
[2019-11-18] MEDS: ISOSORBIDE MONONITRATE ER 30 MG TAB.ER.24H PO SCH (20:18)
[2019-11-18] MEDS: CLOPIDOGREL 75 MG TAB PO SCH (20:18)
[2019-11-18] MEDS: POTASSIUM CHLORIDE ER 20 MEQ TAB.ER PO SCH (20:18)
[2019-11-18] MEDS: ATORVASTATIN 80 MG TAB PO SCH (20:18)
[2019-11-19 04:04] LABS: Hepatitis B Core IgM Non-Reactive (Non-Reactive); Hepatitis B Surface Antigen Non-Reactive (Non-Reactive); Hepatitis C IgG Antibody Non-Reactive (Non-Reactive)
[2019-11-19] MEDS: metFORMIN 500 MG TAB PO SCH (06:46)
[2019-11-19] MEDS: PANTOPRAZOLE 40 MG TABLET PO SCH (06:46)
[2019-11-19] MEDS ORDERED: INSULIN DETEMIR (LEVEMIR) 100 UNIT/ML SYR SQ SCH (07:00)
[2019-11-19 07:08] LABS: Glucose,Whole Blood 302 mg/dL (75-99)
[2019-11-19] MEDS: INSULIN ASPART (NovoLOG) 100 UNIT/ML VIAL SQ SCH ×7 (07:42→21:39)
[2019-11-19] MEDS: METFORMIN HCL PO SCH (07:58)
[2019-11-19] MEDS: EMPAGLIFLOZIN PO SCH (07:58)
[2019-11-19] MEDS: GABAPENTIN 300 MG CAP PO SCH ×2 (08:00→21:38)
[2019-11-19] MEDS: FUROSEMIDE 40 MG TAB PO SCH ×2 (08:00→15:10)
[2019-11-19] MEDS: ASPIRIN 325 MG TAB PO SCH (08:00)
[2019-11-19] MEDS: LINAGLIPTIN 5 MG TABLET PO SCH (08:00)
[2019-11-19] MEDS: CEFEPIME 2 GM in SODIUM CHLORIDE 0.9% 100 ML IVPB SCH ×2 (08:00→21:37)
[2019-11-19] MEDS: metroNIDAZOLE 500 MG TAB PO SCH ×4 (08:00→21:55)
[2019-11-19 08:08] LABS: Anisocytosis Slight; Basophils % (A) 0 %; Eosinophils % (A) 0 %; HCT 27.5 % (34.0-46.0); Hypochromasia Marked; Lymphocytes % (A) 4 %; MCV 89.8 fL (80.0-100.0); Mean Platelet Volume 7.6; Monocytes # (A) 1.3 k/uL (0-1.0); Monocytes % (A) 5 %; Neutrophils # (A) 22.1 k/uL (1.3-7.7); Neutrophils % (A) 90 %; Platelet Count 451 k/uL (150-450); Poikilocytosis Slight; RBC 3.06 m/uL (3.80-5.40); RDW 17.6 % (11.5-15.5); WBC 24.6 k/uL (3.8-10.6)
[2019-11-19] MEDS: IPRATROPIUM-ALBUTEROL 3 ML NEB INHALATION SCH ×4 (08:22→20:21)
[2019-11-19 08:33] LABS: Albumin 3.3 g/dL (3.5-5.0); Calcium 9.1 mg/dL (8.4-10.2); Potassium 5.2 mmol/L (3.5-5.1); Total Bilirubin 1.4 mg/dL (0.2-1.3); Total Protein 6.5 g/dL (6.3-8.2)
[2019-11-19] MEDS ORDERED: predniSONE 20 MG TAB PO SCH (09:00)
[2019-11-19 12:38] LABS: Glucose,Whole Blood 336 mg/dL (75-99)
--- NOTE | 2019-11-19 14:32 | PN ---
PROGRESS NOTE Swetha is a 74-year-old lady who is admitted to hospital with acute exacerbation of chronic congestive heart failure. She is on oral Lasix doing well, hopefully home tomorrow. Currently on Lasix 40 b.i.d., Toprol-XL 25 q. daily, K-Dur, Lipitor. On exam, comfortable at rest. Heart rate is 70 beats per minute. Blood pressure is 114/60, respiratory rate is 18, O2 saturation is 96%. Chest exam reveals good air entry bilaterally. Heart exam reveals first and second heart sounds. No gallop. Exam of extremities reveals mild edema. LABS: Show a hemoglobin of 8, potassium is 5.2, creatinine is 2.12. ASSESSMENT: 1. Acute exacerbation of chronic congestive heart failure. 2. Hyperkalemia. PLAN: I am going to stop the K-Dur that she is on. Hopefully home tomorrow. MMTUANL / DONAN: [id number] /
[2019-11-19 17:14] LABS: Glucose,Whole Blood 442 mg/dL (75-99)
--- NOTE | 2019-11-19 17:26 | P.PN ---
Subjective Progress Note Date: 11/19/19 Principal diagnosis: Worsening shortness of breath This is a pleasant 74-year-old female discharged yesterday, initially admitted for sepsis secondary to-bilateral wounds ;Left lateral foot Young III diabetic ulcer, right dorsal foot Young IV diabetic ulcer, osteomyelitis secondary to pseudomonas aeruginosa,MSSA , acute respiratory failure, CHF, acute COPD exacerbation, discharged on IV antibiotics. Patient states within 2 hours of returning home began having worsening shortness of breath and eventually returned to the ER. Afebrile, WBC up to 19.5. Hemoglobin 8.8, INR 1.2. Sodium 136, BUN 20, creatinine 0.63. Blood sugars ranging from 130s to 200s. T bili 2.1, AST 214, ALT 254, alk phos 210. Troponin elevated 0.199, decreased from prior. Albumin 3.4. BNP 6720 significantly increased from prior admission of 2840. Received Lasix IV push in the ER as well as antibiotics of cefepime. Patient currently sitting up in bed at this time with at the bedside. Has no complaints or denies chest pain pressure, dyspnea, shortness of breath, nausea vomiting, abdominal pain, or pain in general. She has bilateral wounds to both feet that are currently under dressing. Current vital signs she is afebrile 97.4 oral pulse rate is 73, Restoril rate of 18, blood pressure 98/47, pulse ox is 97% on room air. Most recent of labs were completed this morning at 0 7:30 white blood cell count of 24.6, hemoglobin of 8.0, hematocrit 27.5, platelet support 51. Today's chemistry reveals sodium of 1:30, potassium level V.2, BUN is 61, creatinine of 2.16. Both BUN and creatinine are elevated from previous studies with the last p.m. between 29 and creatinine being 0.79. Glucose is 278 on lab work and njetd-ur-faiy is 336. Total bili is down to 1.4 with liver enzymes improving from previous draws AST today is 82 ALT is 188 alk phos is more elevated to 1. She is also noted to be negative for cold bed and hep B and hep C is negative as well. Last chest x-ray was completed yesterday which its impression was right lower lobe atelectasis versus pneumonia and associated effusion suspected improvement in the interstitium as compared to prior exam. Objective - Vital Signs Vital signs: Vital Signs Temp 97.4 F L 11/19/19 15:08 Pulse 72 11/19/19 16:27 Resp 18 11/19/19 15:08 BP 98/47 11/19/19 15:08 Pulse Ox 97 11/19/19 15:08 Intake & Output 11/18/19 11/19/19 11/19/19 18:59 06:59 18:59 Intake Total 240 480 Balance 240 480 Weight 73.5 kg Intake: Oral 240 480 Other: Voiding Method Toilet Toilet Toilet # Voids 1 1 - Exam GENERAL: Well-appearing, well-nourished and in no acute distress. HEAD: Atraumatic, normocephalic. EYES: Pupils equal round and reactive to light, extraocular movements intact, sclera anicteric, conjunctiva are normal. ENT:nares patent, oropharynx clear without exudates. Moist mucous membranes. NECK: Normal range of motion, supple without lymphadenopathy or JVD, no th yromegaly LUNGS: Breath sounds on the left are noticed to be diminished throughout, on the right noted to have expiratory wheezes. This is exam is noted to be right after breathing treatment. HEART: Regular rate and rhythm without murmurs, rubs or gallops.S1S2 Normal ABDOMEN: Soft, nontender, normoactive bowel sounds. No guarding, no rebound. No masses appreciated. EXTREMITIES: Normal range of motion, no pitting or edema. No clubbing or cyanosis. NEUROLOGICAL: Cranial nerves II through XII grossly intact. Normal speech, normal gait. PSYCH: Normal mood, normal affect. SKIN: Warm, Dry, normal turgor, no rashes. Bilateral feet dressing are clean dry and intact (left lateral foot, status post recent debridement, 2.4; length by 2.2 cm with by 1.6 cm depth. Right dorsal foot is noted to have diabetic wound ulcer which was recently debrided its measurements were 2.2 cm in length by 1.8 cm in width by 0.3 cm stent with purulent drainage and exposed tendon at that time. Current dressing now is Aquasol silver wrapped in gauze. - Labs CBC & Chem 7: 11/19/19 07:30 11/19/19 07:30 Labs: Abnormal Lab Results - Last 24 Hours (Table) 11/18/19 11/19/19 11/19/19 Range/Units 20:14 07:07 07:30 WBC 24.6 H (3.8-10.6) k/uL RBC 3.06 L (3.80-5.40) m/uL Hgb 8.0 L (11.4-16.0) gm/dL Hct 27.5 L (34.0-46.0) % MCHC 29.0 L (31.0-37.0) g/dL RDW 17.6 H (11.5-15.5) % Plt Count 451 H (150-450) k/uL Neutrophils # 22.1 H (1.3-7.7) k/uL Monocytes # 1.3 H (0-1.0) k/uL Sodium (137-145) mmol/L Potassium (3.5-5.1) mmol/L Chloride (98-107) mmol/L Carbon Dioxide (22-30) mmol/L BUN (7-17) mg/dL Creatinine (0.52-1.04) mg/dL Glucose (74-99) mg/dL POC Glucose (mg/dL) 350 H 302 H (75-99) mg/dL Total Bilirubin (0.2-1.3) mg/dL AST (14-36) U/L ALT (4-34) U/L Alkaline Phosphatase (38-126) U/L Albumin (3.5-5.0) g/dL 11/19/19 11/19/19 Range/Units 07:30 12:33 WBC (3.8-10.6) k/uL RBC (3.80-5.40) m/uL Hgb (11.4-16.0) gm/dL Hct (34.0-46.0) % MCHC (31.0-37.0) g/dL RDW (11.5-15.5) % Plt Count (150-450) k/uL Neutrophils # (1.3-7.7) k/uL Monocytes # (0-1.0) k/uL Sodium 130 L (137-145) mmol/L Potassium 5.2 H (3.5-5.1) mmol/L Chloride 94 L (98-107) mmol/L Carbon Dioxide 20 L (22-30) mmol/L BUN 61 H (7-17) mg/dL Creatinine 2.16 H (0.52-1.04) mg/dL Glucose 278 H (74-99) mg/dL POC Glucose (mg/dL) 336 H (75-99) mg/dL Total Bilirubin 1.4 H (0.2-1.3) mg/dL AST 82 H (14-36) U/L ALT 188 H (4-34) U/L Alkaline Phosphatase 201 H (38-126) U/L Albumin 3.3 L (3.5-5.0) g/dL Assessment and Plan (1) Acute exacerbation of CHF (congestive heart failure) Current Visit: Yes Status: Acute Code(s): I50.9 - HEART FAILURE, UNSPECIFIED SNOMED Code(s): 038501181 (2) Foot osteomyelitis, left Current Visit: Yes Status: Acute Code(s): M86.9 - OSTEOMYELITIS, UNSPECIFIED SNOMED Code(s): 2313339209197951 (3) Foot osteomyelitis, left Current Visit: Yes Status: Acute Code(s): M86.9 - OSTEOMYELITIS, UNSPECIFIED SNOMED Code(s): 2776843517968967 (4) Transaminitis Current Visit: Yes Status: Acute Code(s): R74.0 - NONSPEC ELEV OF LEVELS OF TRANSAMNS & LACTIC ACID DEHYDRGNSE SNOMED Code(s): 323277195 (5) Type 2 diabetes mellitus with hyperglycemia Current Visit: Yes Status: Acute Code(s): E11.65 - TYPE 2 DIABETES MELLITUS WITH HYPERGLYCEMIA SNOMED Code(s): 496179285116151 (6) Acute pulmonary edema Current Visit: No Status: Acute Code(s): J81.0 - ACUTE PULMONARY EDEMA SNOMED Code(s): 60839577 (7) Asthma Current Visit: No Status: Acute Code(s): J45.909 - UNSPECIFIED ASTHMA, UNCOMPLICATED SNOMED Code(s): 653399899 (8) COPD (chronic obstructive pulmonary disease) Current Visit: No Status: Acute Code(s): J44.9 - CHRONIC OBSTRUCTIVE PULMONARY DISEASE, UNSPECIFIED SNOMED Code(s): 98507454 (9) Diabetic neuropathy Current Visit: No Status: Acute Code(s): E11.40 - TYPE 2 DIABETES MELLITUS WITH DIABETIC NEUROPATHY, UNSP SNOMED Code(s): 615356618 (10) Elevated troponin Current Visit: No Status: Acute Code(s): R79.89 - OTHER SPECIFIED ABNORMAL FINDINGS OF BLOOD CHEMISTRY SNOMED Code(s): 785820073 (11) Essential (primary) hypertension Current Visit: No Status: Acute Code(s): I10 - ESSENTIAL (PRIMARY) HYPERTENSION SNOMED Code(s): 64170957 (12) Gait abnormality Current Visit: No Status: Acute Code(s): R26.9 - UNSPECIFIED ABNORMALITIES OF GAIT AND MOBILITY SNOMED Code(s): 09650892 (13) Infected decubitus ulcer Current Visit: No Status: Acute Code(s): L89.90 - PRESSURE ULCER OF UNSPECIFIED SITE, UNSPECIFIED STAGE; L08.9 - LOCAL INFECTION OF THE SKIN AND SUBCUTANEOUS TISSUE, UNSP SNOMED Code(s): 508799996 (14) Sepsis Current Visit: No Status: Acute Code(s): A41.9 - SEPSIS, UNSPECIFIED ORGANISM SNOMED Code(s): 54953229 (15) Unsteady gait Current Visit: No Status: Acute Code(s): R26.81 - UNSTEADINESS ON FEET SNOMED Code(s): 19048131 (16) Wound of right foot Current Visit: No Status: Acute Code(s): S91.301A - UNSPECIFIED OPEN WOUND, RIGHT FOOT, INITIAL ENCOUNTER SNOMED Code(s): 613959881 Plan: 1. Continue on cefepime every 12 hours for antibody treatment. 2. Continue with Flagyl 500 mg by mouth 3 times a day scheduled 3. Continue on oral steroids. 4. Continue wound care 5. Follow with cardiology and infectious disease recommendation of patient care. 6. We'll reorder labs for in the morning. 7. We'll continue diuresis with Lasix 40 mg by mouth twice a day 8. We will monitor lab results vital signs and treat accordingly. 9. We'll continue to follow closely and reassess again tomorrow. Time with Patient: Greater than 30
--- NOTE | 2019-11-19 17:57 | CT ---
EXAMINATION TYPE: CODE STROKE: CT brain wo contr DATE OF EXAM: 11/19/2019 COMPARISON: INDICATION: difficulty speaking, vision changes DLP: 1099.4 mGycm, Automated exposure control for dose reduction was used. CONTRAST: None CT of the brain is performed utilizing 3 mm thick sections through the posterior fossa and 3 mm thick sections through the remaining calvarium. Study is performed within 24 hours of arrival to the hosp ital. No abnormal hyperdensity is present to suggest an acute intracranial hemorrhage. No mass lesion is evident. No acute infarcts are evident. There may be a tiny old lacunar infarct within the posterior right bas al ganglion. Ventricles and sulci are appropriate for the patient age. Paranasal sinuses and mastoid air cells within the [id number] are clear. IMPRESSIONS: 1. No acute intracranial process.
[2019-11-19 18:17] LABS: Anisocytosis Slight; Basophils # (A) 0.1 k/uL (0-0.2); Basophils % (A) 1 %; Eosinophils # (A) 0.1 k/uL (0-0.7); Eosinophils % (A) 1 %; HCT 27.2 % (34.0-46.0); HGB 7.9 gm/dL (11.4-16.0); Hypochromasia Marked; Lymphocytes # (A) 0.7 k/uL (1.0-4.8); Lymphocytes % (A) 4 %; MCH 26.3 pg (25.0-35.0); MCV 90.7 fL (80.0-100.0); Mean Platelet Volume 7.7; Monocytes % (A) 5 %; Neutrophils # (A) 17.5 k/uL (1.3-7.7); Neutrophils % (A) 90 %; Platelet Count 428 k/uL (150-450); Poikilocytosis Slight; RDW 17.7 % (11.5-15.5); WBC 19.4 k/uL (3.8-10.6)
[2019-11-19 19:16] LABS: INR 1.5 (<1.2); Prothrombin Time 14.7 sec (9.0-12.0)
[2019-11-19 19:27] LABS: Albumin 3.2 g/dL (3.5-5.0); Calcium 8.9 mg/dL (8.4-10.2); Potassium 5.1 mmol/L (3.5-5.1); Total Bilirubin 1.3 mg/dL (0.2-1.3); Total Protein 6.3 g/dL (6.3-8.2)
[2019-11-19 19:36] LABS: Creatine Kinase MB 3.7 ng/mL (0.0-2.4)
[2019-11-19 21:19] LABS: Glucose,Whole Blood 374 mg/dL (75-99)
[2019-11-19] MEDS: ATORVASTATIN 80 MG TAB PO SCH (21:36)
[2019-11-19] MEDS: CLOPIDOGREL 75 MG TAB PO SCH (21:37)
[2019-11-19] MEDS: METOPROLOL SUCCINATE (ER) 25 MG TAB.ER.24H PO SCH (21:38)
[2019-11-19] MEDS: ISOSORBIDE MONONITRATE ER 30 MG TAB.ER.24H PO SCH (21:38)
[2019-11-19] MEDS: POTASSIUM CHLORIDE ER 20 MEQ TAB.ER PO SCH (21:39)
[2019-11-19 23:12] VITALS: BP 109/56; PULSE 87; RESP 17; TEMP 98.3
--- NOTE | 2019-11-19 23:24 | PN ---
PROGRESS NOTE DATE OF SERVICE: 11/19/2019 REASON FOR FOLLOWUP: Left fifth toe diabetic foot infection with underlying osteomyelitis. INTERVAL HISTORY: The patient is currently afebrile. The patient is breathing comfortably on room air. The patient denies having any chest pain or shortness of breath. Very minimal cough. No nausea or vomiting. No abdominal pain or diarrhea. PHYSICAL EXAMINATION: Blood pressure 98/47, pulse of 73, temperature 97.4. She is 97% on room air. General description is an elderly female up in the chair in no distress. RESPIRATORY SYSTEM: Unlabored breathing with decreased breath sounds at the base. No wheeze. HEART: S1, S2. Regular rate and rhythm. ABDOMEN: Soft. No tenderness. The right foot wound is currently dressed up. No obvious drainage on the dressing. LABS: Hemoglobin 6.9, white count 19.4, BUN of 64, creatinine is 2.20. DIAGNOSTIC IMPRESSION AND PLAN: Patient with right fifth toe base diabetic foot infection with underlying osteomyelitis. Cultures were positive for MSSA and pseudomonas. Patient is currently covered with cefepime; to continue. We will monitor clinical course closely. Continue with supportive care. MMODL / IJN: [id number] /
--- NOTE | 2019-11-22 13:08 | P.PN ---
Subjective Progress Note Date: 11/19/19 This is a pleasant 74-year-old female discharged yesterday, initially admitted for sepsis secondary to-bilateral wounds ;Left lateral foot Young III diabetic ulcer, right dorsal foot Young IV diabetic ulcer, osteomyelitis secondary to pseudomonas aeruginosa,MSSA , acute respiratory failure, CHF, acute COPD exacerbation, discharged on IV antibiotics. Patient states within 2 hours of returning home began having worsening shortness of breath and eventually returned to the ER. Afebrile, WBC up to 19.5. Hemoglobin 8.8, INR 1.2. Sodium 136, BUN 20, creatinine 0.63. Blood sugars ranging from 130s to 200s. T bili 2.1, AST 214, ALT 254, alk phos 210. Troponin elevated 0.199, decreased from prior. Albumin 3.4. BNP 6720 significantly increased from prior admission of 2840. Received Lasix IV push in the ER as well as antibiotics of cefepime. 11/17/2019 diuresing well on Lasix IV push with 24-hour I&O reflecting a negative fluid balance. BUN 29, creatinine 0.79. Significant improvement and breathing, able to lie flat while sleeping. Maintaining O2 sats in the high 90s on 2 L nasal cannula, in a patient who does not wear O2 at home. T bili and LFTs improving. Cardiology consult in place, recommendations pending. Maintained on IV antibiotics with WBC trending down to 17.8, afebrile 11/18/19 afebrile, maintained on IV antibiotics of cefepime as per WBC. Denies any chest pain, palpitations or increasing shortness of breath. Hyperglycemic. Currently on oral Lasix. Oxygen weaned off, maintaining O2 sats in the 90s. Chest x-ray reporting right lower lobe atelectasis versus pneumonia and associated effusion with suspected improvement in the interstitium .Telemetry sinus rhythm, occasional PVC. Objective - Vital Signs Vital signs: Vital Signs Temp 97.6 F 11/18/19 11:57 Pulse 60 11/18/19 12:00 Resp 18 11/18/19 11:57 BP 109/52 11/18/19 11:57 Pulse Ox 99 11/18/19 11:57 Intake & Output 11/17/19 11/18/19 11/18/19 18:59 06:59 18:59 Intake Total 410 240 Output Total 400 Balance 410 -400 240 Weight 71 kg 72 kg Intake: Oral 410 240 Output: Urine 400 Other: Voiding Method Toilet Toilet # Voids 1 0 1 # Bowel Movements 0 - Exam VITAL SIGNS: As above GENERAL: Lying flat in bed, in no acute distress HEENT: Conjunctivae normal. eyes normal. Oral mucosa moist NECK: No JVD. No thyroid enlargement. No LNs CARDIOVASCULAR: S1, S2 regular. No murmur, gallop or rub. RESPIRATION: Breath sounds diminished in the bases. Scattered rhonchi. No crackles, fine expiratory wheezing. ABDOMEN: Soft, nontender . No guarding. no masses palpable. No ascites, No hepatosplenomegaly.Bowel sounds heard. LEGS: No edema. no swelling PSYCHIATRY: Alert and oriented X3, mood and affect normal. NERVOUS SYSTEM: Cranial N 2-12 grossly normal. Moves all 4 limbs. Diffuse weakness No focal deficits. Skin: Right Dressing clean dry and intact (Right dorsal foot with diabetic wound/ulcer, recently debrided, 2.2 cm length x 1.8 cm width x 0.3 cm depth with purulent drainage, exposed tendon. Left lateral foot, status post recent debridement, 2.4 cm length X 2.2 cm width X 1.6 cm depth) - Labs CBC & Chem 7: 11/19/19 18:10 11/19/19 18:10 Labs: Abnormal Lab Results - Last 24 Hours (Table) 11/17/19 11/17/19 11/17/19 Range/Units 05:48 16:53 20:50 POC Glucose (mg/dL) 367 H 355 H (75-99) mg/dL Hemoglobin A1c 8.3 H (4.0-6.0) % 11/18/19 11/18/19 Range/Units 06:10 11:54 POC Glucose (mg/dL) 372 H 366 H (75-99) mg/dL Hemoglobin A1c (4.0-6.0) % Assessment and Plan Assessment: -Acute hypoxic respiratory failure secondary to acute COPD exacerbation with acute diastolic CHF exacerbation, EF 50-55%, recently discharged less than 24 hours ago -bilateral wounds ;Left lateral foot Young III diabetic ulcer, right dorsal foot Young IV diabetic ulcer, 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 -Recently treated for sepsis secondary to the above. -Elevated T bili and LFTs, improving -Multivessel CAD history of PA, cardiac cath -Elevated troponin -Diabetes mellitus, uncontrolled hyperglycemia -Hypertension -Hyperlipidemia -Chronic asthma -Osteoarthritis -Peripheral arterial disease, status post recent stenting of the right SFA -Vertigo -Former nicotine dependence -Gait dysfunction secondary to bilateral feet wounds -Diabetic neuropathy Plan: Continue on current medication regime ,monitoring and symptomatic treatment. Maintain cefepime, steroids, nebulized bronchodilators, diuretics- oral. Continue IV antibiotics/Wound Care as per ID. Close monitoring of renal function, LFTs, hematology with labs ordered for a.m. The impression and plan of care has been dictated as directed. : I performed a history and examination of this patient, discussed the same with the dictator. I agree with the dictator's note ,documented as a scribe. Any additional findings or plans will be noted.
--- NOTE | 2019-12-13 08:02 | P.DS ---
Providers Date of admission: 11/16/19 09:31 Expected date of discharge: 12/13/19 Attending physician: Wilfredo Boland Consults: 11/16/19 14:35 Consult Physician Routine Consulting Provider: Antoinette Fan Consult Reason/Comments: wounds/osteo Do you want consulting provider notified?: Yes Consult Physician Routine Consulting Provider: Conner Neil Consult Reason/Comments: chf Do you want consulting provider notified?: Yes Primary care physician: Wilfredo Boland Assessment: possible cva no neurilogocal services pt transfered to [facility] Patient Condition at Discharge: Fair Plan - Discharge Summary Discharge Rx Participant: No New Discharge Prescriptions: No Action Ibuprofen [Advil] 200 mg PO Q6HR PRN PRN Reason: Pain Gabapentin 600 mg PO BID Atorvastatin [Lipitor] 80 mg PO HS #30 tab Nitroglycerin Sl Tabs [Nitrostat] 0.4 mg SUBLINGUAL Q5M PRN #100 tab PRN Reason: Chest Pain Furosemide [Lasix] 40 mg PO BID #60 tablet Linagliptin/Metformin HCl [Jentadueto Xr 5 mg-1,000 mg Tb] 1 tab PO DAILY Empagliflozin/Metformin HCl [Synjardy Xr 5-1,000 mg Tablet] 1 tab PO DAILY Acetaminophen [Tylenol Extra Strength] 500 mg PO Q4H PRN PRN Reason: Pain Clopidogrel [Plavix] 75 mg PO HS Isosorbide Mononitrate ER [Imdur] 30 mg PO HS Metoprolol Succinate (ER) [Toprol XL] 25 mg PO HS Potassium Chloride ER [K-Dur 20] 20 meq PO HS metroNIDAZOLE [Flagyl] 500 mg PO TID #90 tab Discharge Medication List Gabapentin 600 mg PO BID 02/15/19 [History] Ibuprofen [Advil] 200 mg PO Q6HR PRN 02/15/19 [History] Atorvastatin [Lipitor] 80 mg PO HS #30 tab 02/18/19 [Rx] Furosemide [Lasix] 40 mg PO BID #60 tablet 02/18/19 [Rx] Nitroglycerin Sl Tabs [Nitrostat] 0.4 mg SUBLINGUAL Q5M PRN #100 tab 02/18/19 [Rx] Empagliflozin/Metformin HCl [Synjardy Xr 5-1,000 mg Tablet] 1 tab PO DAILY 08/10/19 [History] Linagliptin/Metformin HCl [Jentadueto Xr 5 mg-1,000 mg Tb] 1 tab PO DAILY 08/10/19 [History] Acetaminophen [Tylenol Extra Strength] 500 mg PO Q4H PRN 10/27/19 [History] Clopidogrel [Plavix] 75 mg PO HS 11/11/19 [History] Isosorbide Mononitrate ER [Imdur] 30 mg PO HS 11/11/19 [History] Metoprolol Succinate (ER) [Toprol XL] 25 mg PO HS 11/11/19 [History] Potassium Chloride ER [K-Dur 20] 20 meq PO HS 11/11/19 [History] metroNIDAZOLE [Flagyl] 500 mg PO TID #90 tab 11/15/19 [Rx] Follow up Appointment(s)/Referral(s): [facility], [NON-STAFF] - [facility], [REFERRING] - Wilfredo Boland MD [Primary Care Provider] - 1-2 days Activity/Diet/Wound Care/Special Instructions: Make sure you use your current IV antibiotics you have only through 11/25/19 and then use the next shipment. Any of the first shipment left over by the , please throw them away and use the new shipment. Discharge Disposition: DC/TRNS INTERMEDIATE CARE FAC
== END 2019-11-19 23:00 | disposition short-term general hospital (02) | DRG 291 ==
LOC: EC 06:53 → 3SCARD 09:31
PROVIDERS: ADMIT Family Medicine; ATTEND Family Medicine
DX: I11.0 Hypertensive heart disease with heart failure (principal); A41.01 Sepsis due to Methicillin susceptible Staphylococcus aureus; A41.52 Sepsis due to Pseudomonas; J96.00 Acute respiratory failure, unspecified whether with hypoxia or hypercapnia; J44.1 Chronic obstructive pulmonary disease with (acute) exacerbation; M86.172 Other acute osteomyelitis, left ankle and foot; I83.215 Varicose veins of right lower extremity with both ulcer other part of foot and inflammation; I83.225 Varicose veins of left lower extremity with both ulcer other part of foot and inflammation; J98.11 Atelectasis; I50.33 Acute on chronic diastolic (congestive) heart failure; E11.65 Type 2 diabetes mellitus with hyperglycemia; E11.69 Type 2 diabetes mellitus with other specified complication; E78.5 Hyperlipidemia, unspecified; E87.5 Hyperkalemia; I25.10 Atherosclerotic heart disease of native coronary artery without angina pectoris; I25.2 Old myocardial infarction; Z79.84 Long term (current) use of oral hypoglycemic drugs; L97.519 Non-pressure chronic ulcer of other part of right foot with unspecified severity; Z11.59 Encounter for screening for other viral diseases; L97.529 Non-pressure chronic ulcer of other part of left foot with unspecified severity; L08.9 Local infection of the skin and subcutaneous tissue, unspecified; L89.90 Pressure ulcer of unspecified site, unspecified stage; E11.628 Type 2 diabetes mellitus with other skin complications; E11.621 Type 2 diabetes mellitus with foot ulcer; E11.51 Type 2 diabetes mellitus with diabetic peripheral angiopathy without gangrene; E11.40 Type 2 diabetes mellitus with diabetic neuropathy, unspecified; M19.90 Unspecified osteoarthritis, unspecified site; Z79.899 Other long term (current) drug therapy; Z87.891 Personal history of nicotine dependence; R74.0 Nonspecific elevation of levels of transaminase and lactic acid dehydrogenase [LDH]; R79.89 Other specified abnormal findings of blood chemistry; Z95.828 Presence of other vascular implants and grafts; Z81.8 Family history of other mental and behavioral disorders; Z80.9 Family history of malignant neoplasm, unspecified; R26.9 Unspecified abnormalities of gait and mobility; J45.909 Unspecified asthma, uncomplicated; Z79.02 Long term (current) use of antithrombotics/antiplatelets; Z82.49 Family history of ischemic heart disease and other diseases of the circulatory system; K59.00 Constipation, unspecified; R42 Dizziness and giddiness; R26.81 Unsteadiness on feet
CPT/HCPCS: 36415; 70450; 71046; 80053; 82550; 82553; 83036; 83605; 83735; 83880; 84484; 85025; 85610; 85730; 86701; 86704; 86705; 86803; 87340; 93005; 94640; 94760; 96365; 96375; 96376; 99285